=== PATIENT | female | born 1945 | race Caucasian/White ===

== ENCOUNTER 2016-12-23 12:31 | Inpatient (IN) | payer OTHER ==
[~2016-12-23] VITALS: Ht 157.5 cm; Wt 81.3 kg
[~2016-12-23 12:31] MED LIST: CLR10 PO; LISI10TA PO; RANI300T2 PO
[2016-12-23] MEDS ORDERED: SODIUM CHLORIDE 0.9% 1000ML 1,000 ML IV STA (12:44)
[2016-12-23] MEDS ORDERED: DiphenhydrAMINE HCL 50 MG/ML VIAL IV STA (12:44)
[2016-12-23] MEDS ORDERED: CARBAMIDE PEROXIDE 6.5% 15 ML BTL OT STA (12:44)
[2016-12-23] MEDS ORDERED: METOCLOPRAMIDE HCL INJ 5 MG/ML 2 ML VIAL IV STA (12:44)
--- NOTE | 2016-12-23 12:53 | EMERGENCY ROOM VISIT NOTE ---
History Report prepared by Meri: Norma Klein Under the Supervision of: Dr. Andrez Kimbrough M.D. First contact with patient: 12:41 Chief Complaint: DIZZY Stated Complaint: DIZZINESS, NAUSEA, NUMBNESS,LACK OF BALANCE History of Present Illness The patient is a 71 year old female who presents to the Emergency Room with complaints of dizziness that continued today. The patient states that she was in the ED yesterday for the same symptoms but then felt better. The patient had a normal CT scan and Chest X-Ray. The patient also had normal labs. She reports that she was given high blood pressure medication. She states that her blood pressure is worse today than it was yesterday. She reports that she is unable to keep her balance. The patient also reports having nausea, chills, and nasal congestion. The patient reports having diarrhea last night after having a bowl of soup, but states that it was not bloody or black. She denies having fevers and burning with urination. She states that she has a history of allergies. The patient reports that the last time she saw a doctor was when she shattered her wrist. The patient states that she has never had an MRI done before. Source of History: patient Onset: today Position: other (global) Quality: other (dizziness) Associated Symptoms: + nausea, + diarrhea, No fevers, No urinary symptoms ( denies burning with urination) Note: additional symptom: nasal congestion Review of Systems See HPI for pertinent positives and negatives. A total of ten systems were reviewed and were otherwise negative. Past Medical & Surgical Medical Problems: (1) Hypertension (2) Stroke Family History Cancer Hypertension Social History Smoking Status: Never Smoker Alcohol Use: none Drug Use: none Marital Status: single Housing Status: lives alone Occupation Status: retired Current/Historical Medications Scheduled Lisinopril (Prinivil), 10 MG PO DAILY Loratadine (Claritin), 10 MG PO DAILY Scheduled PRN Ranitidine Hcl (Zantac), 1 TAB PO HS PRN for Indigestion Allergies Coded Allergies: Dust (Unverified Allergy, Intermediate, ITCHY EYES,SNEEZING, 12/23/16) Ragweed (Unverified Allergy, Intermediate, ITCHY EYES, SNEEZING, 12/23/16) Physical Exam Vital Signs Date Time Temp Pulse Resp B/P (MAP) Pulse Ox O2 Delivery O2 Flow Rate FiO2 12/23/16 14:58 85 146/97 94 Room Air 12/23/16 13:17 81 12/23/16 12:34 37.0 107 20 93/69 96 Room Air Physical Exam GENERAL: Awake, alert, uncomfortable-appearing, in no acute distress HENT: Normocephalic, atraumatic. Oropharynx unremarkable. Dry cracked mucous membranes. Boggy nasal turbinates, b/l EAC with cerumen impaction. EYES: Normal conjunctiva. Sclera non-icteric. NECK: Supple. No nuchal rigidity. FROM. No JVD. RESPIRATORY: Clear to auscultation. CARDIAC: Regular rate, normal rhythm. Extremities warm and well perfused. Pulses equal. ABDOMEN: Obese abdomen. Soft, non-distended. No tenderness to palpation. No rebound or guarding. No masses. RECTAL: Deferred. MUSCULOSKELETAL: Chest examination reveals no tenderness. The back is symmetrical on inspection without obvious abnormality. There is no CVA tenderness to palpation. No joint edema. LOWER EXTREMITIES: Calves are equal size bilaterally and non-tender. No edema. No discoloration. NEURO: Normal sensorium. Slight bilateral nystagmus. Worsening dizziness with movement. Equivocal finger to nose with left upper extremity and alternating palms. Equivocal Romberg's sign. 5/5 strength and SILT x 4 ext. CII-XII grossly intact. SKIN: No rash or jaundice noted. Medical Decision & Procedures ER Provider Diagnostic Interpretation: Radiology results as stated below per my review and radiologist interpretation: MRI OF THE BRAIN WITHOUT IV CONTRAST CLINICAL HISTORY: Vertigo. COMPARISON STUDY: CT of the brain dated 12/22/2016. TECHNIQUE: MRI of the brain was performed utilizing various T1 and T2-weighted sequences in the axial, sagittal, and coronal planes. IV contrast was not administered for this examination. FINDINGS: Brain parenchyma: There is restricted diffusion identified throughout the right posterior cerebral artery territory consistent with acute to subacute infarct. A tiny lacunar infarct is seen in the right thalamus. There is no hemorrhage or midline shift. There our age-related involutional changes noting mild to moderate patchy subcortical and periventricular microangiopathic disease. A tiny focus of T2 shine through is seen within the left subcortical white matter on image #16. No extra-axial fluid collection is seen. The cerebellar tonsils are normal in configuration. Ventricles, sulci, and cisterns: Prominent secondary to involutional change. Pituitary and sella: Unremarkable. Intracranial vasculature: Normal flow voids are maintained at the skull base. Orbits: The bony orbits are grossly intact. Orbital contents are normal in appearance. Sinuses and mastoids: There is fluid identified in the right sphenoid sinus. Remaining paranasal sinuses are clear. The mastoid air cells are well pneumatized. Calvarium: Unremarkable. Cervical cord: Partially visualized cervical spinal cord is normal in morphology and signal intensity. Soft tissues: There is a 4 x 3 cm mass in the left parotid gland. IMPRESSION: 1. Findings are consistent with an acute to subacute right posterior cerebral artery territory infarct. 2. A small acute to subacute lacunar infarct is seen in the right thalamus. 3. No hemorrhage or midline shift is identified. 4. 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 Electronically signed by: Farshad Davis M.D. 12/23/2016 2:31 PM Dictated Date/Time: 12/23/2016 2:26 PM Laboratory Results 12/23/16 13:25 Red Blood Count 4.71, Mean Corpuscular Volume 85.8, Mean Corpuscular Hemoglobin 28.2, Mean Corpuscular Hemoglobin Concent 32.9, Mean Platelet Volume 9.6, Neutrophils (%) (Auto) 79.7, Lymphocytes (%) (Auto) 12.4, Monocytes (%) (Auto) 6.7, Eosinophils (%) (Auto) 0.5, Basophils (%) (Auto) 0.5, Neutrophils # (Auto) 6.94, Lymphocytes # (Auto) 1.08, Monocytes # (Auto) 0.58, Eosinophils # (Auto) 0.04, Basophils # (Auto) 0.04 12/23/16 13:25 Test 12/23/16 13:25 White Blood Count 8.70 K/uL (4.8-10.8) Red Blood Count 4.71 M/uL (4.2-5.4) Hemoglobin 13.3 g/dL (12.0-16.0) Hematocrit 40.4 % (37-47) Mean Corpuscular Volume 85.8 fL (80-100) Mean Corpuscular Hemoglobin 28.2 pg (25-34) Mean Corpuscular Hemoglobin Concent 32.9 g/dl (32-36) Platelet Count 325 K/uL (130-400) Mean Platelet Volume 9.6 fL (7.4-10.4) Neutrophils (%) (Auto) 79.7 % Lymphocytes (%) (Auto) 12.4 % Monocytes (%) (Auto) 6.7 % Eosinophils (%) (Auto) 0.5 % Basophils (%) (Auto) 0.5 % Neutrophils # (Auto) 6.94 K/uL (1.4-6.5) Lymphocytes # (Auto) 1.08 K/uL (1.2-3.4) Monocytes # (Auto) 0.58 K/uL (0.11-0.59) Eosinophils # (Auto) 0.04 K/uL (0-0.5) Basophils # (Auto) 0.04 K/uL (0-0.2) RDW Standard Deviation 46.2 fL (36.4-46.3) RDW Coefficient of Variation 14.7 % (11.5-14.5) Immature Granulocyte % (Auto) 0.2 % Immature Granulocyte # (Auto) 0.02 K/uL (0.00-0.02) Prothrombin Time 11.8 SECONDS (9.0-12.0) Prothromb Time International Ratio 1.1 (0.9-1.1) Anion Gap 10.0 mmol/L (3-11) Estimated GFR () 53.9 Estimated GFR (Non- 46.5 BUN/Creatinine Ratio 13.1 (10-20) Calcium Level 9.3 mg/dl (8.5-10.1) Magnesium Level 2.2 mg/dl (1.8-2.4) Total Bilirubin 0.6 mg/dl (0.2-1) Direct Bilirubin < 0.1 mg/dl (0-0.2) Aspartate Amino Transf (AST/SGOT) 9 U/L (15-37) Alanine Aminotransferase (ALT/SGPT) 18 U/L (12-78) Alkaline Phosphatase 130 U/L (45-117) Troponin I < 0.015 ng/ml (0-0.045) Total Protein 7.2 gm/dl (6.4-8.2) Albumin 3.4 gm/dl (3.4-5.0) Lipase 98 U/L (73-393) Laboratory results reviewed by me Medications Administered Medications (Trade) Dose Ordered Sig/Samantha Route Start Time Stop Time Status Last Admin Dose Admin Sodium Chloride 1,000 ml @ 999 mls/hr Q1H1M STAT IV 12/23/16 12:44 12/23/16 13:44 DC 12/23/16 12:44 999 MLS/HR Metoclopramide HCl (Reglan Inj) 10 mg NOW STAT IV 12/23/16 12:44 12/23/16 12:58 DC 12/23/16 13:29 10 MG Diphenhydramine HCl (Benadryl Inj) 25 mg NOW STAT IV 12/23/16 12:44 12/23/16 12:58 DC 12/23/16 13:29 25 MG ECG Indication: other (dizziness ) Rate (beats per minute): 84 Rhythm: normal sinus Findings: LAFB, no acute ischemic change Change: no significant change ED Course 1243: The patient was evaluated in room C7. A complete history and physical exam was performed. 1244: Ordered Carbamide Peroxide 2 drops OT, Benadryl Inj 25 mg IV, Reglan Inj 10 mg IV, and Sodium Chloride 1,000 ml @ 999 mls/hr IV. 1450: I checked on the patient. 1459: I discussed the patient with Dr. Patel - He will evaluate the patient for further treatment. 1505: Upon reexamination, the patient was resting. I discussed the test results and treatment plan with her. The patient will be evaluated for further management. Medical Decision I reviewed the patient's past medical history, medications, and the nursing notes as described above. Differentials include: dehydration, electrolyte abnormalities, TIA, stroke, and peripheral vertigo. The patient is a 71-year-old woman who presents emergency Department with persistent vertigo after being seen in the emergency department yesterday for similar sx and was treated with blood pressure control and felt improvement and had negative workup with negative CT head and labs per history of present illness. Denies any facial numbness today and feels as though previously it was from sleeping on her pillow. On arrival the patient appears uncomfortable but in no acute distress. She has slight bilateral nystagmus which is worsened with position. Equivocal finger-nose and alternating palms with left upper extremity, equivocal Romberg sign. B/l EAC with impacted cerumen and boggy nasal turbinates. Given repeat ED visit with persistent sx MRI ordered to jaden/o central cause. MRI was done and shows acute-subacute right cerebellar and right thalamic stroke. Given approximately 2 days of sx without any worsening, no indication for stroke activation. Labs otherwise unremarkable. EKG unchanged from prior. Trop negative. Case d/w Dr. Reyes, [facility] hospitalist, who will admit the patient for further management. Medication Reconcilliation Current Medication List: was personally reviewed by me Blood Pressure Screening Patient's blood pressure: Normal blood pressure Consults Time Called: 1430 Consulting Physician: Dr. Patel- [facility] Returned Call: [phone] I discussed the patient with Dr. Patel - He will evaluate the patient for further treatment. Impression Primary Impression: Cerebellar stroke Additional Impression: Thalamic infarction Scribe Attestation The scribe's documentation has been prepared under my direction and personally reviewed by me in its entirety. I confirm that the note above accurately reflects all work, treatment, procedures, and medical decision making performed by me. Departure Information Dispostion Being Evaluated By Hospitalist Referrals No Doctor, Assigned (PCP) Patient Instructions My [facility] Health Problem Qualifiers
[2016-12-23 14:10] LABS: BASO % 0.5 %; BASO ABS # 0.04 K/uL (0-0.2); COMPLETE YES; EOS % 0.5 %; HEMATOCRIT 40.4 % (37-47); IG% 0.2 %; LYMPH % 12.4 %; LYMPH ABS # 1.08 K/uL (1.2-3.4); MEAN CELL VOLUME 85.8 fL (80-100); MEAN CORPUSCULAR HEMOGLOBIN 28.2 pg (25-34); MEAN CORPUSCULAR HGB CONC 32.9 g/dl (32-36); MEAN PLATELET VOLUME 9.6 fL (7.4-10.4); MONO % 6.7 %; NEUT % 79.7 %; PLATELET COUNT 325 K/uL (130-400); RED BLOOD COUNT 4.71 M/uL (4.2-5.4)
[2016-12-23 14:16] LABS: ALT/SGPT 18 U/L (12-78); AST/SGOT 9 U/L (15-37); BLOOD UREA NITROGEN 16 mg/dl (7-18); BUN/CREATININE RATIO 13.1 (10-20); CALCIUM 9.3 mg/dl (8.5-10.1); CARBON DIOXIDE 25 mmol/L (21-32); CHLORIDE 106 mmol/L (98-107); CREATININE 1.19 mg/dl (0.60-1.20); GLUCOSE 193 mg/dl (70-99); MAGNESIUM 2.2 mg/dl (1.8-2.4); POTASSIUM 3.9 mmol/L (3.5-5.1); SODIUM 141 mmol/L (136-145)
[2016-12-23 14:18] LABS: ALKALINE PHOSPHATASE 130 U/L (45-117)
--- NOTE | 2016-12-23 14:32 | DIAGNOSTIC IMAGING REPORT ---
MRI OF THE BRAIN WITHOUT IV CONTRAST CLINICAL HISTORY: Vertigo. COMPARISON STUDY: CT of the brain dated 12/22/2016. TECHNIQUE: MRI of the brain was performed utilizing various T1 and T2-weighted sequences in the axial, sagittal, and coronal planes. IV contrast was not administered for this examination. FINDINGS: Brain parenchyma: There is restricted diffusion identified throughout the right posterior cerebral artery territory consistent with acute to subacute infarct. A tiny lacunar infarct is seen in the right thalamus. There is no hemorrhage or midline shift. There our age-related involutional changes noting mild to moderate patchy subcortical and periventricular microangiopathic disease. A tiny focus of T2 shine through is seen within the left subcortical white matter on image #16. No extra-axial fluid collection is seen. The cerebellar tonsils are normal in configuration. Ventricles, sulci, and cisterns: Prominent secondary to involutional change. Pituitary and sella: Unremarkable. Intracranial vasculature: Normal flow voids are maintained at the skull base. Orbits: The bony orbits are grossly intact. Orbital contents are normal in appearance. Sinuses and mastoids: There is fluid identified in the right sphenoid sinus. Remaining paranasal sinuses are clear. The mastoid air cells are well pneumatized. Calvarium: Unremarkable. Cervical cord: Partially visualized cervical spinal cord is normal in morphology and signal intensity. Soft tissues: There is a 4 x 3 cm mass in the left parotid gland. IMPRESSION: 1. Findings are consistent with an acute to subacute right posterior cerebral artery territory infarct. 2. A small acute to subacute lacunar infarct is seen in the right thalamus. 3. No hemorrhage or midline shift is identified. 4. 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 Electronically signed by: Farshad Davis M.D. 12/23/2016 2:31 PM Dictated Date/Time: 12/23/2016 2:26 PM
[2016-12-23] MEDS ORDERED: ACETAMINOPHEN 325 MG TAB PO PRN (15:15)
[2016-12-23] MEDS ORDERED: POLYETHYLENE (MIRALAX) 17 GM PACK PO PRN (15:15)
[2016-12-23] MEDS ORDERED: MAGNESIUM HYDROXIDE SUSP 30 ML UDC PO PRN (15:15)
[2016-12-23] MEDS ORDERED: ALUMINUM/MAGNESIUM/SIMETH (MAALOX MAX) 30 ML UDC PO PRN (15:15)
[2016-12-23] MEDS ORDERED: PHARMACIST DISCHARGE MED REC CONSULT PRN (15:15)
--- NOTE | 2016-12-23 16:05 | History and Physical ---
History & Physical Date of Service Dec 23, 2016. History & Physical admit #[id number]
[2016-12-23 16:24] VITALS: BP 148/87; PULSE 85; TEMP 36.8; O2SAT 94; BMI 32.2
[2016-12-23 16:27] VITALS: BP 148/87; PULSE 85; TEMP 36.8; O2SAT 94
--- NOTE | 2016-12-23 16:37 | DIAGNOSTIC IMAGING REPORT ---
ULTRASOUND OF THE CAROTID ARTERIES CLINICAL HISTORY: Right EMS DIRECTOR territory stroke. COMPARISON STUDY: No priors. TECHNIQUE: Real-time, grayscale, and color Doppler sonography of the carotid arteries is performed. Images are reviewed in the transverse and longitudinal planes. FINDINGS: Blood pressures were not assessed due to IV access. The carotid arteries are patent bilaterally and demonstrate antegrade flow. There is mild atherosclerotic plaque seen in the carotid bulbs bilaterally. Normal doppler arterial waveforms are seen throughout. Velocity measurements are listed below. Common carotid peak systolic velocity (cm/sec): RIGHT: 88 LEFT: 97 ICA proximal peak systolic velocity (cm/sec): RIGHT: 84 LEFT: 77 ICA mid peak systolic velocity (cm/sec): RIGHT: 56 LEFT: 62 ICA distal peak systolic velocity (cm/sec): RIGHT: 58 LEFT: 56 ICA/CC peak systolic ratio: RIGHT: 1.0 LEFT: 0.8 Antegrade flow was shown in the vertebral arteries. The external carotid arteries are patent. IMPRESSION: 1. There is no sonographic evidence of hemodynamically significant stenosis in the right or left carotid arterial system. 2. Antegrade flow is shown in the vertebral arteries. Electronically signed by: Farshad Davis M.D. 12/23/2016 4:36 PM Dictated Date/Time: 12/23/2016 4:34 PM
[2016-12-23] MEDS ORDERED: PATIENT'S HEIGHT AND/OR WEIGHT NEEDED SCH (16:45)
--- NOTE | 2016-12-23 16:46 | HISTORY & PHYSICAL EXAMINATION ---
DATE OF ADMISSION: 12/23/2016 CHIEF COMPLAINT: Dizziness. HISTORY OF PRESENT ILLNESS: Ms. Hernández is a 71-year-old female, who notes she was in her usual state of health until a couple of days ago. She started to have some dizziness. She describes it mostly as an unsteadiness like the world is moving, definitely not a lightheadedness. She had no other focal numbness or weakness, but it was worse. She was stumbling into gunn. Initially, she wrote it off as just a flare of vertigo that she notes she gets from time to time and has for years, but then whenever it was persistent, she came to the ER for further evaluation. Yesterday, did a CT head that was negative, found her to be hypertensive and gave her lisinopril and was set up with a PCP today with the symptoms being progressive and the CT negative yesterday. An MRI of brain was checked that did show an acute to subacute right posterior cerebral artery territory infarct and subacute lacunar infarct as well as incidentally, a 4-cm left parotid mass. She denies any other symptoms. REVIEW OF SYSTEMS: Otherwise negative, except for as above. PAST MEDICAL HISTORY: She denies any past medical history, although admittedly has not seen a doctor in an uncertain, but long period of time. PAST SURGICAL HISTORY: None. SOCIAL HISTORY: She is not a smoker, very rare drinker. 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 No other drugs. 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 ALLERGIES: NO KNOWN DRUG ALLERGIES. SHE DOES NOTE DUST AND RAGWEED ALLERGIES. MEDICATIONS: None. PHYSICAL EXAMINATION: VITAL SIGNS: Temperature 37, pulse 107, respiratory rate 20, blood pressure 93/69, and 96% on room air. GENERAL: She is awake, alert, oriented x3, pleasant, in no acute distress. HEENT: Normocephalic, atraumatic. Mucous membranes are dry. CARDIOVASCULAR: Regular without rubs, murmurs, or gallops. LUNGS: Clear to auscultation bilaterally. No rales, rhonchi, or wheezes. Good effort. ABDOMEN: Soft, nondistended, nontender. No masses or organomegaly. EXTREMITIES: Without cyanosis, clubbing, or edema. No calf tenderness. SKIN: Shows no rashes. No pallor or icterus. NEUROLOGIC: Shows cranial nerves II-XII to be grossly intact except she does maybe seem to have a bit of left lateral visual problems. It is hard to completely confirm and she write to the office not having her glasses. She is also relatively poor [id number] with her left hand to the far left. She is reasonably stooped [id number] with her right hand. Gait was not assessed at this time. SKIN: Shows no rashes, no pallor or icterus. MUSCULOSKELETAL: Exam yields no gross lesions. LABS AND DIAGNOSTICS: CBC shows a white count of 8.7, hemoglobin 13.3, platelets 325. Complete metabolic panel with sodium 141, potassium 3.9, chloride 106, CO2 of 25, BUN 16, creatinine 1.19, calcium 9.3, glucose 193, total bili 0.6 with a direct of 0.1. AST 9, ALT 18, alkaline phosphatase 130. Troponin of less than 0.015. Total protein 7.2, albumin 3.4, lipase 98. IMAGING STUDIES: MRI brain shows restricted diffusion identified throughout the right posterior cerebral artery territory consistent with an acute to subacute infarct, tiny lacunar infarct in the right thalamus. No hemorrhage or midline shift, age-related involutional changes noting [id number] patchy subcortical and periventricular microangiopathic disease, tiny focus of T2 shine through is seen within the left subcortical white matter on image #16. No extraaxial fluid collection. There is a 4.4 x 3 cm mass in the left parotid gland. ASSESSMENT AND PLAN: 1. Dizziness. This appears to be due to stroke. 2. Stroke. She is subacute and given her duration of symptoms, it sounds like she was probably well out of the window even yesterday. Whenever she saw the ER, it is uncertain exactly what her risk factors are given that she has not seen a doctor in quite a while. We will be following blood pressure, checking lipids and A1c, checking carotid Dopplers, following cardiac rhythm and checking an echocardiogram to rule out cardioembolic source. Will be initiated on an aspirin 81 mg daily, and then further medications. Based on further findings, we will ask Neurology to evaluate as well. PT/OT eval and treat and will be working on setting her up with the PCP. 3. Parotid gland mass, outpatient workup. 4. Deep venous thrombosis prophylaxis, Lovenox.
[2016-12-23 17:10] LABS: INR 1.1 (0.9-1.1); PROTHROMBIN TIME (PATIENT) 11.8 SECONDS (9.0-12.0)
[2016-12-23 19:29] VITALS: BP 137/79; PULSE 78; TEMP 37.7; O2SAT 91
[2016-12-23 20:00] VITALS: O2SAT 91
[2016-12-23] MEDS: ONDANSETRON INJ 2 MG/ML 2 ML VIAL IV PRN (22:08)
[2016-12-23] MEDS: ENOXAPARIN 40 MG/0.4 ML SYR SC SCH (22:08)
[2016-12-23 23:02] VITALS: BP 121/82; PULSE 78; TEMP 37.1; O2SAT 90
[2016-12-24] VITALS (7 sets, daily range): BP systolic 118–148; BP diastolic 78–93; PULSE 85–98; TEMP 36.7–37.2; O2SAT 89–98
--- NOTE | 2016-12-24 08:00 | Family Medicine Progress Note ---
Progress Note Date of Service Dec 24, 2016. Subjective Pt evaluation today including: conversation w/ patient, physical exam, chart review, lab review, conversation w/ [id number] consultant, review of inpatient medication list PO Intake: good Voiding: no voiding problems Patient is still feeling unsteady on her feet Denies any symptoms at rest Constitutional: No fever, No chills, No sweats Eyes: No eye pain, No diplopia ENT: No hearing loss, No trouble swallowing Respiratory: No cough, No wheezing, No shortness of breath Cardiovascular: No chest pain, No palpitations Abdomen: No pain, No nausea, No vomiting, No diarrhea Neurologic: + balance problems, No memory loss, No paralysis, No weakness, No numbness/tingling, No vertigo Medications Current Inpatient Medications Medications (Trade) Dose Ordered Sig/Samantha Route Start Time Stop Time Status Last Admin Dose Admin Enoxaparin Sodium (Lovenox Inj) 40 mg Q24H SC 12/23/16 21:00 01/22/17 20:59 12/23/16 22:08 40 MG Acetaminophen (Tylenol Tab) 650 mg Q4H PRN PO 12/23/16 15:15 01/22/17 15:14 Al Hydrox/Mg Hydrox/Simethicone (Maalox Max Susp) 15 ml Q4H PRN PO 12/23/16 15:15 01/22/17 15:14 Magnesium Hydroxide (Milk Of Magnesia Susp) 30 ml Q12H PRN PO 12/23/16 15:15 01/22/17 15:14 Ondansetron HCl (Zofran Inj) 4 mg Q6H PRN IV 12/23/16 15:15 01/22/17 15:14 12/24/16 17:42 4 MG Polyethylene (Miralax Powder Packet) 17 gm DAILY PRN PO 12/23/16 15:15 01/22/17 15:14 Aspirin (Ecotrin Tab) 81 mg QAM PO 12/24/16 09:00 01/23/17 08:59 12/24/16 08:23 81 MG Miscellaneous Information (Pharmacist Discharge Med Rec Consult) 1 ea UD PRN N/A 12/23/16 15:15 01/22/17 15:14 Metformin HCl (Glucophage Tab) 500 mg BIDM PO 12/24/16 16:45 01/23/17 16:44 12/24/16 17:42 500 MG Atorvastatin Calcium (Lipitor Tab) 80 mg QAM PO 12/25/16 09:00 01/24/17 08:59 Objective Vital Signs Date Time Temp Pulse Resp B/P (MAP) Pulse Ox O2 Delivery O2 Flow Rate FiO2 12/24/16 16:11 Room Air 12/24/16 15:54 37.2 97 22 140/93 (109) 94 Room Air 12/24/16 12:00 Room Air 12/24/16 11:06 36.7 96 20 137/92 (107) 93 Room Air 12/24/16 10:38 85 92 12/24/16 08:17 36.7 96 20 146/92 (110) 89 Room Air 12/24/16 08:00 Room Air 12/24/16 04:00 Room Air 12/24/16 03:27 37.1 91 20 128/78 (95) 98 Room Air 12/23/16 23:59 Room Air 12/23/16 23:02 37.1 78 20 121/82 (95) 90 Room Air 12/23/16 20:00 91 Room Air 12/23/16 19:29 37.7 78 20 137/79 (98) 91 Room Air Physical Exam General Appearance: WD/WN, no apparent distress ENT: hearing grossly normal, pharynx normal, + pertinent finding (large parotid swelling on left side, non tender, non fluctuant) Neck: supple, no adenopathy, no JVD, no carotid bruits Respiratory/Chest: lungs clear, no respiratory distress, no accessory muscle use Cardiovascular: regular rate, rhythm, no JVD, no murmur Abdomen: normal bowel sounds, non tender, soft Extremities: no pedal edema, no calf tenderness, normal capillary refill Neurologic/Psychiatric: no motor/sensory deficits, normal mood/affect, oriented x 3, + pertinent finding (unable to full adduct left eye, able to do finger to nose test, PERRLA) Skin: normal color, warm/dry, no rash Laboratory Results Results Past 24 Hours Test 12/24/16 06:57 Range/Units Triglycerides Level 205 0-150 mg/dl Cholesterol Level 234 0-200 mg/dl HDL Cholesterol 49 mg/dl LDL Cholesterol, Calculated 144 mg/dl VLDL Cholesterol, Calculated 41 mg/dl Cholesterol/HDL Ratio 4.8 Assessment and Plan 71 year old female presented with worsening dizziness and unsteadiness on her feet and was found to have a posterior cerebral infarct Stroke MRI showed posterior cerebral infarct neuro consulted aspirin started zofran prn for nausea echo showed grade 1 diastolic dysfunction and mild asymmetric LVH carotid dopplers ordered pt/ot ordered - will likely need rehab primary prevention - hyperlipidemia (will treat with statin) and elevated HbA1c (metformin) New Onset Diabetes Mellitus start metformin 500mg bid HbA1c 7.9 Hyperlipidemia ldl 144 and tg 205 start high dose statin 80mg monitor for drug side effects Parotid mass 4cm on MRI imaging follow up as outpatient DVT prophylaxis lovenox Dispo pt/ot will need rehab with [facility] stay due to: ambulation difficulties Discharge planning: rehab hospital History Resident Physician Supervision Note: I was present with Dr. Betancourt during the history and exam. I discussed the case with the resident and agree with the findings and plan as documented in the note. Any exceptions or clarifications are listed here. 71 y/o female h/o parotid mass presents w/ new onset dizziness in the setting of CVA. At present, dizziness is persistent but mildly improved from previous, mild nausea which is presently well controlled. Difficulty with standing 2/2 balance changes. On examination, rightward gaze nystagmus w/ exacerbation of sx and +ve left dysdiadochokinesia. CVA w/ dizziness - neurology consulted. PT/OT. ASA New diagnosis of DMII - start metformin New diagnosis of HLD - initiate statin therapy Parotid gland mass - concur with further work up on outpatient basis
[2016-12-24 08:08] LABS: CHOLESTEROL/HDL RATIO 4.8
[2016-12-24] MEDS ORDERED: PERFLUTREN LIPID MICROSPHERE (DEFINITY) IV ONE (08:21)
[2016-12-24] MEDS: ASPIRIN 81 MG ECTAB PO SCH (08:23)
[2016-12-24 08:47] LABS: ESTIMATED AVERAGE GLUCOSE 180 mg/dl; HA1C FLAG Normal (Normal)
--- NOTE | 2016-12-24 09:07 | Neurology Consultation ---
Neurology Consultation Date of Consultation: Dec 24, 2016. Attending Physician: Miguel Patel D.O. Primary Care Physician: No Doctor, Assigned Reason for Consultation: Stroke History of Present Illness Source: patient, hospital records The patient is a 71-year-old female who complains of dizziness and problems with balance associated nausea that began several days ago. She denies vertigo or a sensation of movement. She denies headache as well. He reports that her symptoms are stable to improved. She had initially presented to the emergency department on December 22 for evaluation of her symptoms. A CT of the head at that time was unremarkable. She was noted to be significantly hypertensive. No specific neurological deficits were found at that time. She was given a prescription for lisinopril and discharged in stable condition. The patient presented to the emergency department the following day complaining of persistent symptoms. A brain MRI was completed which revealed an acute right posterior cerebral artery infarct affecting the medial right occipital lobe as well as a small area within the right thalamus. I reviewed both the images and radiologist's interpretation of this test. Carotid duplex is negative for hemodynamically significant stenosis. Electrocardiogram reveals normal sinus rhythm, 84 bpm. Aspirin has been started. She has been admitted for further evaluation and management of acute stroke. In spite of the presence of an acute right occipital lobe infarct, the patient does not complain of any visual field loss. She also denies experiencing any hemisensory loss. She denies headache or weakness as well. Past Medical/Surgical History Medical Problems: (1) Cerebellar stroke Status: Acute (2) Hyperglycemia Status: Acute (3) Hypertension Status: Acute (4) Thalamic infarction Status: Acute Family History Family history is notable for hypertension Social History Drug Use: none Marital Status: single Housing Status: lives alone Occupation Status: retired Allergies Coded Allergies: Dust (Unverified Allergy, Intermediate, ITCHY EYES,SNEEZING, 12/23/16) Ragweed (Unverified Allergy, Intermediate, ITCHY EYES, SNEEZING, 12/23/16) Current Inpatient Medications Current Inpatient Medications Medications (Trade) Dose Ordered Sig/Samantha Route Start Time Stop Time Status Last Admin Dose Admin Enoxaparin Sodium (Lovenox Inj) 40 mg Q24H SC 12/23/16 21:00 01/22/17 20:59 12/23/16 22:08 40 MG Acetaminophen (Tylenol Tab) 650 mg Q4H PRN PO 12/23/16 15:15 01/22/17 15:14 Al Hydrox/Mg Hydrox/Simethicone (Maalox Max Susp) 15 ml Q4H PRN PO 12/23/16 15:15 01/22/17 15:14 Magnesium Hydroxide (Milk Of Magnesia Susp) 30 ml Q12H PRN PO 12/23/16 15:15 01/22/17 15:14 Ondansetron HCl (Zofran Inj) 4 mg Q6H PRN IV 12/23/16 15:15 01/22/17 15:14 12/23/16 22:08 4 MG Polyethylene (Miralax Powder Packet) 17 gm DAILY PRN PO 12/23/16 15:15 01/22/17 15:14 Aspirin (Ecotrin Tab) 81 mg QAM PO 12/24/16 09:00 01/23/17 08:59 12/24/16 08:23 81 MG Miscellaneous Information (Pharmacist Discharge Med Rec Consult) 1 ea UD PRN N/A 12/23/16 15:15 01/22/17 15:14 Review of Systems Constitutional: No headache fever or chills Eyes: No vision loss or diplopia ENT: No vertigo. Patient does complain of chronic hearing loss for the right ear. Cardiovascular: No chest pain or palpitations Respiratory: No coughing wheezing or shortness of breath Neurological: As per history of present illness A full 10 point review of systems was obtained from this patient with pertinent positives and negatives described in the history of present illness and otherwise listed above. All remaining systems reviewed and are negative. Physical Exam Vital Signs (Past 24 Hrs): Date Time Temp Pulse Resp B/P (MAP) Pulse Ox O2 Delivery O2 Flow Rate FiO2 12/24/16 08:17 36.7 96 20 146/92 (110) 89 Room Air 12/24/16 04:00 Room Air 12/24/16 03:27 37.1 91 20 128/78 (95) 98 Room Air 12/23/16 23:59 Room Air 12/23/16 23:02 37.1 78 20 121/82 (95) 90 Room Air 12/23/16 20:00 91 Room Air 12/23/16 19:29 37.7 78 20 137/79 (98) 91 Room Air 12/23/16 16:27 36.8 85 22 148/87 (107) 94 Room Air 12/23/16 16:24 36.8 85 20 148/87 94 Room Air 12/23/16 16:04 85 147/99 95 12/23/16 14:58 85 146/97 94 Room Air 12/23/16 13:17 81 12/23/16 12:34 37.0 107 20 93/69 96 Room Air The patient is a well-developed elderly female. She is lying in bed, no acute distress. Patient is alert and oriented to person place and time. Recent and remote memory intact. Attention and concentration normal. Patient is able to name objects and repeat phrases without difficulty. She exhibits an age- appropriate fund of knowledge and normal vocabulary. Patient exhibits a left homonymous hemianopsia with confrontation testing. Visual acuity normal. Pupils equal round reactive to light and accommodation. Eye movements normal. There is no nystagmus. Facial sensation intact bilaterally. There is no facial droop or asymmetry. There is diminished hearing to finger rub on the right. Finger rub for the left intact. Palate elevates to midline. Shoulder shrug strength intact bilaterally. Tongue protrudes to midline. Sensation intact to light touch, temperature, vibration, and proprioception for all 4 limbs. Deep tendon reflexes are 2+ for the right arm and leg, 3+ for the left arm and leg. Left plantar response upgoing. Right plantar response equivocal. There is slight dysmetria with finger to nose on the left. Finger to nose with the right normal. [id number] intact bilaterally. Ophthalmoscopic examination reveals normal-appearing optic nerves and posterior segments. No papilledema or hemorrhages. Carotid pulses normal bilaterally, no bruits to auscultation. Gait and station could not be tested due to safety concerns. Muscle strength normal for the arms and legs bilaterally. Muscle tone normal throughout. No atrophy. No abnormal movements observed. Laboratory Results Past 24 Hours: 12/23/16 13:25 Red Blood Count 4.71, Mean Corpuscular Volume 85.8, Mean Corpuscular Hemoglobin 28.2, Mean Corpuscular Hemoglobin Concent 32.9, Mean Platelet Volume 9.6, Neutrophils (%) (Auto) 79.7, Lymphocytes (%) (Auto) 12.4, Monocytes (%) (Auto) 6.7, Eosinophils (%) (Auto) 0.5, Basophils (%) (Auto) 0.5, Neutrophils # (Auto) 6.94, Lymphocytes # (Auto) 1.08, Monocytes # (Auto) 0.58, Eosinophils # (Auto) 0.04, Basophils # (Auto) 0.04 12/23/16 13:25 Test 12/23/16 13:25 12/24/16 06:57 White Blood Count 8.70 K/uL (4.8-10.8) Red Blood Count 4.71 M/uL (4.2-5.4) Hemoglobin 13.3 g/dL (12.0-16.0) Hematocrit 40.4 % (37-47) Mean Corpuscular Volume 85.8 fL (80-100) Mean Corpuscular Hemoglobin 28.2 pg (25-34) Mean Corpuscular Hemoglobin Concent 32.9 g/dl (32-36) Platelet Count 325 K/uL (130-400) Mean Platelet Volume 9.6 fL (7.4-10.4) Neutrophils (%) (Auto) 79.7 % Lymphocytes (%) (Auto) 12.4 % Monocytes (%) (Auto) 6.7 % Eosinophils (%) (Auto) 0.5 % Basophils (%) (Auto) 0.5 % Neutrophils # (Auto) 6.94 K/uL (1.4-6.5) Lymphocytes # (Auto) 1.08 K/uL (1.2-3.4) Monocytes # (Auto) 0.58 K/uL (0.11-0.59) Eosinophils # (Auto) 0.04 K/uL (0-0.5) Basophils # (Auto) 0.04 K/uL (0-0.2) RDW Standard Deviation 46.2 fL (36.4-46.3) RDW Coefficient of Variation 14.7 % (11.5-14.5) Immature Granulocyte % (Auto) 0.2 % Immature Granulocyte # (Auto) 0.02 K/uL (0.00-0.02) Prothrombin Time 11.8 SECONDS (9.0-12.0) Prothromb Time International Ratio 1.1 (0.9-1.1) Anion Gap 10.0 mmol/L (3-11) Estimated GFR () 53.9 Estimated GFR (Non- 46.5 BUN/Creatinine Ratio 13.1 (10-20) Estimated Average Glucose 180 mg/dl Hemoglobin A1c 7.9 % (4.5-5.6) Calcium Level 9.3 mg/dl (8.5-10.1) Magnesium Level 2.2 mg/dl (1.8-2.4) Total Bilirubin 0.6 mg/dl (0.2-1) Direct Bilirubin < 0.1 mg/dl (0-0.2) Aspartate Amino Transf (AST/SGOT) 9 U/L (15-37) Alanine Aminotransferase (ALT/SGPT) 18 U/L (12-78) Alkaline Phosphatase 130 U/L (45-117) Troponin I < 0.015 ng/ml (0-0.045) Total Protein 7.2 gm/dl (6.4-8.2) Albumin 3.4 gm/dl (3.4-5.0) Lipase 98 U/L (73-393) Triglycerides Level 205 mg/dl (0-150) Cholesterol Level 234 mg/dl (0-200) HDL Cholesterol 49 mg/dl LDL Cholesterol, Calculated 144 mg/dl VLDL Cholesterol, Calculated 41 mg/dl Cholesterol/HDL Ratio 4.8 Impression Subacute right posterior cerebral artery stroke affecting the medial aspect of the right occipital lobe as well as a small area within the right thalamus. This patient does have a left homonymous hemianopsia with confrontation testing of her visual andrade. She has mild dysmetria on the left but does not have a gross hemiparesis and does not have a left hemisensory neglect. She does not seem to be aware of her left visual field cut, however. Stroke risk factors in this patient include age, hypertension, and hyperlipidemia. Plan Agree with antiplatelet therapy for stroke risk reduction in this patient. Aspirin 81 mg per day is appropriate. If, however, a cardioembolic source is identified such as atrial fibrillation, then anticoagulation would be preferred. Continue management of hypertension and hyperlipidemia as medically appropriate. Consultation with PT/OT This patient will need to refrain from driving a motor vehicle as she appears to have a significant left homonymous hemianopsia. She will need to have her visual andrade formally evaluated as an outpatient with ophthalmology in this context. Follow up with results of transthoracic echocardiogram when available. Please contact me if I may be of further assistance.
--- NOTE | 2016-12-24 09:30 | ECHOCARDIOGRAM REPORT ---
*NOTICE TO RECEIVING CONSTITUTION PARTY AGENCY This information is strictly Confidential and protected under [place] law. [place] law prohibits you from making any further disclosure of this information unless further disclosure is expressly permitted by the written consent of the person to whom it pertains or is authorized by law. A general authorization for the release of medical or other information is not sufficient for this purpose. Hospital accepts no responsibility if the information is made available to any other person, INCLUDING THE PATIENT. Interpretation Summary * Name: VENKAT CANO Study Date: 12/24/2016 06:56 AM BP: 128/78 mmHg * Patient Location: C.2T\S\S240\S\1 HR: 91 * : 1945 (M/d/yyy) Gender: Female Height: 62 in * Age: 71 yrs Ethnicity: CA Weight: 176 lb * Ordering Physician: Miguel Patel * Referring Physician: Self, Referred * Performed By: Dora Read RDCS * * Reason For Study: Stroke * BSA: 1.8 m2 * No cardiac source of emboli noted. * -- Conclusions -- * There is mild asymmetric left ventricular hypertrophy. * Left ventricular systolic function is normal. * Grade I diastolic dysfunction, (abnormal relaxation pattern). * Injection of contrast documented no interatrial shunt. Procedure Details * A complete two-dimensional transthoracic echocardiogram was performed (2D, M-mode, Doppler and color flow Doppler). * A saline contrast injection was performed to assess for cardiac shunting. * The injection was performed through an intravenous line in the right arm. * A total of 20 cc of agitated saline was given. * The attending nurse who injected the saline contrast was Tonya Powell RN. * A contrast injection of Definity was performed to improve assessment of LV function. * Contrast was injected into an intravenous site in the right arm. * One vial of Definity ultrasound contrast was diluted in normal saline to a total volume of 10 ml. A total of '2' ml of solution was administered during imaging. * Lot # [id number] of Definity utilized for procedure. * Expiration date Feb 04. * The attending nurse who injected the contrast agent was Tonya Powell RN. Left Ventricle * The left ventricle is not well visualized. * There is mild asymmetric left ventricular hypertrophy. * Ejection Fraction = 60-65%. * Left ventricular systolic function is normal. * Grade I diastolic dysfunction, (abnormal relaxation pattern). * The left ventricular wall motion is normal. Right Ventricle * The right ventricle is grossly normal size. * The right ventricular systolic function is normal as assessed by tricuspid annular plane systolic excursion (TAPSE) (normal >1.5 cm). Atria * The left atrial size is normal. * Right atrium not well visualized. * Injection of contrast documented no interatrial shunt. Mitral Valve * The mitral valve is grossly normal. * There is no mitral regurgitation noted. Tricuspid Valve * The tricuspid valve is not well visualized. * There is trace tricuspid regurgitation. * Right ventricular systolic pressure is normal. Aortic Valve * The aortic valve is normal in structure and function. * No hemodynamically significant valvular aortic stenosis. * There is no significant aortic regurgitation. Great Vessels * The aortic root is normal size. Pericardium/Pleural * There is no pericardial effusion. MMode 2D Measurements and Calculations IVSd 1.5 cm LVIDd 3.1 cm LVIDs 1.9 cm LVPWd 1.1 cm IVS/LVPW 1.4 FS 39.0 % EDV(Teich) 38.3 ml ESV(Teich) 11.1 ml EF(Teich) 70.9 % EDV(cubed) 30.2 ml ESV(cubed) 6.8 ml EF(cubed) 77.3 % LV mass(C)d 135.8 grams LV mass(C)dI 75.0 grams/m\S\2 SV(Teich) 27.2 ml SI(Teich) 15.0 ml/m\S\2 SV(cubed) 23.3 ml SI(cubed) 12.9 ml/m\S\2 Ao root diam 2.5 cm Ao root area 5.0 cm\S\2 ACS 1.7 cm LA dimension 2.0 cm asc Aorta Diam 3.3 cm LA/Ao 0.81 LVOT diam 2.0 cm LVOT area 3.1 cm\S\2 LVAd ap4 21.0 cm\S\2 LVLd ap4 6.6 cm EDV(MOD-sp4) 53.4 ml EDV(sp4-el) 56.3 ml LVAs ap4 10.6 cm\S\2 LVLs ap4 6.1 cm ESV(MOD-sp4) 15.7 ml ESV(sp4-el) 15.9 ml EF(MOD-sp4) 70.6 % EF(sp4-el) 71.9 % LVAd ap2 21.4 cm\S\2 LVLd ap2 6.7 cm EDV(MOD-sp2) 56.5 ml EDV(sp2-el) 57.9 ml LVAs ap2 9.9 cm\S\2 LVLs ap2 4.9 cm ESV(MOD-sp2) 16.6 ml ESV(sp2-el) 16.9 ml EF(MOD-sp2) 70.6 % EF(sp2-el) 70.8 % LVLd %diff 0.96 % EDV(MOD-bp) 54.8 ml LVLs %diff -24.07 % ESV(MOD-bp) 17.8 ml EF(MOD-bp) 67.5 % SV(MOD-sp4) 37.7 ml SI(MOD-sp4) 20.8 ml/m\S\2 SV(MOD-sp2) 39.9 ml SI(MOD-sp2) 22.0 ml/m\S\2 SV(MOD-bp) 37.0 ml SI(MOD-bp) 20.4 ml/m\S\2 SV(sp4-el) 40.5 ml SI(sp4-el) 22.4 ml/m\S\2 SV(sp2-el) 41.0 ml SI(sp2-el) 22.7 ml/m\S\2 Doppler Measurements and Calculations MV E max viky 61.3 cm/sec MV A max viky 100.3 cm/sec MV E/A 0.61 MV dec time 0.30 sec Ao V2 max 110.3 cm/sec Ao max PG 4.9 mmHg Ao max PG (full) 2.6 mmHg RANI(V,A) 2.1 cm\S\2 RANI(V,D) 2.1 cm\S\2 LV V1 max PG 2.3 mmHg LV V1 max 75.0 cm/sec PA V2 max 120.8 cm/sec PA max PG 5.8 mmHg PA acc slope 885.9 cm/sec\S\2 PA acc time 0.09 sec TR max viky 118.1 cm/sec PA pr(Accel) 39.4 mmHg
--- NOTE | 2016-12-24 10:07 | Medical Student: [facility] ---
Consultation Date of Consultation: Dec 24, 2016. Attending Physician: Dr. Tam Hill Reason for Consultation: Stroke History of Present Illness pt is a 71 yo R-handed F with CC of dizziness. She was in her usual state of health until a few days ago when she started feeling dizzy and felt like she was unable to stand. Pt does have a several-year hx of vertigo but reports that she usually felt like the world around her is spinning with her vertigo, and she did not have this feeling with this recent episode of dizziness. Pt reports otherwise being in good health but has not seen a doctor for a long time. This episode of dizziness also lasted longer than her usual vertigo episodes. Pt denies falling or LOC. Pt reports overall that things have been improving. She went to the ED one day prior to this admission with the same complaints and was found to be hypertensive, CT was negative, and pt and was treated with lisinopril and discharged when stable. An MRI was done during this visit and showed right posterior cerebral artery infarct which affected the medial right occipital lobe and the right thalamus. EKG shows normal sinus rhythm and carotid duplex does not show any hemodynamically significant stenosis. She denies any headache, vision changes, visual field loss, changes in hearing, ( reports chronically impaired hearing of the R ear), or sensory changes. Past Medical/Surgical History Medical History: Pt denies any past medical hx except for occasional vertigo. She was found to be hypertensive during her previous ED visit which occurred one day prior to this hospitalization. Surgical History: None Family History Mother had HTN and in her 90s Father had no known medical issues and in his 90s Social History Smoking Status: Never Smoker History of Alcohol Use: Yes (WINE/BEER ON OCCASION) Drug Use: none Marital Status: single Occupation Status: retired Review of Systems Constitutional: No fever, No chills Eyes: No worsening of vision, No eye pain ENT: + hearing loss (chronic hearing impairment of the R ear) Respiratory: No cough, No sputum Cardiac: No chest pain, No orthopnea Abdomen: No pain, No nausea, No vomiting Musculoskeletal: No joint pain, No muscle pain Female : No dysuria, No urinary frequency Neurologic: No memory loss Endo: No excessive thirst, No excessive urination Skin: No rash, No itch Allergies Coded Allergies: Dust (Unverified Allergy, Intermediate, ITCHY EYES,SNEEZING, 12/23/16) Ragweed (Unverified Allergy, Intermediate, ITCHY EYES, SNEEZING, 12/23/16) Medications Current Inpatient Medications Medications (Trade) Dose Ordered Sig/Samantha Route Start Time Stop Time Status Last Admin Dose Admin Enoxaparin Sodium (Lovenox Inj) 40 mg Q24H SC 12/23/16 21:00 01/22/17 20:59 12/23/16 22:08 40 MG Acetaminophen (Tylenol Tab) 650 mg Q4H PRN PO 12/23/16 15:15 01/22/17 15:14 Al Hydrox/Mg Hydrox/Simethicone (Maalox Max Susp) 15 ml Q4H PRN PO 12/23/16 15:15 01/22/17 15:14 Magnesium Hydroxide (Milk Of Magnesia Susp) 30 ml Q12H PRN PO 12/23/16 15:15 01/22/17 15:14 Ondansetron HCl (Zofran Inj) 4 mg Q6H PRN IV 12/23/16 15:15 01/22/17 15:14 12/23/16 22:08 4 MG Polyethylene (Miralax Powder Packet) 17 gm DAILY PRN PO 12/23/16 15:15 01/22/17 15:14 Aspirin (Ecotrin Tab) 81 mg QAM PO 12/24/16 09:00 01/23/17 08:59 12/24/16 08:23 81 MG Miscellaneous Information (Pharmacist Discharge Med Rec Consult) 1 ea UD PRN N/A 12/23/16 15:15 01/22/17 15:14 Physical Exam Date Time Temp Pulse Resp B/P (MAP) Pulse Ox O2 Delivery O2 Flow Rate FiO2 12/24/16 08:17 36.7 96 20 146/92 (110) 89 Room Air 12/24/16 04:00 Room Air 12/24/16 03:27 37.1 91 20 128/78 (95) 98 Room Air 12/23/16 23:59 Room Air 12/23/16 23:02 37.1 78 20 121/82 (95) 90 Room Air 12/23/16 20:00 91 Room Air 12/23/16 19:29 37.7 78 20 137/79 (98) 91 Room Air 12/23/16 16:27 36.8 85 22 148/87 (107) 94 Room Air 12/23/16 16:24 36.8 85 20 148/87 94 Room Air 12/23/16 16:04 85 147/99 95 12/23/16 14:58 85 146/97 94 Room Air 12/23/16 13:17 81 12/23/16 12:34 37.0 107 20 93/69 96 Room Air General Appearance: WD/WN Eyes: bilateral eyes normal inspection, bilateral eyes PERRL, bilateral eyes EOMI, bilateral eyes vision changes (left visual field defect) ENT: + pertinent finding (hearing impaired in R ear, pt reports that this is a chronic problem) Neck: supple, no adenopathy, no carotid bruits Respiratory: chest non-tender, lungs clear, normal breath sounds Cardiovascular: regular rate, rhythm, no edema, no JVD Abdomen: normal bowel sounds, non tender, soft Musculoskeletal: abnormal strength Mental Status (MMSE) 28/30 Vision - No diplopia/vision changes with EOM, EOM intact, L homonymous hemianopsia CN I - did not test II - visual acuity intact, pupillary constriction intact III, IV, - EOM intact V - facial sensation intact in V1, V2, and V3 distribution VII - eye closure intact bilaterally, muscles of facial expression intact VIII - hearing impaired in R ear, intact in L ear IX, X - uvula midline, palate elevation intact XI - shoulder shrug and head turning intact and equal in strength bilaterally XII - tongue movement intact Motor Strength - 5/5 for bilat upper extremity and lower extremity Sensory - Fine touch grossly intact in bilat upper extremity and lower extremity - Vibration sense intact in bilat upper extremity and lower extremity - Temperature sense in tact in bilat upper extremity and lower extremity Reflexes - +2 in right bicep, brachioradialis, and patellar. R plantar response equivocal - +3 in left bicep, brachioradialis, and patellar. L plantar response upgoing Cerebellum - L sided dysmetria on [id number] - [id number] intact bilaterally Laboratory Results Last 24 Hours Test 12/23/16 13:25 12/24/16 06:57 White Blood Count 8.70 K/uL Red Blood Count 4.71 M/uL Hemoglobin 13.3 g/dL Hematocrit 40.4 % Mean Corpuscular Volume 85.8 fL Mean Corpuscular Hemoglobin 28.2 pg Mean Corpuscular Hemoglobin Concent 32.9 g/dl Platelet Count 325 K/uL Mean Platelet Volume 9.6 fL Neutrophils (%) (Auto) 79.7 % Lymphocytes (%) (Auto) 12.4 % Monocytes (%) (Auto) 6.7 % Eosinophils (%) (Auto) 0.5 % Basophils (%) (Auto) 0.5 % Neutrophils # (Auto) 6.94 K/uL Lymphocytes # (Auto) 1.08 K/uL Monocytes # (Auto) 0.58 K/uL Eosinophils # (Auto) 0.04 K/uL Basophils # (Auto) 0.04 K/uL RDW Standard Deviation 46.2 fL RDW Coefficient of Variation 14.7 % Immature Granulocyte % (Auto) 0.2 % Immature Granulocyte # (Auto) 0.02 K/uL Prothrombin Time 11.8 SECONDS Prothromb Time International Ratio 1.1 Sodium Level 141 mmol/L Potassium Level 3.9 mmol/L Chloride Level 106 mmol/L Carbon Dioxide Level 25 mmol/L Anion Gap 10.0 mmol/L Blood Urea Nitrogen 16 mg/dl Creatinine 1.19 mg/dl Estimated GFR () 53.9 Estimated GFR (Non- 46.5 BUN/Creatinine Ratio 13.1 Random Glucose 193 mg/dl Estimated Average Glucose 180 mg/dl Hemoglobin A1c 7.9 % Calcium Level 9.3 mg/dl Magnesium Level 2.2 mg/dl Total Bilirubin 0.6 mg/dl Direct Bilirubin < 0.1 mg/dl Aspartate Amino Transf (AST/SGOT) 9 U/L Alanine Aminotransferase (ALT/SGPT) 18 U/L Alkaline Phosphatase 130 U/L Troponin I < 0.015 ng/ml Total Protein 7.2 gm/dl Albumin 3.4 gm/dl Lipase 98 U/L Triglycerides Level 205 mg/dl Cholesterol Level 234 mg/dl HDL Cholesterol 49 mg/dl LDL Cholesterol, Calculated 144 mg/dl VLDL Cholesterol, Calculated 41 mg/dl Cholesterol/HDL Ratio 4.8 Assessment & Plan This is a 71 yo R-handed F who presents with dizziness. MRI result significant for REJECT OPENER distribution infarct of the right occipital lobe and right thalamus. No known medical hx except for occasional vertigo the past several years and hypertension found during her ER visit the day prior to this hospitalization where she presented with similar symptoms of dizziness. PE significant for left homonymous hemianopia, increased DTR in the left upper and lower extremity and upgoing left plantar response. DDx: stroke (most likely given MRI findings and visual field defect consistent with right occipital lobe infarct), TIA (not likely given persistence of symptoms beyond 24 hrs), BPPV (not likely due to positive MRI findings, pt also denies symptom being triggered by position changes) Plan: ASA 81mg, assess for risk factors (A1c, lipid), echo to check for possible cardiac origin of stroke, PT/OT, medical management of HTN and hyperlipidemia, obtain outpt ophthal. appt to assess visual impairment, refrain from driving
[2016-12-24] MEDS: ONDANSETRON INJ 2 MG/ML 2 ML VIAL IV PRN (17:42)
[2016-12-24] MEDS: METFORMIN HCL 500 MG TAB PO SCH (17:42)
[2016-12-24] MEDS: ENOXAPARIN 40 MG/0.4 ML SYR SC SCH (21:08)
[2016-12-25] VITALS (7 sets, daily range): BP systolic 87–144; BP diastolic 59–92; PULSE 90–116; TEMP 36.5–37.3; O2SAT 93–96; Ht 157.5 cm; Wt 81.3 kg
[2016-12-25 06:42] LABS: HEMATOCRIT 41.5 % (37-47); MEAN CELL VOLUME 87.2 fL (80-100); MEAN CORPUSCULAR HEMOGLOBIN 28.2 pg (25-34); MEAN CORPUSCULAR HGB CONC 32.3 g/dl (32-36); MEAN PLATELET VOLUME 9.5 fL (7.4-10.4); PLATELET COUNT 326 K/uL (130-400); RED BLOOD COUNT 4.76 M/uL (4.2-5.4); WHITE BLOOD COUNT 7.65 K/uL (4.8-10.8)
[2016-12-25 07:14] LABS: BUN/CREATININE RATIO 19.4 (10-20); CALCIUM 9.1 mg/dl (8.5-10.1); CREATININE 1.24 mg/dl (0.60-1.20)
[2016-12-25 07:17] LABS: ALB/GLOB RATIO 0.8 (0.9-2)
[2016-12-25] MEDS: METFORMIN HCL 500 MG TAB PO SCH ×2 (07:40→16:20)
[2016-12-25] MEDS: ASPIRIN 81 MG ECTAB PO SCH (07:41)
[2016-12-25] MEDS ORDERED: ATORVASTATIN 40 MG TAB PO SCH (09:00)
[2016-12-25] MEDS ORDERED: ASPEC81 PO (11:33)
[2016-12-25] MEDS ORDERED: GLC500 PO (11:33)
[2016-12-25] MEDS ORDERED: LPT40 PO (11:33)
--- NOTE | 2016-12-25 11:38 | Discharge Instructions ---
Discharge Instructions Date of Service Dec 25, 2016. Admission Reason for Admission: Stroke Discharge Discharge Diagnosis / Problem: Stroke Discharge Goals Goal(s): Increase independence, Diagnostic testing, Therapeutic intervention, Prevent Disease Progression Activity Recommendations Activity Level: Assistance Required Therapies: Physical Therapy, Weight Bearing Status, Occupational Therapy Lifting Limitations: none Exercise/Sports Limitations: none Shower/Bathe: no limitations . Additional Information Patient informed of condition: Yes Advance Directives: No DNR: No Level of Care: Acute Rehab Communicable Disease: No Prognosis: Stable Instructions / Follow-Up Instructions / Follow-Up 71 year old female diagnosed with a new posterior cerebral stroke affecting her balance as well as her vision Started on aspirin for stroke prevention. Found to have diabetes and started on metformin and started on a statin for hyperlipidemia. Patient is unbalanced when walking and will need rehab to improve strength and balance Current Hospital Diet Patient's current hospital diet: Diabetes Type 2 Diet Discharge Diet Recommended Diet: Diabetes Type 2 Diet Pending Studies Studies pending at discharge: no Laboratory Results Hemoglobin A1c Test 12/23/16 13:25 Range/Units Estimated Average Glucose 180 mg/dl Hemoglobin A1c 7.9 H 4.5-5.6 % Lipid Panel Test 12/24/16 06:57 Range/Units Triglycerides Level 205 H 0-150 mg/dl Cholesterol Level 234 H 0-200 mg/dl HDL Cholesterol 49 mg/dl Cholesterol/HDL Ratio 4.8 LDL Cholesterol, Calculated 144 mg/dl Medical Emergencies . Who to Call and When: Medical Emergencies: If at any time you feel your situation is an emergency, please call 911 immediately. . Non-Emergent Contact Non-Emergency issues call your: Primary Care Provider, Hospital Doctor . Past History Medical & Surgical History: (1) Diabetes (2) Hyperlipidemia (3) Stroke (4) Cerebellar stroke (5) Hypertension . "Provider Documentation" section prepared by Joaquim Betancourt. . Core Measure Problem Core Measures: Stroke Stroke Core Measures Reason no t-PA for Stroke: Treatment not indicated Reason no antithrom by day 2: Treatment provided - N/A Reason no antithrom at D/C: Treatment provided - N/A Reason no statin at D/C: Treatment provided - N/A Reason no anticoag w/a fib: Treatment not indicated
--- NOTE | 2016-12-25 11:43 | Discharge Summary ---
Discharge Summary Date of Service Dec 25, 2016. (Joaquim Betancourt MD) Discharge Summary Admission Date: Dec 23, 2016 at 15:10 Discharge Date: Dec 25, 2016 Discharge Disposition: Rehab Principal Diagnosis: Posterior cerebral stroke Problems/Secondary Diagnoses: Diabetes Mellitus Hyperlipidemia Consultations: Neurology (Joaquim Betancourt MD) Medication Reconciliation New Medications: Aspirin (Aspirin EC Low Dose) 81 Mg Ectab 81 MG PO QAM for 30 Days, #30 TAB Atorvastatin (Atorvastatin Calcium) 40 Mg Tab 80 MG PO QAM for 30 Days, #60 TAB Metformin HCl (Metformin HCl) 500 Mg Tab 500 MG PO BIDM for 30 Days, #60 TAB Continued Medications: Lisinopril (Prinivil) 10 Mg Tab 10 MG PO DAILY for 14 Days, #14 TAB Loratadine (Claritin) 10 Mg Tab 10 MG PO DAILY, TAB Ranitidine Hcl (Zantac) 300 Mg Tab 1 TAB PO HS PRN for Indigestion for 90 Days, #90 TAB 3 Refills Discharge Exam Patient still dizzy when standing and needs help with ambulation Otherwise feels good Review of Systems: Constitutional: No fever, No chills, No sweats Respiratory: No cough, No sputum, No wheezing, No shortness of breath, No dyspnea on exertion Cardiovascular: No chest pain, No orthopnea, No edema Abdomen: No pain, No nausea, No vomiting Musculoskeletal: No joint pain, No muscle pain, No swelling Neurologic: + balance problems, No paralysis, No weakness, No numbness/ tingling, No vertigo (Joaquim Betancourt MD) Hospital Course 71 year old female presented with worsening dizziness and unsteadiness on her feet and was found to have a posterior cerebral infarct Stroke MRI showed posterior cerebral infarct neuro consulted aspirin started zofran prn for nausea echo showed grade 1 diastolic dysfunction and mild asymmetric LVH carotid dopplers ordered and normal primary prevention - hyperlipidemia (will treat with statin) and elevated HbA1c (metformin) New Onset Diabetes Mellitus start metformin 500mg bid HbA1c 7.9 Hyperlipidemia ldl 144 and tg 205 start high dose statin 80mg monitor for drug side effects HTN continue lisinopril GERD continue ranitidine 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 Plan to be discharged to [facility] on 12/25/2016 Total Time Spent: Less than 30 minutes This includes examination of the patient, discharge planning, medication reconciliation, and communication with other providers. (Joaquim Betancourt MD) Discharge Instructions Please refer to the electronic Patient Visit Report (Discharge Instructions) for additional information. (Joaquim Betancourt MD) Additional Copies To Joaquim Betancourt MD; [facility] Assessment/Plan Resident Physician Supervision Note: I was present with Dr. Betancourt during the history and exam. I discussed the case with the resident and agree with the findings and plan as documented in the note. Any exceptions or clarifications are listed here. 71 y/o female h/o parotid mass presents w/ new onset dizziness in the setting of CVA. Dizziness persists with mild nausea which is presently well controlled. Difficulty with standing 2/2 balance changes are unchanged. On examination, rightward gaze nystagmus w/ exacerbation of sx and +ve left dysdiadochokinesia unchanged. S1/S2 nl RRR no MCG, CTAB CVA w/ dizziness - neurology consulted. PT/OT for rehab. ASA New diagnosis of DMII - metformin New diagnosis of HLD - statin therapy Parotid gland mass - Further work up on outpatient basis (Casimiro Metz MD)
== END 2016-12-25 18:16 | DRG 66 ==
LOC: C.EDB 12:33 → C.2T 15:10 → ENRESERV 15:24
PROVIDERS: ADMIT Family Medicine; ATTEND Family Medicine
DX: I63.531 Cerebral infarction due to unspecified occlusion or stenosis of right posterior cerebral artery (principal); R42 Dizziness and giddiness; H55.00 Unspecified nystagmus; H53.462 Homonymous bilateral field defects, left side; E11.65 Type 2 diabetes mellitus with hyperglycemia; K11.8 Other diseases of salivary glands; I10 Essential (primary) hypertension; E78.5 Hyperlipidemia, unspecified; K21.9 Gastro-esophageal reflux disease without esophagitis; Z77.22 Contact with and (suspected) exposure to environmental tobacco smoke (acute) (chronic); Z79.899 Other long term (current) drug therapy; R19.7 Diarrhea, unspecified; Z82.49 Family history of ischemic heart disease and other diseases of the circulatory system

== ENCOUNTER → 2017-02-18 | Outpatient (CLI) | payer OTHER ==
[~2017-02-18] MED LIST changes: +ASPI-320 PO; +GLC500 PO; -LISI10TA PO; +LPT40 PO
== END ==
LOC: C.LABCC 10:45
PROVIDERS: ATTEND Internal Medicine
DX: A04.72 Enterocolitis due to Clostridium difficile, not specified as recurrent (principal)

== ENCOUNTER → 2017-03-07 | Outpatient (CLI) | payer OTHER ==
[~2017-03-07] MED LIST changes: +ASPEC81 PO; -ASPI-320 PO
[2017-03-07 09:47] LABS: BASO % 0.4 %; BASO ABS # 0.03 K/uL (0-0.2); EOS % 3.3 %; EOS ABS # 0.25 K/uL (0-0.5); HEMATOCRIT 37.1 % (37-47); HEMOGLOBIN 12.1 g/dL (12.0-16.0); IG# 0.02 K/uL (0.00-0.02); LYMPH % 25.6 %; LYMPH ABS # 1.95 K/uL (1.2-3.4); MEAN CELL VOLUME 85.9 fL (80-100); MEAN CORPUSCULAR HGB CONC 32.6 g/dl (32-36); MEAN PLATELET VOLUME 10.7 fL (7.4-10.4); MONO % 12.2 %; MONO ABS # 0.93 K/uL (0.11-0.59); NEUT % 58.2 %; NEUT ABS # 4.43 K/uL (1.4-6.5); NUCLEATED RED BLOOD CELL ABS 0.02 K/uL (0-0); PLATELET COUNT 372 K/uL (130-400); RED CELL DISTRIBUTION WIDTH CV 15.9 % (11.5-14.5); RED CELL DISTRIBUTION WIDTH SD 50.9 fL (36.4-46.3); WHITE BLOOD COUNT 7.61 K/uL (4.8-10.8)
== END ==
LOC: C.LABCC 08:53
PROVIDERS: ATTEND Internal Medicine
DX: D64.9 Anemia, unspecified (principal)

== ENCOUNTER → 2017-03-11 | Outpatient (CLI) | payer OTHER ==
[2017-03-11 09:28] LABS: BLOOD UREA NITROGEN 11 mg/dl (7-18); CALCIUM 9.1 mg/dl (8.5-10.1); CARBON DIOXIDE 28 mmol/L (21-32); CREATININE 1.35 mg/dl (0.60-1.20); GLUCOSE 124 mg/dl (70-99); POTASSIUM 3.5 mmol/L (3.5-5.1); SODIUM 143 mmol/L (136-145)
== END | disposition home or self-care (01) ==
LOC: C.LABCC 08:53
PROVIDERS: ATTEND Internal Medicine
DX: I10 Essential (primary) hypertension (principal); E11.9 Type 2 diabetes mellitus without complications

== ENCOUNTER → 2017-04-15 | Outpatient (CLI) | payer OTHER ==
[2017-04-15 10:28] LABS: HEMOGLOBIN A1C 6.7 % (4.5-5.6)
== END ==
LOC: C.LABCC 09:25
PROVIDERS: ATTEND Internal Medicine
DX: E11.9 Type 2 diabetes mellitus without complications (principal)

== ENCOUNTER → 2017-04-23 | Outpatient (CLI) | payer OTHER ==
[2017-04-23 08:30] LABS: BLOOD UREA NITROGEN 9 mg/dl (7-18); CARBON DIOXIDE 30 mmol/L (21-32); CREATININE 1.09 mg/dl (0.60-1.20); GLUCOSE 122 mg/dl (70-99); POTASSIUM 3.4 mmol/L (3.5-5.1); SODIUM 142 mmol/L (136-145)
== END | disposition home or self-care (01) ==
LOC: C.LABCC 08:03
PROVIDERS: ATTEND Internal Medicine
DX: R94.4 Abnormal results of kidney function studies (principal)

== ENCOUNTER → 2017-06-03 | Outpatient (CLI) | payer OTHER ==
[~2017-06-03] MED LIST changes: -ASPEC81 PO; +ASPI-320 PO
[2017-06-03 17:00] LABS: ALBUMIN 3.5 gm/dl (3.4-5.0); ALT/SGPT 27 U/L (12-78); AST/SGOT 15 U/L (15-37); BLOOD UREA NITROGEN 23 mg/dl (7-18); CALCIUM 10.3 mg/dl (8.5-10.1); CARBON DIOXIDE 29 mmol/L (21-32); CREATININE 1.67 mg/dl (0.60-1.20); GLUCOSE 154 mg/dl (70-99); POTASSIUM 4.8 mmol/L (3.5-5.1); SODIUM 140 mmol/L (136-145)
[2017-06-03 17:03] LABS: ALKALINE PHOSPHATASE 110 U/L (45-117); CHOLESTEROL 161 mg/dl (0-200); LDL CHOLESTEROL CALCULATED 69 mg/dl; TOTAL PROTEIN 7.2 gm/dl (6.4-8.2)
== END | disposition home or self-care (01) ==
LOC: C.LABBFT 13:19
PROVIDERS: ATTEND Internal Medicine
DX: R80.9 Proteinuria, unspecified (principal); E78.5 Hyperlipidemia, unspecified; I10 Essential (primary) hypertension

== ENCOUNTER → 2017-09-27 | Outpatient (CLI) | payer OTHER ==
[2017-09-27 17:24] LABS: BASO % 0.7 %; BASO ABS # 0.06 K/uL (0-0.2); EOS % 2.3 %; HEMATOCRIT 38.6 % (37-47); HEMOGLOBIN 12.4 g/dL (12.0-16.0); IG# 0.01 K/uL (0.00-0.02); LYMPH % 15.9 %; LYMPH ABS # 1.37 K/uL (1.2-3.4); MEAN CELL VOLUME 90.4 fL (80-100); MEAN CORPUSCULAR HGB CONC 32.1 g/dl (32-36); MEAN PLATELET VOLUME 10.8 fL (7.4-10.4); MONO % 7.4 %; MONO ABS # 0.64 K/uL (0.11-0.59); NEUT % 73.6 %; NEUT ABS # 6.36 K/uL (1.4-6.5); PLATELET COUNT 435 K/uL (130-400); RED CELL DISTRIBUTION WIDTH CV 14.4 % (11.5-14.5); RED CELL DISTRIBUTION WIDTH SD 47.4 fL (36.4-46.3); WHITE BLOOD COUNT 8.64 K/uL (4.8-10.8)
[2017-09-27 17:45] LABS: ALBUMIN 3.6 gm/dl (3.4-5.0); BLOOD UREA NITROGEN 31 mg/dl (7-18); CALCIUM 9.6 mg/dl (8.5-10.1); CARBON DIOXIDE 26 mmol/L (21-32); CREATININE 1.59 mg/dl (0.60-1.20); GLUCOSE 163 mg/dl (70-99); PHOSPHORUS 3.3 mg/dl (2.5-4.9); POTASSIUM 4.6 mmol/L (3.5-5.1); SODIUM 137 mmol/L (136-145)
== END | disposition home or self-care (01) ==
LOC: C.LABBFT 12:47
PROVIDERS: ATTEND Internal Medicine Nephrology
DX: E21.3 Hyperparathyroidism, unspecified (principal); N18.9 Chronic kidney disease, unspecified

== ENCOUNTER 2018-04-08 16:52 | Inpatient (IN) ==
[2018-04-08] MEDS ORDERED: LORazepam 1 MG/2 ML VIAL IV STA (17:07)
[2018-04-08] MEDS ORDERED: LORazepam 2 MG/4 ML VIAL ONE (17:08)
--- NOTE | 2018-04-08 17:14 | Emergency Department Note ---
Entered by Norma Klein acting as a scribe for History of Present Illness General Chief complaint: Altered Mental Status Stated complaint: FALL, DIZZINESS, L SIDE WEAKNESS Time Seen by Provider: 04/08/18 17:02 Source: patient and other (caregiver) History of Present Illness Provider complaint: seizure-like activity Onset (ago): hour(s) (beginning around 1500) Location: left and right Quality: + other (seizure-like activity) Associated symptoms: + shortness of breath; no chest pain, no headaches and no nausea/vomiting The patient is a 72 year old female who presents to the Emergency Room with seizure-like activity beginning around 1500. She denies having a headache, nausea, and vomiting. The patient reports having shortness of breath but denies chest pain. The patient also denies falling. She states that she is unsure if she takes blood thinners. She reports a history of a stroke but denies a history of seizures. The patient states that she does not smoke or drink. She reports that she last saw Dr. Arizmendi 2 months ago. Per caregiver, the patient got out of the car to use the [facility], had some imbalance, and was stiff. Her caregiver states that the patient was walking by herself, stopped, and had to lean against the car for balance. Caregiver states that the patient did not fall. Her caregiver states that the patient got stiff around 1500. Her caregiver states that the patient could move her right leg but not her left leg. The patient denies starting any new medications. Home Medications Home Medications Medication Instructions Recorded Confirmed Type loratadine-pseudoephedrine 1 tab PO DAILY PRN #0 tab 12/22/16 04/08/18 History [Claritin-D 24 Hour] aspirin [Aspir-81] 81 mg PO QAM 10/22/17 04/08/18 History atorvastatin 80 mg PO QAM 10/22/17 04/08/18 History multivitamin 1 tab PO DAILY 10/22/17 04/08/18 History atorvastatin [Lipitor] 80 mg PO HS 04/08/18 04/08/18 History lisinopril [Zestril] 2.5 mg PO DAILY 04/08/18 04/08/18 History Allergies Allergy/AdvReac Type Severity Reaction Status Date / Time ragweed pollen Allergy Intermediate ITCHY Verified 10/24/17 14:37 EYES, SNEEZING No Known Drug Allergies Allergy Unknown Verified 10/23/17 21:02 Dust Allergy Intermediate ITCHY Uncoded 10/22/17 17:01 EYES,SNEEZING Past Med/Surg History Medical History Hypertension (Chronic) Diabetes (Chronic) Hyperlipidemia Stroke (Resolved) Depression GERD (gastroesophageal reflux disease) Hearing deficit Surgical History History of open reduction and internal fixation (ORIF) procedure Family History Other Family history non-contributory Social History Current Living Situation: Family Other Information That Helps Us Care for You: No Feels Safe at Home: Yes Safety Concerns: Feels Safe At This Time Smoking Status: Never smoker Second Hand Exposure: Yes (h/o while playing bridge) Hx Alcohol Use: No Hx Substance Use: No Beliefs That Will Affect Care: None Preferred Language: Tanzanian Communication Ability: Effective Hydrologist Required: No Review of Systems See HPI for pertinent positives & negatives. and A total of 10 systems reviewed and were otherwise negative Physical Exam Vital Signs Vital Signs - 24 hr 04/08/18 16:59 04/08/18 17:00 04/08/18 17:02 Temperature 36.7 C Temperature Source Oral Sepsis Recent Fever Within 48 Hours No Sepsis New/Unexplained Change in Mental Status No Sepsis Action Taken by Nursing No Action Required Pulse Rate 152 H 115 H 137 H Pulse Rate [Apical] Pulse Rate from SpO2 Sensor 174 H Pulse Rhythm [Apical] Pulse Strength [Apical] Respiratory Rate 23 21 Respiratory Effort / Characteristics Respiratory Depth Respiratory Pattern Blood Pressure 164/150 H 222/110 H Blood Pressure [Right Arm] Blood Pressure Mean 154 147 Blood Pressure Mean [Right Arm] Blood Pressure Position Lying Blood Pressure Position [Right Arm] Pulse Oximetry 82 L 95 Oxygen Delivery Method Room Air Oxygen Flow Rate 04/08/18 17:10 04/08/18 17:11 04/08/18 17:23 Temperature Temperature Source Sepsis Recent Fever Within 48 Hours Sepsis New/Unexplained Change in Mental Status Sepsis Action Taken by Nursing Pulse Rate 135 H 113 H 117 H Pulse Rate [Apical] Pulse Rate from SpO2 Sensor 113 H Pulse Rhythm [Apical] Pulse Strength [Apical] Respiratory Rate 19 Respiratory Effort / Characteristics Respiratory Depth Respiratory Pattern Blood Pressure 222/110 H Blood Pressure [Right Arm] Blood Pressure Mean 147 Blood Pressure Mean [Right Arm] Blood Pressure Position Blood Pressure Position [Right Arm] Pulse Oximetry 95 Oxygen Delivery Method Oxygen Flow Rate 04/08/18 17:26 04/08/18 17:30 04/08/18 17:38 Temperature Temperature Source Sepsis Recent Fever Within 48 Hours Sepsis New/Unexplained Change in Mental Status Sepsis Action Taken by Nursing Pulse Rate 120 H 110 H 119 H Pulse Rate [Apical] 104 H Pulse Rate from SpO2 Sensor 119 H 110 H 115 H Pulse Rhythm [Apical] Pulse Strength [Apical] Respiratory Rate 21 20 Respiratory Effort / Characteristics Respiratory Depth Respiratory Pattern Blood Pressure 197/132 H 154/100 H Blood Pressure [Right Arm] 154/100 H Blood Pressure Mean 153 118 Blood Pressure Mean [Right Arm] 118 Blood Pressure Position Blood Pressure Position [Right Arm] Lying Pulse Oximetry 87 L 92 96 Oxygen Delivery Method Oxymask Oxygen Flow Rate 7 04/08/18 17:40 04/08/18 17:47 04/08/18 17:48 Temperature Temperature Source Sepsis Recent Fever Within 48 Hours Sepsis New/Unexplained Change in Mental Status Sepsis Action Taken by Nursing Pulse Rate 110 H 104 H Pulse Rate [Apical] Pulse Rate from SpO2 Sensor 111 H 104 H Pulse Rhythm [Apical] Pulse Strength [Apical] Respiratory Rate 19 16 Respiratory Effort / Characteristics Respiratory Depth Respiratory Pattern Blood Pressure 152/96 H Blood Pressure [Right Arm] Blood Pressure Mean 114 Blood Pressure Mean [Right Arm] Blood Pressure Position Blood Pressure Position [Right Arm] Pulse Oximetry 99 98 98 Oxygen Delivery Method Oxymask Oxygen Flow Rate 6 04/08/18 17:50 04/08/18 18:00 04/08/18 18:01 Temperature Temperature Source Sepsis Recent Fever Within 48 Hours Sepsis New/Unexplained Change in Mental Status Sepsis Action Taken by Nursing Pulse Rate 105 H 104 H 113 H Pulse Rate [Apical] Pulse Rate from SpO2 Sensor 104 H 105 H 105 H Pulse Rhythm [Apical] Pulse Strength [Apical] Respiratory Rate 19 15 Respiratory Effort / Characteristics Respiratory Depth Respiratory Pattern Blood Pressure 168/96 H Blood Pressure [Right Arm] Blood Pressure Mean 120 Blood Pressure Mean [Right Arm] Blood Pressure Position Blood Pressure Position [Right Arm] Pulse Oximetry 99 98 99 Oxygen Delivery Method Oxygen Flow Rate 04/08/18 18:10 04/08/18 18:54 04/08/18 20:50 Temperature Temperature Source Sepsis Recent Fever Within 48 Hours Sepsis New/Unexplained Change in Mental Status Sepsis Action Taken by Nursing Pulse Rate 105 H Pulse Rate [Apical] 111 H 102 H Pulse Rate from SpO2 Sensor 104 H Pulse Rhythm [Apical] Regular Regular Pulse Strength [Apical] Normal Respiratory Rate 19 16 Respiratory Effort / Characteristics Non-Labored Spontaneous Non-Labored Spontaneous Respiratory Depth Normal Normal Respiratory Pattern Regular Blood Pressure Blood Pressure [Right Arm] 157/100 H 145/74 H Blood Pressure Mean Blood Pressure Mean [Right Arm] 119 97 Blood Pressure Position Blood Pressure Position [Right Arm] Pulse Oximetry 98 97 95 Oxygen Delivery Method Oxymask Room Air Oxygen Flow Rate 6 04/08/18 21:54 04/08/18 22:24 04/08/18 22:40 Temperature 36.6 C Temperature Source Oral Sepsis Recent Fever Within 48 Hours Sepsis New/Unexplained Change in Mental Status Sepsis Action Taken by Nursing Pulse Rate 102 H Pulse Rate [Apical] 100 H Pulse Rate from SpO2 Sensor Pulse Rhythm [Apical] Regular Pulse Strength [Apical] Normal Respiratory Rate 18 Respiratory Effort / Characteristics Non-Labored Spontaneous Respiratory Depth Normal Respiratory Pattern Regular Blood Pressure Blood Pressure [Right Arm] 175/92 H Blood Pressure Mean Blood Pressure Mean [Right Arm] 119 Blood Pressure Position Blood Pressure Position [Right Arm] Lying Pulse Oximetry 99 96 Oxygen Delivery Method Room Air Room Air Oxygen Flow Rate 04/08/18 23:11 04/09/18 06:46 04/09/18 07:39 Temperature 36.6 C Temperature Source Oral Sepsis Recent Fever Within 48 Hours Sepsis New/Unexplained Change in Mental Status Sepsis Action Taken by Nursing Pulse Rate Pulse Rate [Apical] 100 H 87 Pulse Rate from SpO2 Sensor Pulse Rhythm [Apical] Regular Pulse Strength [Apical] Normal Respiratory Rate 22 92 H Respiratory Effort / Characteristics Non-Labored Non-Labored Respiratory Depth Normal Normal Respiratory Pattern Regular Blood Pressure Blood Pressure [Right Arm] 175/92 H 202/90 H 185/112 H Blood Pressure Mean Blood Pressure Mean [Right Arm] 119 127 136 Blood Pressure Position Blood Pressure Position [Right Arm] Lying Lying Pulse Oximetry 96 97 Oxygen Delivery Method Room Air Nasal Cannula Oxygen Flow Rate 2 GENERAL: Patient is awake alert. She is very anxious. She is actively seizing but only with her left side. EYES: The conjunctivae are clear. The pupils are round and reactive. The patient has a fixed gaze and is unable to look to the left or the right. EARS, NOSE, MOUTH AND THROAT: The nose is without any evidence of any deformity. Mucous membranes are moist tongue is midline NECK: The neck is nontender and supple. RESPIRATORY: Normal respiratory effort is noted there is no evidence of wheezing rhonchi or rales CARDIOVASCULAR: Regular rate and rhythm noted there no murmurs rubs or gallops normal S1 normal S2 GASTROINTESTINAL: The abdomen is soft. Bowel sounds are present in all quadrants. Abdomen is nontender MUSCULOSKELETAL/EXTREMITIES: There is no evidence of gross deformity full range of motion is noted in the hips and shoulders SKIN: There is no obvious evidence of any rash. Trace pedal edema was noted bilaterally. NEUROLOGIC: Patient is awake alert and oriented x3. The patient is having active seizure activity in the left upper and left lower extremity. The seizure appears to be focal in nature. The patient is awake and alert during this time. Course 170: Past medical records reviewed. The patient was evaluated in room C12B, and a complete history and physical examination were performed. 183: I discussed the patient's case with Dr. Williamson who recommended Depakote. 1927: I discussed the patient's case with Dr. Altaf Shaffer who will evaluate the patient for further management. Consultations Consultation #1: Dr. Williamson Time: 18:34 Consultation #2: Dr. Altaf Shaffer Time: 19:28 Administered Medications Sodium Chloride (Nss 1000ml) 1,000 mls @ 80 mls/hr IV .[id number] JASWANT Stop: 05/08/18 22:15 Last Admin: 04/09/18 01:13 Dose: 80 mls/hr Lorazepam (Ativan) 1 mg in 2 mls @ 2 mls/min IV Q15M PRN PRN Reason: Breakthrough Seizures Stop: 05/08/18 22:15 Last Admin: 04/09/18 05:40 Dose: 2 mls/min Admin: 04/09/18 02:55 Dose: 2 mls/min Admin: 04/08/18 23:34 Dose: 2 mls/min Valproic Acid 500 mg/ Dextrose 55 mls @ 55 mls/hr IV Q12H JASWANT Stop: 05/09/18 07:59 Last Admin: 04/09/18 08:32 Dose: 55 mls/hr Discontinued Medications Lorazepam (Ativan) 1 mg in 2 mls @ 2 mls/min IV NOW STA Stop: 04/08/18 17:08 Last Admin: 04/08/18 17:05 Dose: 2 mls/min Levetiracetam 1,000 mg/ (Dextrose) 110 mls @ 440 mls/hr IV NOW STA Stop: 04/08/18 17:21 Last Infusion: 04/08/18 17:55 Dose: 0 mls/hr Admin: 04/08/18 17:35 Dose: 440 mls/hr Valproic Acid 500 mg/ Dextrose 105 mls @ 105 mls/hr IV ONE ONE Stop: 04/08/18 18:35 Last Infusion: 04/08/18 20:00 Dose: Admin: 04/08/18 18:53 Dose: 105 mls/hr Valproic Acid 500 mg/ Dextrose 55 mls @ 55 mls/hr IV ONE ONE Stop: 04/08/18 20:47 Last Infusion: 04/08/18 21:50 Dose: Admin: 04/08/18 20:49 Dose: 55 mls/hr Sodium Chloride (Nss 1000ml) 500 mls @ 999 mls/hr IV .Q31M ONE Stop: 04/08/18 20:39 Last Infusion: 04/09/18 01:12 Dose: 0 mls/hr Admin: 04/08/18 22:33 Dose: 999 mls/hr Levetiracetam 500 mg/ Dextrose 105 mls @ 420 mls/hr IV NOW STA Stop: 04/09/18 07:16 Last Infusion: 04/09/18 07:43 Dose: 0 mls/hr Admin: 04/09/18 07:21 Dose: 420 mls/hr Lorazepam (Ativan) Confirm Administered Dose 2 mg .ROUTE .STK-MED ONE Stop: 04/08/18 17:09 Last Admin: 04/08/18 17:25 Dose: Not Given Medical Decision Making Differential Diagnosis Etiologies such as infection, hypoglycemia, electrolyte abnormalities, cardiac sources, intracerebral event, trauma, toxicologic, neurologic, as well as others were entertained. Medical Records Attestation: I reviewed the patient's medical records. Home Medications Current Medication List: was personally reviewed by me Laboratory Data Attestation: I reviewed the patient's lab results. Result diagrams: 04/09/18 05:55 04/09/18 05:55 Lab Results 04/08/18 04/08/18 04/08/18 Range/Units 17:10 17:10 17:10 WBC 11.10 H (4.8-10.8) K/uL RBC 4.87 (4.2-5.4) M/uL Hgb 14.4 (12.0-16.0) g/dL Hct 43.5 (37-47) % MCV 89.3 (80-100) fL MCH 29.6 (25-34) pg MCHC 33.1 (32-36) g/dL RDW Std Deviation 46.0 (36.4-46.3) fL RDW Coeff of Omid 14.0 (11.5-14.5) % Plt Count 367 (130-400) K/uL MPV 10.0 (7.4-10.4) fL Immature Gran % (Auto) 0.2 % Neut % (Auto) 70.8 % Lymph % (Auto) 19.2 % [place] % (Auto) 7.9 % Eos % (Auto) 1.4 % Baso % (Auto) 0.5 % Immature Gran # (Auto) 0.02 (0.00-0.02) K/uL Neut # (Auto) 7.85 H (1.4-6.5) K/uL Lymph # (Auto) 2.13 (1.2-3.4) K/uL [place] # (Auto) 0.88 H (0.11-0.59) K/uL Eos # (Auto) 0.16 (0-0.5) K/uL Baso # (Auto) 0.06 (0-0.2) K/uL PT 11.1 (9.0-12.0) Seconds INR 1.1 (0.9-1.1) APTT (21.0-31.0) Seconds PTT Ratio Sodium 140 (136-145) mmol/L Potassium 4.6 (3.5-5.1) mmol/L Chloride 107 (98-107) mmol/L Carbon Dioxide 24 (21-32) mmol/L Anion Gap 9.0 (3-11) BUN 23 H (7-18) mg/dl Creatinine 1.45 H (0.6-1.2) mg/dl Est Cr Clr Drug Dosing Not Reportable Est GFR ( Amer) 42.2 Est GFR (Non-Af Amer) 36.4 BUN/Creatinine Ratio 15.7 (10-20) Glucose 144 H (70-99) mg/dl POC Glucose (70-99) Calcium 9.8 (8.5-10.1) mg/dl Magnesium 2.0 (1.8-2.4) mg/dl Total Bilirubin 0.5 (0.2-1) mg/dl AST 21 (15-37) U/L ALT 42 (12-78) U/L Alkaline Phosphatase 115 (45-117) U/L Total Creatine Kinase 116 (26-192) U/L Troponin I < 0.015 (0-0.045) ng/ml Total Protein 7.9 (6.4-8.2) gm/dl Albumin 4.0 (3.4-5.0) gm/dl Globulin 3.9 (2.5-4.0) gm/dl Albumin/Globulin Ratio 1.0 (0.9-2) TSH 2.980 (0.300-4.500) uIu/ml Prolactin ng/ml Urine Color Urine Appearance (Clear) Urine pH (4.5-7.5) Ur Specific [place] (1.000-1.030) Urine Protein (Negative) Urine Glucose (UA) (Negative) Urine Ketones (Negative) Urine Blood (Negative) Urine Nitrite (Negative) Urine Bilirubin (Negative) Urine Urobilinogen (Negative) Ur Leukocyte Esterase (Negative) Urine WBC (Auto) (0-5) /hpf Urine RBC (Auto) (0-4) /hpf U Hyaline Cast (Auto) (0-5) /lpf U Epithel Cells (Auto) (0-5) /lpf Urine Bacteria (Auto) (Negative) 04/08/18 04/08/18 04/08/18 Range/Units 17:10 17:10 20:29 WBC (4.8-10.8) K/uL RBC (4.2-5.4) M/uL Hgb (12.0-16.0) g/dL Hct (37-47) % MCV (80-100) fL MCH (25-34) pg MCHC (32-36) g/dL RDW Std Deviation (36.4-46.3) fL RDW Coeff of Omid (11.5-14.5) % Plt Count (130-400) K/uL MPV (7.4-10.4) fL Immature Gran % (Auto) % Neut % (Auto) % Lymph % (Auto) % [place] % (Auto) % Eos % (Auto) % Baso % (Auto) % Immature Gran # (Auto) (0.00-0.02) K/uL Neut # (Auto) (1.4-6.5) K/uL Lymph # (Auto) (1.2-3.4) K/uL [place] # (Auto) (0.11-0.59) K/uL Eos # (Auto) (0-0.5) K/uL Baso # (Auto) (0-0.2) K/uL PT (9.0-12.0) Seconds INR (0.9-1.1) APTT 26.5 (21.0-31.0) Seconds PTT Ratio 1.0 Sodium (136-145) mmol/L Potassium (3.5-5.1) mmol/L Chloride (98-107) mmol/L Carbon Dioxide (21-32) mmol/L Anion Gap (3-11) BUN (7-18) mg/dl Creatinine (0.6-1.2) mg/dl Est Cr Clr Drug Dosing Est GFR ( Amer) Est GFR (Non-Af Amer) BUN/Creatinine Ratio (10-20) Glucose (70-99) mg/dl POC Glucose (70-99) Calcium (8.5-10.1) mg/dl Magnesium (1.8-2.4) mg/dl Total Bilirubin (0.2-1) mg/dl AST (15-37) U/L ALT (12-78) U/L Alkaline Phosphatase (45-117) U/L Total Creatine Kinase (26-192) U/L Troponin I (0-0.045) ng/ml Total Protein (6.4-8.2) gm/dl Albumin (3.4-5.0) gm/dl Globulin (2.5-4.0) gm/dl Albumin/Globulin Ratio (0.9-2) TSH (0.300-4.500) uIu/ml Prolactin 39.58 ng/ml Urine Color Yellow Urine Appearance Cloudy H (Clear) Urine pH 5.0 (4.5-7.5) Ur Specific [place] 1.019 (1.000-1.030) Urine Protein Negative (Negative) Urine Glucose (UA) Negative (Negative) Urine Ketones Trace H (Negative) Urine Blood Negative (Negative) Urine Nitrite Negative (Negative) Urine Bilirubin Negative (Negative) Urine Urobilinogen Negative (Negative) Ur Leukocyte Esterase Negative (Negative) Urine WBC (Auto) 1-5 (0-5) /hpf Urine RBC (Auto) 0-4 (0-4) /hpf U Hyaline Cast (Auto) 1-5 (0-5) /lpf U Epithel Cells (Auto) 10-20 H (0-5) /lpf Urine Bacteria (Auto) Negative (Negative) 04/08/18 04/08/18 04/09/18 Range/Units 22:27 23:22 05:55 WBC 10.81 H (4.8-10.8) K/uL RBC 4.23 (4.2-5.4) M/uL Hgb 12.3 (12.0-16.0) g/dL Hct 37.6 (37-47) % MCV 88.9 (80-100) fL MCH 29.1 (25-34) pg MCHC 32.7 (32-36) g/dL RDW Std Deviation 45.0 (36.4-46.3) fL RDW Coeff of Omid 13.8 (11.5-14.5) % Plt Count 299 (130-400) K/uL MPV 9.9 (7.4-10.4) fL Immature Gran % (Auto) 0.3 % Neut % (Auto) 86.1 % Lymph % (Auto) 8.9 % [place] % (Auto) 4.1 % Eos % (Auto) 0.3 % Baso % (Auto) 0.3 % Immature Gran # (Auto) 0.03 H (0.00-0.02) K/uL Neut # (Auto) 9.32 H (1.4-6.5) K/uL Lymph # (Auto) 0.96 L (1.2-3.4) K/uL [place] # (Auto) 0.44 (0.11-0.59) K/uL Eos # (Auto) 0.03 (0-0.5) K/uL Baso # (Auto) 0.03 (0-0.2) K/uL PT (9.0-12.0) Seconds INR (0.9-1.1) APTT (21.0-31.0) Seconds PTT Ratio Sodium (136-145) mmol/L Potassium (3.5-5.1) mmol/L Chloride (98-107) mmol/L Carbon Dioxide (21-32) mmol/L Anion Gap (3-11) BUN (7-18) mg/dl Creatinine (0.6-1.2) mg/dl Est Cr Clr Drug Dosing Est GFR ( Amer) Est GFR (Non-Af Amer) BUN/Creatinine Ratio (10-20) Glucose (70-99) mg/dl POC Glucose 125 H (70-99) Calcium (8.5-10.1) mg/dl Magnesium (1.8-2.4) mg/dl Total Bilirubin (0.2-1) mg/dl AST (15-37) U/L ALT (12-78) U/L Alkaline Phosphatase (45-117) U/L Total Creatine Kinase (26-192) U/L Troponin I 0.018 (0-0.045) ng/ml Total Protein (6.4-8.2) gm/dl Albumin (3.4-5.0) gm/dl Globulin (2.5-4.0) gm/dl Albumin/Globulin Ratio (0.9-2) TSH (0.300-4.500) uIu/ml Prolactin ng/ml Urine Color Urine Appearance (Clear) Urine pH (4.5-7.5) Ur Specific [place] (1.000-1.030) Urine Protein (Negative) Urine Glucose (UA) (Negative) Urine Ketones (Negative) Urine Blood (Negative) Urine Nitrite (Negative) Urine Bilirubin (Negative) Urine Urobilinogen (Negative) Ur Leukocyte Esterase (Negative) Urine WBC (Auto) (0-5) /hpf Urine RBC (Auto) (0-4) /hpf U Hyaline Cast (Auto) (0-5) /lpf U Epithel Cells (Auto) (0-5) /lpf Urine Bacteria (Auto) (Negative) 04/09/18 04/09/18 Range/Units 05:55 05:55 WBC (4.8-10.8) K/uL RBC (4.2-5.4) M/uL Hgb (12.0-16.0) g/dL Hct (37-47) % MCV (80-100) fL MCH (25-34) pg MCHC (32-36) g/dL RDW Std Deviation (36.4-46.3) fL RDW Coeff of Omid (11.5-14.5) % Plt Count (130-400) K/uL MPV (7.4-10.4) fL Immature Gran % (Auto) % Neut % (Auto) % Lymph % (Auto) % [place] % (Auto) % Eos % (Auto) % Baso % (Auto) % Immature Gran # (Auto) (0.00-0.02) K/uL Neut # (Auto) (1.4-6.5) K/uL Lymph # (Auto) (1.2-3.4) K/uL [place] # (Auto) (0.11-0.59) K/uL Eos # (Auto) (0-0.5) K/uL Baso # (Auto) (0-0.2) K/uL PT 11.8 (9.0-12.0) Seconds INR 1.2 H (0.9-1.1) APTT 26.8 (21.0-31.0) Seconds PTT Ratio 1.0 Sodium 138 (136-145) mmol/L Potassium 3.9 D (3.5-5.1) mmol/L Chloride 106 (98-107) mmol/L Carbon Dioxide 27 (21-32) mmol/L Anion Gap 5.0 (3-11) BUN 21 H (7-18) mg/dl Creatinine 1.09 (0.6-1.2) mg/dl Est Cr Clr Drug Dosing 40.8 Est GFR ( Amer) 59.6 Est GFR (Non-Af Amer) 51.4 BUN/Creatinine Ratio 19.0 (10-20) Glucose 150 H (70-99) mg/dl POC Glucose (70-99) Calcium 8.7 (8.5-10.1) mg/dl Magnesium (1.8-2.4) mg/dl Total Bilirubin 0.5 (0.2-1) mg/dl AST 17 (15-37) U/L ALT 35 (12-78) U/L Alkaline Phosphatase 97 (45-117) U/L Total Creatine Kinase (26-192) U/L Troponin I (0-0.045) ng/ml Total Protein 6.5 (6.4-8.2) gm/dl Albumin 3.3 L (3.4-5.0) gm/dl Globulin 3.2 (2.5-4.0) gm/dl Albumin/Globulin Ratio 1.0 (0.9-2) TSH (0.300-4.500) uIu/ml Prolactin ng/ml Urine Color Urine Appearance (Clear) Urine pH (4.5-7.5) Ur Specific [place] (1.000-1.030) Urine Protein (Negative) Urine Glucose (UA) (Negative) Urine Ketones (Negative) Urine Blood (Negative) Urine Nitrite (Negative) Urine Bilirubin (Negative) Urine Urobilinogen (Negative) Ur Leukocyte Esterase (Negative) Urine WBC (Auto) (0-5) /hpf Urine RBC (Auto) (0-4) /hpf U Hyaline Cast (Auto) (0-5) /lpf U Epithel Cells (Auto) (0-5) /lpf Urine Bacteria (Auto) (Negative) Imaging Data Radiologist's Impression: Radiology results as stated below per my review and the radiologist's interpretation: HEAD CT NONCONTRAST CT DOSE: 537.48 mGy.cm HISTORY: seizure TECHNIQUE: Multiaxial CT images of the head were performed without the use of intravenous contrast. Automated exposure control was utilized for this study. A dose lowering technique was utilized adhering to the principles of ALARA. Comparison: Head CT 12/22/2016. Findings: The paranasal sinuses and mastoid air cells are clear. The calvarium and skull base are intact. There is no mass, hematoma, midline shift, acute infarct. White matter hypodensity is nonspecific but suggestive of microvascular ischemic change. The ventricles and sulci demonstrate mild age- related involutional changes. Old right [employer] territory infarct. There are associated calcifications at the old infarct. Old left external capsule lacunar infarct. Impression: No acute intracranial abnormality. Atrophy and microvascular ischemic changes. Old infarcts as described above. Electronically signed by: Joby Weinberg M.D. 04/08/2018 5:36 PM SINGLE VIEW CHEST CLINICAL HISTORY: Generalized weakness. FINDINGS: An AP, portable, upright chest radiograph is compared to study dated 12/22/2016. The examination is significantly degraded by portable technique and patient rotation. The cardiomediastinal silhouette is unremarkable. There is a large hiatal hernia. Bibasilar atelectasis is observed. No airspace consolidation or large pleural effusion is identified. No pneumothorax is seen. The skeletal structures are osteopenic. The bony thorax is grossly intact. IMPRESSION: No active disease in the chest. Electronically signed by: Farshad Davis M.D. 04/08/2018 5:57 PM ECG Data Attestation: I personally reviewed and interpreted this ECG as follows: Indication: other (seizure-like activity) Rate (beats per minute): 100 Rhythm: sinus tachycardia Findings: no PAC, no PVC, no ST depression, no ST elevation, no acute ischemic change and no ectopy Comparison ECG Date: from (12/23/16) Change: no significant change (increased rate) Blood Pressure Blood Pressure Findings: Elevated blood pressure Blood Pressure Disposition: further management by hospitalist MDM Narrative The patient is a 72-year-old female who presented to the emergency department for an evaluation of seizure. The patient was having focal left-sided seizure upon arrival. The seizure was controlled with Ativan Keppra as well as IV Depakote. The patient was reevaluated multiple times. She was seizure-free on final reevaluation. The patient was able to carry on a conversation during the entire seizure. She does have a history of stroke and has a very large area of encephalomalacia consistent with her previous right-sided CVA. I do feel this explains the patient's symptoms. I discussed patient's laboratory and radiographic studies with her. I also discussed her case with the on-call [facility] neurologist as well as the on-call [facility] hospitalist. Hospitalist has agreed to evaluate patient in the emergency department for further management and disposition. Impression & Plan Focal seizure, New onset seizure Discharge Plan Visit Data *Final* Discharge Date/Time: 04/08/18 21:54 Chief Complaint: Altered Mental Status Stated Complaint: FALL, DIZZINESS, L SIDE WEAKNESS ED Provider: Jc Dorsey Discharge Problem: Focal seizure, New onset seizure Patient Disposition: Admitted As Inpatient Discharge Instructions Interventions: ED Discharge Assessment Last Done: 04/08/18 21:54 The scribe's documentation has been prepared under my direction and personally reviewed by me in its entirety. I confirm that the note above accurately reflects all work, treatment, procedures, and medical decision making performed by me.
[2018-04-08 17:22] LABS: Basophils # (auto) 0.06 K/uL (0-0.2); Basophils % (auto) 0.5 %; Eosinophils # (auto) 0.16 K/uL (0-0.5); Eosinophils % (auto) 1.4 %; Hematocrit (blood only) 43.5 % (37-47); Hemoglobin 14.4 g/dL (12.0-16.0); Immature Granulocytes # (auto) 0.02 K/uL (0.00-0.02); Immature Granulocytes % (auto) 0.2 %; Lymphocytes # (auto) 2.13 K/uL (1.2-3.4); Lymphocytes % (auto) 19.2 %; Mean Corpuscular Hgb Conc 33.1 g/dL (32-36); Mean Corpuscular Volume 89.3 fL (80-100); Monocytes # (auto) 0.88 K/uL (0.11-0.59); Monocytes % (auto) 7.9 %; Neutrophils # (auto) 7.85 K/uL (1.4-6.5); Neutrophils % (auto) 70.8 %; Platelet Count 367 K/uL (130-400); Red Blood Count 4.87 M/uL (4.2-5.4)
[2018-04-08 17:32] LABS: INR 1.1 (0.9-1.1); Prothrombin Time 11.1 Seconds (9.0-12.0)
--- NOTE | 2018-04-08 17:37 | CT Scan Report ---
HEAD CT NONCONTRAST CT DOSE: 537.48 mGy.cm HISTORY: seizure TECHNIQUE: Multiaxial CT images of the head were performed without the use of intravenous contrast. A utomated exposure control was utilized for this study. A dose lowering technique was utilized adheri ng to the principles of ALARA. Comparison: Head CT 12/22/2016. Findings: The paranasal sinuses and mastoid air cells are clear. The calvarium and skull base are int act. There is no mass, hematoma, midline shift, acute infarct. White matter hypodensity is nonspecifi c but suggestive of microvascular ischemic change. The ventricles and sulci demonstrate mild age-rela chris involutional changes. Old right CONVEYOR INSTALLER territory infarct. There are associated calcifications at the old infarct. Old left external capsule lacunar infarct. Impression: No acute intracranial abnormality. Atrophy and microvascular ischemic changes. Old infarcts as descri bed above. Electronically signed by: Joby Weniberg M.D. 04/08/2018 5:36 PM
[2018-04-08 17:39] LABS: Alanine Aminotransferase 42 U/L (12-78); Aspartate Aminotransferase 21 U/L (15-37); BUN Creatinine Ratio 15.7 (10-20); Blood Urea Nitrogen 23 mg/dl (7-18); Calcium 9.8 mg/dl (8.5-10.1); Carbon Dioxide 24 mmol/L (21-32); Chloride 107 mmol/L (98-107); Est GFR (African American) 42.2; Est GFR (Non-African American) 36.4; Glucose 144 mg/dl (70-99); Potassium 4.6 mmol/L (3.5-5.1); Sodium 140 mmol/L (136-145)
[2018-04-08 17:49] LABS: Alkaline Phosphatase 115 U/L (45-117); Bilirubin,Total 0.5 mg/dl (0.2-1); Creatine Kinase 116 U/L (26-192); Globulin 3.9 gm/dl (2.5-4.0); Total Protein 7.9 gm/dl (6.4-8.2); Troponin I < 0.015 ng/ml (0-0.045)
[2018-04-08 17:51] LABS: Partial Thromboplastin Time 26.5 Seconds (21.0-31.0)
--- NOTE | 2018-04-08 17:58 | XRay Report ---
SINGLE VIEW CHEST CLINICAL HISTORY: Generalized weakness. FINDINGS: An AP, portable, upright chest radiograph is compared to study dated 12/22/2016. The examina tion is significantly degraded by portable technique and patient rotation. The cardiomediastinal man houette is unremarkable. There is a large hiatal hernia. Bibasilar atelectasis is observed. No airspa ce consolidation or large pleural effusion is identified. No pneumothorax is seen. The skeletal struc tures are osteopenic. The bony thorax is grossly intact. IMPRESSION: No active disease in the chest. Electronically signed by: Farshad Davis M.D. 04/08/2018 5:57 PM
[2018-04-08] MEDS ORDERED: VALPROATE SOD IV ONE (18:34)
[2018-04-08] MEDS ORDERED: DEXTROSE 5% IV ONE (18:34)
[2018-04-08] MEDS ORDERED: VALPROATE SOD 500 MG in DEXTROSE 5% 50 ML IV ONE (19:48)
[2018-04-08] MEDS ORDERED: SODIUM CHLORIDE 0.9% 1000ML 500 ML IV ONE (20:09)
--- NOTE | 2018-04-08 20:38 | History & Physical Report ---
Date of Service April 08, 2018 Assessment & Plan (1) Focal seizure: New onset focal seizures-- In the ED given a total of Keppra 1000 mg IV, valproate 1000 mg IV, and lorazepam 1 mg IV. Should be admitted on Keppra 500 mg IV every 12 hours and valproate 500 mg IV every 12 hours. Lorazepam 1 mg IV every 15 minutes as needed breakthrough seizure. The patient will be admitted to telemetry for serial cardiac enzymes, serial EKG's, cardiac rhythm monitoring and a 2-D echocardiogram with Dopplers. Order MRI of brain without contrast, MRA of head without contrast, and MRA of neck with contrast. Due to borderline renal function. Order an EEG. Neurology consult Dr. Cha. Seizure precautions. Present on Admission?: Yes (2) New onset seizure: See above Present on Admission?: Yes (3) CKD stage 3 due to type 2 diabetes mellitus: Creatinine 1.45 upon admission, it is in the lower end of her ranges. Given 500 cc normal saline bolus in the ED to prep for dye load. Follow serial laboratories. Present on Admission?: Yes (4) Hyperlipidemia: When she is able to take p.o., take atorvastatin 80 mg daily. Check a fasting lipid panel Present on Admission?: Yes (5) Hypertension: Hold lisinopril 2.5 mg daily. Present on Admission?: Yes (6) Stroke: Previous strokes, associated with encephalomalacia, worse on right side than left, serving is likely focus of seizure activity. Present on Admission?: Yes (7) Encephalomalacia: As above Present on Admission?: Yes History of Present Illness Chief Complaint: The patient presented to the emergency department with acute onset of new focal seizures with left-sided weakness prior to arrival. Primary Care Provider: Casimiro Arizmendi MD The patient is a 72-year-old female, with a past medical history including previous strokes without seizures, who developed the acute onset of left-sided stiffness, weakness and inability to ambulate. In the emergency department, she was noted to have a seizure, and empirically had been given Keppra 1000 mg IV, had a seizure after that, and was then given Lorazepam 1 mg IV and valproate 500 mg IV. During my examination, the patient was having breakthrough seizures again, and was given another valproate 500 mg IV. Allergies Allergy/AdvReac Type Severity Reaction Status Date / Time ragweed pollen Allergy Intermediate ITCHY Verified 10/24/17 14:37 EYES, SNEEZING No Known Drug Allergies Allergy Unknown Verified 10/23/17 21:02 Dust Allergy Intermediate ITCHY Uncoded 10/22/17 17:01 EYES,SNEEZING Home Medications Home Medications Medication Instructions Recorded Confirmed Type loratadine-pseudoephedrine 1 tab PO DAILY PRN #0 tab 12/22/16 04/08/18 History [Claritin-D 24 Hour] aspirin [Aspir-81] 81 mg PO QAM 10/22/17 04/08/18 History atorvastatin 80 mg PO QAM 10/22/17 04/08/18 History multivitamin 1 tab PO DAILY 10/22/17 04/08/18 History atorvastatin [Lipitor] 80 mg PO HS 04/08/18 04/08/18 History lisinopril [Zestril] 2.5 mg PO DAILY 04/08/18 04/08/18 History Past Med/Surg History Medical History Hypertension (Chronic) Diabetes (Chronic) Hyperlipidemia Stroke (Resolved) Depression GERD (gastroesophageal reflux disease) Hearing deficit Surgical History History of open reduction and internal fixation (ORIF) procedure Family History Other Family history non-contributory Social History Current Living Situation: Alone Feels Safe at Home: Yes Smoking Status: Never smoker Second Hand Exposure: Yes (h/o while playing bridge) Hx Alcohol Use: No Hx Substance Use: No Beliefs That Will Affect Care: None Preferred Language: Croatian Review of Systems Review of systems is limited to the patient's mental state. Physical Exam 2 Vital Signs (Past 24 Hours): Last Vital Signs Temp 36.7 C 04/08/18 17:00 Pulse 111 H 04/08/18 18:54 Resp 19 04/08/18 18:54 BP 157/100 H 04/08/18 18:54 Pulse Ox 97 04/08/18 18:54 Physical Exam: The patient is post ictal, nonresponsive, normocephalic and atraumatic, lying in bed and in no acute distress. HEENT--PERRL, EOMI, mucous membranes and oropharynx dry. Neck--supple. No JVD. No bruits. Thyroid normal, trachea midline, no adenopathy. Heart--normal S1 and S2. No murmurs, rubs or gallops. Lungs--clear bilaterally, no respiratory distress, no accessory muscle use. Abdomen--normal bowel sounds and soft. Nontender. Nondistended. Extremities--no cyanosis or clubbing. No edema. There are good distal pulses b/ l. Dermatologic--normal skin turgor, normal color, no abnormal lymph nodes, no rash. Neurologic--cranial nerves II through XII grossly intact. Rheumatologic--limited exam Psychiatric--postictal Results & Data Laboratory Results Laboratory Results WBC 11.10 K/uL (4.8-10.8) H 04/08/18 17:10 RBC 4.87 M/uL (4.2-5.4) 04/08/18 17:10 Hgb 14.4 g/dL (12.0-16.0) 04/08/18 17:10 Hct 43.5 % (37-47) 04/08/18 17:10 MCV 89.3 fL (80-100) 04/08/18 17:10 MCH 29.6 pg (25-34) 04/08/18 17:10 MCHC 33.1 g/dL (32-36) 04/08/18 17:10 RDW Std Deviation 46.0 fL (36.4-46.3) 04/08/18 17:10 RDW Coeff of Omid 14.0 % (11.5-14.5) 04/08/18 17:10 Plt Count 367 K/uL (130-400) 04/08/18 17:10 MPV 10.0 fL (7.4-10.4) 04/08/18 17:10 Immature Gran % (Auto) 0.2 % 04/08/18 17:10 Neut % (Auto) 70.8 % 04/08/18 17:10 Lymph % (Auto) 19.2 % 04/08/18 17:10 [place] % (Auto) 7.9 % 04/08/18 17:10 Eos % (Auto) 1.4 % 04/08/18 17:10 Baso % (Auto) 0.5 % 04/08/18 17:10 Immature Gran # (Auto) 0.02 K/uL (0.00-0.02) 04/08/18 17:10 Neut # (Auto) 7.85 K/uL (1.4-6.5) H 04/08/18 17:10 Lymph # (Auto) 2.13 K/uL (1.2-3.4) 04/08/18 17:10 [place] # (Auto) 0.88 K/uL (0.11-0.59) H 04/08/18 17:10 Eos # (Auto) 0.16 K/uL (0-0.5) 04/08/18 17:10 Baso # (Auto) 0.06 K/uL (0-0.2) 04/08/18 17:10 PT 11.1 Seconds (9.0-12.0) 04/08/18 17:10 INR 1.1 (0.9-1.1) 04/08/18 17:10 APTT 26.5 Seconds (21.0-31.0) 04/08/18 17:10 PTT Ratio 1.0 04/08/18 17:10 Sodium 140 mmol/L (136-145) 04/08/18 17:10 Potassium 4.6 mmol/L (3.5-5.1) 04/08/18 17:10 Chloride 107 mmol/L (98-107) 04/08/18 17:10 Carbon Dioxide 24 mmol/L (21-32) 04/08/18 17:10 Anion Gap 9.0 (3-11) 04/08/18 17:10 BUN 23 mg/dl (7-18) H 04/08/18 17:10 Creatinine 1.45 mg/dl (0.6-1.2) H 04/08/18 17:10 Est Cr Clr Drug Dosing Not Reportable 04/08/18 17:10 Est GFR ( Amer) 42.2 04/08/18 17:10 Est GFR (Non-Af Amer) 36.4 04/08/18 17:10 BUN/Creatinine Ratio 15.7 (10-20) 04/08/18 17:10 Glucose 144 mg/dl (70-99) H 04/08/18 17:10 Calcium 9.8 mg/dl (8.5-10.1) 04/08/18 17:10 Magnesium 2.0 mg/dl (1.8-2.4) 04/08/18 17:10 Total Bilirubin 0.5 mg/dl (0.2-1) 04/08/18 17:10 AST 21 U/L (15-37) 04/08/18 17:10 ALT 42 U/L (12-78) 04/08/18 17:10 Alkaline Phosphatase 115 U/L (45-117) 04/08/18 17:10 Total Creatine Kinase 116 U/L (26-192) 04/08/18 17:10 Troponin I < 0.015 ng/ml (0-0.045) 04/08/18 17:10 Total Protein 7.9 gm/dl (6.4-8.2) 04/08/18 17:10 Albumin 4.0 gm/dl (3.4-5.0) 04/08/18 17:10 Globulin 3.9 gm/dl (2.5-4.0) 04/08/18 17:10 Albumin/Globulin Ratio 1.0 (0.9-2) 04/08/18 17:10 TSH 2.980 uIu/ml (0.300-4.500) 04/08/18 17:10 Prolactin 39.58 ng/ml 04/08/18 17:10 Urine Color Yellow 04/08/18 20: Urine Appearance Cloudy (Clear) H 04/08/18 20:29 Urine pH 5.0 (4.5-7.5) 04/08/18 20:29 Ur Specific [place] 1.019 (1.000-1.030) 04/08/18 20:29 Urine Protein Negative (Negative) 04/08/18 20:29 Urine Glucose (UA) Negative (Negative) 04/08/18 20:29 Urine Ketones Trace (Negative) H 04/08/18 20:29 Urine Blood Negative (Negative) 04/08/18 20: Urine Nitrite Negative (Negative) 04/08/18 20: Urine Bilirubin Negative (Negative) 04/08/18 20:29 Urine Urobilinogen Negative (Negative) 04/08/18 20:29 Ur Leukocyte Esterase Negative (Negative) 04/08/18 20:29 Urine WBC (Auto) 1-5 /hpf (0-5) 04/08/18 20:29 Urine RBC (Auto) 0-4 /hpf (0-4) 04/08/18 20:29 U Hyaline Cast (Auto) 1-5 /lpf (0-5) 04/08/18 20:29 U Epithel Cells (Auto) 10-20 /lpf (0-5) H 04/08/18 20:29 Urine Bacteria (Auto) Negative (Negative) 04/08/18 20:29 Diagnostic Findings [place], [place] [phone] XRay Report Patient: VENKAT CANO Date: 04/08/18 MR#: [id number]: [address] Acct ID:[id number]: [address] Date: 1945[facility] Zip: [place] [address] Age: 72Location: ED Sex: F Room/Bed: Att Phy: Diagnosis: FALL Radha Phy: Casimiro Arizmendi, MDService Date: 04/08/18 Fam Phy: Interpreting Phy: Farshad Davis MD Admit Phy: Ordering Phy: Jc Dorsey, cc: ~ SINGLE VIEW CHEST CLINICAL HISTORY: Generalized weakness. FINDINGS: An AP, portable, upright chest radiograph is compared to study dated 12/22/2016. The examination is significantly degraded by portable technique and patient rotation. The cardiomediastinal silhouette is unremarkable. There is a large hiatal hernia. Bibasilar atelectasis is observed. No airspace consolidation or large pleural effusion is identified. No pneumothorax is seen. The skeletal structures are osteopenic. The bony thorax is grossly intact. IMPRESSION: No active disease in the chest. Electronically signed by: Farshad Davis M.D. 04/08/2018 5:57 PM Dictated: 04/08/181755 Transcribed: 04/08/18 [address] [place], [place] [phone] CT Scan Report Patient: VENKAT CANO Date: 04/08/18 MR#: [id number]: [address] Acct ID:[id number]: [address] Date: 1945[facility] Zip: [place] [address] Age: 72Location: ED Sex: F Room/Bed: Att Phy: Diagnosis: FALL Radha Phy: Casimiro Arizmendi, MDService Date: 04/08/18 Fam Phy: Interpreting Phy: Joby Weinberg MD Admit Phy: Ordering Phy: Jc Dorsey DO cc: ~ HEAD CT NONCONTRAST CT DOSE: 537.48 mGy.cm HISTORY: seizure TECHNIQUE: Multiaxial CT images of the head were performed without the use of intravenous contrast. Automated exposure control was utilized for this study. A dose lowering technique was utilized adhering to the principles of ALARA. Comparison: Head CT 12/22/2016. Findings: The paranasal sinuses and mastoid air cells are clear. The calvarium and skull base are intact. There is no mass, hematoma, midline shift, acute infarct. White matter hypodensity is nonspecific but suggestive of microvascular ischemic change. The ventricles and sulci demonstrate mild age- related involutional changes. Old right PEDIATRIC GENETIC COUNSELOR territory infarct. There are associated calcifications at the old infarct. Old left external capsule lacunar infarct. Impression: No acute intracranial abnormality. Atrophy and microvascular ischemic changes. Old infarcts as described above. Electronically signed by: Joby Weinberg M.D. 04/08/2018 5:36 PM Dictated: 04/08/181730 Transcribed: 04/08/181730 Code Status & VTE Plan Code Status Full code VTE Prophylaxis Plan VTE Prophylaxis will be ordered: Yes _ (1) Stroke CVA mechanism: unspecified Precerebral and cerebral artery: Laterality of affected vessel: Qualified Code(s): I63.9 - Cerebral infarction, unspecified
[2018-04-08 21:42] LABS: Appearance Urine Cloudy (Clear); Bacteria Urine Automated Negative (Negative); Bilirubin Urine Negative (Negative); Blood Urine Negative (Negative); Color Urine Yellow; Glucose Urine UA Negative (Negative); Ketones Urine Trace (Negative); Leukocyte Esterase Urine Negative (Negative); Nitrite Urine Negative (Negative); Protein Urine Negative (Negative); RBC Urine Automated 0-4 /hpf (0-4); Specific Gravity Urine 1.019 (1.000-1.030); Urobilinogen Urine Negative (Negative)
[2018-04-08] MEDS ORDERED: ONDANSETRON INJ 2 MG/ML 2 ML VIAL IV PRN (22:16)
[2018-04-08] MEDS: LORazepam 1 MG/2 ML VIAL IV PRN (23:34)
[2018-04-09] MEDS: SODIUM CHLORIDE 0.9% 1000ML 1,000 ML IV SCH ×3 (01:13→15:34)
[2018-04-09] MEDS: LORazepam 1 MG/2 ML VIAL IV PRN ×2 (02:55→05:40)
[2018-04-09 06:17] LABS: Basophils # (auto) 0.03 K/uL (0-0.2); Basophils % (auto) 0.3 %; Eosinophils # (auto) 0.03 K/uL (0-0.5); Eosinophils % (auto) 0.3 %; Hematocrit (blood only) 37.6 % (37-47); Hemoglobin 12.3 g/dL (12.0-16.0); Immature Granulocytes # (auto) 0.03 K/uL (0.00-0.02); Immature Granulocytes % (auto) 0.3 %; Lymphocytes # (auto) 0.96 K/uL (1.2-3.4); Lymphocytes % (auto) 8.9 %; Mean Corpuscular Hgb Conc 32.7 g/dL (32-36); Mean Corpuscular Volume 88.9 fL (80-100); Mean Platelet Volume 9.9 fL (7.4-10.4); Monocytes # (auto) 0.44 K/uL (0.11-0.59); Monocytes % (auto) 4.1 %; Neutrophils # (auto) 9.32 K/uL (1.4-6.5); Neutrophils % (auto) 86.1 %; Platelet Count 299 K/uL (130-400); RDW Coefficient of Variation 13.8 % (11.5-14.5); Red Blood Count 4.23 M/uL (4.2-5.4); White Blood Count 10.81 K/uL (4.8-10.8)
[2018-04-09 06:35] LABS: INR 1.2 (0.9-1.1); Partial Thromboplastin Time 26.8 Seconds (21.0-31.0); Prothrombin Time 11.8 Seconds (9.0-12.0)
[2018-04-09 06:50] LABS: Albumin Level 3.3 gm/dl (3.4-5.0); Calcium 8.7 mg/dl (8.5-10.1); Creatinine Clr Calc Pharmacy 40.8 ml/min; Est GFR (African American) 59.6; Est GFR (Non-African American) 51.4; Potassium 3.9 mmol/L (3.5-5.1)
[2018-04-09 06:59] LABS: Bilirubin,Total 0.5 mg/dl (0.2-1); Globulin 3.2 gm/dl (2.5-4.0); Total Protein 6.5 gm/dl (6.4-8.2)
--- NOTE | 2018-04-09 07:23 | Magnetic Resonance Report ---
MRI OF THE BRAIN WITHOUT IV CONTRAST CLINICAL HISTORY: Seizure. COMPARISON STUDY: CT of the brain dated 04/08/2018. MRI of the brain dated 12/23/2016. TECHNIQUE: MRI of the brain was performed utilizing various T1 and T2-weighted sequences in the axial , sagittal, and coronal planes. IV contrast was not administered for this examination. The examinatio n was performed using the seizure protocol. The examination is compromised by motion artifact. FINDINGS: Brain parenchyma: There is age-related involutional change noting moderate to advanced subcortical an d periventricular microangiopathic disease. Right occipital encephalomalacia is unchanged and consist ent with a remote infarct. There is associated overlying cortical calcification. There is no hemorrha ge or mass effect. There is no restricted diffusion typical for acute ischemia. Probable T2 shine thr ough is noted in the right occipital region. Small chronic lacunar infarcts are noted within the righ t thalamus and the right cerebellar hemisphere. Hernandez-white matter differentiation is preserved. No ex tra-axial fluid collection is seen. The cerebellar tonsils are normal in configuration. Ventricles, sulci, and cisterns: Prominent secondary to involutional change. There is ex vacuo dilata tion of the right lateral ventricle. Pituitary and sella: Unremarkable. Intracranial vasculature: Normal flow voids are maintained at the skull base. 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 Orbits: The bony orbits are grossly intact. Orbital contents are normal in appearance. Sinuses and mastoids: Clear. Calvarium: Unremarkable. Soft tissues: An approximately 4 x 3 cm mass lesion is again seen within the left parotid gland. Cervical cord: Partially visualized cervical spinal cord is normal in morphology and signal intensity . IMPRESSION: 1. Motion compromised examination. 2. Senescent changes and chronic right MEDICAL TECHNOLOGIST PRN territory infarct with evidence of laminar necrosis. 3. Restricted diffusion identified within the infarcted right occipital lobe is likely related to T2 shine-through. 4. There is no convincing evidence of acute ischemia. There is no hemorrhage or mass effect. 5. 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 Electronically signed by: Farshad Davis M.D. 04/09/2018 7:22 AM
[2018-04-09] MEDS ORDERED: VALPROATE SOD 500 MG in DEXTROSE 5% 50 ML IV SCH (08:00)
--- NOTE | 2018-04-09 09:56 | Hospitalist Progress Note ---
Date of Service April 09, 2018 Assessment & Plan (1) Focal seizure: New onset partial seizures possibly a sequela of prior CVA-- Dr. Cha at bedside requesting the following orders: valproate IV 500 mg q8h first one stat, keppra 250 mg q6h to stagger with valproate, discontinue lorazepam and valproic acid level stat Troponin normal x3 Echo pending MRI of brain without acute ischemia; MRA of head, and MRA of neck with contrast pending - may have to hold off on these until seizures subside to obtain adequate images EEG pending Neurology consult Dr. Cha Seizure precautions Will transfer patient to PCU from [facility] for closer monitoring (2) CKD stage 3 due to type 2 diabetes mellitus: Stable prp am (3) Hyperlipidemia: When she is able to take p.o., take atorvastatin 80 mg daily. (4) Hypertension: Hold lisinopril 2.5 mg daily for dye received yesterday, patient not taking po at this time Hypertensive with BPs 190s/1teens - prn hydralazine and metoprolol IV (5) Stroke: With left side hemiplegia - Previous strokes, associated with encephalomalacia, worse on right side than left (6) Encephalomalacia: As above (7) DVT prophylaxis: heparin subq Subjective Ms. Hernández is having active seizures this morning with left side tremors. She is mostly able to speak and interact during them as well as follow commands but occasionally will drift as though she can't follow what is being said. She reports feeling terrible but without any specific complaints or pain other than the feeling that she has to pee. Review of Systems All systems reviewed & are unremarkable except as noted in HPI & below Physical Exam 2 Vital Signs (Past 24 Hours): Last Vital Signs Temp 36.6 C 04/08/18 23:11 Pulse 87 04/09/18 07:39 Resp 92 H 04/09/18 07:39 BP 194/118 H 04/09/18 09:47 Pulse Ox 97 04/09/18 07:39 Physical Exam: General: no distress Eyes: normal inspection, PERLL, pupils 4mm Respiratory: chest non tender, clear to auscultation, normal breath sounds, no respiratory distress, no accessory muscle use Cardiac: regular rate and rhythm, no rub or gallop, no murmur, no edema, no jvd GI/: hypoactive bowel sounds, no abd pain or tenderness, soft, non distended Extremities: left arm hemiparesis, right arm mild weakness, right hand grasp strong Neuro/Psych: alert and oriented to person and place, left arm hemiparesis, eyes unable to make full left lateral movement when asked to follow light, dysarthric , Skin: normal color, dry Results & Data Laboratory Results Abnormal lab results 04/08/18 04/08/18 04/08/18 Range/Units 17:10 17:10 20:29 WBC 11.10 H (4.8-10.8) K/uL Immature Gran # (Auto) (0.00-0.02) K/uL Neut # (Auto) 7.85 H (1.4-6.5) K/uL Lymph # (Auto) (1.2-3.4) K/uL [place] # (Auto) 0.88 H (0.11-0.59) K/uL INR (0.9-1.1) BUN 23 H (7-18) mg/dl Creatinine 1.45 H (0.6-1.2) mg/dl Glucose 144 H (70-99) mg/dl POC Glucose (70-99) Albumin (3.4-5.0) gm/dl Urine Appearance Cloudy H (Clear) Urine Ketones Trace H (Negative) U Epithel Cells (Auto) 10-20 H (0-5) /lpf 04/08/18 04/09/18 04/09/18 Range/Units 23:22 05:55 05:55 WBC 10.81 H (4.8-10.8) K/uL Immature Gran # (Auto) 0.03 H (0.00-0.02) K/uL Neut # (Auto) 9.32 H (1.4-6.5) K/uL Lymph # (Auto) 0.96 L (1.2-3.4) K/uL [place] # (Auto) (0.11-0.59) K/uL INR 1.2 H (0.9-1.1) BUN (7-18) mg/dl Creatinine (0.6-1.2) mg/dl Glucose (70-99) mg/dl POC Glucose 125 H (70-99) Albumin (3.4-5.0) gm/dl Urine Appearance (Clear) Urine Ketones (Negative) U Epithel Cells (Auto) (0-5) /lpf 04/09/18 Range/Units 05:55 WBC (4.8-10.8) K/uL Immature Gran # (Auto) (0.00-0.02) K/uL Neut # (Auto) (1.4-6.5) K/uL Lymph # (Auto) (1.2-3.4) K/uL [place] # (Auto) (0.11-0.59) K/uL INR (0.9-1.1) BUN 21 H (7-18) mg/dl Creatinine (0.6-1.2) mg/dl Glucose 150 H (70-99) mg/dl POC Glucose (70-99) Albumin 3.3 L (3.4-5.0) gm/dl Urine Appearance (Clear) Urine Ketones (Negative) U Epithel Cells (Auto) (0-5) /lpf _ (1) Stroke CVA mechanism: unspecified Laterality of affected vessel: Precerebral and cerebral artery: Qualified Code(s): I63.9 - Cerebral infarction, unspecified
--- NOTE | 2018-04-09 10:04 | Neurology Consultation ---
Date of Consultation April 09, 2018 Assessment & Plan (1) New onset seizure: The patient has new onset partial seizures with left-sided focal motor symptoms sometimes without alteration of consciousness and sometimes with some confusion. She is having serial partial seizures without any significant relief. The etiology of the seizures is likely secondary to her previous right posterior cerebral artery stroke. She has significant encephalomalacia as well as old chronic small vessel ischemic disease. EEG was obtained this morning but final result is pending. She did not seem to be in status epilepticus by my cursory, preliminary reading. She has no other obvious reason for seizures including no obvious metabolic issues, new medications, or recent infections or inflammation. She has been given Depakote and levetiracetam as well as some Ativan without controlling these events. Unfortunately, she is sleepy and this could be postictal or the Ativan affect. She has left-sided weakness which likely is postictal. 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 She was left with a significant left homonymous hemianopsia which I believe she still has. She also has moderate old small vessel ischemic change as well. She has considerable cerebral atrophy. (3) Hypertension: Patient has significant hypertension which is not been adequately controlled since admission. Recommendations: 1. Since she is having serial seizures I recommend transferring her to ICU or PCU. 2. 500 milligrams valproic acid IV stat. I have discussed this with Janice HUGHES 3. Continue valproic acid IV 500 milligrams q.8 hours. 4. Continue levetiracetam 250 milligrams IV Q 6 hours staggering with the valproic acid. 5. Avoid benzodiazepines such as Ativan as much as possible in order to avoid mental status changes. Levetiracetam can actually cause some confusion in elderly also. 6. Depakote levels each morning. 7. I will follow for seizure control. Overall, I spent a total of 100 minutes with this case including review of records, review of MRI films previous and recent, direct evaluation the patient at bedside, and discussion of the case with clinical staff, Janice HUGHES , and Dr. Rosario. History of Present Illness Reason for Consultation: Patient is a 72-year-old, who was asked to see the request of Dr. Lynn, for neurologic consultation regarding seizure activity. Requesting Physician: Dr. Lynn Attending Physician: Yahir Rosario MD History of Present Illness Patient has a history of hypertension and diabetes of a longstanding nature. She has type 3 chronic kidney disease. In December of 2016, the patient presented with dizziness, nausea, and balance issues. An MRI of the brain showed a rather large right posterior cerebral artery stroke involving the right occipital lobe, right medial temporal lobe, and the right thalamus. She had a left homonymous hemianopsia but did not have any weakness of significance on the left side. She was put on a daily aspirin 81 milligrams. She spent some time in rehab and retirement finally discharged home in April of 2017. It was clear that she needed a walker for support and could not drive anymore because of her vision issues. In October of 2017 she had sepsis and a cholecystectomy. Again, she spent time in rehab and retirement. On April 08 around 3 o'clock in the afternoon while out trying to use the [facility], she became stiff on the left side and could not move her left leg. She leaned against the car was not able to walk. She arrived at the emergency room April 08 at 1659 with a blood pressure of 220/110 , temperature 36.7, pulse 115, respiratory 23, and O2 saturation 95 percent. She was noted to have left-sided seizure activity on an off. She was given Depakote 500 milligrams after Keppra a 1000 milligrams total. She was continuing to have seizure activity after admission and was given another 500 milligrams of Depakote, as well as 3 milligrams of Ativan. Laboratory studies revealed a unremarkable CBC and Chem profile with a prolactin level of 39. She continues to have hypertension. MRI of the brain that showed no acute changes or findings. There was some increased signal in the right occipital lobe on diffusion imaging which radiology felt was shine through . Therefore there was no new stroke and old small vessel ischemia was about the same as the previous MRI. I reviewed these films both from 2017 and currently. The patient is noted to have seizure activity involving the left arm by nursing staff. She was given 500 milligrams of Depakote at 0830 and 3 milligrams of Ativan at 05:40. The patient was seen this morning and she was still having intermittent seizures as will be described below. Allergies Allergy/AdvReac Type Severity Reaction Status Date / Time ragweed pollen Allergy Intermediate ITCHY Verified 10/24/17 14:37 EYES, SNEEZING No Known Drug Allergies Allergy Unknown Verified 10/23/17 21:02 Dust Allergy Intermediate ITCHY Uncoded 10/22/17 17:01 EYES,SNEEZING Home Medications Home Medications Medication Instructions Recorded Confirmed Type loratadine-pseudoephedrine 1 tab PO DAILY PRN #0 tab 12/22/16 04/08/18 History [Claritin-D 24 Hour] aspirin [Aspir-81] 81 mg PO QAM 10/22/17 04/08/18 History atorvastatin 80 mg PO QAM 10/22/17 04/08/18 History multivitamin 1 tab PO DAILY 10/22/17 04/08/18 History atorvastatin [Lipitor] 80 mg PO HS 04/08/18 04/08/18 History lisinopril [Zestril] 2.5 mg PO DAILY 04/08/18 04/08/18 History Patient History Medical History Hypertension (Chronic) Diabetes (Chronic) Hyperlipidemia Stroke (Resolved) Depression GERD (gastroesophageal reflux disease) Hearing deficit Surgical History Hx laparoscopic cholecystectomy History of open reduction and internal fixation (ORIF) procedure Family History Other Family history non-contributory Social History Current Living Situation: Family Other Information That Helps Us Care for You: No Feels Safe at Home: Yes Safety Concerns: Feels Safe At This Time Smoking Status: Never smoker Second Hand Exposure: Yes (h/o while playing bridge) Hx Alcohol Use: No Hx Substance Use: No Beliefs That Will Affect Care: None Preferred Language: Hebrew Communication Ability: Effective Patrol 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: No Review of Systems Constitutional: + chills, + fatigue and + weakness Eyes: + loss of peripheral vision; no eye pain Ear, Nose, Mouth, Throat: + hearing loss; no ear pain Respiratory: no dyspnea and no pain on inspiration Cardiovascular: no chest pain and no lightheadedness Gastrointestinal: no abdominal pain and no nausea Genitourinary (Female): + urinary frequency and + urinary urgency Musculoskeletal: no back pain, no neck pain and no joint pain Integumentary: no rash and no lesions Neurologic: + localized weakness, + seizure-like activity and + confusion; no dizziness Psychiatric: + anxiety; no depression Endocrine: + fatigue; no flushing Hematologic / Lymphatic: no easy bleeding and no easy bruising Allergy / Immunological: no urticaria and no rash Physical Exam 2 Vital Signs (Past 24 Hours): Last Vital Signs Temp 36.6 C 04/08/18 23:11 Pulse 87 04/09/18 07:39 Resp 92 H 04/09/18 07:39 BP 185/112 H 04/09/18 07:39 Pulse Ox 97 04/09/18 07:39 Physical Exam: Patient is sleepy but arousable with voice/shout/shaking. When she is not having seizure activity she can't focus, follow one-step commands, and communicate verbally. During seizure activity, she has less ability to communicate and follow commands. Sometimes, during seizure activity she will be able to follow one-step commands and speak and other time she does not. The seizures are occurring every few minutes and lasting up to 20-30 seconds at a time. They involve head turning to the left with occasional twitching of the head in that direction and stiffness and twitching of the left upper extremity with some disturbance posturing at times. The left lower extremity does not twitch but can stiffen. The right side is not affected. She will not make eye contact to the left but she will make some eye contact to the right. Pupils are 3-4 millimeters and reactive to light. During seizure activity her pupils are little more dilated than when she does not have seizure activity. She has good range of motion horizontally but I do not believe she can see to the left. She has no facial asymmetry and moves the face bilaterally well with voluntary smile. Tongue is midline and palate raises. Hearing is reasonable to conversation but I believe she is hard of hearing bilaterally. She has resistance/mild increased tone on the right arm and leg with decreased tone in the left arm and leg. She can squeeze the left hand and move the left arm and leg some when she is not having seizure activity. The right side seems to be fairly strong diffusely. Toes are downgoing to plantar stimulation on the right and upgoing with plantar stimulation on the left. She can sense pin and light touch in all 4 limbs but perhaps on the right side better than the left. Coordination is reasonable with [id number] testing on the right although she has a limited range of motion with her arm. She has no other abnormal involuntary movements. Reflexes are1/4 in the achilles, quadriceps and triceps bilaterally. Results & Data Diagnostic Findings MRI OF THE BRAIN WITHOUT IV CONTRAST CLINICAL HISTORY: Seizure. COMPARISON STUDY: CT of the brain dated 04/08/2018. MRI of the brain dated 2016. TECHNIQUE: MRI of the brain was performed utilizing various T1 and T2-weighted sequences in the axial, sagittal, and coronal planes. IV contrast was not administered for this examination. The examination was performed using the seizure protocol. The examination is compromised by motion artifact. FINDINGS: Brain parenchyma: There is age-related involutional change noting moderate to advanced subcortical and periventricular microangiopathic disease. Right occipital encephalomalacia is unchanged and consistent with a remote infarct. There is associated overlying cortical calcification. There is no hemorrhage or mass effect. There is no restricted diffusion typical for acute ischemia. Probable T2 shine through is noted in the right occipital region. Small chronic lacunar infarcts are noted within the right thalamus and the right cerebellar hemisphere. Hernandez-white matter differentiation is preserved. No extra-axial fluid collection is seen. The cerebellar tonsils are normal in configuration. Ventricles, sulci, and cisterns: Prominent secondary to involutional change. There is ex vacuo dilatation of the right lateral ventricle. Pituitary and sella: Unremarkable. Intracranial vasculature: Normal flow voids are maintained at the skull base. 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 Orbits: The bony orbits are grossly intact. Orbital contents are normal in appearance. Sinuses and mastoids: Clear. Calvarium: Unremarkable. Soft tissues: An approximately 4 x 3 cm mass lesion is again seen within the left parotid gland. Cervical cord: Partially visualized cervical spinal cord is normal in morphology and signal intensity. IMPRESSION: 1. Motion compromised examination. 2. Senescent changes and chronic right TEACHING DIETITIAN territory infarct with evidence of laminar necrosis. 3. Restricted diffusion identified within the infarcted right occipital lobe is likely related to T2 shine-through. 4. There is no convincing evidence of acute ischemia. There is no hemorrhage or mass effect. 5. 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 Electronically signed by: Farshad Davis M.D. 04/09/2018 7:22 AM _ (1) Stroke CVA mechanism: unspecified Precerebral and cerebral artery: Laterality of affected vessel: Qualified Code(s): I63.9 - Cerebral infarction, unspecified
[2018-04-09] MEDS: HydrALAZINE HCL 20 MG/ML VIAL IV PRN ×2 (10:10→16:08)
[2018-04-09] MEDS: PANTOprazole 40 MG in SYRINGE 0 ML IV SCH (10:11)
[2018-04-09] MEDS: VALPROATE SOD 500 MG in DEXTROSE 5% 50 ML IV SCH ×2 (10:11→17:52)
[2018-04-09] MEDS ORDERED: METOPROLOL TARTRATE 1 MG/ML VIAL IV PRN (11:31)
--- NOTE | 2018-04-09 12:09 | Procedure Note ---
EEG Procedure Note Date of Service April 09, 2018 Start / End Times Start Time: 6:59 AM End Time: 7:19 AM Referring Physician Sage Lynn History This is a 72-year-old female with new onset seizures. EEG for further evaluation of seizure etiology and to evaluate for possible status epilepticus. Home Medication List Home Medications Medication Instructions Recorded Confirmed Type loratadine-pseudoephedrine 1 tab PO DAILY PRN #0 tab 12/22/16 04/08/18 History [Claritin-D 24 Hour] aspirin [Aspir-81] 81 mg PO QAM 10/22/17 04/08/18 History atorvastatin 80 mg PO QAM 10/22/17 04/08/18 History multivitamin 1 tab PO DAILY 10/22/17 04/08/18 History atorvastatin [Lipitor] 80 mg PO HS 04/08/18 04/08/18 History lisinopril [Zestril] 2.5 mg PO DAILY 04/08/18 04/08/18 History Inpatient Medication List Hydralazine HCl (Hydralazine Hcl) 10 mg IV Q6H PRN PRN Reason: hypetension Stop: 05/09/18 09:47 Last Admin: 04/09/18 10:10 Dose: 10 mg Sodium Chloride (Nss 1000ml) 1,000 mls @ 80 mls/hr IV .[id number] [facility] Stop: 05/08/18 22:15 Last Infusion: 04/09/18 11:31 Dose: 80 mls/hr Infusion: 04/09/18 10:54 Dose: 0 mls/hr Admin: 04/09/18 10:12 Dose: 80 mls/hr Infusion: 04/09/18 10:12 Dose: 80 mls/hr Admin: 04/09/18 01:13 Dose: 80 mls/hr Pantoprazole Sodium 40 mg/ (Syringe) 10 mls @ 5 mls/min IV DAILY@1100 [facility] Stop: 04/13/18 10:59 Last Admin: 04/09/18 10:11 Dose: 5 mls/min Valproic Acid 500 mg/ Dextrose 55 mls @ 55 mls/hr IV Q8H [facility] Stop: 05/09/18 09:59 Last Infusion: 04/09/18 11:31 Dose: 0 mls/hr Admin: 04/09/18 10:11 Dose: 55 mls/hr Discontinued Medications Lorazepam (Ativan) 1 mg in 2 mls @ 2 mls/min IV NOW STA Stop: 04/08/18 17:08 Last Admin: 04/08/18 17:05 Dose: 2 mls/min Levetiracetam 1,000 mg/ (Dextrose) 110 mls @ 440 mls/hr IV NOW STA Stop: 04/08/18 17:21 Last Infusion: 04/08/18 17:55 Dose: 0 mls/hr Admin: 04/08/18 17:35 Dose: 440 mls/hr Valproic Acid 500 mg/ Dextrose 105 mls @ 105 mls/hr IV ONE ONE Stop: 04/08/18 18:35 Last Infusion: 04/08/18 20:00 Dose: Admin: 04/08/18 18:53 Dose: 105 mls/hr Valproic Acid 500 mg/ Dextrose 55 mls @ 55 mls/hr IV ONE ONE Stop: 04/08/18 20:47 Last Infusion: 04/08/18 21:50 Dose: Admin: 04/08/18 20:49 Dose: 55 mls/hr Sodium Chloride (Nss 1000ml) 500 mls @ 999 mls/hr IV .Q31M ONE Stop: 04/08/18 20:39 Last Infusion: 04/09/18 01:12 Dose: 0 mls/hr Admin: 04/08/18 22:33 Dose: 999 mls/hr Lorazepam (Ativan) 1 mg in 2 mls @ 2 mls/min IV Q15M PRN PRN Reason: Breakthrough Seizures Stop: 05/08/18 22:15 Last Admin: 04/09/18 05:40 Dose: 2 mls/min Admin: 04/09/18 02:55 Dose: 2 mls/min Admin: 04/08/18 23:34 Dose: 2 mls/min Levetiracetam 500 mg/ Dextrose 105 mls @ 440 mls/hr IV Q12H [facility] Stop: 05/09/18 08:29 Last Admin: 04/09/18 10:18 Dose: Not Given Valproic Acid 500 mg/ Dextrose 55 mls @ 55 mls/hr IV Q12H [facility] Stop: 05/09/18 07:59 Last Infusion: 04/09/18 09:37 Dose: Admin: 04/09/18 08:32 Dose: 55 mls/hr Levetiracetam 500 mg/ Dextrose 105 mls @ 420 mls/hr IV NOW STA Stop: 04/09/18 07:16 Last Infusion: 04/09/18 07:43 Dose: 0 mls/hr Admin: 04/09/18 07:21 Dose: 420 mls/hr Lorazepam (Ativan) Confirm Administered Dose 2 mg .ROUTE .STK-MED ONE Stop: 04/08/18 17:09 Last Admin: 04/08/18 17:25 Dose: Not Given Description This is a 21 electrode EEG with a single channel dedicated to limited EKG. The electrodes were placed in accordance with the International 10-20 system. At the start of this recording the patient was in an awake but confused state. There was frequent generalized movement artifact that at times obscured the background activity. There was periods where there was a well-formed anterior to posterior gradient with mix of alpha and beta frequencies and a symmetric well-formed moderate amplitude posterior dominant rhythm of 10 Hz. There was frequent generalized theta and delta slowing that would last for 1-5 seconds with no evolution. Hyperventilation was not done. Brief photic stimulation did not show any abnormalities. There was no state changes or sleep transients. Interpretation This is abnormal routine EEG secondary to frequent generalized slowing. There was no electrographic seizures or epileptiform discharges. Clinical Correlation This EEG indicates mild encephalopathy of nonspecific etiology. There was mild technical limitations due to frequent movement artifact.
[2018-04-09] MEDS: levETIRAcetam 250 MG in DEXTROSE 5% 100 ML IV SCH ×3 (12:16→22:56)
[2018-04-09] MEDS: ACETAMINOPHEN 1000 MG/100 ML IV IV PRN (17:48)
[2018-04-09] MEDS: HEPARIN SOD 5,000 UNIT/0.5 ML VIAL SQ SCH (21:36)
[2018-04-10] MEDS: VALPROATE SOD 500 MG in DEXTROSE 5% 50 ML IV SCH ×3 (01:23→17:55)
[2018-04-10] MEDS: ACETAMINOPHEN 1000 MG/100 ML IV IV PRN ×3 (01:23→21:34)
[2018-04-10] MEDS: SODIUM CHLORIDE 0.9% 1000ML 1,000 ML IV SCH ×2 (05:51→21:33)
[2018-04-10] MEDS: levETIRAcetam 250 MG in DEXTROSE 5% 100 ML IV SCH ×4 (05:52→23:23)
--- NOTE | 2018-04-10 07:59 | Neurology Progress Note ---
Date of Service April 10, 2018 Assessment & Plan (1) New onset seizure: The patient has new onset partial seizures with left-sided focal motor symptoms, today without alteration of consciousness or responsiveness while the movements are going. Today these look more continuous and may be myoclonic jerks and are not discrete events like yesterday. I still believe that yesterday I witnessed focal/partial motor seizures sometimes with and sometimes without alteration in consciousness. The etiology of the seizures is likely secondary to her previous right posterior cerebral artery stroke. She has significant encephalomalacia as well as old chronic small vessel ischemic disease. Her stroke involve the medial temporal lobe which could be the a source of seizure activity and the right thalamus which could be giving left-sided symptomatology. EEG April 09 showed no potentially epileptogenic activity but the background in general was mildly slow. She has no other obvious reason for seizures including no metabolic issues, new medications, or recent infections or inflammation. Her severe hypertension from admission into yesterday, could have resulted in focal motor weakness and brain irritability from her previous stroke. She has been given Depakote and levetiracetam as well as some Ativan without controlling these events. Unfortunately, she is sleepy and this could be postictal or the Ativan affect. She has left-sided weakness and some hypersensitivity to manipulate/touch the left lower extremity. 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 She was left with a significant left homonymous hemianopsia. She also has moderate old small vessel ischemic change as well. She has considerable cerebral atrophy. (3) Hypertension: Patient had significant hypertension on admission. This could have created some encephalopathy and transient focal neurologic issues. Today her blood pressure is much more controlled, but it may take a day or 2 for the brain to recover if the hypertension was affecting it. Recommendations: 1. Awaiting stat Depakote level from this morning. 2. Continue Depakote IV 500 milligrams q.8 hours, for now. 3. Continue levetiracetam 250 milligrams IV q.6 hours comma for now 4. Avoid benzodiazepines such as Ativan, as much as possible, in order to avoid mental status changes. Levetiracetam can actually cause some confusion in elderly also. 6. Depakote levels each morning. 7. I will follow Overall, I spent a total of 75 minutes with this case including review of records, review of MRI films previous and recent with Dr. Lloyd, direct evaluation the patient at bedside, and discussion of the case with clinical staff, and Janice HUGHES. Subjective The patient herself has no complaint of pain or headache. She feels this if she is falling in bed. As we discussed this, it seemed evident that she felt as if she was sliding down the bed or moving to the left but she was not vertiginous. Nursing reports rhythmic or semi rhythmic jerking of the left upper extremity while awake and no movements during sleep. Blood pressure has been improved and was 158/79. She still has sinus tachycardia particularly when awake. MRI of the brain was reviewed with Dr. Lloyd, and the conclusion is that there is no new stroke. The brightness on diffusion may be related to intense calcification that is in the right occipital lobe. Depakote level from this morning is pending. CBC this morning was unremarkable and the white count was normal. She remains afebrile. Physical Exam 2 Vital Signs (Past 24 Hours): Last Vital Signs Temp 37.1 C 04/10/18 03:52 Pulse 116 H 04/10/18 03:52 Resp 19 04/10/18 03:52 BP 158/79 H 04/10/18 03:52 Pulse Ox 98 04/10/18 03:52 Physical Exam: When we enter the room and the patient is sleeping, she has snoring mildly and there are no abnormal involuntary movements. Her limbs are still. When aroused, which is easy with voice and gentle shaking, she starts a rhythmic jerking of the left upper extremity. This does have some variability in its frequency but seems fairly persistent as long as she is awake. The right face does not twitch or jerk and neither does the right leg. During this wakefulness with movements she is able to speak and follow one-step commands. She may be mildly dysarthric but is oriented to her name and place. She is not in pain. She can be calm down some with speaking to her and I noted this dampened the frequency of the jerks in the left upper extremity Patient has reasonable horizontal gaze without nystagmus but she has a dense left homonymous hemianopsia present. She does have some up and down gaze. Pupils are 3 millimeters bilaterally and reactive. There is no facial droop and tongue is midline. She is quite strong and moves her right side well. The left side is weak and has increased tone. Manipulating this particularly her leg gives her a sense of significant pain (even when light stimuli only was performed). _ (1) Stroke CVA mechanism: unspecified Precerebral and cerebral artery: Laterality of affected vessel: Qualified Code(s): I63.9 - Cerebral infarction, unspecified
[2018-04-10 08:17] LABS: Basophils # (auto) 0.03 K/uL (0-0.2); Basophils % (auto) 0.3 %; Eosinophils # (auto) 0.05 K/uL (0-0.5); Eosinophils % (auto) 0.5 %; Hematocrit (blood only) 39.4 % (37-47); Immature Granulocytes # (auto) 0.01 K/uL (0.00-0.02); Immature Granulocytes % (auto) 0.1 %; Lymphocytes # (auto) 1.23 K/uL (1.2-3.4); Lymphocytes % (auto) 12.2 %; Mean Corpuscular Volume 87.8 fL (80-100); Mean Platelet Volume 9.6 fL (7.4-10.4); Monocytes # (auto) 0.76 K/uL (0.11-0.59); Monocytes % (auto) 7.5 %; Neutrophils # (auto) 8.02 K/uL (1.4-6.5); Neutrophils % (auto) 79.4 %; Platelet Count 328 K/uL (130-400); RDW Coefficient of Variation 13.8 % (11.5-14.5); RDW Standard Deviation 44.5 fL (36.4-46.3); Red Blood Count 4.49 M/uL (4.2-5.4)
[2018-04-10 08:25] LABS: INR 1.2 (0.9-1.1); Prothrombin Time 11.9 Seconds (9.0-12.0)
[2018-04-10] MEDS ORDERED: LORazepam 0.5 MG TAB PO ONE (08:29)
[2018-04-10 08:32] LABS: Albumin Level 3.3 gm/dl (3.4-5.0); BUN Creatinine Ratio 17.3 (10-20); Calcium 9.2 mg/dl (8.5-10.1); Est GFR (Non-African American) 45.8; Magnesium 1.9 mg/dl (1.8-2.4); Potassium 4.2 mmol/L (3.5-5.1)
[2018-04-10] MEDS ORDERED: LORazepam 0.25 MG/0.5 ML VIAL IV ONE (08:32)
[2018-04-10 08:35] LABS: Bilirubin,Total 0.7 mg/dl (0.2-1); Globulin 3.5 gm/dl (2.5-4.0); Total Protein 6.8 gm/dl (6.4-8.2)
[2018-04-10] MEDS: HEPARIN SOD 5,000 UNIT/0.5 ML VIAL SQ SCH ×2 (08:55→22:02)
--- NOTE | 2018-04-10 10:27 | Magnetic Resonance Report ---
MR ANGIOGRAM OF THE BRAIN CLINICAL HISTORY: Seizure. History of stroke. COMPARISON STUDY: MRI of the brain dated 04/09/2018. TECHNIQUE: 3-D [id number] MR angiography of the intracranial circulation is performed. 3-D tumble views are created and assessed. IV contrast was not administered for this examination. The examinati on is significantly compromised by motion artifact. FINDINGS: The internal carotid arteries are widely patent bilaterally. Evaluation of the anterior and middle cerebral arteries is significant compromise. These vessels are grossly patent. The vertebroba silar system is patent. The left vertebral artery is dominant and the right vertebral artery is dimi nutive. The posterior cerebral arteries cannot be assessed. No large aneurysm is identified. IMPRESSION: 1. Severely motion compromised examination. This degrades diagnostic utility. 2. The large flow-voids the skull base are patent. See above. Electronically signed by: Farshad Davis M.D. 04/10/2018 10:26 AM
[2018-04-10] MEDS ORDERED: GADOBUTROL 65ML VIAL IV PRN (10:30)
--- NOTE | 2018-04-10 10:42 | Magnetic Resonance Report ---
NECK CTA HISTORY: seizure activity, history of CVA's TECHNIQUE: Multiaxial CT images of the neck were performed following the intravenous administration o f contrast to evaluate the major cervical vessels. Maximum intensity projection images were also obta ined. All measurements were calculated based on NASCET criteria. A dose lowering technique was utili zed adhering to the principles of ALARA. COMPARISON STUDY: Carotid Doppler 12/23/2016. FINDINGS: The aortic arch and proximal great vessels are widely patent. Significant motion artifact results in suboptimal evaluation of the carotid and vertebral arteries. However, the bilateral common carotid, internal carotid arteries, left vertebral artery show no significant stenosis, occlusion, o r dissection. Nondiagnostic evaluation within the proximal hypoplastic right vertebral artery due to the motion artifact. The mid to distal right vertebral artery appears patent. There is again noted a 4 cm left parotid mass. IMPRESSION: 1. No significant stenosis or occlusion within the carotid or vertebral arteries. Of note, the study is suboptimal from a technical standpoint due to the motion artifact. 2. Redemonstration of the 4 cm left parotid mass. Electronically signed by: Joby Weinberg M.D. 04/10/2018 10:40 AM
[2018-04-10] MEDS: PANTOprazole 40 MG in SYRINGE 0 ML IV SCH (10:56)
--- NOTE | 2018-04-10 12:30 | Hospitalist Progress Note ---
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 EEG showed slowing but no seizure Neurology consult Dr. Cha Seizure precautions (2) CKD stage 3 due to type 2 diabetes mellitus: Stable prp am (3) Hyperlipidemia: continue atorvastatin 80 mg daily. (4) Hypertension: Resume lisinopril Hypertension has improved - continue prn hydralazine and metoprolol IV (5) Stroke: With left side hemiplegia - Previous strokes, associated with encephalomalacia, worse on right side than left (6) Encephalomalacia: As above (7) DVT prophylaxis: heparin subq Subjective Ms. Hernández is sedated from lorazepam for her MRA. She does awake when spoken to and and answered one question before falling back asleep. Review of Systems All systems reviewed & are unremarkable except as noted in HPI & below Physical Exam 2 Vital Signs (Past 24 Hours): Last Vital Signs Temp 37.1 C 04/10/18 03:52 Pulse 108 H 04/10/18 09:37 Resp 19 04/10/18 03:52 BP 158/79 H 04/10/18 03:52 Pulse Ox 98 04/10/18 03:52 Physical Exam: General: no distress Eyes: normal inspection, PERLL Respiratory: chest non tender, clear to auscultation, normal breath sounds, no respiratory distress, no accessory muscle use Cardiac: regular rate and rhythm, no rub or gallop, no murmur, no edema, no jvd GI/: active bowel sounds, no abd pain or tenderness, soft, non distended Extremities: normal range of motion, normal strength, non tender Neuro/Psych: drowsy but arouseable, too sedated to follow commands though she does awaken to verbal stimulus. Very mild left arm twitching but otherwise no other seizure like activity. Skin: normal color, dry Results & Data Laboratory Results Abnormal lab results 04/10/18 04/10/18 04/10/18 Range/Units 08:01 08:01 08:01 Neut # (Auto) 8.02 H (1.4-6.5) K/uL [place] # (Auto) 0.76 H (0.11-0.59) K/uL INR 1.2 H (0.9-1.1) BUN 21 H (7-18) mg/dl Glucose 113 H (70-99) mg/dl Albumin 3.3 L (3.4-5.0) gm/dl _ (1) Stroke CVA mechanism: unspecified Laterality of affected vessel: Precerebral and cerebral artery: Qualified Code(s): I63.9 - Cerebral infarction, unspecified
[2018-04-11] MEDS: VALPROATE SOD 500 MG in DEXTROSE 5% 50 ML IV SCH ×3 (01:59→18:11)
[2018-04-11] MEDS: levETIRAcetam 250 MG in DEXTROSE 5% 100 ML IV SCH (05:20)
[2018-04-11 06:39] LABS: Basophils # (auto) 0.06 K/uL (0-0.2); Basophils % (auto) 0.9 %; Eosinophils # (auto) 0.14 K/uL (0-0.5); Eosinophils % (auto) 2.1 %; Hematocrit (blood only) 38.9 % (37-47); Hemoglobin 12.6 g/dL (12.0-16.0); Immature Granulocytes # (auto) 0.01 K/uL (0.00-0.02); Immature Granulocytes % (auto) 0.2 %; Lymphocytes # (auto) 1.22 K/uL (1.2-3.4); Lymphocytes % (auto) 18.4 %; Mean Corpuscular Hgb Conc 32.4 g/dL (32-36); Mean Platelet Volume 9.7 fL (7.4-10.4); Monocytes # (auto) 0.58 K/uL (0.11-0.59); Monocytes % (auto) 8.7 %; Neutrophils # (auto) 4.62 K/uL (1.4-6.5); Neutrophils % (auto) 69.7 %; Platelet Count 320 K/uL (130-400); RDW Coefficient of Variation 13.8 % (11.5-14.5); RDW Standard Deviation 45.5 fL (36.4-46.3); Red Blood Count 4.37 M/uL (4.2-5.4); White Blood Count 6.63 K/uL (4.8-10.8)
[2018-04-11 06:52] LABS: INR 1.1 (0.9-1.1); Prothrombin Time 11.4 Seconds (9.0-12.0)
[2018-04-11 07:10] LABS: Albumin Level 2.9 gm/dl (3.4-5.0); BUN Creatinine Ratio 19.7 (10-20); Calcium 8.8 mg/dl (8.5-10.1); Creatinine Clr Calc Pharmacy 43.1 ml/min; Est GFR (African American) 63.8; Potassium 3.6 mmol/L (3.5-5.1)
[2018-04-11 07:13] LABS: Albumin Globulin Ratio 0.9 (0.9-2); Bilirubin,Total 0.4 mg/dl (0.2-1); Globulin 3.2 gm/dl (2.5-4.0); Total Protein 6.1 gm/dl (6.4-8.2)
[2018-04-11] MEDS: ASPIRIN 81 MG ECTAB PO SCH (08:40)
[2018-04-11] MEDS: ATORVASTATIN 40 MG TAB PO SCH (08:40)
[2018-04-11] MEDS: HEPARIN SOD 5,000 UNIT/0.5 ML VIAL SQ SCH ×2 (08:40→22:26)
[2018-04-11] MEDS: LISINOPRIL 2.5 MG TAB PO SCH (08:41)
[2018-04-11] MEDS: PANTOprazole 40 MG in SYRINGE 0 ML IV SCH (11:24)
--- NOTE | 2018-04-11 11:28 | Neurology Progress Note ---
Date of Service April 11, 2018 Assessment & Plan (1) New onset seizure: The patient has new onset left upper extremity, focal motor, partial seizures verses myoclonic jerking. Overall, I favor myoclonic jerks as the EEG was normal during spell several days ago. The etiology of the seizure like movements/myoclonus is likely secondary to her previous right posterior cerebral artery stroke. She has significant encephalomalacia as well as old chronic small vessel ischemic disease. Her stroke involve the medial temporal lobe which could be the a source of seizure activity and the right thalamus which could be giving left-sided symptomatology. EEG April 09 showed no potentially epileptogenic activity (despite her left upper extremity movements) but the background in general was mildly slow. She has no other obvious reason for seizures including no metabolic issues, new medications, or recent infections or inflammation. Her severe initial hypertension could have resulted in focal motor weakness and brain irritability from her previous stroke. She has been given Depakote and levetiracetam and the events are somewhat improved compared to last couple of days. Her left-sided weakness is improved and she is moving her left side better. 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 She was left with a significant left homonymous hemianopsia. She also has moderate old small vessel ischemic change as well. She has considerable cerebral atrophy. (3) Hypertension: Patient had significant hypertension on admission. This could have created some encephalopathy and transient focal neurologic issues. Today her blood pressure is fairly well controlled. Recommendations: 1. Continue Depakote IV 500 milligrams q8 hours, for now, although it may go to 500 milligrams every 6 hours if tomorrow's Depakote level is lower than 50. 2. The discontinue levetiracetam , as it may be creating irritability/confusion 3. Avoid benzodiazepines such as Ativan, as much as possible, in order to avoid mental status changes. 4. Depakote levels each morning. Overall, I spent a total of 25 minutes with this case including review of records, direct evaluation the patient at bedside, and discussion of the case with clinical staff, and Janice HUGHES. Subjective The patient herself has no complaint of pain or headache. She no longer has any feelings of falling in bed. She denies dizziness or vertigo. Nursing reports rhythmic or semi rhythmic jerking of the left upper extremity, which is improved compared to yesterday 5 while awake and no movements during sleep. Blood pressure has been improved although elevated this morning at 166/92. She still has sinus tachycardia particularly when awake. Depakote level from this morning 58. Constitutional: + chills, + fatigue and + weakness Eyes: + loss of peripheral vision; no eye pain Ear, Nose, Mouth, Throat: + hearing loss; no ear pain Genitourinary (Female): + urinary frequency and + urinary urgency Neurologic: + localized weakness, + seizure-like activity and + confusion; no dizziness Psychiatric: + anxiety; no depression Endocrine: + fatigue; no flushing Physical Exam 2 Vital Signs (Past 24 Hours): Last Vital Signs Temp 36.6 C 04/11/18 07:12 Pulse 96 H 04/11/18 09:08 Resp 18 04/11/18 07:12 BP 166/92 H 04/11/18 07:12 Pulse Ox 100 04/11/18 07:12 Physical Exam: Patient was sleeping when I 1st entered the room with no abnormal involuntary movements. She was easily aroused with voice and made eye contact. She could discuss and follow commands. She is moving her left side better today than yesterday. She has intermittent comma variable jerking of the left upper extremity as before. _ (1) Stroke CVA mechanism: unspecified Precerebral and cerebral artery: Laterality of affected vessel: Qualified Code(s): I63.9 - Cerebral infarction, unspecified
--- NOTE | 2018-04-11 13:04 | Hospitalist Progress Note ---
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 EEG showed slowing but no seizure Neurology consult Dr. Cha Seizure precautions (2) CKD stage 3 due to type 2 diabetes mellitus: Stable prp am (3) Hyperlipidemia: continue atorvastatin 80 mg daily. (4) Hypertension: Resume lisinopril Hypertension has improved but bp is still elevated- continue prn hydralazine and metoprolol IV (5) Stroke: With left side hemiplegia - Previous strokes, associated with encephalomalacia, worse on right side than left (6) Encephalomalacia: As above (7) DVT prophylaxis: heparin subq Subjective Ms. Hernández is alert and oriented when spoken to but otherwise falls asleep/ closes eyes when in the room alone. She continues to yell out often throughout the day. When asked why she says "circumstances" and that there is nothing we can do do help her. Per nursing, she does seem to be having some hallucinations with things coming over her face or movements in the room. Review of Systems All systems reviewed & are unremarkable except as noted in HPI & below Physical Exam 2 Vital Signs (Past 24 Hours): Last Vital Signs Temp 36.7 C 04/11/18 11:42 Pulse 82 04/11/18 11:42 Resp 22 04/11/18 11:42 BP 151/71 H 04/11/18 11:42 Pulse Ox 95 04/11/18 11:42 Physical Exam: General: no distress Eyes: normal inspection, PERLL Respiratory: chest non tender, clear to auscultation, normal breath sounds, no respiratory distress, no accessory muscle use Cardiac: regular rate and rhythm, no rub or gallop, no murmur, no edema, no jvd GI/: active bowel sounds, no abd pain or tenderness, soft, non distended Extremities: normal range of motion, normal strength, non tender Neuro/Psych: alert and oriented x 3, anxious, left arm twitching/weakness, moves all extremities, Skin: normal color, dry Results & Data Laboratory Results Abnormal lab results 04/11/18 Range/Units 06:27 Chloride 108 H (98-107) mmol/L BUN 20 H (7-18) mg/dl Glucose 100 H (70-99) mg/dl Total Protein 6.1 L (6.4-8.2) gm/dl Albumin 2.9 L (3.4-5.0) gm/dl _ (1) Stroke CVA mechanism: unspecified Precerebral and cerebral artery: Laterality of affected vessel: Qualified Code(s): I63.9 - Cerebral infarction, unspecified
[2018-04-11] MEDS: SODIUM CHLORIDE 0.9% 1000ML 1,000 ML IV SCH (14:34)
[2018-04-11] MEDS: ACETAMINOPHEN 1000 MG/100 ML IV IV PRN (17:00)
[2018-04-12] MEDS: VALPROATE SOD 500 MG in DEXTROSE 5% 50 ML IV SCH ×3 (01:20→18:32)
[2018-04-12] MEDS: SODIUM CHLORIDE 0.9% 1000ML 1,000 ML IV SCH ×2 (01:20→13:51)
[2018-04-12] MEDS: ACETAMINOPHEN 1000 MG/100 ML IV IV PRN (01:20)
[2018-04-12 06:22] LABS: Basophils # (auto) 0.06 K/uL (0-0.2); Eosinophils # (auto) 0.21 K/uL (0-0.5); Eosinophils % (auto) 3.6 %; Hematocrit (blood only) 39.3 % (37-47); Hemoglobin 12.6 g/dL (12.0-16.0); Lymphocytes # (auto) 1.41 K/uL (1.2-3.4); Lymphocytes % (auto) 23.9 %; Mean Corpuscular Hgb Conc 32.1 g/dL (32-36); Mean Corpuscular Volume 89.9 fL (80-100); Mean Platelet Volume 9.8 fL (7.4-10.4); Monocytes # (auto) 0.64 K/uL (0.11-0.59); Monocytes % (auto) 10.8 %; Neutrophils # (auto) 3.59 K/uL (1.4-6.5); Neutrophils % (auto) 60.7 %; Platelet Count 302 K/uL (130-400); RDW Standard Deviation 46.6 fL (36.4-46.3); Red Blood Count 4.37 M/uL (4.2-5.4); White Blood Count 5.91 K/uL (4.8-10.8)
[2018-04-12 07:04] LABS: BUN Creatinine Ratio 20.9 (10-20); Calcium 8.6 mg/dl (8.5-10.1); Creatinine Clr Calc Pharmacy 40.8 ml/min; Est GFR (African American) 59.6; Est GFR (Non-African American) 51.4; Magnesium 2.1 mg/dl (1.8-2.4); Potassium 3.6 mmol/L (3.5-5.1)
[2018-04-12] MEDS: LISINOPRIL 2.5 MG TAB PO SCH (08:44)
[2018-04-12] MEDS: ASPIRIN 81 MG ECTAB PO SCH (08:44)
[2018-04-12] MEDS: ATORVASTATIN 40 MG TAB PO SCH (08:44)
[2018-04-12] MEDS: HEPARIN SOD 5,000 UNIT/0.5 ML VIAL SQ SCH ×2 (08:45→21:23)
[2018-04-12] MEDS ORDERED: PANTOprazole 40 MG TAB PO SCH (09:00)
--- NOTE | 2018-04-12 10:58 | Neurology Progress Note ---
Date of Service April 12, 2018 Assessment & Plan (1) New onset seizure: The patient has had new onset left upper extremity (since admission), which are focal motor, partial seizures verses myoclonic jerking. Overall, I favor myoclonic jerks, as the EEG was normal during spell several days ago. These movements are improving each day. She is also more alert today which may be a factor of the discontinuation of levetiracetam. The etiology of the seizure-like movements/myoclonus is likely secondary to her previous right posterior cerebral artery stroke. She has significant encephalomalacia as well as old chronic small vessel ischemic disease. Her stroke involve the medial temporal lobe which could be the a source of seizure activity and the right thalamus which could be giving left-sided symptomatology. EEG April 09 showed no potentially epileptogenic activity (despite her left upper extremity movements) but the background in general was mildly slow. She has no other obvious reason for seizures including no metabolic issues, new medications, or recent infections or inflammation. Her severe initial hypertension could have resulted in focal motor weakness and brain irritability from her previous stroke. Her left-sided weakness is improved and she is moving her left side better each day. 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 She was left with a significant left homonymous hemianopsia. She also has moderate old small vessel ischemic change as well. She has considerable cerebral atrophy. (3) Hypertension: Patient had significant hypertension on admission. This could have created some encephalopathy and transient focal neurologic issues. Her blood pressure is fairly well controlled over the last 48 hours. Recommendations: 1. Continue Depakote , but consider converting to 500 milligrams p.o. t.i.d., or 750 milligrams p.o. b.i.d. (whichever is more convenient for the patient). 2. Keep off levetiracetam, I believe it did cause irritability/confusion 3. Avoid benzodiazepines such as Ativan, as much as possible, in order to avoid mental status changes. 4. Depakote levels each morning. Overall, I spent a total of 35 minutes with this case including review of records, direct evaluation the patient at bedside, and discussion of the case with the patient, clinical staff, and Janice HUGHES. Subjective Patient is being followed up neurologically because of abnormal movements. Patient was sleeping comfortably in bed with no abnormal movements. She woke easily with voice. The patient herself has no complaint of pain or headache. She no longer has any feelings of falling in bed. She denies dizziness or vertigo. She knows that her left arm is weak but also understands it is a little bit better today than yesterday. Nursing reports mild rhythmic or semi rhythmic jerking of the left upper extremity during wakefulness, which is improved compared to yesterday, and no movements during sleep. Blood pressure is 159/87. Rhythm is normal sinus in the 60s to 70s. CBC was unremarkable. Glucose 117 and Depakote level this morning was 69. Constitutional: + chills, + fatigue and + weakness Eyes: + loss of peripheral vision; no eye pain Ear, Nose, Mouth, Throat: + hearing loss; no ear pain Genitourinary (Female): + urinary frequency and + urinary urgency Neurologic: + localized weakness, + seizure-like activity and + confusion; no dizziness Psychiatric: + anxiety; no depression Endocrine: + fatigue; no flushing Physical Exam 2 Vital Signs (Past 24 Hours): Last Vital Signs Temp 36.8 C 04/12/18 07:42 Pulse 75 04/12/18 07:42 Resp 22 04/12/18 07:42 BP 159/87 H 04/12/18 07:42 Pulse Ox 95 04/12/18 07:42 Physical Exam: She is awake and alert. Her speech is more clear and she is calmer than before. She is oriented and follows commands well. She can get agitated with certain questions but immediately calms down and apologizes for yelling. Extraocular eye muscles are intact without nystagmus. There is no facial droop. Strength is symmetrical in the legs both proximally distally with no abnormal involuntary movements. Right upper extremity strength is 5/5 diffusely. Left upper extremity strength is 4/5. She has occasional myoclonic movements. _ (1) Stroke CVA mechanism: unspecified Precerebral and cerebral artery: Laterality of affected vessel: Qualified Code(s): I63.9 - Cerebral infarction, unspecified
--- NOTE | 2018-04-12 11:45 | Hospitalist Progress Note ---
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 EEG showed slowing but no seizure Neurology consult Dr. Cha Seizure precautions (2) CKD stage 3 due to type 2 diabetes mellitus: Stable prp am (3) Hyperlipidemia: continue atorvastatin 80 mg daily. (4) Hypertension: Resume lisinopril Hypertension has improved - continue prn hydralazine and metoprolol IV (5) Stroke: With left side hemiplegia - Previous strokes, associated with encephalomalacia, worse on right side than left (6) Encephalomalacia: As above (7) DVT prophylaxis: heparin subq Dispo: patient is from home with caretakers. She is very adamant she not go to inpatient rehab. Will order PT/OT evals and work with CM on discharge plans when ready Subjective Ms. Hernández is much more alert today than yesterday. Oriented and coversant, able to follow commands. She does have some mild left arm muscle twitching. She is very adamant about not going to inpatient rehab. Review of Systems All systems reviewed & are unremarkable except as noted in HPI & below Physical Exam 2 Vital Signs (Past 24 Hours): Last Vital Signs Temp 36.8 C 04/12/18 07:42 Pulse 75 04/12/18 07:42 Resp 22 04/12/18 07:42 BP 159/87 H 04/12/18 07:42 Pulse Ox 95 04/12/18 07:42 Physical Exam: General: no distress Eyes: normal inspection, PERLL Respiratory: chest non tender, clear to auscultation, normal breath sounds, no respiratory distress, no accessory muscle use Cardiac: regular rate and rhythm, no rub or gallop, no murmur, no edema, no jvd GI/: active bowel sounds, no abd pain or tenderness, soft, non distended Extremities: normal range of motion, normal strength, non tender Neuro/Psych: alert and oriented x 3, normal mood and affect though at times easily agitated and yells. Left arm and leg weakness compared to right Skin: normal color, dry Results & Data Laboratory Results Abnormal lab results 04/12/18 04/12/18 Range/Units 05:57 05:57 RDW Std Deviation 46.6 H (36.4-46.3) fL [place] # (Auto) 0.64 H (0.11-0.59) K/uL Chloride 109 H (98-107) mmol/L BUN 23 H (7-18) mg/dl BUN/Creatinine Ratio 20.9 H (10-20) Glucose 117 H (70-99) mg/dl _ (1) Stroke CVA mechanism: unspecified Precerebral and cerebral artery: Laterality of affected vessel: Qualified Code(s): I63.9 - Cerebral infarction, unspecified
[2018-04-13] MEDS: VALPROATE SOD 500 MG in DEXTROSE 5% 50 ML IV SCH ×3 (02:36→18:17)
[2018-04-13 06:18] LABS: Basophils # (auto) 0.04 K/uL (0-0.2); Basophils % (auto) 0.6 %; Eosinophils # (auto) 0.23 K/uL (0-0.5); Eosinophils % (auto) 3.3 %; Hematocrit (blood only) 36.3 % (37-47); Hemoglobin 11.6 g/dL (12.0-16.0); Immature Granulocytes # (auto) 0.01 K/uL (0.00-0.02); Immature Granulocytes % (auto) 0.1 %; Lymphocytes # (auto) 1.37 K/uL (1.2-3.4); Lymphocytes % (auto) 19.9 %; Mean Corpuscular Volume 88.3 fL (80-100); Mean Platelet Volume 9.6 fL (7.4-10.4); Monocytes # (auto) 0.87 K/uL (0.11-0.59); Monocytes % (auto) 12.6 %; Neutrophils # (auto) 4.38 K/uL (1.4-6.5); Neutrophils % (auto) 63.5 %; Platelet Count 286 K/uL (130-400); RDW Coefficient of Variation 14.1 % (11.5-14.5); RDW Standard Deviation 45.9 fL (36.4-46.3); Red Blood Count 4.11 M/uL (4.2-5.4)
[2018-04-13 06:50] LABS: Calcium 8.6 mg/dl (8.5-10.1); Creatinine Clr Calc Pharmacy 41.5 ml/min; Est GFR (African American) 60.9; Est GFR (Non-African American) 52.6; Potassium 3.3 mmol/L (3.5-5.1)
[2018-04-13] MEDS ORDERED: POTASSIUM CHLORIDE 20 MEQ TABCR PO ONE (08:15)
[2018-04-13] MEDS: ASPIRIN 81 MG ECTAB PO SCH (08:26)
[2018-04-13] MEDS: LISINOPRIL 2.5 MG TAB PO SCH (08:26)
[2018-04-13] MEDS: ATORVASTATIN 40 MG TAB PO SCH (08:26)
[2018-04-13] MEDS: HEPARIN SOD 5,000 UNIT/0.5 ML VIAL SQ SCH ×2 (08:27→20:34)
--- NOTE | 2018-04-13 14:37 | Hospitalist Progress Note ---
Date of Service April 13, 2018 Assessment & Plan (1) Focal seizure: Possible New onset partial seizures possibly a sequela of prior CVA vs myoclonus -- Continue medications per neurology - valproate IV 500 mg q8h, discontinued keppra as it may have been contributing to confusion and patient does seem much improved as far as wakefulness and orientation; avoid lorazepam. Change to 750 mg po long acting valproate when changing to po. 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 EEG showed slowing but no seizure Neurology consult Dr. Cha Seizure precautions (2) CKD stage 3 due to type 2 diabetes mellitus: Stable prp am (3) Hyperlipidemia: continue atorvastatin 80 mg daily. (4) Hypertension: continue lisinopril Hypertension has improved - continue prn hydralazine and metoprolol IV (5) Stroke: With left side hemiplegia - Previous strokes, associated with encephalomalacia, worse on right side than left (6) Encephalomalacia: As above (7) DVT prophylaxis: heparin subq Dispo: transfer to med/surg. Patient is from home with caretakers. She is very adamant she not go to inpatient rehab. Patient refused PT/OT evals today. Will have her evaluated today and work with CM on discharge plans when ready Subjective Ms. Hernández is in good spirits this afternoon, friends at bedside. Her arm twitching is improved, very mild at this point. She is conversant and alert. Her only complaint is lack of sleep due to frequent interruptions. Review of Systems All systems reviewed & are unremarkable except as noted in HPI & below Physical Exam 2 Vital Signs (Past 24 Hours): Last Vital Signs Temp 36.7 C 04/13/18 07:21 Pulse 86 04/13/18 07:21 Resp 16 04/13/18 07:21 BP 158/72 H 04/13/18 07:21 Pulse Ox 97 04/13/18 07:21 Physical Exam: General: no distress Eyes: normal inspection, PERLL Respiratory: chest non tender, clear to auscultation, normal breath sounds, no respiratory distress, no accessory muscle use Cardiac: regular rate and rhythm, no rub or gallop, no murmur, no edema, no jvd GI/: active bowel sounds, no abd pain or tenderness, soft, non distended Extremities: normal range of motion, normal strength, non tender Neuro/Psych: alert and oriented x 3, normal mood and affect, mild left arm twitching, baseline mild weakness of left extremities. Skin: normal color, dry Results & Data Laboratory Results Abnormal lab results 04/13/18 04/13/18 Range/Units 05:54 05:54 RBC 4.11 L (4.2-5.4) M/uL Hgb 11.6 L (12.0-16.0) g/dL Hct 36.3 L (37-47) % [place] # (Auto) 0.87 H (0.11-0.59) K/uL Potassium 3.3 L (3.5-5.1) mmol/L Chloride 110 H (98-107) mmol/L BUN 26 H (7-18) mg/dl BUN/Creatinine Ratio 24.0 H (10-20) Glucose 112 H (70-99) mg/dl _ (1) Stroke CVA mechanism: unspecified Precerebral and cerebral artery: Laterality of affected vessel: Qualified Code(s): I63.9 - Cerebral infarction, unspecified
[2018-04-13] MEDS ORDERED: Nursing to Pharmacy Communication ONE ×2 (18:30→18:34)
[2018-04-13] MEDS ORDERED: BISACODYL 5 MG TABEC PO PRN (19:06)
[2018-04-14] MEDS: VALPROATE SOD 500 MG in DEXTROSE 5% 50 ML IV SCH ×2 (02:07→09:04)
[2018-04-14 07:09] LABS: Basophils # (auto) 0.03 K/uL (0-0.2); Basophils % (auto) 0.4 %; Eosinophils # (auto) 0.22 K/uL (0-0.5); Eosinophils % (auto) 2.7 %; Hematocrit (blood only) 33.7 % (37-47); Hemoglobin 10.9 g/dL (12.0-16.0); Immature Granulocytes # (auto) 0.02 K/uL (0.00-0.02); Immature Granulocytes % (auto) 0.2 %; Lymphocytes % (auto) 21.2 %; Mean Corpuscular Hgb Conc 32.3 g/dL (32-36); Mean Corpuscular Volume 87.3 fL (80-100); Mean Platelet Volume 10.2 fL (7.4-10.4); Monocytes # (auto) 0.82 K/uL (0.11-0.59); Monocytes % (auto) 10.2 %; Neutrophils # (auto) 5.23 K/uL (1.4-6.5); Neutrophils % (auto) 65.3 %; Platelet Count 285 K/uL (130-400); RDW Coefficient of Variation 14.2 % (11.5-14.5); RDW Standard Deviation 45.3 fL (36.4-46.3); Red Blood Count 3.86 M/uL (4.2-5.4); White Blood Count 8.02 K/uL (4.8-10.8)
[2018-04-14 07:42] LABS: BUN Creatinine Ratio 27.8 (10-20); Calcium 8.5 mg/dl (8.5-10.1); Creatinine Clr Calc Pharmacy 45.3 ml/min; Est GFR (African American) 67.7; Est GFR (Non-African American) 58.4; Potassium 3.2 mmol/L (3.5-5.1)
[2018-04-14] MEDS ORDERED: POTASSIUM CHLORIDE 20 MEQ TABCR PO STA ×2 (08:04→11:23)
[2018-04-14] MEDS: HEPARIN SOD 5,000 UNIT/0.5 ML VIAL SQ SCH ×3 (08:56→20:47)
[2018-04-14] MEDS ORDERED: POTASSIUM CHLORIDE 20 MEQ TABCR PO ONE (14:00)
--- NOTE | 2018-04-14 15:23 | Hospitalist Progress Note ---
Date of Service April 14, 2018 Assessment & Plan (1) Focal seizure: Possible New onset partial seizures possibly a sequela of prior CVA vs myoclonus -- Continue medications per neurology - valproate IV 500 mg q8h discontinued and po 750 mg depakote initiated. Depakote level has been stable. Discontinued keppra as it may have been contributing to confusion and patient does seem much improved as far as wakefulness and orientation; avoid lorazepam. 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 EEG showed slowing but no seizure Neurology consult Dr. Cha Seizure precautions (2) CKD stage 3 due to type 2 diabetes mellitus: Stable prp am (3) Hyperlipidemia: continue atorvastatin 80 mg daily. (4) Hypertension: continue lisinopril - increased from 2.5 to 5 mg 04/14 Hypertension has improved - continue prn hydralazine and metoprolol IV (5) Stroke: With left side hemiplegia - Previous strokes, associated with encephalomalacia, worse on right side than left (6) Encephalomalacia: As above (7) DVT prophylaxis: heparin subq Dispo: transfer to med/surg. Patient is from home with caretakers. She is very adamant she not go to inpatient rehab. Needs PT/OT eval which I did discuss with her and encouraged her to participate in Subjective Ms. Hernández is very unhappy with any interruptions to her sleep though it was afternoon when I saw her. I did not appreciate any arm tremor during our interaction. She wants to go home and we discussed that she needs to comply with therapy so we can get a sense of if she is near her baseline to determine disposition. Review of Systems All systems reviewed & are unremarkable except as noted in HPI & below Physical Exam 2 Vital Signs (Past 24 Hours): Last Vital Signs Temp 36.8 C 04/14/18 07:00 Pulse 64 04/14/18 07:00 Resp 18 04/14/18 07:00 BP 142/77 H 04/14/18 07:00 Pulse Ox 96 04/14/18 07:00 Physical Exam: General: no distress Eyes: normal inspection, PERLL Respiratory: chest non tender, clear to auscultation, normal breath sounds, no respiratory distress, no accessory muscle use Cardiac: regular rate and rhythm, no rub or gallop, no murmur, no edema, no jvd GI/: active bowel sounds, no abd pain or tenderness, soft, non distended Extremities: normal range of motion, normal strength, non tender Neuro/Psych: alert and oriented x 3, normal mood and affect, baseline left sided weakness Skin: normal color, dry _ (1) Stroke CVA mechanism: unspecified Precerebral and cerebral artery: Laterality of affected vessel: Qualified Code(s): I63.9 - Cerebral infarction, unspecified
[2018-04-14] MEDS: DIVALPROEX EXTENDED RELEASE 250 MG TABCR PO SCH (20:46)
[2018-04-14] MEDS: ATORVASTATIN 40 MG TAB PO SCH (20:46)
[2018-04-14] MEDS: LISINOPRIL 5 MG TAB PO SCH (20:46)
[2018-04-14] MEDS: ASPIRIN 81 MG ECTAB PO SCH (20:47)
[2018-04-14] MEDS ORDERED: LISINOPRIL 2.5 MG TAB PO SCH (21:00)
[2018-04-15] MEDS: HEPARIN SOD 5,000 UNIT/0.5 ML VIAL SQ SCH ×2 (08:07→20:56)
[2018-04-15] MEDS: DIVALPROEX EXTENDED RELEASE 250 MG TABCR PO SCH ×2 (08:07→20:56)
[2018-04-15 08:25] LABS: Basophils # (auto) 0.03 K/uL (0-0.2); Basophils % (auto) 0.4 %; Eosinophils # (auto) 0.23 K/uL (0-0.5); Hemoglobin 11.7 g/dL (12.0-16.0); Immature Granulocytes # (auto) 0.01 K/uL (0.00-0.02); Immature Granulocytes % (auto) 0.1 %; Lymphocytes % (auto) 23.2 %; Mean Corpuscular Hgb Conc 33.4 g/dL (32-36); Mean Corpuscular Volume 87.1 fL (80-100); Mean Platelet Volume 9.8 fL (7.4-10.4); Monocytes # (auto) 0.78 K/uL (0.11-0.59); Neutrophils # (auto) 4.92 K/uL (1.4-6.5); Neutrophils % (auto) 63.3 %; Platelet Count 278 K/uL (130-400); Red Blood Count 4.02 M/uL (4.2-5.4); White Blood Count 7.77 K/uL (4.8-10.8)
[2018-04-15 09:21] LABS: BUN Creatinine Ratio 25.6 (10-20); Calcium 8.7 mg/dl (8.5-10.1); Creatinine Clr Calc Pharmacy 44.9 ml/min; Est GFR (African American) 66.9; Est GFR (Non-African American) 57.7; Potassium 3.9 mmol/L (3.5-5.1)
--- NOTE | 2018-04-15 16:18 | Hospitalist Progress Note ---
Date of Service April 15, 2018 Assessment & Plan (1) Focal seizure: Possible New onset partial seizures possibly a sequela of prior CVA vs myoclonus -- Continue medications per neurology - valproate IV 500 mg q8h discontinued and changed to po 750 mg depakote. Depakote level has been stable. Discontinued keppra as it may have been contributing to confusion and patient does seem much improved as far as wakefulness and orientation; avoid lorazepam. 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 EEG showed slowing but no seizure Neurology consult Dr. Cha Seizure precautions This is unlikely to be a seizure given the EEG and also that the patient's symptoms worsen with agitation and improve with relaxation. Per neurology, treatment is the same either way if it is myoclonus instead and patient has had significant improvement with the depakote. It is unclear what may have triggered the onset though it is likely associated with her past CVA (2) CKD stage 3 due to type 2 diabetes mellitus: Stable prp am (3) Hyperlipidemia: continue atorvastatin 80 mg daily. (4) Hypertension: continue lisinopril - increased from 2.5 to 5 mg 04/14 Hypertension has improved - continue prn hydralazine and metoprolol IV (5) Stroke: With left side hemiplegia - Previous strokes, associated with encephalomalacia, worse on right side than left (6) Encephalomalacia: As above (7) Parotid mass: Demonstrated on prior imaging to this admission. Patient reports it has been biopsied and that she has refused surgery as it is benign. (8) DVT prophylaxis: heparin subq Dispo:Patient is from home with caretakers. She is very adamant she not go to inpatient rehab. PT/OT evals recommend rehab. I discussed with patient and she verbalized understanding of my concerns that she could be injured if she returns home but will not consent to inpatient rehab. She did say that she would accept home health. She does not have anyone that would be able to stay with her for a little while as she recovers. I have notified case management who will get patient set up for discharge. I think she can probably discharge tomorrow if still stable. Subjective Ms. Hernández's left arm tremor continues to improve, very faint tremor intermittently. Her strength is improving as well. She was able to participate in PT/OT evaluations today Review of Systems All systems reviewed & are unremarkable except as noted in HPI & below Physical Exam 2 Vital Signs (Past 24 Hours): Last Vital Signs Temp 36.5 C 04/15/18 07:54 Pulse 70 04/15/18 07:54 Resp 16 04/15/18 07:54 BP 137/74 04/15/18 07:54 Pulse Ox 95 04/15/18 07:54 Physical Exam: General: no distress Eyes: normal inspection, PERLL Respiratory: chest non tender, clear to auscultation, normal breath sounds, no respiratory distress, no accessory muscle use Cardiac: regular rate and rhythm, no rub or gallop, no murmur, no edema, no jvd GI/: active bowel sounds, no abd pain or tenderness, soft, non distended Extremities: normal range of motion, normal strength, non tender Neuro/Psych: alert and oriented x 3, normal mood and affect, left arm and leg with mild weakness Skin: normal color, dry _ (1) Stroke CVA mechanism: unspecified Precerebral and cerebral artery: Laterality of affected vessel: Qualified Code(s): I63.9 - Cerebral infarction, unspecified
[2018-04-15] MEDS: ATORVASTATIN 40 MG TAB PO SCH (20:55)
[2018-04-15] MEDS: ASPIRIN 81 MG ECTAB PO SCH (20:56)
[2018-04-15] MEDS: LISINOPRIL 5 MG TAB PO SCH (20:56)
[2018-04-16] MEDS: HydrALAZINE HCL 20 MG/ML VIAL IV PRN (07:59)
[2018-04-16 08:28] LABS: Basophils # (auto) 0.05 K/uL (0-0.2); Basophils % (auto) 0.7 %; Eosinophils # (auto) 0.21 K/uL (0-0.5); Eosinophils % (auto) 3.1 %; Hematocrit (blood only) 35.7 % (37-47); Hemoglobin 11.5 g/dL (12.0-16.0); Immature Granulocytes # (auto) 0.01 K/uL (0.00-0.02); Immature Granulocytes % (auto) 0.1 %; Lymphocytes # (auto) 1.72 K/uL (1.2-3.4); Lymphocytes % (auto) 25.2 %; Mean Corpuscular Hgb Conc 32.2 g/dL (32-36); Mean Corpuscular Volume 88.6 fL (80-100); Mean Platelet Volume 10.3 fL (7.4-10.4); Monocytes # (auto) 0.77 K/uL (0.11-0.59); Monocytes % (auto) 11.3 %; Neutrophils # (auto) 4.06 K/uL (1.4-6.5); Neutrophils % (auto) 59.6 %; Platelet Count 276 K/uL (130-400); RDW Coefficient of Variation 14.1 % (11.5-14.5); RDW Standard Deviation 46.1 fL (36.4-46.3); Red Blood Count 4.03 M/uL (4.2-5.4); White Blood Count 6.82 K/uL (4.8-10.8)
[2018-04-16 08:30] LABS: BUN Creatinine Ratio 30.7 (10-20); Calcium 8.7 mg/dl (8.5-10.1); Creatinine Clr Calc Pharmacy 45.8 ml/min; Est GFR (African American) 68.6; Est GFR (Non-African American) 59.2; Potassium 3.5 mmol/L (3.5-5.1)
[2018-04-16] MEDS: LORATADINE/PSEUDOEPHEDRINE 1 TABCR PO SCH (08:38)
[2018-04-16] MEDS: HEPARIN SOD 5,000 UNIT/0.5 ML VIAL SQ SCH ×2 (08:38→20:35)
[2018-04-16] MEDS: DIVALPROEX EXTENDED RELEASE 250 MG TABCR PO SCH ×2 (08:38→20:35)
--- NOTE | 2018-04-16 16:48 | Hospitalist Progress Note ---
Date of Service April 16, 2018 Assessment & Plan (1) Focal seizure: - New onset seizures (had witnessed activity at beginning of admission) in setting of history of right sided CVA. - Neurology consulted, appreciate input. - EEG on Apr 09 was negative for seizure activity. - Echo showed EF 60%, no wall motion abnormalities. - MRI brain negative; MRA neck showed no stenosis w/in carotid or vertebral arteries; MRA brain negative. - Continue Depakote 750 mg q12hr; Depakote level has been stable. - Holding Keppra and Ativan -- likely contributing to confusion/lethargy during this admission. - Has f/u with neuro scheduled on 05/02/18. (2) CKD stage 3 due to type 2 diabetes mellitus: - Renally dose all meds. (3) Hyperlipidemia: - Continue Atorvastatin 80 mg daily and Aspirin 81 mg qhs. (4) Hypertension: - Has had fluctuation in blood pressure, increased at times. - Increased home Lisinopril to 5 mg daily. - Metoprolol and Hydralazine prn. (5) History of CVA (cerebrovascular accident): - H/o right sided CVA in Dec 2016, started aspirin 81 mg daily. - Developed left sided weakness on 04/08/18, presented to ER with seizure like activity. - Continue aspirin and statin as prescribed. (6) Encephalomalacia: - As noted above. (7) Parotid mass: - Demonstrated on prior imaging to this admission. - Patient reports it has been biopsied and that she has refused surgery as it is benign. (8) DVT prophylaxis: - Heparin q12hr. Dispo: Pt. is refusing inpt rehab -- will be discharged to home with home health. Per MICHAEL Barton is arranged caregivers; discharge pending final c onfirmation she has support at home. Supervising Physician Co-Signing Physician Notes PA Supervision Note: I did not personally see or examine the patient today, but I verified all jay points of SHAHRAM Dempsey's assessment and plan with the following exceptions/additions: None Subjective Pt. is stable overall. Left arm tremor now improving. Will be discharged with home health and caregivers pending arrangement of caregivers by her MICHAEL Garcia. Review of Systems All systems reviewed & are unremarkable except as noted in HPI & below Constitutional: no fever, no chills, no fatigue and no weakness Respiratory: no cough, no dyspnea and no dyspnea on exertion Cardiovascular: no chest pain, no palpitations and no edema Gastrointestinal: no abdominal pain, no nausea, no vomiting, no constipation and no diarrhea/loose stools Genitourinary (Female): no difficulty urinating Neurologic: + tremor(s) Allergy / Immunological: no rash Physical Exam Vital Signs (Past 24 Hours): Last Vital Signs Temp 37.1 C 04/16/18 15:00 Pulse 89 04/16/18 15:00 Resp 23 04/16/18 15:00 BP 150/85 H 04/16/18 15:00 Pulse Ox 96 04/16/18 15:00 Physical Exam: General: Resting comfortably in no apparent distress; A&OX3 HEENT: NC/AT; PERRLA with EOMI; [place] conjunctiva, MMM. Neck: Supple and nontender Cardiac: RRR w/o murmurs, gallops or rubs Lungs: CTA bilaterally; No rhonchi, wheezing, or rales Abdomen: Bowel normoactive X 4; Nontender to palpation Extremities: Warm. No edema present Neuro: No focal weakness Skin: No rash Results & Data Laboratory Results 04/16/18 04/16/18 04/16/18 Range/Units 07:27 07:27 07:27 WBC 6.82 (4.8-10.8) K/uL RBC 4.03 L (4.2-5.4) M/uL Hgb 11.5 L (12.0-16.0) g/dL Hct 35.7 L (37-47) % MCV 88.6 (80-100) fL MCH 28.5 (25-34) pg MCHC 32.2 (32-36) g/dL RDW Std Deviation 46.1 (36.4-46.3) fL RDW Coeff of Omid 14.1 (11.5-14.5) % Plt Count 276 (130-400) K/uL MPV 10.3 (7.4-10.4) fL Immature Gran % (Auto) 0.1 % Neut % (Auto) 59.6 % Lymph % (Auto) 25.2 % [place] % (Auto) 11.3 % Eos % (Auto) 3.1 % Baso % (Auto) 0.7 % Immature Gran # (Auto) 0.01 (0.00-0.02) K/uL Neut # (Auto) 4.06 (1.4-6.5) K/uL Lymph # (Auto) 1.72 (1.2-3.4) K/uL [place] # (Auto) 0.77 H (0.11-0.59) K/uL Eos # (Auto) 0.21 (0-0.5) K/uL Baso # (Auto) 0.05 (0-0.2) K/uL Sodium 142 (136-145) mmol/L Potassium 3.5 (3.5-5.1) mmol/L Chloride 108 H (98-107) mmol/L Carbon Dioxide 28 (21-32) mmol/L Anion Gap 6.0 (3-11) BUN 30 H (7-18) mg/dl Creatinine 0.97 (0.6-1.2) mg/dl Est Cr Clr Drug Dosing 45.8 ml/min Est GFR ( Amer) 68.6 Est GFR (Non-Af Amer) 59.2 BUN/Creatinine Ratio 30.7 H (10-20) Glucose 113 H (70-99) mg/dl Calcium 8.7 (8.5-10.1) mg/dl Valproic Acid 78 (50-100) mcg/ml
[2018-04-16] MEDS: ATORVASTATIN 40 MG TAB PO SCH (20:34)
[2018-04-16] MEDS: ASPIRIN 81 MG ECTAB PO SCH (20:35)
[2018-04-16] MEDS: LISINOPRIL 5 MG TAB PO SCH (20:36)
[2018-04-17] MEDS: HEPARIN SOD 5,000 UNIT/0.5 ML VIAL SQ SCH (09:09)
[2018-04-17] MEDS: DIVALPROEX EXTENDED RELEASE 250 MG TABCR PO SCH (09:09)
[2018-04-17] MEDS: LORATADINE/PSEUDOEPHEDRINE 1 TABCR PO SCH ×2 (09:10→09:14)
[2018-04-17 09:56] LABS: Basophils # (auto) 0.04 K/uL (0-0.2); Basophils % (auto) 0.6 %; Eosinophils # (auto) 0.19 K/uL (0-0.5); Eosinophils % (auto) 2.7 %; Hematocrit (blood only) 34.9 % (37-47); Hemoglobin 11.4 g/dL (12.0-16.0); Immature Granulocytes # (auto) 0.01 K/uL (0.00-0.02); Immature Granulocytes % (auto) 0.1 %; Lymphocytes # (auto) 1.63 K/uL (1.2-3.4); Lymphocytes % (auto) 23.6 %; Mean Corpuscular Hgb Conc 32.7 g/dL (32-36); Mean Platelet Volume 10.1 fL (7.4-10.4); Monocytes # (auto) 0.64 K/uL (0.11-0.59); Monocytes % (auto) 9.3 %; Neutrophils % (auto) 63.7 %; Platelet Count 283 K/uL (130-400); RDW Coefficient of Variation 14.5 % (11.5-14.5); RDW Standard Deviation 47.2 fL (36.4-46.3); Red Blood Count 3.92 M/uL (4.2-5.4); White Blood Count 6.91 K/uL (4.8-10.8)
[2018-04-17 10:12] LABS: Creatinine Clr Calc Pharmacy 41.9 ml/min; Est GFR (African American) 61.6; Est GFR (Non-African American) 53.2; Potassium 3.9 mmol/L (3.5-5.1)
--- NOTE | 2018-04-17 13:27 | Discharge Summary ---
Date of Service April 17, 2018 Admission HPI Per Admitting Provider The patient is a 72-year-old female, with a past medical history including previous strokes without seizures, who developed the acute onset of left-sided stiffness, weakness and inability to ambulate. In the emergency department, she was noted to have a seizure, and empirically had been given Keppra 1000 mg IV, had a seizure after that, and was then given Lorazepam 1 mg IV and valproate 500 mg IV. During my examination, the patient was having breakthrough seizures again, and was given another valproate 500 mg IV. Admission Exam Per Admitting Provider The patient is post ictal, nonresponsive, normocephalic and atraumatic, lying in bed and in no acute distress. HEENT--PERRL, EOMI, mucous membranes and oropharynx dry. Neck--supple. No JVD. No bruits. Thyroid normal, trachea midline, no adenopathy. Heart--normal S1 and S2. No murmurs, rubs or gallops. Lungs--clear bilaterally, no respiratory distress, no accessory muscle use. Abdomen--normal bowel sounds and soft. Nontender. Nondistended. Extremities--no cyanosis or clubbing. No edema. There are good distal pulses b/l. Dermatologic--normal skin turgor, normal color, no abnormal lymph nodes, no rash. Neurologic--cranial nerves II through XII grossly intact. Rheumatologic--limited exam Psychiatric--postictal Principal Diagnosis Focal Seizure Discharge Exam General: Resting comfortably in no apparent distress; A&OX3 HEENT: NC/AT; PERRLA with EOMI; [place] conjunctiva, MMM. Neck: Supple and nontender Cardiac: RRR w/o murmurs, gallops or rubs Lungs: CTA bilaterally; No rhonchi, wheezing, or rales Abdomen: Bowel normoactive X 4; Nontender to palpation Extremities: Warm. No edema present Neuro: No focal weakness Skin: No rash Discharge Data Allergies Allergy/AdvReac Type Severity Reaction Status Date / Time ragweed pollen Allergy Intermediate ITCHY Verified 10/24/17 14:37 EYES, SNEEZING No Known Drug Allergies Allergy Unknown Verified 10/23/17 21:02 Dust Allergy Intermediate ITCHY Uncoded 10/22/17 17:01 EYES,SNEEZING Consultations [facility] Neurology Ordered Studies 04/08/18 17:07 CT head/brain wo con Stat 04/08/18 22:16 MR brain seizure without contrast IMPRESSION: 1. Motion compromised examination. 2. 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 3. Restricted diffusion identified within the infarcted right occipital lobe is likely related to T2 shine-through. 4. There is no convincing evidence of acute ischemia. There is no hemorrhage or mass effect. 5. 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 04/08/18 CXR 04/10/18 02:12 MR angio head wo con Stat MR angio neck wo/w con Stat Hospital Course (1) Focal seizure: Pt. was initially admitted for seizure activity; seizure activity was witn essed at beginning of admission by multiple providers. Neurology was consulted. EEG was negative. Echo showed EF 60%, no acute abnormalities. MRI brain, MRA head/neck all negative. Depakote 750 mg BID was started per neuro recs. Pt. should avoid further doses of Ativan/Keppra. She did not have any further seizure activity. Depakote level was WNL. She will follow up with neuro on 05/02/18. (2) CKD stage 3 due to type 2 diabetes mellitus: Renally dosed all meds. (3) Hyperlipidemia: Continued Atorvastatin 80 mg daily and Aspirin 81 mg qhs. (4) Hypertension: Has had fluctuation in blood pressure, increased at times. Home Lisinopril was increased to 5 mg daily with improvement. Will continue this dose at home. (5) History of CVA (cerebrovascular accident): H/o right sided CVA in Dec 2016, started aspirin 81 mg daily. Developed left sided weakness on 04/08/18, presented to ER with seizure like activity. Work up as noted above; MRI of brain was negative during this admission. (6) Encephalomalacia: As noted above. (7) Parotid mass: Demonstrated on prior imaging to this admission. Patient reports it has been biopsied and that she has refused surgery as it is benign. (8) DVT prophylaxis: Heparin. She was stable for discharge to home on 04/17/18. Appt is scheduled with her PCP on 04/21/18. Total Time Total Time Spent Total Time Spent (In Minutes): >30 minutes Total Time Includes: Examination of the Patient, Discharge Planning, Medication Reconciliation, Communication With Other Providers and Other Discharge Plan Discharge Items Patient Disposition: Home - Home Health Services Reason For Visit: NEW ONSET SEIZURES Discharge Diagnosis: Focal Seizure Condition: Good Discharge Goals: Decrease discomfort, Diagnostic testing, Improve disease control, Improve function, Increase independence and Prevent disease Activity: As commented below Exercise/Sports: Gradually increase as tolerated Driving/Machine Use Comment: Strict no driving policy. Non-emergency contact: Primary Care Provider and Neurologist Call non-emergency contact if: you have any medication questions, your symptoms worsen, your pain is not controlled, your pain is worsening, your pain is concerning for you and you have a fever Follow-up/Referrals: Brian Arizmendi MD [Primary Care Provider] - 04/21/18 1:50 pm (Please, follow up at Dr. Arizmendi's office with Dr. Mccullough on SaturdayApril 21 at 1:50 pm. *If you need to change this appointment, call the office at [phone].) Nereida Leonard PA-C [Physician Machine Tool Mechanic] - 05/02/18 9:45 am (Please, follow up at [facility]rology Office with Nereida Leonard PA-C on SaturdayMay 02 at 10:00 am (arrive at 9:45 am). *This office is located at [address] [place] [address] in [place]. If you need to change this appointment, call the office at [phone].) Diet: Regular Addtl Provider Instructions: 1. Focal Seizures * Please continue Depakote 750 mg every 12 hours for treatment/prevention of seizures. * Please avoid Keppra or Ativan use per neurology recs. * Please follow up with neurology as scheduled on 05/02/2018. 2. Hypertension * Lisinopril dose has been increased to 5 mg daily due to uncontrolled blood pressure during this admission. * Please follow up with your family doctor as scheduled on 04/21/2018. 3. Home nursing has been arranged for medication management and cardiopulmonary assessment. 4. Prescriptions for new medications (Depakote and Lisinopril 5 mg tablets) were sent to your home pharmacy. Prescriptions: New lisinopril [Zestril] 5 mg Tablet 5 mg PO HS 30 Days Qty: 30 RF: 1 divalproex 250 mg Tablet Extended Release 24 Hr 750 mg PO BID 30 Days Qty: 180 RF: 1 divalproex [Depakote ER] 250 mg tablet extended release 24 hr 750 mg PO BID 7 Days Qty: 42 RF: 0 Continued loratadine-pseudoephedrine [Claritin-D 24 Hour] 10-240 mg Tablet Extended Release 24 Hr 1 tab PO DAILY PRN (Reason: Allergy Symptoms) Qty: 0 RF: 0 multivitamin Tablet 1 tab PO DAILY RF: 0 aspirin [Aspir-81] 81 mg Tablet,Delayed Release (Dr/Ec) 81 mg PO QAM RF: 0 atorvastatin [Lipitor] 80 mg tablet 80 mg PO HS RF: 0 Discontinued atorvastatin 80 mg Tablet 80 mg PO QAM RF: 0 lisinopril [Zestril] 2.5 mg tablet 2.5 mg PO DAILY RF: 0 Stand-Alone Forms: [facility] Discharge Orders: Discharge Order (Routine); Ordered 04/17/18 Ordered By: Irasema Blankenship Admission Data Admit Date/Time: 04/08/18 20:26 Attending Provider: Nikunj Blount Admit Provider: Sage Lynn Primary Care Provider: Brian Arizmendi Other Providers: Sage Lynn ; Cornelius Cha III Service: Medical Other Interventions: Discharge Summary Assessment (RN) Last Done: 04/17/18 13:16 Pending Studies at Discharge: No DC Date/Time DO NOT enter until pt leaves facility: 04/17/18 14:25 Supervising Physician Co-Signing Physician Notes Attending Attestation - Pt seen/examined, chart reviewed, discharge care plan d/w SHAHRAM Blankenship. I agree w/ the jay components of her discharge documentation. 72yo female with prior history of stroke, HTN, T2DM, and hyperlipidemia who presented with focal partial seizures mainly of the left arm. She was seen in consult by [facility], Dr. Deyvi Cha, who provided jay recommendations for her anti-seizure medications. 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 She will take depakote 750mg BID at discharge for seizure prevention. She was counseled she could not drive for at least 6 months. Discharge exam: gen - NAD HEENT - large left-sided parotid gland tumor mouth - MMM heart - RRR, s1, s2 lungs - CTA b/l abd - soft, NT, ND BS+ ext - no edema neuro - strength 5/5 x 4 extremities, no facial droop Nikunj Blount MD
== END 2018-04-17 14:25 | disposition home health service (06) | DRG 57 ==
LOC: ED 16:52 → SUATTDRO 20:26 → 2N 20:26 → 2E 04-09 10:40 → 2N 04-13 16:35 → 2W 04-14 14:55

== ENCOUNTER 2018-07-14 21:39 | Inpatient (IN) ==
--- NOTE | 2018-07-14 21:53 | CT Scan Report ---
CT head/brain wo con CT DOSE: 537.48 mGy.cm HISTORY: Mental status change seizure TECHNIQUE: Multiaxial CT images of the head were performed without the use of intravenous contrast. A dose lowering technique was utilized adhering to the principles of ALARA. Comparison: 04/08/2018 Findings: The paranasal sinuses and mastoid air cells are clear. Old partially calcified right occipi chaparro infarct. Age-related atrophy and chronic small vessel change. Ventricular system is midline. No e vidence for acute intracranial hemorrhage. No midline shift. Impression: 1. Old right occipital infarct. 2. Age-related chronic small vessel change and atrophy. 3. No change from the prior exam. The above report was generated using voice recognition software. It may contain grammatical, syntax or spelling errors. Electronically signed by: Efrani Ortez M.D. 07/14/2018 9:52 PM
[2018-07-14] MEDS ORDERED: VALPROATE SOD 1,000 MG in DEXTROSE 5% 100 ML IV STA (22:09)
[2018-07-14 22:20] LABS: Basophils # (auto) 0.03 K/uL (0-0.2); Basophils % (auto) 0.4 %; Eosinophils # (auto) 0.04 K/uL (0-0.5); Eosinophils % (auto) 0.6 %; Hematocrit (blood only) 40.3 % (37-47); Immature Granulocytes # (auto) 0.01 K/uL (0.00-0.02); Immature Granulocytes % (auto) 0.1 %; Lymphocytes # (auto) 0.67 K/uL (1.2-3.4); Lymphocytes % (auto) 9.8 %; Mean Corpuscular Hgb Conc 34.7 g/dL (32-36); Mean Platelet Volume 10.8 fL (7.4-10.4); Monocytes # (auto) 0.43 K/uL (0.11-0.59); Monocytes % (auto) 6.3 %; Neutrophils # (auto) 5.65 K/uL (1.4-6.5); Neutrophils % (auto) 82.8 %; Platelet Count 217 K/uL (130-400); RDW Coefficient of Variation 15.1 % (11.5-14.5); Red Blood Count 4.48 M/uL (4.2-5.4); White Blood Count 6.83 K/uL (4.8-10.8)
[2018-07-14 22:23] LABS: iSTAT Creatinine 1.3 mg/dl (0.6-1.3); iSTAT Hemoglobin 14.3 g/dl (12.0-16.0); iSTAT Ionized Calcium 1.18 mmol/l (1.12-1.32); iSTAT Potassium 5.4 mEq/L (3.3-5.0)
[2018-07-14] MEDS ORDERED: OPTIRAY 320 125ml IV PRN (22:51)
--- NOTE | 2018-07-14 22:56 | CT Scan Report ---
CT angio head w con HISTORY: left weakness eval for occlusion TECHNIQUE: Multiaxial CT angiography of the head was performed IV contrast: 1 Cc Maximum intensity projection images were also obtained. A dose lowering technique was utilized adhering to the principles of ALARA. COMPARISON: None. FINDINGS: There is no mass, hematoma, midline shift, or acute infarct. Visualized intracranial quality internship al carotid arteries, distal vertebral arteries, and basilar artery are widely patent. There is no sig nificant stenosis, occlusion, or aneurysm seen within the bilateral ACAs, MCAs, or pit furnace operator. The left an tebral artery is ectatic congenital basis. 50% narrowing distal right vertebral artery. IMPRESSION: No significant stenosis, occlusion, or aneurysm within the [place]. 50% narrowing distal rig ht vertebral artery. Congenitally ectatic/dominant left vertebral artery. The above report was generated using voice recognition software. It may contain grammatical, syntax or spelling errors. Electronically signed by: Efrain Ortez M.D. 07/14/2018 10:55 PM
[2018-07-14] MEDS ORDERED: LABETALOL HCL IV 5 MG/ML 20ML IV STA (22:57)
--- NOTE | 2018-07-14 22:59 | CT Scan Report ---
CT angio neck with con HISTORY: left weakness eval for occlusion TECHNIQUE: Multiaxial CT angiography of the neck was performed IV contrast: None. All measurem ents were calculated based on NASCET criteria. Maximum intensity projection images were also obtaine d. A dose lowering technique was utilized adhering to the principles of ALARA. COMPARISON STUDY: None. FINDINGS: The aortic arch and proximal great vessels are widely patent. There is no significant sten osis, occlusion, or dissection identified within the bilateral common carotid, internal carotid, or v ertebral arteries. IMPRESSION: No significant stenosis, occlusion, or dissection identified within the carotid or vertebral arteries . 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 It may contain grammatical, syntax or spelling errors. Electronically signed by: Efrain Ortez M.D. 07/14/2018 10:57 PM
[2018-07-14] MEDS ORDERED: ONDANSETRON INJ 2 MG/ML 2 ML VIAL IV STA (23:05)
[2018-07-14 23:41] LABS: Albumin Level 2.8 gm/dl (3.4-5.0); BUN Creatinine Ratio 24.3 (10-20); Calcium 8.7 mg/dl (8.5-10.1); Creatinine Clr Calc Pharmacy 40.1 ml/min; Est GFR (African American) 60.2; Potassium 4.3 mmol/L (3.5-5.1)
[2018-07-14 23:44] LABS: Albumin Globulin Ratio 0.9 (0.9-2); Bilirubin,Total 0.3 mg/dl (0.2-1); Globulin 3.3 gm/dl (2.5-4.0); Total Protein 6.1 gm/dl (6.4-8.2)
--- NOTE | 2018-07-15 00:22 | History & Physical Report ---
Date of Service July 15, 2018 Assessment & Plan (1) Seizures: 72-year-old female with past medical history of hypertension, hyperlipidemia, type 2 diabetes, CVA and subsequent focal seizure disorder presents following a presumed seizure. Patient did present with left-sided weakness. She had the symptoms following her previous seizure. The weakness appears to be improving. Patient was admitted for continued evaluation of seizure activity and for a stroke work-up. Focal seizures Admit to telemetry, seizure precautions Depakote 1 g given the ED, continue daily Neuro consult placed EEG for subsequent seizure activity History of CVA Stroke in 2017 lesions of the [place] territory, right occipital lobe, right thalamus and cerebellum Stroke work-up in the ED has been negative No new lesion seen on CT MRI of the brain ordered Her left-sided weakness improved in the ED Dysphagia screening, falls precautions, PT/OT ordered PRN Ativan for anxiety Hyperlipidemia Continue atorvastatin, aspirin Hypertension Allow for permissive hypertension DVT prophylax SCDs CODE STATUS Full (2) History of CVA (cerebrovascular accident): (3) CKD stage 3 due to type 2 diabetes mellitus: (4) Hypertension: (5) Hyperlipidemia: (6) Diabetes: (7) Enrrique's paralysis: History of Present Illness Primary Care Provider: Casimiro Arizmendi MD 72-year-old female with past medical history of type 2 diabetes, hypertension, hyperlipidemia and history of right-sided stroke with subsequent focal seizure disorder presents to the ED following a seizure. Patient is alert, but does not remember what happened. She only remembers feeling poorly today. She is accompanied by 2 of her friends who are her POA. They state that they were called by [employer]. When the first responders arrived to her house, the patient was actively seizing. Subsequent to her seizure activity, the patient had left-sided weakness and facial droop. The patient experienced a stroke 2017PCA territory, right occipital lobe infarct, right thalamic and cerebellar small lacunar lesions. She subsequently had a seizure in March 2018 which also left her with left-sided weakness. Her friends state that she has caregivers that come to the house to check on her periodically, but otherwise the patient has been taking care of herself. Patient denies acute complaints at the moment, but appears very anxious. Allergies Allergy/AdvReac Type Severity Reaction Status Date / Time ragweed pollen Allergy Intermediate ITCHY Verified 07/14/18 23:07 EYES, SNEEZING No Known Drug Allergies Allergy Unknown Verified 07/14/18 23:07 Dust Allergy Intermediate ITCHY Uncoded 07/14/18 23:07 EYES,SNEEZING Home Medications Home Medications Medication Instructions Recorded Confirmed Type loratadine-pseudoephedrine 1 tab PO DAILY PRN #0 tab 12/22/16 07/14/18 History [Claritin-D 24 Hour] aspirin [Aspir-81] 81 mg PO QAM 10/22/17 07/14/18 History multivitamin 1 tab PO DAILY 10/22/17 07/14/18 History atorvastatin [Lipitor] 80 mg PO HS 04/08/18 07/14/18 History divalproex 1,000 mg PO BID #240 tab 07/16/18 Rx Past Med/Surg History Medical History Hypertension (Chronic) Diabetes (Chronic) Hyperlipidemia Depression GERD (gastroesophageal reflux disease) Hearing deficit Surgical History History of open reduction and internal fixation (ORIF) procedure Hx laparoscopic cholecystectomy Family History Other Family history non-contributory Social History Preferred Language: Martiniquais Communication Ability: Effective Visual Impairment: No Limitations History Department Chair Required: No Beliefs That Will Affect Care: None marital status: Single Current Living Situation: Alone Current Living Situation Comment: 10/09 Care givers Other Information That Helps Us Care for You: No Feels Safe at Home: Yes Safety Concerns: Feels Safe At This Time Smoking Status: Never smoker Do You Dip or Chew Tobacco: No Second Hand Exposure: No Tobacco Cessation Education Requested by Patient: No Hx Alcohol Use: No Hx Substance Use: No Review of Systems Review of Systems: Unobtainable due to cognitive status Physical Exam Constitutional: WD/WN, vitals as above Eyes: PERRL, conjunctivae normal, anicteric sclerae ENMT: external ear and nose normal, oropharynx normal Poor dentition Neck: trachea midline, no thyromegaly Left-sided neck mass Respiratory: normal respiratory effort, lungs clear to auscultation Cardiovascular: RRR, no murmur, no edema Gastrointestinal (Abdomen): normal bowel sounds, soft, nontender, no hepatosplenomegaly Musculoskeletal: Head/Neck/Chest: normocephalic and head atraumatic Skin: no rashes, warm and dry Psychiatric: Orientation: alert and oriented x 3 Apperance: + disheveled Eye Contact: + poor eye contact Mood: + anxious mood Results & Data Vital Signs (Past 12 Hours) Vital Signs Temp Pulse Pulse Resp BP BP Pulse Ox 07/14/18 23:06 80 18 180/109 H 93 07/14/18 22:02 86 16 181/109 H 100 07/14/18 21:40 36.4 C L 91 H 91 H 12 178/99 H 181/109 H [address] angio head w con HISTORY: left weakness eval for occlusion TECHNIQUE: Multiaxial CT angiography of the head was performed IV contrast: 1 Cc Maximum intensity projection images were also obtained. A dose lowering technique was utilized adhering to the principles of ALARA. COMPARISON: None. FINDINGS: There is no mass, hematoma, midline shift, or acute infarct. Visualized intracranial internal carotid arteries, distal vertebral arteries, and basilar artery are widely patent. There is no significant stenosis, occlusion, or aneurysm seen within the bilateral ACAs, MCAs, or insurance account manager. The left vertebral artery is ectatic congenital basis. 50% narrowing distal right vertebral artery. IMPRESSION: No significant stenosis, occlusion, or aneurysm within the z[place] of [place]. 50% narrowing distal right vertebral artery. Congenitally ectatic/dominant left vertebral artery. CT angio neck with con HISTORY: left weakness eval for occlusion TECHNIQUE: Multiaxial CT angiography of the neck was performed IV contrast: None. All measurements were calculated based on NASCET criteria. Maximum intensity projection images were also obtained. A dose lowering technique was utilized adhering to the principles of ALARA. COMPARISON STUDY: None. FINDINGS: The aortic arch and proximal great vessels are widely patent. There is no significant stenosis, occlusion, or dissection identified within the bilateral common carotid, internal carotid, or vertebral arteries. IMPRESSION: No significant stenosis, occlusion, or dissection identified within the carotid or vertebral arteries. Congenitally ectatic left vertebral vessel. Pre-existing 4 cm left parotid mass CT head/brain wo con CT DOSE: 537.48 mGy.cm HISTORY: Mental status change seizure TECHNIQUE: Multiaxial CT images of the head were performed without the use of intravenous contrast. A dose lowering technique was utilized adhering to the principles of ALARA. Comparison: 04/08/2018 Findings: The paranasal sinuses and mastoid air cells are clear. Old partially calcified right occipital infarct. Age-related atrophy and chronic small vessel change. Ventricular system is midline. No evidence for acute intracranial hemorrhage. No midline shift. Impression: 1. Old right occipital infarct. 2. Age-related chronic small vessel change and atrophy. 3. No change from the prior exam. Code Status & VTE Plan Code Status full VTE Prophylaxis Plan VTE Prophylaxis will be ordered: No Supervising Physician Co-Signing Physician Notes Attending addendum: I have physically seen this patient, have supervised the medical residents activities, and agree with the H&P unless as otherwise noted. Assessment and Plan: Seizures/history of CVA/hypertension- The patient will be admitted to telemetry for serial cardiac enzymes, serial EKG's, cardiac rhythm monitoring and a 2-D echocardiogram with Dopplers. Depakote 1 g IV given in ED per neuro recommendation. EEG and MRI ordered. Continue aspirin 81 mg chewable daily Permissive hypertension. Serial laboratories: CBC with differential, chemistry profile, magnesium level. Check a fasting lipid panel and hemoglobin A1c in the a.m. Remainder of orders and notations as noted. Resident Activity Tracking Resident Involvement: Resident Care Provided Care Provided: Adult Hospital Medicine (1) Diabetes Diabetes mellitus complication detail: with chronic kidney disease Diabetes mellitus complication status: with kidney complications Diabetes mellitus shelter insulin use: without buttermaker continuous churn use Diabetes mellitus type: type 2
--- NOTE | 2018-07-15 00:49 | Emergency Department Note ---
Entered by Farida Bravo acting as a scribe for History of Present Illness General Chief complaint: Unresponsive Stated complaint: SEIZURE, UNRESPONSIVE, POSSIBLE STROKE Source: patient and EMS History of Present Illness Onset (ago): hour(s) (just prior to arrival ) Location: head Pain Consistency: + other (episodes) Quality: + other (seizures) Associated symptoms: + nausea/vomiting (positive nausea; negative vomiting ); no chest pain, no fever/chills, no headaches and no shortness of breath Treatments prior to arrival: other (Versed ) The patient is a 72 year old female who presents to the Emergency Room with complaints of two seizures that occurred just prior to arrival, per EMS. EMS states that the patient called her MediAlert bracelet, and police responded to the patient having a seizure. EMS states that once they arrived, the patient had no paraplanner on the left side and was believed to have left facial droop. EMS states that the patient seized again and was given 3mg of Versed IV. Per EMS, the patient has been intermittently unresponsive since this time. She was breathing on her own and provided with supplemental oxygen. The patient states that she called the bracelet because she felt nauseous. The patient denies fever, headache, chest pain, and shortness of breath. The patient denies falling or hitting her head. The patient states that she is weak on her left side at baseline. She states she lives alone. She denies vomiting. History is limited as the patient appears postictal and under the influence of Versed. Home Medications Home Medications Medication Instructions Recorded Confirmed Type loratadine-pseudoephedrine 1 tab PO DAILY PRN #0 tab 12/22/16 07/14/18 History [Claritin-D 24 Hour] aspirin [Aspir-81] 81 mg PO QAM 10/22/17 07/14/18 History multivitamin 1 tab PO DAILY 10/22/17 07/14/18 History atorvastatin [Lipitor] 80 mg PO HS 04/08/18 07/14/18 History divalproex 750 mg PO BID 07/14/18 07/14/18 History Allergies Allergy/AdvReac Type Severity Reaction Status Date / Time ragweed pollen Allergy Intermediate ITCHY Verified 07/14/18 23:07 EYES, SNEEZING No Known Drug Allergies Allergy Unknown Verified 07/14/18 23:07 Dust Allergy Intermediate ITCHY Uncoded 07/14/18 23:07 EYES,SNEEZING Past Med/Surg History Medical History Hypertension (Chronic) Diabetes (Chronic) Hyperlipidemia Depression GERD (gastroesophageal reflux disease) Hearing deficit Surgical History History of open reduction and internal fixation (ORIF) procedure Hx laparoscopic cholecystectomy Family History Other Family history non-contributory Social History Preferred Language: Slovak Communication Ability: Impaired Visual Impairment: No Limitations Beliefs That Will Affect Care: None Current Living Situation: Family Feels Safe at Home: Yes Smoking Status: Never smoker Second Hand Exposure: Yes (h/o while playing bridge) Hx Alcohol Use: No Hx Substance Use: No Review of Systems See HPI for pertinent positives & negatives. and A total of 10 systems reviewed and were otherwise negative Physical Exam Vital Signs Vital Signs - 24 hr 07/14/18 21:40 07/14/18 22:02 07/14/18 23:00 Temperature 36.4 C L Temperature Source Oral Sepsis Recent Fever Within 48 Hours No Sepsis New/Unexplained Change in Mental Status No Sepsis Action Taken by Nursing No Action Required Pulse Rate 91 H 87 Pulse Rate [Apical] 91 H 86 Pulse Rate from SpO2 Sensor 87 Pulse Rhythm Regular Pulse Rhythm [Apical] Regular Respiratory Rate 12 16 19 Respiratory Effort / Characteristics Respiratory Depth Shallow Normal Blood Pressure 178/99 H Blood Pressure [Right Arm] 181/109 H 181/109 H Blood Pressure Mean 125 Blood Pressure Mean [Right Arm] 133 133 Pulse Oximetry 88 L 100 91 Oxygen Delivery Method Room Air Non-rebreather Oxygen Flow Rate 07/14/18 23:01 07/14/18 23:06 07/14/18 23:15 Temperature Temperature Source Sepsis Recent Fever Within 48 Hours Sepsis New/Unexplained Change in Mental Status Sepsis Action Taken by Nursing Pulse Rate 85 76 Pulse Rate [Apical] 80 Pulse Rate from SpO2 Sensor 86 76 Pulse Rhythm Pulse Rhythm [Apical] Regular Respiratory Rate 17 18 17 Respiratory Effort / Characteristics Non-Labored Spontaneous Respiratory Depth Normal Blood Pressure 180/109 H Blood Pressure [Right Arm] 180/109 H Blood Pressure Mean 132 Blood Pressure Mean [Right Arm] 132 Pulse Oximetry 90 93 92 Oxygen Delivery Method Nasal Cannula Oxygen Flow Rate 4 07/14/18 23:16 07/14/18 23:30 07/14/18 23:31 Temperature Temperature Source Sepsis Recent Fever Within 48 Hours Sepsis New/Unexplained Change in Mental Status Sepsis Action Taken by Nursing Pulse Rate 76 78 72 Pulse Rate [Apical] Pulse Rate from SpO2 Sensor 76 75 73 Pulse Rhythm Pulse Rhythm [Apical] Respiratory Rate 12 19 18 Respiratory Effort / Characteristics Respiratory Depth Blood Pressure 150/101 H 170/97 H Blood Pressure [Right Arm] Blood Pressure Mean 117 121 Blood Pressure Mean [Right Arm] Pulse Oximetry 91 95 94 Oxygen Delivery Method Oxygen Flow Rate 07/14/18 23:45 07/14/18 23:46 07/15/18 00:00 Temperature Temperature Source Sepsis Recent Fever Within 48 Hours Sepsis New/Unexplained Change in Mental Status Sepsis Action Taken by Nursing Pulse Rate 74 76 76 Pulse Rate [Apical] Pulse Rate from SpO2 Sensor 74 76 76 Pulse Rhythm Pulse Rhythm [Apical] Respiratory Rate 21 14 16 Respiratory Effort / Characteristics Respiratory Depth Blood Pressure 168/95 H Blood Pressure [Right Arm] Blood Pressure Mean 119 Blood Pressure Mean [Right Arm] Pulse Oximetry 94 95 97 Oxygen Delivery Method Oxygen Flow Rate 07/15/18 00:01 07/15/18 00:15 07/15/18 00:16 Temperature Temperature Source Sepsis Recent Fever Within 48 Hours Sepsis New/Unexplained Change in Mental Status Sepsis Action Taken by Nursing Pulse Rate 74 75 74 Pulse Rate [Apical] Pulse Rate from SpO2 Sensor 74 75 74 Pulse Rhythm Pulse Rhythm [Apical] Respiratory Rate 15 16 18 Respiratory Effort / Characteristics Respiratory Depth Blood Pressure 188/92 H 178/99 H Blood Pressure [Right Arm] Blood Pressure Mean 124 125 Blood Pressure Mean [Right Arm] Pulse Oximetry 99 97 98 Oxygen Delivery Method Oxygen Flow Rate 07/15/18 00:30 Temperature Temperature Source Sepsis Recent Fever Within 48 Hours Sepsis New/Unexplained Change in Mental Status Sepsis Action Taken by Nursing Pulse Rate 79 Pulse Rate [Apical] Pulse Rate from SpO2 Sensor 78 Pulse Rhythm Pulse Rhythm [Apical] Respiratory Rate 12 Respiratory Effort / Characteristics Respiratory Depth Blood Pressure Blood Pressure [Right Arm] Blood Pressure Mean Blood Pressure Mean [Right Arm] Pulse Oximetry 97 Oxygen Delivery Method Oxygen Flow Rate Constitutional: Vital signs reviewed. Drowsy. Eyes: Pupils are equal round reactive to light. Conjunctiva are noninjected. ENT: Pharynx is clear without erythema or exudate. Mucous membranes are moist. Neck supple without meningeal signs. Left carotid mass. Respiratory: Clear to auscultation bilaterally. Breath sounds are equal bilaterally. Cardiovascular: Regular rate and rhythm. No rubs or gallops. GI: Soft, nondistended and nontender. Bowel sounds are present. Musculoskeletal: No peripheral edema. No lower extremity tenderness. Integumentary: No cyanosis. Neurological: The patient is drowsy appearing. Sensation is intact to light touch to the right side. No sensation on the left. No pronator drift. No limb ataxia. Left facial droop and flaccid paralysis of left arm and leg. Neglect of left side. Speech is slurred. Psychiatric: Unable to assess. Course 2137: The patient arrived to the ED and was taken to CT scan. 2145: The patient was evaluated in room A1, and a complete history and physical examination were performed. 2212: I discussed the case with Dr. Martin Neurology who states that he does not believe the patient is a tPA candidate. He recommends a CTA or the head and neck. He states that if there is an occlusion, the patient can be transferred, but states that if there is none, the patient can stay here. He recommends that the patient get 1 g of Depakote IV and twice daily while in the hospital. 2247: I reassessed the patient. Her blood pressure is still significantly elevated. She is moving her left hand slightly, but she is still flaccid in the left leg and has left facial droop. 2312: I discussed the case with Dr. [facility] Hospitalist who accepts the patient for further evaluation. 0009: The patient's blood pressure was 188/92. The patient's only complaint is that she is currently cold. Administered Medications Ioversol (Optiray 320 125ml) 125 ml IV ONCE PRN PRN Reason: Interaction Checking Stop: 07/18/18 22:50 Last Admin: 07/14/18 22:51 Dose: 119 ml Documented by: [id number] Discontinued Medications Valproic Acid 1,000 mg/ (Dextrose) 110 mls @ 110 mls/hr IV NOW STA Stop: 07/14/18 22:10 Last Infusion: 07/14/18 23:57 Dose: 0 mls/hr Documented by: [id number] Admin: 07/14/18 22:57 Dose: 110 mls/hr Documented by: [id number] Labetalol HCl (Normodyne) 10 mg IV NOW STA Stop: 07/14/18 22:58 Last Admin: 07/14/18 23:01 Dose: 10 mg Documented by: [id number] Cosigned by: [id number] Ondansetron HCl (Zofran) 4 mg IV NOW STA Stop: 07/14/18 23:06 Last Admin: 07/14/18 23:09 Dose: 4 mg Documented by: [id number] Medical Decision Making Differential Diagnosis Differential diagnoses include seizure, status epilepticus, Enrrique's paralysis, medication noncompliance, ICH, CVA, and others were considered. Medical Records Attestation: I reviewed the patient's medical records. The patient was seen here on 04/08/2018 for left-sided weakness, fall, and dizziness. The patient was diagnosed with new onset seizure. The patient was admitted to the hospital and placed on Depakote 750mg BID. An MRI of brain and MRA showed no acute process. Home Medications Current Medication List: was personally reviewed by me Laboratory Data Attestation: I reviewed the patient's lab results. Result diagrams: 07/14/18 22:05 07/14/18 23:15 Lab Results 07/14/18 07/14/18 07/14/18 Range/Units 21:53 22:05 22:05 WBC (4.8-10.8) K/uL RBC (4.2-5.4) M/uL Hgb (12.0-16.0) g/dL POC Hgb (12.0-16.0) g/dl Hct (37-47) % POC Hct (37-47) % MCV (80-100) fL MCH (25-34) pg MCHC (32-36) g/dL RDW Std Deviation (36.4-46.3) fL RDW Coeff of Omid (11.5-14.5) % Plt Count (130-400) K/uL MPV (7.4-10.4) fL Immature Gran % (Auto) % Neut % (Auto) % Lymph % (Auto) % [place] % (Auto) % Eos % (Auto) % Baso % (Auto) % Immature Gran # (Auto) (0.00-0.02) K/uL Neut # (Auto) (1.4-6.5) K/uL Lymph # (Auto) (1.2-3.4) K/uL [place] # (Auto) (0.11-0.59) K/uL Eos # (Auto) (0-0.5) K/uL Baso # (Auto) (0-0.2) K/uL POC Sodium (135-144) mEq/L Sodium Cancelled POC Potassium (3.3-5.0) mEq/L Potassium Cancelled POC Chloride (101-112) mEq/L Chloride Cancelled Carbon Dioxide Cancelled POC Total CO2 (24-31) mEq/l Anion Gap Cancelled POC Anion Gap (16-25) mmol/L POC BUN (7-18) mg/dl BUN Cancelled Creatinine Cancelled POC Creatinine (0.6-1.3) mg/dl Est Cr Clr Drug Dosing Cancelled Est GFR ( Amer) Cancelled Est GFR (Non-Af Amer) Cancelled BUN/Creatinine Ratio Cancelled Glucose Cancelled POC Glucose 139 H (70-99) POC Glucose (other) (70-99) mg/dl Calcium Cancelled POC Ioniz Calcium Abner (1.12-1.32) mmol/l Total Bilirubin Cancelled AST Cancelled ALT Cancelled Alkaline Phosphatase Cancelled POC Troponin I (0-0.045) ng/ml Total Protein Cancelled Albumin Cancelled Globulin Cancelled Albumin/Globulin Ratio Cancelled Valproic Acid Cancelled 07/14/18 07/14/18 07/14/18 Range/Units 22:05 22:07 22:09 WBC 6.83 (4.8-10.8) K/uL RBC 4.48 (4.2-5.4) M/uL Hgb 14.0 (12.0-16.0) g/dL POC Hgb 14.3 (12.0-16.0) g/dl Hct 40.3 (37-47) % POC Hct 42 (37-47) % MCV 90.0 (80-100) fL MCH 31.3 (25-34) pg MCHC 34.7 (32-36) g/dL RDW Std Deviation 50.0 H (36.4-46.3) fL RDW Coeff of Omid 15.1 H (11.5-14.5) % Plt Count 217 (130-400) K/uL MPV 10.8 H (7.4-10.4) fL Immature Gran % (Auto) 0.1 % Neut % (Auto) 82.8 % Lymph % (Auto) 9.8 % [place] % (Auto) 6.3 % Eos % (Auto) 0.6 % Baso % (Auto) 0.4 % Immature Gran # (Auto) 0.01 (0.00-0.02) K/uL Neut # (Auto) 5.65 (1.4-6.5) K/uL Lymph # (Auto) 0.67 L (1.2-3.4) K/uL [place] # (Auto) 0.43 (0.11-0.59) K/uL Eos # (Auto) 0.04 (0-0.5) K/uL Baso # (Auto) 0.03 (0-0.2) K/uL POC Sodium 137 (135-144) mEq/L Sodium POC Potassium 5.4 H (3.3-5.0) mEq/L Potassium POC Chloride 100 L (101-112) mEq/L Chloride Carbon Dioxide POC Total CO2 31 (24-31) mEq/l Anion Gap POC Anion Gap 11.0 L (16-25) mmol/L POC BUN 39 H (7-18) mg/dl BUN Creatinine POC Creatinine 1.3 (0.6-1.3) mg/dl Est Cr Clr Drug Dosing Est GFR ( Amer) Est GFR (Non-Af Amer) BUN/Creatinine Ratio Glucose POC Glucose (70-99) POC Glucose (other) 146 H (70-99) mg/dl Calcium POC Ioniz Calcium Abner 1.18 (1.12-1.32) mmol/l Total Bilirubin AST ALT Alkaline Phosphatase POC Troponin I < 0.03 (0-0.045) ng/ml Total Protein Albumin Globulin Albumin/Globulin Ratio Valproic Acid 07/14/18 Range/Units 23:15 WBC (4.8-10.8) K/uL RBC (4.2-5.4) M/uL Hgb (12.0-16.0) g/dL POC Hgb (12.0-16.0) g/dl Hct (37-47) % POC Hct (37-47) % MCV (80-100) fL MCH (25-34) pg MCHC (32-36) g/dL RDW Std Deviation (36.4-46.3) fL RDW Coeff of Omid (11.5-14.5) % Plt Count (130-400) K/uL MPV (7.4-10.4) fL Immature Gran % (Auto) % Neut % (Auto) % Lymph % (Auto) % [place] % (Auto) % Eos % (Auto) % Baso % (Auto) % Immature Gran # (Auto) (0.00-0.02) K/uL Neut # (Auto) (1.4-6.5) K/uL Lymph # (Auto) (1.2-3.4) K/uL [place] # (Auto) (0.11-0.59) K/uL Eos # (Auto) (0-0.5) K/uL Baso # (Auto) (0-0.2) K/uL POC Sodium (135-144) mEq/L Sodium 136 POC Potassium (3.3-5.0) mEq/L Potassium 4.3 POC Chloride (101-112) mEq/L Chloride 102 Carbon Dioxide 26 POC Total CO2 (24-31) mEq/l Anion Gap 8.0 POC Anion Gap (16-25) mmol/L POC BUN (7-18) mg/dl BUN 26 H Creatinine 1.08 POC Creatinine (0.6-1.3) mg/dl Est Cr Clr Drug Dosing 40.1 Est GFR ( Amer) 60.2 Est GFR (Non-Af Amer) 52.0 BUN/Creatinine Ratio 24.3 H Glucose 129 H POC Glucose (70-99) POC Glucose (other) (70-99) mg/dl Calcium 8.7 POC Ioniz Calcium Abner (1.12-1.32) mmol/l Total Bilirubin 0.3 AST 45 H ALT 58 Alkaline Phosphatase 79 POC Troponin I (0-0.045) ng/ml Total Protein 6.1 L Albumin 2.8 L Globulin 3.3 Albumin/Globulin Ratio 0.9 Valproic Acid Imaging Data Radiologist's Impression: Radiology results as stated below per my review and the radiologist's interpretation: CT head/brain wo con CT DOSE: 537.48 mGy.cm HISTORY: Mental status change seizure TECHNIQUE: Multiaxial CT images of the head were performed without the use of intravenous contrast. A dose lowering technique was utilized adhering to the principles of ALARA. Comparison: 04/08/2018 Findings: The paranasal sinuses and mastoid air cells are clear. Old partially calcified right occipital infarct. Age-related atrophy and chronic small vessel change. Ventricular system is midline. No evidence for acute intracranial hemorrhage. No midline shift. Impression: 1. Old right occipital infarct. 2. Age-related chronic small vessel change and atrophy. 3. No change from the prior exam. The above report was generated using voice recognition software. It may contain grammatical, syntax or spelling errors. Electronically signed by: Efrain Ortez M.D. 07/14/2018 9:[address] angio head w con HISTORY: left weakness eval for occlusion TECHNIQUE: Multiaxial CT angiography of the head was performed IV contrast: 1 Cc Maximum intensity projection images were also obtained. A dose lowering technique was utilized adhering to the principles of ALARA. COMPARISON: None. FINDINGS: There is no mass, hematoma, midline shift, or acute infarct. Visualized intracranial internal carotid arteries, distal vertebral arteries, and basilar artery are widely patent. There is no significant stenosis, occlusion, or aneurysm seen within the bilateral ACAs, MCAs, or clinical psychologist licensed. The left vertebral artery is ectatic congenital basis. 50% narrowing distal right vertebral artery. IMPRESSION: No significant stenosis, occlusion, or aneurysm within the [place] of [place]. 50% narrowing distal right vertebral artery. Congenitally ectatic/dominant left vertebral artery. The above report was generated using voice recognition software. It may contain grammatical, syntax or spelling errors. Electronically signed by: Efrain Ortez M.D. 07/14/2018 10:[address] angio neck with con HISTORY: left weakness eval for occlusion TECHNIQUE: Multiaxial CT angiography of the neck was performed IV contrast: None. All measurements were calculated based on NASCET criteria. Maximum intensity projection images were also obtained. A dose lowering technique was utilized adhering to the principles of ALARA. COMPARISON STUDY: None. FINDINGS: The aortic arch and proximal great vessels are widely patent. There is no significant stenosis, occlusion, or dissection identified within the bilateral common carotid, internal carotid, or vertebral arteries. IMPRESSION: No significant stenosis, occlusion, or dissection identified within the carotid or vertebral arteries. 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 It may contain grammatical, syntax or spelling errors. Electronically signed by: Efrain Ortez M.D. 07/14/2018 10:57 PM ECG Data Attestation: I personally reviewed and interpreted this ECG as follows: Indication: other (seizure) Rate (beats per minute): 89 Rhythm: normal sinus Findings: + Q waves (septal leads ); no ST elevation Blood Pressure Blood Pressure Findings: Elevated blood pressure Blood Pressure Disposition: further management by hospitalist MDM Narrative I did provide prehospital medical command for the patient. I did evaluate the patient as noted above. I did order a CT of the abdomen and pelvis. I did review the images myself as well as the radiology report as described above. There is no evidence of bleed or infarct. On assessment the patient is somewhat drowsy and has paralysis to the left side of her body with neglect. She does have a history of prior stroke on the right side and states that she is normally somewhat weak on the left side. This is obviously worse than her baseline as she normally lives by herself. As she just had 2 seizures I did not feel she was a candidate for IV TPA. Her symptoms may be secondary to Enrrique's paralysis. I did speak to the [place] stroke neurologist who agreed. He recommends CT angiogram of the head and neck and hospitalization should there be no blockage. I did order a CT angiogram of the head neck. There is no significant blockage requiring acute intervention. The patient was placed on a continuous cardiac rehabilitation specialist. I did order and personally review the patient's 12-lead EKG as described above. She does have Q waves without ST elevations. She denies any chest pain or shortness of breath. I did order and review the patient's blood work as noted in the electronic medical record. Her white count is not elevated. She is not anemic. Electrolytes are unremarkable. AST slightly elevated at 45. The patient is severely hypertensive. She did drop spontaneously on arrival but when she came back from CAT scan her blood pressure went up significantly. She was given a dose of labetalol 10 mg IV and her blood pressure improved. I did reassess the patient and her paralysis is improved. She is starting to move the left side. Later on reassessment she is moving her arm even more and has sensation on that side. I did discuss case with the hospitalist and case finisher. Impression & Plan Seizures, Hypertensive emergency, Flaccid hemiplegia Critical Care Time I have personally spent 40 minutes of critical care time in the direct management of this patient. This includes bedside care, interpretation of diagnostic studies, and testing, discussion with consultants, patient, and family members, and other required patient management activities. This 40 minutes is in excess of all separately billable procedures. Critical Care Time: Yes Total Critical Care Time: 40 Discharge Plan Visit Data Chief Complaint: Unresponsive Stated Complaint: SEIZURE, UNRESPONSIVE, POSSIBLE STROKE ED Provider: Yahir Elias Discharge Problem: Seizures, Hypertensive emergency, Flaccid hemiplegia Patient Disposition: Being Evaluated by Hospitalist Forms Stand Alone Forms: My [facility] Prescriptions Prescriptions: No Action loratadine-pseudoephedrine [Claritin-D 24 Hour] 10-240 mg Tablet Extended Release 24 Hr 1 tab PO DAILY PRN (Reason: Allergy Symptoms) Qty: 0 RF: 0 multivitamin Tablet 1 tab PO DAILY RF: 0 aspirin [Aspir-81] 81 mg Tablet,Delayed Release (Dr/Ec) 81 mg PO QAM RF: 0 divalproex 250 mg tablet extended release 24 hr 750 mg PO BID RF: 0 atorvastatin [Lipitor] 80 mg tablet 80 mg PO HS RF: 0 Referrals Referrals: Brian Arizmendi MD [Primary Care Provider] - Discharge Problem: Flaccid hemiplegia Qualifiers: Hemiplegia etiology: unspecified etiology Hemiplegia laterality: left dominant side Qualified Code(s): 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 I confirm that the note above accurately reflects all work, treatment, procedures, and medical decision making performed by me.
[2018-07-15] MEDS ORDERED: PHARMACIST DISCHARGE MED REC CONSULT PRN (01:51)
[2018-07-15] MEDS: SODIUM CHLORIDE 0.9% 1000ML 1,000 ML IV SCH ×2 (03:30→14:02)
[2018-07-15 07:58] LABS: Basophils # (auto) 0.02 K/uL (0-0.2); Basophils % (auto) 0.1 %; Hematocrit (blood only) 39.3 % (37-47); Hemoglobin 13.3 g/dL (12.0-16.0); Immature Granulocytes # (auto) 0.03 K/uL (0.00-0.02); Immature Granulocytes % (auto) 0.2 %; Lymphocytes # (auto) 0.84 K/uL (1.2-3.4); Lymphocytes % (auto) 5.3 %; Mean Corpuscular Hgb Conc 33.8 g/dL (32-36); Mean Corpuscular Volume 89.5 fL (80-100); Mean Platelet Volume 10.1 fL (7.4-10.4); Monocytes % (auto) 6.9 %; Neutrophils # (auto) 13.97 K/uL (1.4-6.5); Neutrophils % (auto) 87.5 %; Platelet Count 249 K/uL (130-400); RDW Coefficient of Variation 14.9 % (11.5-14.5); RDW Standard Deviation 48.8 fL (36.4-46.3); Red Blood Count 4.39 M/uL (4.2-5.4); White Blood Count 15.96 K/uL (4.8-10.8)
[2018-07-15 08:11] LABS: INR 1.2 (0.9-1.1); Partial Thromboplastin Ratio 0.9; Partial Thromboplastin Time 25.4 Seconds (21.0-31.0); Prothrombin Time 11.7 Seconds (9.0-12.0)
[2018-07-15 08:28] LABS: BUN Creatinine Ratio 21.6 (10-20); Calcium 8.8 mg/dl (8.5-10.1); Creatinine Clr Calc Pharmacy 40.9 ml/min; Est GFR (African American) 61.6; Est GFR (Non-African American) 53.2; Potassium 4.6 mmol/L (3.5-5.1)
[2018-07-15 08:41] LABS: Estimated Average Glucose 146 mg/dl; Hemoglobin A1C 6.7 % (4.5-5.6)
[2018-07-15] MEDS ORDERED: VALPROATE SOD 1,000 MG in DEXTROSE 5% 50 ML IV SCH (09:00)
[2018-07-15] MEDS ORDERED: GADOBUTROL 65ML VIAL IV PRN (09:03)
--- NOTE | 2018-07-15 09:20 | Magnetic Resonance Report ---
Brain MRI WITH AND WITHOUT CONTRAST HISTORY: left sided weakness, stroke workup TECHNIQUE: Multiplanar multisequence MRI of the brain was performed both before and after the intrave nous administration of contrast. COMPARISON STUDY: Brain MRI 04/09/2018. FINDINGS: No significant change in the old right ASSISTANT CHILD CARE TEACHER territory infarct with associated cortical og ar process. The restricted diffusion at this location is also stable and favors chronic change. No ad ditional areas of restricted diffusion within the brain to suggest an acute infarct. Atrophy and micr ovascular ischemic changes are again noted. There is no mass, hematoma, midline shift. The midline st ructures are intact. The partially visualized 4 cm left parotid gland mass is again noted. No abnorma l enhancement within the brain. IMPRESSION: 1. Overall, no significant change compared the prior study. 2. Old right ASSISTANT CHILD CARE TEACHER territory infarct. 3. Atrophy and microvascular ischemic changes are again noted. 4. Left parotid gland mass, unchanged. Electronically signed by: Joby Weinberg M.D. 07/15/2018 9:18 AM
[2018-07-15] MEDS: ONDANSETRON INJ 2 MG/ML 2 ML VIAL IV PRN ×2 (10:00→19:58)
--- NOTE | 2018-07-15 10:30 | Neurology Consultation ---
Date of Consultation July 15, 2018 Assessment & Plan (1) Seizures: Recent breakthrough seizure in spite of taking Depakote 750 mg twice daily. Level not available, however, as specimen was hemolyzed. Patient's Depakote has been increased to 1000 mg twice daily which is appropriate. Would recommend a follow-up valproic acid level in 5 days. 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 Her seizures are probably of focal onset with secondary generalization in light of her history of a large chronic right temporal occipital stroke. This patient may also have an element of postictal confusion owing to her current mental status. If this patient were to have another seizure I would recommend loading with fosphenytoin and also consider a transfer to a tertiary center for status epilepticus in the context. (2) History of CVA (cerebrovascular accident): History of chronic medium to large size right temporal occipital stroke. Patient has a chronic homonymous hemianopsia to the left. She also appears to have an element of left hemineglect this morning which is probably chronic as well. This patient also has a mild left hemiparesis which is probably post ictal related to a Enrrique's paralysis as above. Recent completed brain MRI did not reveal any evidence of any acute or subacute stroke. However, her chronic right thalamic stroke may encroach on the posterior limb of the internal capsule and could produce some corticospinal findings to the left side of the body. Continue with daily low-dose aspirin and atorvastatin. History of Present Illness Reason for Consultation: Left-sided weakness, seizure Requesting Physician: Pj Huffman MD Attending Physician: Nico Flannery MD History of Present Illness The patient is a 72-year-old female who lives alone. She apparently had activated her medical alert bracelet after a seizure that occurred yesterday. When EMS arrived she was observed to have left-sided weakness and an associated left facial droop. She reportedly had another seizure and was treated with 3 mg of Versed. She was poorly responsive and route to the emergency department. She is an unreliable historian. Past medical history notable for a chronic medium to large size infarct affecting the right occipital and temporal lobe as well as parts of the right thalamus and cerebellum. History also notable for seizure disorder, presumably of focal onset with secondary generalization and related to her history of stroke. She is currently taking Depakote for her seizures and had previously been prescribed Keppra which was discontinued due to suspected mood irritability. She has follow-up with Dr. Cha in the past for her seizures. Past medical history also notable for chronic kidney disease, type 2 diabetes mellitus, hypertension, and hyperlipidemia. Again, she is an unreliable historian due to what appears to be persistent confusion. She frequently calls out and seems to have a considerable degree of irritability. Additional details as below. Allergies Allergy/AdvReac Type Severity Reaction Status Date / Time ragweed pollen Allergy Intermediate ITCHY Verified 07/14/18 23:07 EYES, SNEEZING No Known Drug Allergies Allergy Unknown Verified 07/14/18 23:07 Dust Allergy Intermediate ITCHY Uncoded 07/14/18 23:07 EYES,SNEEZING Home Medications Home Medications Medication Instructions Recorded Confirmed Type loratadine-pseudoephedrine 1 tab PO DAILY PRN #0 tab 12/22/16 07/14/18 History [Claritin-D 24 Hour] aspirin [Aspir-81] 81 mg PO QAM 10/22/17 07/14/18 History multivitamin 1 tab PO DAILY 10/22/17 07/14/18 History atorvastatin [Lipitor] 80 mg PO HS 04/08/18 07/14/18 History divalproex 750 mg PO BID 07/14/18 07/14/18 History Patient History Medical History Hypertension (Chronic) Diabetes (Chronic) Hyperlipidemia Depression GERD (gastroesophageal reflux disease) Hearing deficit Surgical History History of open reduction and internal fixation (ORIF) procedure Hx laparoscopic cholecystectomy Family History Other Family history non-contributory Social History Preferred Language: Khmer Communication Ability: Effective Visual Impairment: No 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 Beliefs That Will Affect Care: None Current Living Situation: Alone Current Living Situation Comment: 10/09 Care givers Other Information That Helps Us Care for You: No Feels Safe at Home: Yes Safety Concerns: Feels Safe At This Time Smoking Status: Never smoker Do You Dip or Chew Tobacco: No Second Hand Exposure: No Tobacco Cessation Education Requested by Patient: No Hx Alcohol Use: No Hx Substance Use: No Review of Systems Constitutional: no fever and no chills Eyes: + blind spots Ear, Nose, Mouth, Throat: no hearing loss Respiratory: no cough and no dyspnea Cardiovascular: no chest pain and no palpitations Gastrointestinal: + nausea Genitourinary: no dysuria Musculoskeletal: no myalgia Integumentary: no rash and no lesions Neurologic: as per Subjective / HPI, + behavioral changes and + confusion Psychiatric: + behavioral changes Hematologic / Lymphatic: no easy bleeding Physical Exam Physical Exam: The patient is a well-developed elderly female. She is lying back in bed and appears mildly uncomfortable. She has a basin at bedside. Patient is alert and oriented to person and [facility]. She is not oriented to the day of the week or date. Attention and concentration are modestly impaired. Patient is able to name objects and repeat phrases. Otherwise, however, she does not provide much spontaneous speech other than frequent calling out, apparently in some degree of emotional distress. Her speech does have an aprosodic quality, lacking the normal tonal inflection. She does have intact language comprehension but otherwise it is difficult to assess her fund of knowledge. There is a left homonymous hemianopsia with confrontation testing of her visual andrade. Visual acuity normal. Pupils equal round react to light and accommodation. Eye movements normal although patient does have some reluctance to look to the left. Facial sensation and expression are intact and symmetrical. No obvious facial droop. Hearing intact. Palate elevates to midline. Shoulder shrug intact. Tongue protrudes to midline. Sensation intact to all modalities in all 4 limbs. However, patient does extinguish on the left to double simultaneous stimulation. Deep tendon reflexes are normoactive throughout. Plantar responses upgoing bilaterally. Patient exhibits a mild to moderate left upper extremity pronator drift with associated dysmetria on [id number] and ricj-eu-ffdy on the left as well. No dysmetria on the right. Ophthalmoscopic examination reveals normal-appearing optic disks and posterior segments. No papilledema or hemorrhages. Carotid pulses normal bilaterally, no bruits to auscultation. Gait and station not tested due to safety concerns. Muscle strength testing grossly intact for all 4 limbs although patient does have a slight left hemiparesis as evidenced by dysmetria. Muscle tone normal throughout. No atrophy. Patient does have a slight action tremor on the left. No resting tremor. Results & Data Vital Signs (Past 12 Hours) Vital Signs Temp Pulse Pulse Pulse Resp BP BP 07/15/18 08:14 07/15/18 07:31 37.2 C 82 20 145/87 H 07/15/18 07:28 87 07/15/18 02:44 37.2 C 89 18 172/83 H 07/15/18 01:53 36.9 C 83 20 07/15/18 00:30 79 12 07/15/18 00:16 74 18 178/99 H 07/15/18 00:15 75 16 07/15/18 00:01 74 15 188/92 H 07/15/18 00:00 76 16 07/14/18 23:46 76 14 168/95 H 07/14/18 23:45 74 21 07/14/18 23:31 72 18 170/97 H 07/14/18 23:30 78 19 07/14/18 23:16 76 12 150/101 H 07/14/18 23:15 76 17 07/14/18 23:06 80 18 07/14/18 23:01 85 17 180/109 H 07/14/18 23:00 87 19 07/14/18 22:02 86 16 BP Pulse Ox 07/15/18 08:14 95 07/15/18 07:31 93 07/15/18 07:28 07/15/18 02:44 100 07/15/18 01:53 182/104 H 97 07/15/18 00:30 97 07/15/18 00:16 98 07/15/18 00:15 97 07/15/18 00:01 99 07/15/18 00:00 97 07/14/18 23:46 95 07/14/18 23:45 94 07/14/18 23:31 94 07/14/18 23:30 95 07/14/18 23:16 91 07/14/18 23:15 92 07/14/18 23:06 180/109 H 93 07/14/18 23:01 90 07/14/18 23:00 91 07/14/18 22:02 181/109 H 100 Laboratory Results Recent labs reviewed. WBC 15.96, hemoglobin 13.3, hematocrit 39.3, platelet count 249 sodium 138, potassium 4.6, BUN 23, creatinine 1.06, glucose 129, JOELLE globin A1c 6.7, calcium 8.8, AST 45, ALT 58, a valproic acid level from April 29, 2018 was 73. A recently drawn valproic acid level not available as the specimen was hemolyzed. Diagnostic Findings A CT of the head completed yesterday revealed a chronic right occipital temporal infarct, atrophy, and chronic small vessel ischemic change. No hemorrhage or acute process. Images and report reviewed. A CTA of the head revealed a 50% narrowing of the distal right vertebral artery with a dominant left vertebral artery that appears ectatic. A CTA of the neck reveals an ectatic left vertebral artery and was otherwise unremarkable. There is a pre-existing 4 cm left parotid mass. Brain MRI completed July 15, 2018 unchanged compared with the previous study done April 09, 2018. No evidence for acute or subacute infarct. There is a chronic right BOARDING MOTHER territory infarct as well as generalized atrophy and chronic microvascular ischemic disease. The 4 cm left parotid mass is again visualized. An electrocardiogram completed July 14, 2018 revealed a normal sinus rhythm, 89 bpm. An echocardiogram completed April 09, 2018 revealed a normal ventricular size and systolic function, ejection fraction 60 to 65%, no regional wall motion abnormalities.
[2018-07-15] MEDS: ASPIRIN 81 MG ECTAB PO SCH (11:55)
--- NOTE | 2018-07-15 15:05 | History & Physical Bridge Note ---
Date of Service July 15, 2018 History & Physical Bridge Note Patient seen and examined this afternoon. Tremor resolving. Sleeping comfortably when I arrived. Overall, still feels nauseated, but no other complaints. Will go home tomorrow if no further seizure activity.
[2018-07-15] MEDS: VALPROIC ACID SOLN 500 MG/10 ML UDC PO SCH (19:55)
[2018-07-15] MEDS ORDERED: ATORVASTATIN 40 MG TAB PO SCH (21:00)
[2018-07-16 06:50] LABS: Basophils # (auto) 0.03 K/uL (0-0.2); Basophils % (auto) 0.4 %; Eosinophils # (auto) 0.02 K/uL (0-0.5); Eosinophils % (auto) 0.3 %; Hemoglobin 11.9 g/dL (12.0-16.0); Immature Granulocytes # (auto) 0.01 K/uL (0.00-0.02); Immature Granulocytes % (auto) 0.1 %; Lymphocytes # (auto) 1.29 K/uL (1.2-3.4); Lymphocytes % (auto) 17.2 %; Mean Corpuscular Volume 90.7 fL (80-100); Mean Platelet Volume 9.9 fL (7.4-10.4); Monocytes # (auto) 0.69 K/uL (0.11-0.59); Monocytes % (auto) 9.2 %; Neutrophils # (auto) 5.47 K/uL (1.4-6.5); Neutrophils % (auto) 72.8 %; Platelet Count 218 K/uL (130-400); RDW Coefficient of Variation 15.2 % (11.5-14.5); Red Blood Count 3.86 M/uL (4.2-5.4); White Blood Count 7.51 K/uL (4.8-10.8)
[2018-07-16 07:20] LABS: BUN Creatinine Ratio 22.1 (10-20); Calcium 8.8 mg/dl (8.5-10.1); Creatinine Clr Calc Pharmacy 40.9 ml/min; Est GFR (African American) 61.6; Est GFR (Non-African American) 53.2; Potassium 4.4 mmol/L (3.5-5.1)
[2018-07-16] MEDS: VALPROIC ACID SOLN 500 MG/10 ML UDC PO SCH (07:41)
[2018-07-16] MEDS: ASPIRIN 81 MG ECTAB PO SCH (07:41)
--- NOTE | 2018-07-16 09:42 | Neurology Progress Note ---
Date of Service July 16, 2018 Assessment & Plan (1) Seizures: Breakthrough seizures while on Depakote. Depakote dosage has been appropriately increased. Plan for follow-up valproic acid level in about 1 week. Patient has been clinically stable with no further breakthrough seizures. (2) History of CVA (cerebrovascular accident): History of chronic right temporal occipital infarct with a residual left homonymous hemianopsia. No evidence of acute or subacute stroke on recently completed MRI. Patient should continue with daily low-dose aspirin and atorvastatin. 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 This issue has resolved. Subjective Follow-up for seizures The patient is a 72-year-old female with a history of a right temporal and occipital lobe infarct with a chronic homonymous hemianopsia to the left as well as a a history of focal seizures with secondary generalization presumably related to her chronic infarct. She presented with a breakthrough seizure while taking Depakote. Her dosage of this medication was increased. She has not had any further seizures during her hospitalization and has been clinically stable. She had presented with a mild Enrrique's paralysis on the left as well. This issue seems to have resolved. The patient does not have any specific complaints at this time but does report experiencing some vivid dreams recently. She has also had some mild difficulty with a tremor, this issue also seems to be stable to improved. Review of Systems Constitutional: no fever and no chills Eyes: + blind spots Neurologic: as per Subjective / HPI Physical Exam Physical Exam: The patient is alert and fully oriented. Attention and concentration are normal. She continues to exhibit an aprosodic speech pattern but is otherwise able to name objects and repeat phrases. She has a normal comprehension of vocabulary. Patient has a left visual field deficit with confrontation testing. Pupils equal round reactive to light and accommodation. Eye movements intact. There is no facial droop. Palate elevates to midline. Shoulder shrug intact. Tongue protrudes to midline. Sensation intact in all 4 limbs. No signs of hemineglect or extinguishing to double simultaneous stimulation at this time. There is no dysmetria [id number] or [id number] bilaterally at this time. Strength is grossly intact for all 4 limbs. There is no pronator drift. Results & Data Vital Signs (Past 12 Hours) Vital Signs Temp Pulse Pulse Resp BP Pulse Ox 07/16/18 07:07 81 07/16/18 04:25 36.9 C 88 18 136/82 92 07/16/18 00:18 37.6 C H 93 H 17 155/92 H 94 Laboratory Results Recent labs reviewed. WBC 7.51, hemoglobin 11.9, hematocrit 35.0, platelet count 218, sodium 138, potassium 4.4, BUN 23, creatinine 1.06, glucose 108, valproic acid level yesterday was 95, today the level is 68. Diagnostic Findings Brain MRI completed yesterday revealed no change compared with the previous study done in March. There is an old right DEAN OF EDUCATION territory infarct, atrophy, and chronic microvascular ischemic disease. There is a chronic left parotid mass as well that is unchanged.
--- NOTE | 2018-07-16 15:00 | Discharge Summary ---
Date of Service July 16, 2018 Admission HPI Per Admitting Provider 72-year-old female with past medical history of type 2 diabetes, hypertension, hyperlipidemia and history of right-sided stroke with subsequent focal seizure disorder presents to the ED following a seizure. Patient is alert, but does not remember what happened. She only remembers feeling poorly today. She is accompanied by 2 of her friends who are her POA. They state that they were called by [employer]. When the first responders arrived to her house, the patient was actively seizing. Subsequent to her seizure activity, the patient had left-sided weakness and facial droop. The patient experienced a stroke 2017PCA territory, right occipital lobe infarct, right thalamic and cerebellar small lacunar lesions. She subsequently had a seizure in March 2018 which also left her with left-sided weakness. H er friends state that she has caregivers that come to the house to check on her periodically, but otherwise the patient has been taking care of herself. Patient denies acute complaints at the moment, but appears very anxious. Principal Diagnosis Seizure Discharge Exam Constitutional WD/WN, vitals as above Eyes EOM intact bilaterally; no conjunctival abnormality ENMT external ear and nose normal, oropharynx normal Neck trachea midline, no thyromegaly normal visual inspection Respiratory normal respiratory effort, lungs clear to auscultation no respiratory distress Cardiovascular RRR, no murmur, no edema Gastrointestinal (Abdomen) Inspection/Auscultation: abdomen normal to inspection; abdomen not distended Musculoskeletal no cyanosis or clubbing, extremities motor strength 5/5 Skin no rashes, warm and dry Neurologic moves all extremities and awake Psychiatric Orientation: alert, oriented to person and cooperative Discharge Data Allergies Allergy/AdvReac Type Severity Reaction Status Date / Time ragweed pollen Allergy Intermediate ITCHY Verified 07/14/18 23:07 EYES, SNEEZING No Known Drug Allergies Allergy Unknown Verified 07/14/18 23:07 Dust Allergy Intermediate ITCHY Uncoded 07/14/18 23:07 EYES,SNEEZING Consultations 07/14/18 23:07 ED Decision to Admit Stat 07/15/18 01:51 Consult Case Management - Discharge Planning Routine Consult Neurology Routine Ordered Studies 07/14/18 21:37 CT head/brain wo con Stat 07/14/18 22:09 CT angio head w con Stat CT angio neck with con Stat 07/15/18 01:51 MR brain wo/w con Routine Hospital Course (1) Seizures: Breakthrough seizures while on Depakote. - Depakote dosage was increased to 1g PO BID per request of neurology. Will need to follow up with neurology as outpatient and possibly add another agent if she still has seizures. - Plan for follow-up valproic acid level in about 1 week. Patient has been clinically stable with no further breakthrough seizures. (2) History of CVA (cerebrovascular accident): History of chronic right temporal occipital infarct with a residual left homonymous hemianopsia. No evidence of acute or subacute stroke on recently completed MRI. Patient should continue with daily low-dose aspirin and atorvastatin. 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 This issue has resolved. Total Time Total Time Spent Total Time Spent (In Minutes): 35 Total Time Includes: Examination of the Patient, Discharge Planning, Medication Reconciliation and Communication With Other Providers Discharge Plan Discharge Items Patient Disposition: Home - Home Health Services Reason For Visit: SEIZURE, LEFT SIDED WEAKNESS Discharge Diagnosis: Seizure Discharge Goals: Diagnostic testing Activity: Resume your previous activity Non-emergency contact: Primary Care Provider and Neurologist Call non-emergency contact if: you have any medication questions and your symptoms worsen Follow-up/Referrals: Brian Arizmendi MD [Primary Care Provider] - Tam Hill MD [Physician] - (Please see Dr. Hill in 2 weeks.) Diet: Heart Healthy Addtl Provider Instructions: Please increase your valproic acid to 1000 mg (4 tablets) two times per day. This is a small increase from your dose before this seizure. Follow up with your neurology doctor in 2 weeks. Prescriptions: Continued loratadine-pseudoephedrine [Claritin-D 24 Hour] 10-240 mg Tablet Extended Release 24 Hr 1 tab PO DAILY PRN (Reason: Allergy Symptoms) Qty: 0 RF: 0 multivitamin Tablet 1 tab PO DAILY RF: 0 aspirin [Aspir-81] 81 mg Tablet,Delayed Release (Dr/Ec) 81 mg PO QAM RF: 0 atorvastatin [Lipitor] 80 mg tablet 80 mg PO HS RF: 0 Changed divalproex 250 mg tablet extended release 24 hr 1,000 mg PO BID Qty: 240 RF: 0 Stand-Alone Forms: rumr: turn off the lights/Other Patient Handouts: Hyperglycemia, Hypoglycemia, Blood Sugar Check, Diabetes Meal Planning Discharge Orders: Discharge Order (Routine); Ordered 07/16/18 Ordered By: Nico Flannery Admission Data Admit Date/Time: 07/15/18 00:36 Attending Provider: Nico Flannery Admit Provider: Pj Carpenter Primary Care Provider: Brian Arizmendi Other Providers: Tam Hill ; Nico Flannery Service: Telemetry Other Interventions: Discharge Summary Assessment (RN) Last Done: 07/16/18 13:12
== END 2018-07-16 15:55 | disposition home or self-care (01) | DRG 101 ==
LOC: ED 21:39 → 2S 07-15 00:36 → SUATTDRO 07-15 00:36 → 2S 07-15 01:17
DX: G83.84 Todd's paralysis (postepileptic); Z79.82 Long term (current) use of aspirin; Z79.899 Other long term (current) drug therapy; N18.3 Chronic kidney disease, stage 3 (moderate); R56.9 Unspecified convulsions; E78.5 Hyperlipidemia, unspecified; I69.398 Other sequelae of cerebral infarction; I12.9 Hypertensive chronic kidney disease with stage 1 through stage 4 chronic kidney disease, or unspecified chronic kidney disease; H53.462 Homonymous bilateral field defects, left side; E11.22 Type 2 diabetes mellitus with diabetic chronic kidney disease

== ENCOUNTER 2018-08-05 14:00 | Inpatient (IN) ==
[2018-08-05] MEDS ORDERED: SODIUM CHLORIDE 0.9% 500 ML IV ONE (14:21)
[2018-08-05 15:31] LABS: Basophils # (auto) 0.02 K/uL (0-0.2); Basophils % (auto) 0.3 %; Eosinophils # (auto) 0.03 K/uL (0-0.5); Eosinophils % (auto) 0.5 %; Hematocrit (blood only) 36.8 % (37-47); Hemoglobin 12.4 g/dL (12.0-16.0); Immature Granulocytes # (auto) 0.01 K/uL (0.00-0.02); Immature Granulocytes % (auto) 0.2 %; Lymphocytes # (auto) 0.96 K/uL (1.2-3.4); Lymphocytes % (auto) 14.5 %; Mean Corpuscular Hgb Conc 33.7 g/dL (32-36); Mean Corpuscular Volume 91.1 fL (80-100); Mean Platelet Volume 9.9 fL (7.4-10.4); Monocytes # (auto) 0.91 K/uL (0.11-0.59); Monocytes % (auto) 13.7 %; Neutrophils # (auto) 4.71 K/uL (1.4-6.5); Neutrophils % (auto) 70.8 %; Platelet Count 208 K/uL (130-400); RDW Coefficient of Variation 15.3 % (11.5-14.5); RDW Standard Deviation 51.6 fL (36.4-46.3); Red Blood Count 4.04 M/uL (4.2-5.4); White Blood Count 6.64 K/uL (4.8-10.8)
[2018-08-05 15:39] LABS: INR 1.2 (0.9-1.1); Prothrombin Time 12.2 Seconds (9.0-12.0)
[2018-08-05 15:49] LABS: Alanine Aminotransferase 36 U/L (12-78); Albumin Level 2.8 gm/dl (3.4-5.0); Aspartate Aminotransferase 37 U/L (15-37); Blood Urea Nitrogen 26 mg/dl (7-18); Calcium 9.6 mg/dl (8.5-10.1); Carbon Dioxide 30 mmol/L (21-32); Chloride 108 mmol/L (98-107); Est GFR (African American) 53.6; Est GFR (Non-African American) 46.2; Glucose 110 mg/dl (70-99); Magnesium 2.2 mg/dl (1.8-2.4); Potassium 3.9 mmol/L (3.5-5.1); Sodium 145 mmol/L (136-145)
[2018-08-05 15:54] LABS: Albumin Globulin Ratio 0.9 (0.9-2); Alkaline Phosphatase 78 U/L (45-117); Bilirubin,Total 0.5 mg/dl (0.2-1); Globulin 3.3 gm/dl (2.5-4.0); Phosphorus 3.3 mg/dl (2.5-4.9); Total Protein 6.1 gm/dl (6.4-8.2); Troponin I < 0.015 ng/ml (0-0.045)
[2018-08-05] MEDS ORDERED: OPTIRAY 320 125ml IV PRN (16:05)
--- NOTE | 2018-08-05 16:22 | CT Scan Report ---
CT head/brain wo con CT DOSE: HISTORY: Stroke b/l vision loss h/o CVA TECHNIQUE: Multiaxial CT images of the head were performed without the use of intravenous contrast. A dose lowering technique was utilized adhering to the principles of ALARA. Comparison: MRI 07/07/2018. CT 07/14/2018 Findings: The paranasal sinuses and mastoid air cells are clear. Old right middle cerebral arterial i nfarct. Dystrophic calcifications are present. Acute/subacute infarct left occipital lobe. No evidence for acute intracranial hemorrhage. Atrophy and chronic small vessel change unaltered from the prior study. Impression: 1. Acute/subacute infarct left occipital lobe. No evidence for acute intracranial hemorrhage 2. Old right occipital/right middle cerebral arterial infarct. 3. Pre-existing atrophy and chronic small vessel change. The above report was generated using voice recognition software. It may contain grammatical, syntax or spelling errors. Electronically signed by: Efrain Ortez M.D. 08/05/2018 4:21 PM
[2018-08-05 16:35] LABS: Appearance Urine Cloudy (Clear); Bacteria Urine Automated Negative (Negative); Bilirubin Urine Negative (Negative); Blood Urine Negative (Negative); Color Urine Yellow; Epithelial Cell Urine Auto 20-30 /lpf (0-5); Glucose Urine UA Negative (Negative); Ketones Urine Trace (Negative); Leukocyte Esterase Urine Negative (Negative); Nitrite Urine Negative (Negative); Protein Urine Negative (Negative); Specific Gravity Urine 1.026 (1.000-1.030); Urobilinogen Urine Negative (Negative); pH Urine 7.5 (4.5-7.5)
--- NOTE | 2018-08-05 16:35 | CT Scan Report ---
CT angio neck with con, CT angio head w con CLINICAL HISTORY: 72 years-old Female with b/l vision loss h/o CVA. Acute bilateral vision loss wi th history of stroke. COMPARISON STUDY: CT head of same day, CTA head and neck 07/14/2018, brain MRI 07/15/2018 TECHNIQUE: Following the IV administration of 1 16 mL of Optiray 320, CT angiogram of the head and ne ck was performed from the aortic arch to the skull base. Images are reviewed in the axial, sagittal, and coronal planes. 3-D MIPS images are created and assessed. IV contrast was administered without co mplication. All measurements were calculated based on NASCET criteria. A dose lowering technique was utilized adhering to the principles of ALARA. CT DOSE: 977.87 mGy.cm FINDINGS: Mixed plaque formation about the thoracic aortic arch. Patency of the imaged bilateral subclavian art eries. The imaged bilateral common carotid arteries appear patent. Moderate mixed plaque formation ab out the bilateral carotid bulbs and proximal internal carotid arteries causes less than 50% stenosis bilaterally. The bilateral middle and anterior cerebral arteries appear to be widely patent. The ante rior communicating artery is patent and unremarkable as well. Dominant left vertebral artery. Approximately 50% luminal narrowing about the V4 segment of the right vertebral artery with mild poststenotic dilation redemonstrated. Additionally, focal area of high-gr neyda (approximately 90%) stenosis involves the distal most V4 segment which is also unchanged. Mild ec mercedes and tortuosity of the basilar artery which appears to be patent with mild calcified plaque. Pat ency of the bilateral posterior cerebral arteries. Cerebral venous sinuses appear patent. Lung apices appear clear. Heterogeneous appearance of the thyroid. Left parotid soft tissue mass rede monstrated measuring bars with 4.7 x 3.1 cm, unchanged from comparison. Remote right SCALE INSTALLER infarct with calcifications again noted. Degenerative changes are seen about the spine. Mastoid air cells and mid dle ear cavities are clear. Mild mucosal thickening of the sphenoid sinuses. IMPRESSION: 1. High-grade stenosis about the right vertebral artery distal V4 segment appears unchanged from comp arison study. 2. No aneurysm, dissection, proximal branch occlusion or new high-grade stenosis identified. 3. 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 4. Remote right SCALE INSTALLER infarct. The above report was generated using voice recognition software. It may contain grammatical, syntax o r spelling errors. Electronically signed by: Farzad Ken M.D. 08/05/2018 4:34 PM
[2018-08-05 16:49] LABS: RBC Urine Automated 0-4 /hpf (0-4)
--- NOTE | 2018-08-05 17:06 | History & Physical Report ---
Date of Service August 05, 2018 Assessment & Plan (1) CVA (cerebral vascular accident): 72F with a PMHx of HTN, HLD, DM2, prior CVA and seizure disorder presents with almost total loss of vision after waking up this morning. She arrived to the ER in the afternoon and was thus out of the TPA window. CT of the head showed an infarct in the L occipital lobe. Acute/Subacute Left Occipital Lobe CVA As seen on CT, out of the TPA window. Admitted under the stroke protocol: - TPA not indicated - telemetry - Consult Neurology - Speech eval, PT, OT - Aspiration precautions, elevated the head of the bed to 30 degrees, daily stroke evals, nightly stroke education. - Will order echocardiogram - Hold off on MRI since CVA seen on CT. - Lipids, HBA1C in the AM. Pt was on ASA 81mg , will hold and switch to Plavix QAM. Seizure disorder Depakote level was 86, will continue Depakote 1g BID Hyperlipidemia Continue atorvastatin 80mg daily. Hypertension Allow for permissive hypertension, hold Lisinopril 5mg daily. DVT proph: SCDs Dispo: Admit, tele, PT/OT, will need placement (DC planning eval ordered), pt is vehemently opposed to hospital food, will allow her to bring in her own food. FULL CODE (2) Seizures: (3) History of CVA (cerebrovascular accident): (4) CKD stage 3 due to type 2 diabetes mellitus: (5) DVT prophylaxis: History of Present Illness Primary Care Provider: Casimiro Arizmendi MD 72F with a PMHx of HTN, HLD, DM2, prior CVA and seizure disorder presents with almost total loss of vision after waking up this morning. Pt states that her vision was normal yesterday. She lives with her cat and does all of her ADLs on her own except driving. She denies any motor or sensory deficits. Her thinking is clear and speech is not muddled. She denies dysphagia. She states that aside from her almost complete loss of vision she feels fine. ED: TPA not administered, pt arrived to the ED in the afternoon and was out of the window. Dr. Hill was consulted by Dr. Kimbrough, we will switch ASA to plavix. ROS: No chest pain, no SOB, no dyspnea on exertion, no palpitations, no fevers, no chills, no nausea, no vomiting, no diarrhea, no dysuria, no rash. Allergies Allergy/AdvReac Type Severity Reaction Status Date / Time ragweed pollen Allergy Intermediate ITCHY Verified 08/05/18 14:57 EYES, SNEEZING No Known Drug Allergies Allergy Unknown Verified 08/05/18 14:57 Dust Allergy Intermediate ITCHY Uncoded 08/05/18 14:57 EYES,SNEEZING Home Medications Home Medications Medication Instructions Recorded Confirmed Type loratadine-pseudoephedrine 1 tab PO DAILY PRN #0 tab 12/22/16 08/05/18 History [Claritin-D 24 Hour] aspirin [Aspir-81] 81 mg PO QAM 10/22/17 08/05/18 History multivitamin 1 tab PO DAILY 10/22/17 08/05/18 History atorvastatin [Lipitor] 80 mg PO HS 04/08/18 08/05/18 History divalproex 1,000 mg PO BID #240 tab 07/16/18 08/05/18 Rx lisinopril 5 mg PO DAILY 08/05/18 08/05/18 History ondansetron HCl 4 mg PO Q6H PRN 08/05/18 08/05/18 History Past Med/Surg History Medical History Enrrique's paralysis Seizures (Acute) Hypertensive emergency (Acute) DVT prophylaxis Sepsis (Acute) Hypertension (Chronic) Diabetes (Chronic) Hyperlipidemia Depression GERD (gastroesophageal reflux disease) Hearing deficit Surgical History History of open reduction and internal fixation (ORIF) procedure Hx laparoscopic cholecystectomy Family History Other Family history non-contributory Social History Preferred Language: Peruvian Communication Ability: Effective Visual Impairment: No Limitations Dog Day Care Attendant Required: No Beliefs That Will Affect Care: None marital status: Single Current Living Situation: Alone Current Living Situation Comment: 10/09 Care givers Other Information That Helps Us Care for You: No Feels Safe at Home: Yes Safety Concerns: Feels Safe At This Time Smoking Status: Never smoker Do You Dip or Chew Tobacco: No Second Hand Exposure: No Tobacco Cessation Education Requested by Patient: No Hx Alcohol Use: No Hx Substance Use: No Physical Exam Constitutional: well developed and well nourished Eyes: EOM intact bilaterally and reactive pupils; + abnormal visual field confrontation (almost complete loss of vision, cannot see # finger 3 feet from face. ), + abnormal accommodation, pupils not fixed and no nystagmus ENMT: external ear and nose normal, oropharynx normal Neck: trachea midline, no thyromegaly Respiratory: normal respiratory effort, lungs clear to auscultation Cardiovascular: RRR, no murmur, no edema Heart Sounds: normal S1 and normal S2 Gastrointestinal (Abdomen): normal bowel sounds, soft, nontender, no hepatosplenomegaly Musculoskeletal: no cyanosis or clubbing, extremities motor strength 5/5 Head/Neck/Chest: normocephalic and head atraumatic Extremities: extremities normal to inspection Skin: no rashes, warm and dry Neurologic: patellar DTR's 2+ bilat, sensation intact normal touch/pain/p roprioception, moves all extremities and awake; not confused Speech / Cognition: normal speech, no expressive aphasia and normal cognition Psychiatric: A+Ox3, euthymic affect Orientation: cooperative Eye Contact: + poor eye contact; + not good eye contact Thought Process: linear/logical thought process Estimated Intelligence: average estimated intelligence Insight: good insight Judgement: good judgement Results & Data Vital Signs (Past 12 Hours) Vital Signs Temp Pulse Resp BP Pulse Ox 08/05/18 16:25 78 14 170/94 H 99 08/05/18 16:20 85 19 08/05/18 16:17 77 18 08/05/18 15:50 63 13 95 08/05/18 15:40 68 16 94 08/05/18 15:30 112 H 20 96 08/05/18 15:26 96 08/05/18 15:20 70 18 96 08/05/18 15:10 76 17 08/05/18 15:00 70 12 08/05/18 14:50 83 17 08/05/18 14:40 76 13 08/05/18 14:34 80 17 08/05/18 14:03 37.4 C 83 16 143/87 H 97 Supervising Physician Co-Signing Physician Notes Attending attestation Pt seen and examined in concert with Dr. Parkinson. In agreement with the documented findings as noted in the resident documentation with any exceptions or additions as noted here. Sleeping in bed, easily aroused by voice. Reports mild improvement in vision, now able to see contrasted shapes at approx 6 inches in bright light. Otherwise presently without acute complaint. On examination. S1/S2 nl RRR no MCG. CTAB. Abd NT/ND BS+ve. PERRL. Acute/subacute occipital CVA, left - neurology consultation appreciated. Speech, PT/OT on board. f/u echocardiogram, lipids, A1c. Change to plavix Hyperlipidemia - continue atorvastatin HTN - hold lisinopril for now DMII - bringing food from home (adamantly refuses in house diet) CKDIII - avoid nephrotoxic medications, trend PRP Else see resident documentation as noted. PG Care Time/CCT Total # of Minutes Spent Total Time Spent with Patient: Total time spent is greater than 50% in coordination of care (as documented) at patient's floor/unit and/or counseling patient: Resident Activity Tracking Resident Involvement: Resident Care Provided Care Provided: Adult Hospital Medicine
--- NOTE | 2018-08-05 18:22 | Emergency Department Note ---
Entered by Rosalia Hughes acting as a scribe for Andrez Kimbrough MD History of Present Illness General Chief complaint: Visual Disturbance Stated complaint: VISUAL CHANGES,CANT HEAR Time Seen by Provider: 08/05/18 14:19 Source: patient History of Present Illness Provider complaint: Visual disturbance Onset (ago): hour(s) 7 Location: eyes Pain Consistency: + other (episode) Maximum Pain Intensity: 0 Associated symptoms: + other (can see difference between light and dark) Treatments prior to arrival: none The patient is a 72 year old female who presents to the ED with complaints of an episode of visual disturbance that began 7 hours ago, which was present when she woke up. The patient states that she can see the difference between light and dark. The patient denies any treatment prior to arrival. The patient notes that she has had poor vision ever since her left sided stroke, but it became much worse this morning. Home Medications Home Medications Medication Instructions Recorded Confirmed Type loratadine-pseudoephedrine 1 tab PO DAILY PRN #0 tab 12/22/16 08/05/18 History [Claritin-D 24 Hour] aspirin [Aspir-81] 81 mg PO QAM 10/22/17 08/05/18 History multivitamin 1 tab PO DAILY 10/22/17 08/05/18 History atorvastatin [Lipitor] 80 mg PO HS 04/08/18 08/05/18 History divalproex 1,000 mg PO BID #240 tab 07/16/18 08/05/18 Rx lisinopril 5 mg PO DAILY 08/05/18 08/05/18 History ondansetron HCl 4 mg PO Q6H PRN 08/05/18 08/05/18 History Allergies Allergy/AdvReac Type Severity Reaction Status Date / Time ragweed pollen Allergy Intermediate ITCHY Verified 08/05/18 14:57 EYES, SNEEZING No Known Drug Allergies Allergy Unknown Verified 08/05/18 14:57 Dust Allergy Intermediate ITCHY Uncoded 08/05/18 14:57 EYES,SNEEZING Past Med/Surg History Medical History Enrrique's paralysis Seizures (Acute) Hypertensive emergency (Acute) DVT prophylaxis Sepsis (Acute) Hypertension (Chronic) Diabetes (Chronic) Hyperlipidemia Depression GERD (gastroesophageal reflux disease) Hearing deficit Surgical History History of open reduction and internal fixation (ORIF) procedure Hx laparoscopic cholecystectomy Family History Other Family history non-contributory Social History Preferred Language: [place] Communication Ability: Effective Visual Impairment: No Limitations Manager Business Process Required: No Beliefs That Will Affect Care: None marital status: Single Current Living Situation: Alone Current Living Situation Comment: 10/09 Care givers Other Information That Helps Us Care for You: No Feels Safe at Home: Yes Safety Concerns: Feels Safe At This Time Smoking Status: Never smoker Do You Dip or Chew Tobacco: No Second Hand Exposure: No Tobacco Cessation Education Requested by Patient: No Hx Alcohol Use: No Hx Substance Use: No Review of Systems See HPI for pertinent positives & negatives. and A total of 10 systems reviewed and were otherwise negative Physical Exam Vital Signs Vital Signs - 24 hr 08/05/18 14:03 08/05/18 14:34 08/05/18 14:40 Temperature 37.4 C Temperature Source Oral Sepsis Recent Fever Within 48 Hours No Sepsis New/Unexplained Change in Mental Status No Sepsis Action Taken by Nursing No Action Required Pulse Rate 83 80 76 Pulse Rate from SpO2 Sensor Respiratory Rate 16 17 13 Blood Pressure 143/87 H Blood Pressure Mean 105 Pulse Oximetry 97 Oxygen Delivery Method Room Air 08/05/18 14:50 08/05/18 15:00 08/05/18 15:10 Temperature Temperature Source Sepsis Recent Fever Within 48 Hours Sepsis New/Unexplained Change in Mental Status Sepsis Action Taken by Nursing Pulse Rate 83 70 76 Pulse Rate from SpO2 Sensor Respiratory Rate 17 12 17 Blood Pressure Blood Pressure Mean Pulse Oximetry Oxygen Delivery Method 08/05/18 15:20 08/05/18 15:26 08/05/18 15:30 Temperature Temperature Source Sepsis Recent Fever Within 48 Hours Sepsis New/Unexplained Change in Mental Status Sepsis Action Taken by Nursing Pulse Rate 70 112 H Pulse Rate from SpO2 Sensor 71 77 Respiratory Rate 18 20 Blood Pressure Blood Pressure Mean Pulse Oximetry 96 96 96 Oxygen Delivery Method Room Air 08/05/18 15:40 08/05/18 15:50 08/05/18 16:17 Temperature Temperature Source Sepsis Recent Fever Within 48 Hours Sepsis New/Unexplained Change in Mental Status Sepsis Action Taken by Nursing Pulse Rate 68 63 77 Pulse Rate from SpO2 Sensor 68 63 Respiratory Rate 16 13 18 Blood Pressure Blood Pressure Mean Pulse Oximetry 94 95 Oxygen Delivery Method 08/05/18 16:20 08/05/18 16:25 08/05/18 16:26 Temperature Temperature Source Sepsis Recent Fever Within 48 Hours Sepsis New/Unexplained Change in Mental Status Sepsis Action Taken by Nursing Pulse Rate 85 78 75 Pulse Rate from SpO2 Sensor 78 75 Respiratory Rate 19 14 15 Blood Pressure 170/94 H Blood Pressure Mean 119 Pulse Oximetry 99 99 Oxygen Delivery Method 08/05/18 16:30 08/05/18 16:40 08/05/18 16:50 Temperature Temperature Source Sepsis Recent Fever Within 48 Hours Sepsis New/Unexplained Change in Mental Status Sepsis Action Taken by Nursing Pulse Rate 86 75 74 Pulse Rate from SpO2 Sensor 76 75 Respiratory Rate 21 12 13 Blood Pressure Blood Pressure Mean Pulse Oximetry 96 96 Oxygen Delivery Method 08/05/18 17:00 08/05/18 17:01 08/05/18 17:10 Temperature Temperature Source Sepsis Recent Fever Within 48 Hours Sepsis New/Unexplained Change in Mental Status Sepsis Action Taken by Nursing Pulse Rate 71 70 70 Pulse Rate from SpO2 Sensor 71 70 72 Respiratory Rate 14 15 14 Blood Pressure 159/85 H Blood Pressure Mean 109 Pulse Oximetry 97 96 98 Oxygen Delivery Method 08/05/18 17:20 08/05/18 17:30 08/05/18 17:40 Temperature Temperature Source Sepsis Recent Fever Within 48 Hours Sepsis New/Unexplained Change in Mental Status Sepsis Action Taken by Nursing Pulse Rate 76 80 74 Pulse Rate from SpO2 Sensor 74 81 73 Respiratory Rate 17 17 14 Blood Pressure Blood Pressure Mean Pulse Oximetry 97 100 99 Oxygen Delivery Method 08/05/18 17:50 08/05/18 18:00 08/05/18 18:01 Temperature Temperature Source Sepsis Recent Fever Within 48 Hours Sepsis New/Unexplained Change in Mental Status Sepsis Action Taken by Nursing Pulse Rate 72 60 65 Pulse Rate from SpO2 Sensor 73 61 67 Respiratory Rate 13 13 12 Blood Pressure 140/69 Blood Pressure Mean 92 Pulse Oximetry 98 97 98 Oxygen Delivery Method GENERAL: Awake, alert, in no distress HENT: Normocephalic, atraumatic. Oropharynx with dry mucous membranes and otherwise unremarkable. EYES: Normal conjunctiva. Sclera non-icteric. Gross vision loss bilaterally. NECK: Supple. No nuchal rigidity. FROM. No JVD. RESPIRATORY: Clear to auscultation bilaterally. CARDIAC: Regular rate, normal rhythm. Extremities warm and well perfused. Pulses equal. ABDOMEN: Soft, non-distended. No tenderness to palpation. No rebound or guarding. No masses. RECTAL: Deferred. MUSCULOSKELETAL: Chest examination reveals no tenderness. The back is symmetrical on inspection without obvious abnormality. There is no CVA tenderness to palpation. No joint edema. LOWER EXTREMITIES: Calves are equal size bilaterally and non-tender. No edema. No discoloration. NEURO: Normal sensorium. No sensory or motor deficits noted. Moving all extremities equally with no focal weakness at this time. SKIN: No rash or jaundice noted. Course 1441: Past medical records reviewed. The patient was evaluated in room B5. A complete history and physical exam was performed. 1511: I performed a bedside ultrasound at this time. 1652: I discussed the patient's case with Dr. Costello [facility] Neurology. He agrees that no role of intervention should be made since the patient woke up with these symptoms, is outside the stroke window and there is no indication of endovascular treatment in CTA. 1658: I discussed the patient's case with Dr. Lopez [facility] Hospitalist and she will be evaluating the patient for further management. Reevaluation(s) Reevaluation #1: I discussed the patient's case with Dr. Costello [facility] Neurology. He agrees that no role of intervention should be made since the patient woke up with these symptoms and there is no indication of endovascular treatment for CVA. Time: 16:52 Reevaluation #2: I discussed the patient's case with Dr. Lopez [facility] Hospitalist and she will be evaluating the patient for further management. Time: 16:58 Administered Medications Atorvastatin Calcium (Lipitor) 80 mg PO HS JASWANT Stop: 09/04/18 20:59 Last Admin: 08/05/18 20:18 Dose: 80 mg Documented by: [id number] Divalproex Sodium (Depakote Extended Release) 1,000 mg PO BID JASWANT Stop: 09/04/18 20:59 Last Admin: 08/05/18 20:18 Dose: 1,000 mg Documented by: [id number] Ioversol (Optiray 320 125ml) 116 ml IV ONCE PRN PRN Reason: Interaction Checking Stop: 08/09/18 16:04 Last Admin: 08/05/18 16:06 Dose: 116 ml Documented by: [id number] Discontinued Medications Sodium Chloride (Nss) 500 mls @ 999 mls/hr IV .Q31M ONE Stop: 08/05/18 14:51 Last Infusion: 08/05/18 16:15 Dose: 0 mls/hr Documented by: [id number] Admin: 08/05/18 15:39 Dose: 999 mls/hr Documented by: [id number] Medical Decision Making Differential Diagnosis Differential diagnosis: Etiologies such as metabolic, infection, hypo/hyperglycemia, electrolyte abnormalities, cardiac sources, intracerebral event, CVA, toxicologic, neurologic, as well as others were entertained. Medical Records Attestation: I reviewed the patient's medical records. Home Medications Current Medication List: was personally reviewed by me Laboratory Data Attestation: I reviewed the patient's lab results. Result diagrams: 08/05/18 15:22 08/05/18 15:22 Lab Results 08/05/18 08/05/18 08/05/18 Range/Units 15:22 15:22 15:22 WBC 6.64 (4.8-10.8) K/uL RBC 4.04 L (4.2-5.4) M/uL Hgb 12.4 (12.0-16.0) g/dL Hct 36.8 L (37-47) % MCV 91.1 (80-100) fL MCH 30.7 (25-34) pg MCHC 33.7 (32-36) g/dL RDW Std Deviation 51.6 H (36.4-46.3) fL RDW Coeff of Omid 15.3 H (11.5-14.5) % Plt Count 208 (130-400) K/uL MPV 9.9 (7.4-10.4) fL Immature Gran % (Auto) 0.2 % Neut % (Auto) 70.8 % Lymph % (Auto) 14.5 % [place] % (Auto) 13.7 % Eos % (Auto) 0.5 % Baso % (Auto) 0.3 % Immature Gran # (Auto) 0.01 (0.00-0.02) K/uL Neut # (Auto) 4.71 (1.4-6.5) K/uL Lymph # (Auto) 0.96 L (1.2-3.4) K/uL [place] # (Auto) 0.91 H (0.11-0.59) K/uL Eos # (Auto) 0.03 (0-0.5) K/uL Baso # (Auto) 0.02 (0-0.2) K/uL PT (9.0-12.0) Seconds INR (0.9-1.1) Sodium 145 (136-145) mmol/L Potassium 3.9 (3.5-5.1) mmol/L Chloride 108 H (98-107) mmol/L Carbon Dioxide 30 (21-32) mmol/L Anion Gap 7.0 (3-11) BUN 26 H (7-18) mg/dl Creatinine 1.19 (0.6-1.2) mg/dl Est Cr Clr Drug Dosing 38.0 ml/min Est GFR ( Amer) 53.6 Est GFR (Non-Af Amer) 46.2 BUN/Creatinine Ratio 22.0 H (10-20) Glucose 110 H (70-99) mg/dl Calcium 9.6 (8.5-10.1) mg/dl Phosphorus 3.3 (2.5-4.9) mg/dl Magnesium 2.2 (1.8-2.4) mg/dl Total Bilirubin 0.5 (0.2-1) mg/dl AST 37 (15-37) U/L ALT 36 (12-78) U/L Alkaline Phosphatase 78 (45-117) U/L Troponin I < 0.015 (0-0.045) ng/ml Total Protein 6.1 L (6.4-8.2) gm/dl Albumin 2.8 L (3.4-5.0) gm/dl Globulin 3.3 (2.5-4.0) gm/dl Albumin/Globulin Ratio 0.9 (0.9-2) Lipase 59 L (73-393) U/L Urine Color Urine Appearance (Clear) Urine pH (4.5-7.5) Ur Specific [place]cock (1.000-1.030) Urine Protein (Negative) Urine Glucose (UA) (Negative) Urine Ketones (Negative) Urine Blood (Negative) Urine Nitrite (Negative) Urine Bilirubin (Negative) Urine Urobilinogen (Negative) Ur Leukocyte Esterase (Negative) Urine WBC (Auto) (0-5) /hpf Urine RBC (Auto) (0-4) /hpf U Hyaline Cast (Auto) (0-5) /lpf U Epithel Cells (Auto) (0-5) /lpf Urine Bacteria (Auto) (Negative) Valproic Acid 86 (50-100) mcg/ml 08/05/18 08/05/18 Range/Units 15:22 16:26 WBC (4.8-10.8) K/uL RBC (4.2-5.4) M/uL Hgb (12.0-16.0) g/dL Hct (37-47) % MCV (80-100) fL MCH (25-34) pg MCHC (32-36) g/dL RDW Std Deviation (36.4-46.3) fL RDW Coeff of Omid (11.5-14.5) % Plt Count (130-400) K/uL MPV (7.4-10.4) fL Immature Gran % (Auto) % Neut % (Auto) % Lymph % (Auto) % [place] % (Auto) % Eos % (Auto) % Baso % (Auto) % Immature Gran # (Auto) (0.00-0.02) K/uL Neut # (Auto) (1.4-6.5) K/uL Lymph # (Auto) (1.2-3.4) K/uL [place] # (Auto) (0.11-0.59) K/uL Eos # (Auto) (0-0.5) K/uL Baso # (Auto) (0-0.2) K/uL PT 12.2 H (9.0-12.0) Seconds INR 1.2 H (0.9-1.1) Sodium (136-145) mmol/L Potassium (3.5-5.1) mmol/L Chloride (98-107) mmol/L Carbon Dioxide (21-32) mmol/L Anion Gap (3-11) BUN (7-18) mg/dl Creatinine (0.6-1.2) mg/dl Est Cr Clr Drug Dosing ml/min Est GFR ( Amer) Est GFR (Non-Af Amer) BUN/Creatinine Ratio (10-20) Glucose (70-99) mg/dl Calcium (8.5-10.1) mg/dl Phosphorus (2.5-4.9) mg/dl Magnesium (1.8-2.4) mg/dl Total Bilirubin (0.2-1) mg/dl AST (15-37) U/L ALT (12-78) U/L Alkaline Phosphatase (45-117) U/L Troponin I (0-0.045) ng/ml Total Protein (6.4-8.2) gm/dl Albumin (3.4-5.0) gm/dl Globulin (2.5-4.0) gm/dl Albumin/Globulin Ratio (0.9-2) Lipase (73-393) U/L Urine Color Yellow Urine Appearance Cloudy A (Clear) Urine pH 7.5 (4.5-7.5) Ur Specific [place] 1.026 (1.000-1.030) Urine Protein Negative (Negative) Urine Glucose (UA) Negative (Negative) Urine Ketones Trace H (Negative) Urine Blood Negative (Negative) Urine Nitrite Negative (Negative) Urine Bilirubin Negative (Negative) Urine Urobilinogen Negative (Negative) Ur Leukocyte Esterase Negative (Negative) Urine WBC (Auto) 1-5 (0-5) /hpf Urine RBC (Auto) 0-4 (0-4) /hpf U Hyaline Cast (Auto) 1-5 (0-5) /lpf U Epithel Cells (Auto) 20-30 H (0-5) /lpf Urine Bacteria (Auto) Negative (Negative) Valproic Acid (50-100) mcg/ml Imaging Data Radiologist's Impression: Radiology results as stated below per my review and the radiologist's interpretation: CT head/brain wo con CT DOSE: HISTORY: Stroke b/l vision loss h/o CVA TECHNIQUE: Multiaxial CT images of the head were performed without the use of intravenous contrast. A dose lowering technique was utilized adhering to the principles of ALARA. Comparison: MRI 07/07/2018. CT 07/14/2018 Findings: The paranasal sinuses and mastoid air cells are clear. Old right middle cerebral arterial infarct. Dystrophic calcifications are present. Acute/subacute infarct left occipital lobe. No evidence for acute intracranial hemorrhage. Atrophy and chronic small vessel change unaltered from the prior study. Impression: 1. Acute/subacute infarct left occipital lobe. No evidence for acute intracranial hemorrhage 2. Old right occipital/right middle cerebral arterial infarct. 3. Pre-existing atrophy and chronic small vessel change. The above report was generated using voice recognition software. It may contain grammatical, syntax or spelling errors. Electronically signed by: Efrain Ortez M.D. 08/05/2018 4:[address] angio neck with con, CT angio head w con CLINICAL HISTORY: 72 years-old Female with b/l vision loss h/o CVA. Acute bilateral vision loss with history of stroke. COMPARISON STUDY: CT head of same day, CTA head and neck 07/14/2018, brain MRI 07/15/2018 TECHNIQUE: Following the IV administration of 1 16 mL of Optiray 320, CT angiogram of the head and neck was performed from the aortic arch to the skull base. Images are reviewed in the axial, sagittal, and coronal planes. 3-D MIPS images are created and assessed. IV contrast was administered without complication. All measurements were calculated based on NASCET criteria. A dose lowering technique was utilized adhering to the principles of ALARA. CT DOSE: 977.87 mGy.cm FINDINGS: Mixed plaque formation about the thoracic aortic arch. Patency of the imaged bilateral subclavian arteries. The imaged bilateral common carotid arteries appear patent. Moderate mixed plaque formation about the bilateral carotid bulbs and proximal internal carotid arteries causes less than 50% stenosis bilaterally. The bilateral middle and anterior cerebral arteries appear to be widely patent. The anterior communicating artery is patent and unremarkable as well. Dominant left vertebral artery. Approximately 50% luminal narrowing about the V4 segment of the right vertebral artery with mild poststenotic dilation redemonstrated. Additionally, focal area of high-grade (approximately 90%) stenosis involves the distal most V4 segment which is also unchanged. Mild ectasia and tortuosity of the basilar artery which appears to be patent with mild calcified plaque. Patency of the bilateral posterior cerebral arteries. Cerebral venous sinuses appear patent. Lung apices appear clear. Heterogeneous appearance of the thyroid. Left parotid soft tissue mass redemonstrated measuring bars with 4.7 x 3.1 cm, unchanged from comparison. Remote right LAMP INSPECTOR infarct with calcifications again noted. Degenerative changes are seen about the spine. Mastoid air cells and middle ear cavities are clear. Mild mucosal thickening of the sphenoid sinuses. IMPRESSION: 1. 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 2. No aneurysm, dissection, proximal branch occlusion or new high-grade stenosis identified. 3. 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 4. Remote right LAMP INSPECTOR infarct. The above report was generated using voice recognition software. It may contain grammatical, syntax or spelling errors. Electronically signed by: Farzad Ken M.D. 08/05/2018 4:34 PM ECG Data Attestation: I personally reviewed and interpreted this ECG as follows: Indication: other (stroke like symptoms) Rate (beats per minute): 71 Rhythm: normal sinus Findings: + nonspecific-ST abn and + left axis deviation; no ST depression, no ST elevation and no acute ischemic change Blood Pressure Blood Pressure Findings: Elevated blood pressure Blood Pressure Disposition: further management by hospitalist DARY Narrative The patient is a pleasant 72-year-old woman with a past medical history of prior CVA with chronic left visual field bilateral hemianopsia in the setting of prior right-sided temporal occipital CVA, seizure disorder on Depakote who presents emergency department with near complete vision loss which the patient first noticed when waking up this morning per hpi. On arrival the patient is no acute distress, afebrile stable vital signs. On exam the patient has notable gross near complete vision loss. Her pupils are reactive to light and she is able to delineate large objects but appears to have near complete vision loss. Otherwise the patient is moving all extremities equally and does not exhibit any focal extremity weakness though she does have a history of residual left-sided weakness. EKG without overt acute ischemia. Patient refused chest x-ray. WBC, hemoglobin, platelets within normal limits. Chemistry without acidosis. LFTs and electrolytes unremarkable. Troponin negative. UA negative for infection but with trace ketones consistent with the patient's clinically dry appearance. Limited bedside ocular ultrasound negative for gross retinal or vitreous detachment. However, the patient does have vitreous hemorrhage of the left globe in the setting of reporting a chronic history of floaters. Ocular pressures are within normal limits, 14.5 [address] head demonstrates acute/subacute infarct left occipital lobe without evidence of ICH. Old right occipital/right middle cerebral arterial infarct is again observed in addition to chronic atrophy and chronic small vessel change. CTA of the head and neck demonstrates previous high-grade stenosis of the right vertebral artery that is unchanged as well as remote right LAMP INSPECTOR occlusion. Otherwise there is no new occlusion or high-grade stenosis or aneurysm or dissection identified. Case was discussed with Dr. Hill, and [facility] neurology, and we agree that given the patient was outside the TPA window given unclear last known well/symptom onset as well as no CTA findings to indicate need for endovascular procedure reasonable to admit the patient for further stroke evaluation, including MRI. Recommends that inpatient team may consider switching patient from aspirin to Plavix given that her new stroke did occur while on aspirin. Otherwise will require further evaluation regarding CVA provoking factors. Per preliminary review of patient's record there does not appear to be a history of atrial fibrillation or previous treatment with anticoagulation. Case was discussed with Dr. Georgina Allen, [facility] hospitalist, who will evaluate the patient for admission. Impression & Plan Occipital stroke, Loss of vision Discharge Plan Visit Data *Final* Discharge Date/Time: 08/05/18 18:38 Chief Complaint: Visual Disturbance Stated Complaint: VISUAL CHANGES,CANT HEAR ED Provider: Andrez Kimbrough Discharge Problem: Occipital stroke, Loss of vision Patient Disposition: Admitted As Inpatient Discharge Instructions Interventions: ED Discharge Assessment Last Done: 08/05/18 18:38 The scribe's documentation has been prepared under my direction and personally reviewed by me in its entirety. I confirm that the note above accurately reflects all work, treatment, procedures, and medical decision making performed by me.
[2018-08-05] MEDS ORDERED: ACETAMINOPHEN 325 MG TAB PO PRN (19:07)
[2018-08-05] MEDS ORDERED: LORATADINE/PSEUDOEPHEDRINE 1 TABCR PO PRN (19:07)
[2018-08-05] MEDS: DIVALPROEX EXTENDED RELEASE 250 MG TABCR PO SCH (20:18)
[2018-08-05] MEDS: ATORVASTATIN 40 MG TAB PO SCH (20:18)
[2018-08-06 06:23] LABS: Estimated Average Glucose 151 mg/dl; Hemoglobin A1C 6.9 % (4.5-5.6)
[2018-08-06 07:34] LABS: Basophils # (auto) 0.03 K/uL (0-0.2); Basophils % (auto) 0.3 %; Eosinophils # (auto) 0.11 K/uL (0-0.5); Eosinophils % (auto) 1.2 %; Hematocrit (blood only) 36.4 % (37-47); Immature Granulocytes # (auto) 0.02 K/uL (0.00-0.02); Immature Granulocytes % (auto) 0.2 %; Lymphocytes # (auto) 1.11 K/uL (1.2-3.4); Mean Platelet Volume 10.4 fL (7.4-10.4); Monocytes # (auto) 1.58 K/uL (0.11-0.59); Monocytes % (auto) 17.1 %; Neutrophils # (auto) 6.41 K/uL (1.4-6.5); Neutrophils % (auto) 69.2 %; Platelet Count 207 K/uL (130-400); RDW Coefficient of Variation 15.5 % (11.5-14.5); RDW Standard Deviation 51.8 fL (36.4-46.3); White Blood Count 9.26 K/uL (4.8-10.8)
[2018-08-06 08:09] LABS: BUN Creatinine Ratio 24.1 (10-20); Calcium 9.1 mg/dl (8.5-10.1); Creatinine Clr Calc Pharmacy 42.2 ml/min; Est GFR (African American) 60.9; Est GFR (Non-African American) 52.6; Potassium 4.1 mmol/L (3.5-5.1)
[2018-08-06] MEDS: MULTIVITAMIN TAB PO SCH (08:33)
[2018-08-06] MEDS: DIVALPROEX EXTENDED RELEASE 250 MG TABCR PO SCH ×2 (08:33→20:49)
[2018-08-06] MEDS: CLOPIDOGREL BISULFATE 75 MG TAB PO SCH (08:34)
--- NOTE | 2018-08-06 08:45 | Neurology Consultation ---
Date of Consultation August 06, 2018 Assessment & Plan (1) Occipital stroke: New, acute, left occipital lobe stroke in a patient with a history of a chronic right occipital lobe stroke and left homonymous hemianopsia. 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 This patient does have several risk factors for stroke including hypertension, diabetes mellitus, and hyperlipidemia. 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 No evidence of atrial fibrillation. No evidence of significant cardiac structural disease on previous echocardiogram completed this past March. Agree with discontinuation of daily low-dose aspirin in favor of clopidogrel 75 mg/day. Continue with atorvastatin 80 mg/day. Continue to monitor blood pressure. Preferred systolic blood pressure range 140 to 160 mmHg at this time. I would recommend completion of a brain MRI to more fully assess the extent of her recent stroke. I would also recommend an up-to-date transthoracic echocardiogram with bubble study. Patient will need an outpatient ophthalmology assessment including visual andrade. Unfortunately, I think her prognosis for visual recovery is low which will have a significant impact on her independent functioning. 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 This issue was evaluated during her previous admission to the [facility] last month and has been stable on Depakote. Her current valproic acid level is appropriate. Continue with Depakote 1000 mg by mouth twice daily. History of Present Illness Reason for Consultation: Stroke Requesting Physician: Efrain Parkinson MD Attending Physician: Brian Metz MD History of Present Illness The patient is a 72-year-old female with a chief complaint of vision loss. The patient complains of near complete vision loss that she noticed upon awakening yesterday morning. She is unable to see details of objects but indicates that she does have some preserved peripheral vision off to the left. She has a history of a chronic left homonymous hemianopsia related to a right occipital lobe infarct. However, upon awakening yesterday morning, she was unable to see anything off to the right as well. She indicates that her symptoms have not really changed since their onset yesterday morning. She has a known history of a right vertebral artery stenosis and has been taking daily low-dose aspirin, and atorvastatin. Past medical history also notable for seizure disorder. I have evaluated this patient during her previous admission to the [facility] on July 15, 2018 for breakthrough seizure complicated by a transient left-sided Enrrique's paralysis. Her dosage of Depakote was increased at that time. She has not had any further convulsive episodes. She currently denies headache or neck pain. She denies any weakness or sensory loss to the limbs at this time. aAdditional details as below. Allergies Allergy/AdvReac Type Severity Reaction Status Date / Time ragweed pollen Allergy Intermediate ITCHY Verified 08/05/18 14:57 EYES, SNEEZING No Known Drug Allergies Allergy Unknown Verified 08/05/18 14:57 Dust Allergy Intermediate ITCHY Uncoded 08/05/18 14:57 EYES,SNEEZING Home Medications Home Medications Medication Instructions Recorded Confirmed Type loratadine-pseudoephedrine 1 tab PO DAILY PRN #0 tab 12/22/16 08/05/18 History [Claritin-D 24 Hour] aspirin [Aspir-81] 81 mg PO QAM 10/22/17 08/05/18 History multivitamin 1 tab PO DAILY 10/22/17 08/05/18 History atorvastatin [Lipitor] 80 mg PO HS 04/08/18 08/05/18 History divalproex 1,000 mg PO BID #240 tab 07/16/18 08/05/18 Rx lisinopril 5 mg PO DAILY 08/05/18 08/05/18 History ondansetron HCl 4 mg PO Q6H PRN 08/05/18 08/05/18 History Patient History Medical History Enrrique's paralysis Seizures (Acute) Hypertensive emergency (Acute) DVT prophylaxis Sepsis (Acute) Hypertension (Chronic) Diabetes (Chronic) Hyperlipidemia Depression GERD (gastroesophageal reflux disease) Hearing deficit Surgical History History of open reduction and internal fixation (ORIF) procedure Hx laparoscopic cholecystectomy Family History Other Family history non-contributory Social History Preferred Language: Bulgarian Communication Ability: Effective Visual Impairment: No Limitations 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 Beliefs That Will Affect Care: None marital status: Single Current Living Situation: Alone Current Living Situation Comment: 10/09 Care givers Other Information That Helps Us Care for You: No Feels Safe at Home: Yes Safety Concerns: Feels Safe At This Time Smoking Status: Never smoker Do You Dip or Chew Tobacco: No Second Hand Exposure: No Tobacco Cessation Education Requested by Patient: No Hx Alcohol Use: No Hx Substance Use: No Review of Systems Constitutional: no fever and no chills Eyes: as per Subjective / HPI and + blind spots; no eye pain Ear, Nose, Mouth, Throat: no hearing loss Respiratory: no cough and no dyspnea Cardiovascular: no chest pain and no palpitations Gastrointestinal: no nausea and no vomiting Genitourinary: no dysuria Musculoskeletal: no myalgia Integumentary: no rash and no lesions Neurologic: as per Subjective / HPI Psychiatric: + irritability Hematologic / Lymphatic: no easy bleeding Physical Exam Physical Exam: The patient is a well-developed elderly female. She is lying comfortably in bed although is mildly irritable. She is alert and fully oriented. Recent and remote memory intact. Attention and concentration normal. Patient speech is somewhat aprosodic with perhaps a tendency for explosive speech. Language comprehension is intact. Patient exhibits an age-appropriate fund of knowledge. Visual andrade are significantly impaired bilaterally. There is perhaps some preserved vision in the periphery of the left visual field where she is able to identify my right hand and was also able to identify the white color of my lab coat. Otherwise, visual acuity essentially 0. Pupils equal round reactive to light and accommodation. Eye movements normal. No nystagmus. Facial sensation intact. There is no facial droop or weakness. Hearing intact bilaterally. Palate elevates to midline. Shoulder shrug intact. Tongue protrudes to midline. Sensation intact to all modalities in all 4 limbs. Deep tendon reflexes are intact and symmetrical for the arms and legs bilaterally. Plantar responses equivocal bilaterally. There is no dysdiadochokinesia or dysmetria [id number] or [id number] bilaterally. Ophthalmoscopic examination reveals normal-appearing optic disks and posterior segments. No papilledema or hemorrhages. Carotid pulses normal bilaterally, no bruits to auscultation. Gait and station cannot be tested due to safety simone rns. Patient exhibits normal muscle strength and tone for all 4 limbs proximally and distally. No atrophy. No abnormal movements observed. Results & Data Vital Signs (Past 12 Hours) Vital Signs Temp Pulse Resp BP Pulse Ox 08/06/18 07:39 36.8 C 73 18 140/80 96 08/06/18 03:23 37.0 C 74 16 162/87 H 98 08/05/18 22:54 36.6 C 75 16 147/72 H 93 Laboratory Results Recently completed labs reviewed. WBC 9.26, hemoglobin 12.0, platelet count 207, sodium 146, potassium 4.1, BUN 26, creatinine 1.07, glucose 90, calcium 9.1, lipid panel within normal limits. Valproic acid level 86. Diagnostic Findings A CT of the head completed at the time of presentation revealed an acute/subacute infarct of the left occipital lobe. No evidence of hemorrhage. The old right occipital infarct was again observed. I reviewed the images as well as the radiologist interpretation of this test and agree. A CT angiogram of the head and neck completed yesterday revealed a high-grade stenosis of the right vertebral artery, unchanged from the previous study done last month. 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 An electrocardiogram completed yesterday revealed a normal sinus rhythm, 71 bpm. An echocardiogram completed this past March revealed normal left ventricular size and systolic function, ejection fraction 60 to 65%, no regional wall motion abnormalities. No valvular abnormalities.
--- NOTE | 2018-08-06 10:52 | Family Medicine Progress Note ---
Date of Service August 06, 2018 Assessment & Plan (1) CVA (cerebral vascular accident): 72F with a PMHx of HTN, HLD, DM2, prior CVA and seizure disorder presents with almost total loss of vision in RIGHT eye after waking up this morning. She arrived to the ER in the afternoon and was thus out of the TPA window. CT of the head showed an infarct in the L occipital lobe. Acute/Subacute Left Occipital Lobe CVA -continue Plavix -telemetry showed sinus rhythm in the 70s overnight. -Echo with no cardiac source of emboli -Lipid panel within normal limits, hgA1c of 6.9 -Speech recs: "regular diet=bland per pt request. "salad" sandwiches" -Neuro recs- MRI Brain recommended--confirms CT findings -PT/OT recs- PT recs inpt rehab but pt prefers 24hr support/assistance. OT recs home with OT chao. -Continue aspiration precautions Seizure disorder Depakote level was 86, will continue Depakote 1g BID Hyperlipidemia Continue atorvastatin 80mg daily. Hypertension Allow for permissive hypertension, hold Lisinopril 5mg daily. DVT proph: SCDs Dispo: Discharge pending rehab, CM needs with new complete blindness. FULL CODE (2) Seizures: (3) History of CVA (cerebrovascular accident): (4) CKD stage 3 due to type 2 diabetes mellitus: (5) DVT prophylaxis: Supervising Physician Co-Signing Physician Notes Attending attestation Pt seen and examined in concert with Dr. Mistry. In agreement with the documented findings as noted in the resident documentation with any exceptions or additions as noted here. Resting comfortably. Minimal improvement in vision as described. No other acute complaint at present. On examination. S1/S2 nl RRR no MCG. CTAB. Abd NT/ND BS+ve. PERRL. Acute/subacute occipital CVA, left - neurology consultation appreciated. Speech, PT/OT on board. Echocardiogram without source of emboli. MRI supportive of distribution and severity of CT findings. Started plavix this AM Hyperlipidemia - continue atorvastatin, lipid profile reviewed HTN - hold lisinopril DMII - A1c reviewed with pt who "thinks they are nonsense" - 6.9%, so would put ISS on with protocol in case but don't expect significant use CKDIII - avoid nephrotoxic medications, trend PRP Else see resident documentation as noted. Subjective Pt states today that she has more vision loss in the right eye than the left. The left was previously affected in a prior stroke. Describes some hearing loss as well. Denies PEOPLES, chest pain, palps, SOB, N/V, diarrhea or constipation and denies swelling in hands or feet. Review of Systems Review of Systems: All systems reviewed & are unremarkable except as noted in HPI & below Physical Exam Physical Exam: General: Alert, oriented. HEENT: NC/AT. Chest: Nontender to palpation. CV: RRR, Normal s1, s2. Resp: Breath sounds clear bilaterally, no increased effort of breathing. Abdomen: BS+. Soft, nontender, nondistended. No guarding. No organomegaly appreciated. Neuro: strength 5/5 in extremities especially on right, sensation intact. CN II affected, VII and XII appear intact. Extremities: No edema. Results & Data Vital Signs (Past 12 Hours) Vital Signs Temp Pulse Resp BP Pulse Ox 08/06/18 07:39 36.8 C 73 18 140/80 96 08/06/18 03:23 37.0 C 74 16 162/87 H 98 08/05/18 22:54 36.6 C 75 16 147/72 H 93 Laboratory Results Laboratory Results - last 24 hr 08/05/18 08/05/18 08/05/18 15:22 15:22 15:22 WBC 6.64 RBC 4.04 L Hgb 12.4 Hct 36.8 L MCV 91.1 MCH 30.7 MCHC 33.7 RDW Std Deviation 51.6 H RDW Coeff of Omid 15.3 H Plt Count 208 MPV 9.9 Immature Gran % (Auto) 0.2 Neut % (Auto) 70.8 Lymph % (Auto) 14.5 [place] % (Auto) 13.7 Eos % (Auto) 0.5 Baso % (Auto) 0.3 Immature Gran # (Auto) 0.01 Neut # (Auto) 4.71 Lymph # (Auto) 0.96 L [place] # (Auto) 0.91 H Eos # (Auto) 0.03 Baso # (Auto) 0.02 PT INR Sodium 145 Potassium 3.9 Chloride 108 H Carbon Dioxide 30 Anion Gap 7.0 BUN 26 H Creatinine 1.19 Est Cr Clr Drug Dosing 38.0 Est GFR ( Amer) 53.6 Est GFR (Non-Af Amer) 46.2 BUN/Creatinine Ratio 22.0 H Glucose 110 H Estimat Average Glucose Hemoglobin A1c Calcium 9.6 Phosphorus 3.3 Magnesium 2.2 Total Bilirubin 0.5 AST 37 ALT 36 Alkaline Phosphatase 78 Troponin I < 0.015 Total Protein 6.1 L Albumin 2.8 L Globulin 3.3 Albumin/Globulin Ratio 0.9 Triglycerides Cholesterol LDL Cholesterol, Calc VLDL Cholesterol, Calc HDL Cholesterol Cholesterol/HDL Ratio Lipase 59 L Urine Color Urine Appearance Urine pH Ur Specific [place] Urine Protein Urine Glucose (UA) Urine Ketones Urine Blood Urine Nitrite Urine Bilirubin Urine Urobilinogen Ur Leukocyte Esterase Urine WBC (Auto) Urine RBC (Auto) U Hyaline Cast (Auto) U Epithel Cells (Auto) Urine Bacteria (Auto) Valproic Acid 86 08/05/18 08/05/18 08/05/18 15:22 15:22 16:26 WBC RBC Hgb Hct MCV MCH MCHC RDW Std Deviation RDW Coeff of Omid Plt Count MPV Immature Gran % (Auto) Neut % (Auto) Lymph % (Auto) [place] % (Auto) Eos % (Auto) Baso % (Auto) Immature Gran # (Auto) Neut # (Auto) Lymph # (Auto) [place] # (Auto) Eos # (Auto) Baso # (Auto) PT 12.2 H INR 1.2 H Sodium Potassium Chloride Carbon Dioxide Anion Gap BUN Creatinine Est Cr Clr Drug Dosing Est GFR ( Amer) Est GFR (Non-Af Amer) BUN/Creatinine Ratio Glucose Estimat Average Glucose 151 Hemoglobin A1c 6.9 H Calcium Phosphorus Magnesium Total Bilirubin AST ALT Alkaline Phosphatase Troponin I Total Protein Albumin Globulin Albumin/Globulin Ratio Triglycerides Cholesterol LDL Cholesterol, Calc VLDL Cholesterol, Calc HDL Cholesterol Cholesterol/HDL Ratio Lipase Urine Color Yellow Urine Appearance Cloudy A Urine pH 7.5 Ur Specific [place] 1.026 Urine Protein Negative Urine Glucose (UA) Negative Urine Ketones Trace H Urine Blood Negative Urine Nitrite Negative Urine Bilirubin Negative Urine Urobilinogen Negative Ur Leukocyte Esterase Negative Urine WBC (Auto) 1-5 Urine RBC (Auto) 0-4 U Hyaline Cast (Auto) 1-5 U Epithel Cells (Auto) 20-30 H Urine Bacteria (Auto) Negative Valproic Acid 08/06/18 08/06/18 06:56 06:56 WBC 9.26 RBC 4.00 L Hgb 12.0 Hct 36.4 L MCV 91.0 MCH 30.0 MCHC 33.0 RDW Std Deviation 51.8 H RDW Coeff of Omid 15.5 H Plt Count 207 MPV 10.4 Immature Gran % (Auto) 0.2 Neut % (Auto) 69.2 Lymph % (Auto) 12.0 [place] % (Auto) 17.1 Eos % (Auto) 1.2 Baso % (Auto) 0.3 Immature Gran # (Auto) 0.02 Neut # (Auto) 6.41 Lymph # (Auto) 1.11 L [place] # (Auto) 1.58 H Eos # (Auto) 0.11 Baso # (Auto) 0.03 PT INR Sodium 146 H Potassium 4.1 Chloride 110 H Carbon Dioxide 31 Anion Gap 5.0 BUN 26 H Creatinine 1.07 Est Cr Clr Drug Dosing 42.2 Est GFR ( Amer) 60.9 Est GFR (Non-Af Amer) 52.6 BUN/Creatinine Ratio 24.1 H Glucose 90 Estimat Average Glucose Hemoglobin A1c Calcium 9.1 Phosphorus Magnesium Total Bilirubin AST ALT Alkaline Phosphatase Troponin I Total Protein Albumin Globulin Albumin/Globulin Ratio Triglycerides 60 Cholesterol 150 LDL Cholesterol, Calc 84 VLDL Cholesterol, Calc 12 HDL Cholesterol 54 Cholesterol/HDL Ratio 3 Lipase Urine Color Urine Appearance Urine pH Ur Specific [place] Urine Protein Urine Glucose (UA) Urine Ketones Urine Blood Urine Nitrite Urine Bilirubin Urine Urobilinogen Ur Leukocyte Esterase Urine WBC (Auto) Urine RBC (Auto) U Hyaline Cast (Auto) U Epithel Cells (Auto) Urine Bacteria (Auto) Valproic Acid Medications Administered Home Medications loratadine-pseudoephedrine [Claritin-D 24 Hour] 1 tab PO DAILY PRN #0 tab 12/22/16 [History Confirmed 08/05/18] aspirin [Aspir-81] 81 mg PO QAM 10/22/17 [History Confirmed 08/05/18] multivitamin 1 tab PO DAILY 10/22/17 [History Confirmed 08/05/18] atorvastatin [Lipitor] 80 mg PO HS 04/08/18 [History Confirmed 08/05/18] divalproex 1,000 mg PO BID #240 tab 07/16/18 [Rx Confirmed 08/05/18] lisinopril 5 mg PO DAILY 08/05/18 [History Confirmed 08/05/18] ondansetron HCl 4 mg PO Q6H PRN 08/05/18 [History Confirmed 08/05/18] Active Medications Acetaminophen (Tylenol) 650 mg PO Q4H PRN PRN Reason: Pain or Fever Stop: 09/04/18 19:06 Atorvastatin Calcium (Lipitor) 80 mg PO HS [facility] Stop: 09/04/18 20:59 Last Admin: 08/05/18 20:18 Dose: 80 mg Documented by: Clopidogrel Bisulfate (Plavix) 75 mg PO QAM [facility] Stop: 09/05/18 08:59 Last Admin: 08/06/18 08:34 Dose: 75 mg Documented by: Divalproex Sodium (Depakote Extended Release) 1,000 mg PO BID [facility] Stop: 09/04/18 20:59 Last Admin: 08/06/18 08:33 Dose: 1,000 mg Documented by: Ioversol (Optiray 320 125ml) 116 ml IV ONCE PRN PRN Reason: Interaction Checking Stop: 08/09/18 16:04 Last Admin: 08/05/18 16:06 Dose: 116 ml Documented by: Loratadine/Pseudoephedrine Sulfate (Claritin-D 24 Hour) 1 tab PO DAILY PRN PRN Reason: ALLERGY SYMPTOMS Stop: 09/04/18 19:06 Multivitamins (Multivitamin Tab) 1 tab PO DAILY [facility] Stop: 09/05/18 08:59 Last Admin: 08/06/18 08:33 Dose: 1 tab Documented by: Ondansetron HCl (Zofran Tab) 4 mg PO Q6H PRN PRN Reason: Nausea Stop: 09/04/18 19:06 PG Care Time/CCT Total # of Minutes Spent Total Time Spent with Patient: Total time spent is greater than 50% in coordination of care (as documented) at patient's floor/unit and/or counseling patient:
[2018-08-06] MEDS ORDERED: GADOXETATE DISODIUM IV PRN (13:19)
--- NOTE | 2018-08-06 13:32 | Magnetic Resonance Report ---
MRI OF THE BRAIN WITHOUT AND WITH IV CONTRAST CLINICAL HISTORY: Stroke. COMPARISON STUDY: MRI of the brain July 07, 2018. Head CT and CTA of the head August 05, 2018. TECHNIQUE: Utilizing a 1.5 Shruti magnet and dedicated coil, multiplanar, multiecho imaging of the br ain was performed pre and postcontrast administration. IV administration of 6 mL of Gadavist contras t was uneventful. FINDINGS: There is a 5.1 x 2.6 cm focus of restricted diffusion within the left occipital lobe. This corresponds to the finding on head CT of August 05, 2018. There is minimal mass effect with sulcal effa cement. No midline shift. There is no hemorrhage. An old right posterior cerebral artery infarct is n oted. Ventricular system is stable. Basilar cisterns are patent. There are no extra-axial collections . Flow-voids for the major intracranial vessels are present. Calvarial signal is normal. No intracran ial masses noted. There is laminar necrosis with apparent T1 hyperintensity within the right occipita l lobe infarct. A 4.2 cm left parotid mass is unchanged. This was previously biopsied. IMPRESSION: 1. 5.1 x 2.6 cm acute infarct within the left occipital lobe consistent with a left posterior cerebra l artery distribution infarct. Minimal mass effect. No hemorrhage. 2. 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 3. Redemonstration of an indeterminate left parotid mass which was previously biopsied. Electronically signed by: Julio Montes M.D. 08/06/2018 1:31 PM
[2018-08-06] MEDS: ATORVASTATIN 40 MG TAB PO SCH (20:49)
[2018-08-07 05:50] LABS: Basophils # (auto) 0.02 K/uL (0-0.2); Basophils % (auto) 0.3 %; Eosinophils # (auto) 0.14 K/uL (0-0.5); Eosinophils % (auto) 1.8 %; Hematocrit (blood only) 35.3 % (37-47); Hemoglobin 11.5 g/dL (12.0-16.0); Immature Granulocytes # (auto) 0.01 K/uL (0.00-0.02); Immature Granulocytes % (auto) 0.1 %; Lymphocytes # (auto) 1.35 K/uL (1.2-3.4); Lymphocytes % (auto) 17.6 %; Mean Corpuscular Hgb Conc 32.6 g/dL (32-36); Mean Corpuscular Volume 92.4 fL (80-100); Mean Platelet Volume 10.1 fL (7.4-10.4); Monocytes # (auto) 1.36 K/uL (0.11-0.59); Monocytes % (auto) 17.8 %; Neutrophils # (auto) 4.77 K/uL (1.4-6.5); Neutrophils % (auto) 62.4 %; Platelet Count 193 K/uL (130-400); RDW Coefficient of Variation 15.6 % (11.5-14.5); RDW Standard Deviation 52.8 fL (36.4-46.3); Red Blood Count 3.82 M/uL (4.2-5.4); White Blood Count 7.65 K/uL (4.8-10.8)
[2018-08-07 06:18] LABS: BUN Creatinine Ratio 26.5 (10-20); Calcium 8.5 mg/dl (8.5-10.1); Creatinine Clr Calc Pharmacy 41.9 ml/min; Est GFR (African American) 60.2; Potassium 3.7 mmol/L (3.5-5.1)
--- NOTE | 2018-08-07 11:41 | Family Medicine Progress Note ---
Date of Service August 07, 2018 Assessment & Plan (1) CVA (cerebral vascular accident): 72F with a PMHx of HTN, HLD, DM2, prior CVA and seizure disorder presents with almost total loss of vision in RIGHT eye after waking up this morning. She arrived to the ER in the afternoon and was thus out of the TPA window. CT of the head showed an infarct in the L occipital lobe. To be discharged on Monday 08/07, 3pm after home arrangements made with 24hr care Acute/Subacute Left Occipital Lobe CVA -continue Plavix -telemetry showed sinus rhythm in the 70s overnight. -Echo with no cardiac source of emboli -Lipid panel within normal limits, hgA1c of 6.9 -Speech recs: "regular diet=bland per pt request. "salad" sandwiches" -Neuro recs- MRI Brain recommended--confirms CT findings -PT/OT recs- PT recs inpt rehab but pt prefers 24hr support/assistance. OT recs home with OT chao. -New home needs given complete blindness now. -Continue aspiration precautions Seizure disorder Depakote level was 86, will continue Depakote 1g BID Hyperlipidemia Continue atorvastatin 80mg daily. Hypertension Allow for permissive hypertension, hold Lisinopril 5mg daily. DVT proph: SCDs FULL CODE Dispo: Discharge on 08/10 @3pm, date when home needs will be ready. (2) Seizures: [place] [address] History & Physical Report Signed with Lyudmila Patient: VENKAT CANO SUEAdmit Date: 07/15/18 MR#: [id number] Phy: Nico Flannery MD Acct ID:[id number] Phy: Casimiro Arizmendi MD Date: 1945Fam Phy: Age: 72Location: 2S Sex: F Room/Bed: [facility] cc: Pj Carpenter MD; Sage Lynn M.D.~ *NOTICE TO RECEIVING [employer]/AGENCY This information is strictly Confidential and protected under [place] law. [place] law prohibits you from making any further disclosure of this information unless further disclosure is expressly permitted by the written consent of the person to whom it pertains or is authorized by law. A general authorization for the release of medical or other information is not sufficient for this purpose. Hospital accepts no responsibility if the information is made available to any other person, INCLUDING THE PATIENT. ADDENDUM 236 Addendum (Blank) Addendum July 15, 2018 02:34 Neuro exam; CN grossly intact, poor attention/concentration, bilateral upper and lower extremity weakness, normal sensation throughout Addendum Signed By: <Electronically signed by Pj Carpenter MD>07/15/18235 Addendum Cosigned By:<Electronically signed by Sage Lynn MD>07/17/182002 Created: 07/15/18 Date of Service July 15, 2018 Assessment & Plan (1) Seizures: 72-year-old female with past medical history of hypertension, hyperlipidemia, type 2 diabetes, CVA and subsequent focal seizure disorder presents following a presumed seizure. Patient did present with left-sided weakness. She had the symptoms following her previous seizure. The weakness appears to be improving. Patient was admitted for continued evaluation of seizure activity and for a stroke work-up. Focal seizures Admit to telemetry, seizure precautions Depakote 1 g given the ED, continue daily Neuro consult placed EEG for subsequent seizure activity History of CVA Stroke in 2017 lesions of the GARMENT CUTTER territory, right occipital lobe, right thalamus and cerebellum Stroke work-up in the ED has been negative No new lesion seen on CT MRI of the brain ordered Her left-sided weakness improved in the ED Dysphagia screening, falls precautions, PT/OT ordered PRN Ativan for anxiety Hyperlipidemia Continue atorvastatin, aspirin Hypertension Allow for permissive hypertension DVT prophylax SCDs CODE STATUS Full (3) History of CVA (cerebrovascular accident): (4) CKD stage 3 due to type 2 diabetes mellitus: (5) DVT prophylaxis: Supervising Physician Co-Signing Physician Notes Attending attestation Pt seen and examined in concert with Dr. Mistry. In agreement with the documented findings as noted in the resident documentation with any exceptions or additions as noted here. Vision unchanged. Actively engaged in gathering resources. Adamant re: not going to rehabilitation despite benefit. Does have 24 hour care at home. On examination. S1/S2 nl RRR no MCG. CTAB. Abd NT/ND BS+ve. PERRL. Acute/subacute occipital CVA, left - neurology consultation appreciated. Speech, PT/OT on board. Echocardiogram without source of emboli. MRI supportive of distribution and severity of CT findings. Continue plavix. Awaiting return to home as patient is hoarder and needs house cleaned out Hoarding behavior, anxiety - psychiatry consultation appreciated for management of underlying psychiatric disease Hyperlipidemia - continue atorvastatin HTN - hold lisinopril DMII - A1c reviewed with pt who "thinks they are nonsense" - 6.9%, so would put ISS on with protocol in case but don't expect significant use CKDIII - avoid nephrotoxic medications, trend PRP Else see resident documentation as noted. Subjective Pt seen today. States her vision is unchanged, may be a bit worse today. States that she has no PEOPLES, chest pain, SOB, palpitations, N/V, diarrhea, constipation. Review of Systems Review of Systems: All systems reviewed & are unremarkable except as noted in HPI & below Physical Exam Physical Exam: General: Alert, oriented. HEENT: NC/AT, left sided lump on face. Chest: Nontender to palpation. CV: RRR, Normal s1, s2. Resp: Breath sounds clear bilaterally, no increased effort of breathing. Abdomen: BS+. Soft, nontender, nondistended. No guarding. No organomegaly appreciated. Neuro: strength 5/5 in extremities especially on right, sensation intact. CN II affected, VII and XII appear intact. Extremities: No edema. Results & Data Vital Signs (Past 12 Hours) Vital Signs Temp Pulse Pulse Resp BP Pulse Ox 08/07/18 08:00 36.9 C 73 20 137/88 95 08/07/18 03:00 36.9 C 67 18 128/73 95 Laboratory Results Laboratory Results - last 24 hr 08/07/18 08/07/18 05:18 05:18 WBC 7.65 RBC 3.82 L Hgb 11.5 L Hct 35.3 L MCV 92.4 MCH 30.1 MCHC 32.6 RDW Std Deviation 52.8 H RDW Coeff of Omid 15.6 H Plt Count 193 MPV 10.1 Immature Gran % (Auto) 0.1 Neut % (Auto) 62.4 Lymph % (Auto) 17.6 Dixie % (Auto) 17.8 Eos % (Auto) 1.8 Baso % (Auto) 0.3 Immature Gran # (Auto) 0.01 Neut # (Auto) 4.77 Lymph # (Auto) 1.35 Dixie # (Auto) 1.36 H Eos # (Auto) 0.14 Baso # (Auto) 0.02 Sodium 142 Potassium 3.7 Chloride 110 H Carbon Dioxide 29 Anion Gap 3.0 BUN 29 H Creatinine 1.08 Est Cr Clr Drug Dosing 41.9 Est GFR ( Amer) 60.2 Est GFR (Non-Af Amer) 52.0 BUN/Creatinine Ratio 26.5 H Glucose 107 H Calcium 8.5 Medications Administered Home Medications loratadine-pseudoephedrine [Claritin-D 24 Hour] 1 tab PO DAILY PRN #0 tab 12/22/16 [History Confirmed 08/05/18] aspirin [Aspir-81] 81 mg PO QAM 10/22/17 [History Confirmed 08/05/18] multivitamin 1 tab PO DAILY 10/22/17 [History Confirmed 08/05/18] atorvastatin [Lipitor] 80 mg PO HS 04/08/18 [History Confirmed 08/05/18] divalproex 1,000 mg PO BID #240 tab 07/16/18 [Rx Confirmed 08/05/18] lisinopril 5 mg PO DAILY 08/05/18 [History Confirmed 08/05/18] ondansetron HCl 4 mg PO Q6H PRN 08/05/18 [History Confirmed 08/05/18] Active Medications Acetaminophen (Tylenol) 650 mg PO Q4H PRN PRN Reason: Pain or Fever Stop: 09/04/18 19:06 Atorvastatin Calcium (Lipitor) 80 mg PO [facility] Stop: 09/04/18 20:59 Last Admin: 08/06/18 20:49 Dose: 80 mg Documented by: Clopidogrel Bisulfate (Plavix) 75 mg PO QAM [facility] Stop: 09/05/18 08:59 Last Admin: 08/07/18 12:02 Dose: 75 mg Documented by: Divalproex Sodium (Depakote Extended Release) 1,000 mg PO BID [facility] Stop: 09/04/18 20:59 Last Admin: 08/07/18 12:02 Dose: 1,000 mg Documented by: Gadoxetate Disodium (Eovist) 6 ml IV ONCE PRN PRN Reason: Interaction Checking Stop: 08/10/18 13:18 Last Admin: 08/06/18 13:19 Dose: 6 ml Documented by: Ioversol (Optiray 320 125ml) 116 ml IV ONCE PRN PRN Reason: Interaction Checking Stop: 08/09/18 16:04 Last Admin: 08/05/18 16:06 Dose: 116 ml Documented by: Loratadine/Pseudoephedrine Sulfate (Claritin-D 24 Hour) 1 tab PO DAILY PRN PRN Reason: ALLERGY SYMPTOMS Stop: 09/04/18 19:06 Multivitamins (Multivitamin Tab) 1 tab PO DAILY [facility] Stop: 09/05/18 08:59 Last Admin: 08/07/18 12:02 Dose: 1 tab Documented by: Ondansetron HCl (Zofran Tab) 4 mg PO Q6H PRN PRN Reason: Nausea Stop: 09/04/18 19:06 PG Care Time/CCT Total # of Minutes Spent Total Time Spent with Patient: Total time spent is greater than 50% in coordination of care (as documented) at patient's floor/unit and/or counseling patient: Resident Activity Tracking Resident Involvement: Resident Care Provided Care Provided: Adult Hospital Medicine
[2018-08-07] MEDS: DIVALPROEX EXTENDED RELEASE 250 MG TABCR PO SCH ×2 (12:02→22:15)
[2018-08-07] MEDS: MULTIVITAMIN TAB PO SCH (12:02)
[2018-08-07] MEDS: CLOPIDOGREL BISULFATE 75 MG TAB PO SCH (12:02)
[2018-08-07] MEDS: ONDANSETRON 4 MG TAB PO PRN (21:37)
[2018-08-07] MEDS: ATORVASTATIN 40 MG TAB PO SCH (22:15)
--- NOTE | 2018-08-08 07:52 | Family Medicine Progress Note ---
Date of Service August 08, 2018 Assessment & Plan (1) CVA (cerebral vascular accident): 72F with a PMHx of HTN, HLD, DM2, prior CVA and seizure disorder presents with almost total loss of vision in RIGHT eye after waking up this morning. Has complete vision loss in both eyes due to previous stroke. She arrived to the ER in the afternoon and was thus out of the TPA window. CT of the head showed an infarct in the L occipital lobe. To be discharged on Monday 08/07, 3pm after home arrangements made with 24hr care Acute/Subacute Left Occipital Lobe CVA -pt to be discharged home on Saturday with 24 hour care. -continue Plavix. Pt currently in agreement as long as she has no bruising. -Echo with no cardiac source of emboli -Lipid panel within normal limits, hgA1c of 6.9 -Speech recs: "regular diet=bland per pt request. "salad" sandwiches" -Neuro recs- MRI Brain recommended--confirms CT findings -PT/OT recs- PT recs inpt rehab but pt prefers 24hr support/assistance. OT recs home with OT chao. -New home needs given complete blindness now. -Continue aspiration precautions Seizure disorder Depakote level was 86, will continue Depakote 1g BID Hyperlipidemia Continue atorvastatin 80mg daily. Hypertension Allow for permissive hypertension, hold Lisinopril 5mg daily. DVT proph: SCDs FULL CODE Dispo: Discharge on 08/10 @3pm, date when home needs will be ready. (2) Seizures: (3) History of CVA (cerebrovascular accident): (4) CKD stage 3 due to type 2 diabetes mellitus: (5) DVT prophylaxis: Supervising Physician Co-Signing Physician Notes Attending attestation I saw the patient current the resident physician and confirmed jay portion of the history physical exam. Agree with the impression and plan as noted above. The patient declined taking her Plavix earlier this morning but after discussed the recommendation -based on her event while on aspirin -she was agreeable to try the Plavix. Acute/subacute occipital CVA, left Plavix 75 mg daily High-dose statin Appreciate neurology consultation Will need visual field testing by ophthalmology as an outpatient Plan is to return home with caregivers once logistical concerns (house is cleaned out) are taking care of. Hyperlipidemia - See above HTN -monitor blood pressures; a renal dose of an ALMA will be indicated even if it does not need for blood pressure. DMII -patient not interested in medications; monitor blood sugars; outpatient doctor may be able to discuss further CKDIII - avoid nephrotoxic medications, trend PRP Subjective Pt seen today. States her vision is improved today. Pt also refusing Plavix out of fear of bruising. Agreed to take it after the risks and benefits were further discussed. States that she has no PEOPLES, chest pain, SOB, palpitations, N/V, diarrhea, constipation. Review of Systems Review of Systems: All systems reviewed & are unremarkable except as noted in HPI & below Physical Exam Physical Exam: General: Alert, oriented. HEENT: NC/AT, left sided lump on face. Chest: Nontender to palpation. CV: RRR, Normal s1, s2. Resp: Breath sounds clear bilaterally, no increased effort of breathing. Abdomen: BS+. Soft, nontender, nondistended. No guarding. No organomegaly appreciated. Neuro: strength 5/5 in extremities especially on right, sensation intact. CN II affected, VII and XII appear intact. Extremities: No edema. Results & Data Vital Signs (Past 12 Hours) Vital Signs Temp Pulse Resp BP Pulse Ox 08/08/18 07:28 36.7 C 78 20 156/83 H 98 08/07/18 22:54 36.6 C 68 20 144/87 H 96 Resident Activity Tracking Resident Involvement: Resident Care Provided Care Provided: Adult Hospital Medicine
[2018-08-08 07:57] LABS: BUN Creatinine Ratio 24.9 (10-20); Calcium 8.8 mg/dl (8.5-10.1); Creatinine Clr Calc Pharmacy 47.6 ml/min; Est GFR (African American) 70.3; Est GFR (Non-African American) 60.7; Potassium 3.8 mmol/L (3.5-5.1)
[2018-08-08] MEDS: MULTIVITAMIN TAB PO SCH (08:06)
[2018-08-08] MEDS: DIVALPROEX EXTENDED RELEASE 250 MG TABCR PO SCH ×2 (08:06→21:57)
[2018-08-08] MEDS: CLOPIDOGREL BISULFATE 75 MG TAB PO SCH ×2 (08:07→14:18)
[2018-08-08] MEDS ORDERED: PHARMACIST DISCHARGE MED REC CONSULT PRN (10:03)
[2018-08-08] MEDS: ONDANSETRON 4 MG TAB PO PRN (15:18)
--- NOTE | 2018-08-08 15:22 | Pharmacy Report ---
Pharmacist Stroke Counseling - Date of Service August 08, 2018 - Scope: Pharmacy has been consulted to provide medication discharge counseling for this patient admitted with ischemic stroke as per the Pharmacist Discharge Counseling for Stroke Patients Protocol. - Medications on Discharge: Home Medications Medication Instructions Recorded Confirmed loratadine-pseudoephedrine 1 tab PO DAILY PRN #0 tab 12/22/16 08/05/18 [Claritin-D 24 Hour] aspirin [Aspir-81] 81 mg PO QAM 10/22/17 08/05/18 multivitamin 1 tab PO DAILY 10/22/17 08/05/18 atorvastatin [Lipitor] 80 mg PO HS 04/08/18 08/05/18 lisinopril 5 mg PO DAILY 08/05/18 08/05/18 ondansetron HCl 4 mg PO Q6H PRN 08/05/18 08/05/18 New Rx's Medication Instructions Recorded divalproex 1,000 mg PO BID #240 tab 07/16/18 - Action: The above medications, specifically ones for stroke treatment/prophylaxis, have been reviewed in detail with the patient prior to discharge. This includes indication, common adverse reactions, drug interactions, and medication administration. Medication counseling has been employed using the teach-back method to ensure understanding. - Outcome: The patient has demonstrated understanding of the medications. Please note, they are aware that the pharmacist will call them within 72 hours post-discharge to confirm that the appropriate medications are being taken and answer any further medication related questions the patient might have at that time. Contact information Individual to be contacted: patient Phone number: [phone] Best time to call: NOT the morning - patient is a night owl Additional comments: -discussed Plavix + Prilosec/Nexium interaction. She does have heartburn --- typically uses Zantac. I told her that was fine. -informed her to talk to her providers that she is taking this medication; may requiring stopping prior to procedure -she was concerned about bruising and bleeding (initial reason as to why she refused the medication). She did not have many problems with aspirin so I told her she should be fine but just a heads up that it can occur. -Patient thinks that she was on Lipitor 20 mg at home. I told her the dose was now 80 mg and the reason for dose increase (high intensity necessary for morbidity and mortality benefits). -Instructed her that she could use up old pills as long as the dose equaled 80 mg. -Patient is legally blind. She will have caretakers 10/09. It is not clear to me who will be helping the patient with her medications. I would recommend follow- up with her on phone call as all of this is very new to her. Thank you for allowing pharmacy to be involved in the care of this patient. Please call [phone] or [phone] with any additional questions
[2018-08-08] MEDS: ATORVASTATIN 40 MG TAB PO SCH (21:57)
[2018-08-09] MEDS: MULTIVITAMIN TAB PO SCH (09:45)
[2018-08-09] MEDS: DIVALPROEX EXTENDED RELEASE 250 MG TABCR PO SCH ×2 (09:45→21:34)
[2018-08-09] MEDS: CLOPIDOGREL BISULFATE 75 MG TAB PO SCH (09:46)
[2018-08-09] MEDS: LISINOPRIL 5 MG TAB PO SCH (09:47)
--- NOTE | 2018-08-09 16:49 | Family Medicine Progress Note ---
Date of Service August 09, 2018 Assessment & Plan (1) Occipital stroke: 72F here with occipital stroke subacute/acute occipital stroke -h/o the same on opposite side and residual left visual defect and seizure disorder. Was on ASA previously. -now with new right eye blindness -TTE 19June shows no cardiac src of emboli, mild LVH. -started on plavix here -continue depakote -is established with permanent waver, to continue in outpatient setting -PT/OT/SPL DMII -pt non adherent to medications, not interested -recommend ongoing mgmt per PCP as contol would benefit further stroke prevention HLD -on 80mg lipitor HTN -cont lisinopril 5mg daily FEN/GI: heart healthy DVT ppx: on plavix, SCDs CODE STATUS: FULL DISPO: med/surg. POA is Mick Navarrete. to home with home health tomorrow. (2) Loss of vision: (3) CVA (cerebral vascular accident): (4) DVT prophylaxis: (5) Seizures: (6) History of CVA (cerebrovascular accident): (7) Parotid mass: Supervising Physician Co-Signing Physician Notes Attending attestation I saw the patient current the resident physician and confirmed jay portion of the history physical exam. Agree with the impression and plan as noted above. Acute/subacute occipital CVA, left Plavix 75 mg daily High-dose statin Will need visual field testing by ophthalmology as an outpatient Plan is to return home with caregivers once logistical concerns are addressed, tentatively this may be tomorrow. Hyperlipidemia - See above HTN -monitor blood pressures; restart lisinopril. DMII -patient not interested in medications; monitor blood sugars; outpatient doctor may be able to discuss further CKDIII - avoid nephrotoxic medications, trend PRP Subjective seen and examined at the bedside this AM and afternoon. tolerating po. working with pt/ot. NIH scoring remains 0 per nursing. no acute events overnight. pt does not endorse new focal weakness. right eye blindness somewhat improved, can make out the outline of faces on tv. Review of Systems Review of Systems: All systems reviewed & are unremarkable except as noted in HPI & below Physical Exam Physical Exam: Vitals noted and within normal limits with the exception of mild htn. GENERAL: Awake, alert to person, place, and time, nontoxic-appearing, in no distress. HENT: Normocephalic, atraumatic. Mucus membranes appear moist. Bilateral blindness. Left sided firm parotid enlargement. EYES: Normal conjunctiva. Sclera non-icteric. Blindness. NECK: Supple. Full range of motion. No JVD. . RESPIRATORY: Clear to auscultation. Normal work of breathing. . CARDIAC: Regular rate, normal rhythm. Extremities warm and well perfused, 2+ radial pulses bilaterally; 2+ posterior tibialis pulses bilaterally. . ABDOMEN: Soft, non-distended. No tenderness to palpation in all four quadrants. No rebound or guarding. No masses. Bowel sounds are normal. . LOWER EXTREMITIES: Inspection of calves reveal equal size bilaterally. They are non-tender. No edema. No discoloration. . NEURO: No gross focal motor deficits noted. Sensation in tact. CN II-XII grossly in tact. Bilateral blindness. SKIN: Rash not present. No jaundice noted. Significant lesions not present. . PSYCH: Appropriate mood and affect. Cooperative. . Exam as done by Natalie Carpenter MD, Upholstery Mechanic. Results & Data Vital Signs (Past 12 Hours) Vital Signs Temp Pulse Resp BP Pulse Ox 08/09/18 07:34 36.5 C 78 18 166/84 H 94 Medications Administered Current Inpatient Medications Acetaminophen (Tylenol) 650 mg PO Q4H PRN PRN Reason: Pain or Fever Stop: 09/04/18 19:06 Atorvastatin Calcium (Lipitor) 80 mg PO HS [facility] Stop: 09/04/18 20:59 Last Admin: 08/09/18 21:34 Dose: 80 mg Documented by: Clopidogrel Bisulfate (Plavix) 75 mg PO QAM [facility] Stop: 09/05/18 08:59 Last Admin: 08/09/18 09:46 Dose: 75 mg Documented by: Divalproex Sodium (Depakote Extended Release) 1,000 mg PO BID [facility] Stop: 09/04/18 20:59 Last Admin: 08/09/18 21:34 Dose: 1,000 mg Documented by: Gadoxetate Disodium (Eovist) 6 ml IV ONCE PRN PRN Reason: Interaction Checking Stop: 08/10/18 13:18 Last Admin: 08/06/18 13:19 Dose: 6 ml Documented by: Lisinopril (Zestril) 5 mg PO DAILY [facility] Stop: 09/08/18 08:59 Last Admin: 08/09/18 09:47 Dose: 5 mg Documented by: Loratadine/Pseudoephedrine Sulfate (Claritin-D 24 Hour) 1 tab PO DAILY PRN PRN Reason: ALLERGY SYMPTOMS Stop: 09/04/18 19:06 Miscellaneous Information (Pharmacist Discharge Med Rec Consult) 1 ea N/A UD PRN PRN Reason: Consult Stop: 09/07/18 10:02 Multivitamins (Multivitamin Tab) 1 tab PO DAILY [facility] Stop: 09/05/18 08:59 Last Admin: 08/09/18 09:45 Dose: 1 tab Documented by: Ondansetron HCl (Zofran Tab) 4 mg PO Q6H PRN PRN Reason: Nausea Stop: 09/04/18 19:06 Last Admin: 08/08/18 15:18 Dose: 4 mg Documented by: PG Care Time/CCT Total # of Minutes Spent Total Time Spent with Patient: Total time spent is greater than 50% in coordination of care (as documented) at patient's floor/unit and/or counseling patient: Resident Activity Tracking Resident Involvement: Resident Care Provided Care Provided: Adult Hospital Medicine
[2018-08-09] MEDS: ATORVASTATIN 40 MG TAB PO SCH (21:34)
[2018-08-10] MEDS: DIVALPROEX EXTENDED RELEASE 250 MG TABCR PO SCH (08:53)
[2018-08-10] MEDS: MULTIVITAMIN TAB PO SCH (08:53)
[2018-08-10] MEDS: CLOPIDOGREL BISULFATE 75 MG TAB PO SCH (08:53)
[2018-08-10] MEDS: LISINOPRIL 5 MG TAB PO SCH (08:53)
[2018-08-10] MEDS ORDERED: STROKE PATIENT DISCHARGE STA (11:17)
--- NOTE | 2018-08-10 11:20 | Discharge Summary ---
Date of Service August 10, 2018 Admission HPI Per Admitting Provider 72F with a PMHx of HTN, HLD, DM2, prior CVA and seizure disorder presents with almost total loss of vision after waking up this morning. Pt states that her vision was normal yesterday. She lives with her cat and does all of her ADLs on her own except driving. She denies any motor or sensory deficits. Her thinking is clear and speech is not muddled. She denies dysphagia. She states that aside from her almost complete loss of vision she feels fine. ED: TPA not administered, pt arrived to the ED in the afternoon and was out of the window. Dr. Hill was consulted by Dr. Kimbrough, we will switch ASA to plavix. ROS: No chest pain, no SOB, no dyspnea on exertion, no palpitations, no fevers, no chills, no nausea, no vomiting, no diarrhea, no dysuria, no rash. Principal Diagnosis left occipital stroke Discharge Exam Vitals noted and within normal limits with the exception of mild htn. GENERAL: Awake, alert to person, place, and time, nontoxic-appearing, in no distress. HENT: Normocephalic, atraumatic. Mucus membranes appear moist. Bilateral blindness. Left sided firm parotid enlargement. EYES: Normal conjunctiva. Sclera non-icteric. Blindness. NECK: Supple. Full range of motion. No JVD. RESPIRATORY: Clear to auscultation. Normal work of breathing. CARDIAC: Regular rate, normal rhythm. Extremities warm and well perfused, 2+ radial pulses bilaterally; 2+ posterior tibialis pulses bilaterally. ABDOMEN: Soft, non-distended. No tenderness to palpation in all four quadrants. No rebound or guarding. No masses. Bowel sounds are normal. LOWER EXTREMITIES: Inspection of calves reveal equal size bilaterally. They are non-tender. No edema. No discoloration. NEURO: No gross focal motor deficits noted. Sensation in tact. CN II-XII grossly in tact. Bilateral blindness. Upper and lower extremities strength 5/5 and equal. SKIN: Rash not present. No jaundice noted. Significant lesions not present. PSYCH: Cooperative. Does call out from her room from time to time, seems to perseverate on concerns somewhat, but overall appropriate mood and affect. Easily redirected. Exam as done by Natalie Cardoza MD, [employer]. Discharge Data Allergies Allergy/AdvReac Type Severity Reaction Status Date / Time ragweed pollen Allergy Intermediate ITCHY Verified 08/05/18 14:57 EYES, SNEEZING house dust Allergy Mild ITCHY Verified 08/09/18 08:41 EYES,SNEEZING No Known Drug Allergies Allergy Unknown Verified 08/05/18 14:57 Consultations 08/05/18 16:52 ED Decision to Admit Stat 08/05/18 19:07 Consult Case Management - Discharge Planning Routine Consult Neurology Routine Ordered Studies 08/05/18 15:08 CT angio head w con Stat CT angio neck with con Stat CT head/brain wo con Stat 08/06/18 08:59 MR brain wo/w con Routine Hospital Course (1) Occipital stroke: 72F here with new acute left occipital stroke, past medical history significant for chronic right occipital lobe stroke and left homonymous hemianopsia and seizure disorder. On aspirin upon admission. #subacute/acute occipital stroke -now with new, near complete blindness in right eye -TTE 19June shows no cardiac src of emboli, mild LVH. No afib on ECG. -faculty head patent on CT angio. Plan: -failed aspirin, DC. -started on plavix here, continue on discharge. -continue depakote 1000mg BID -is established with grinder hardboard, to continue in outpatient setting -home with home health services -PT/OT/SPL #DMII -relatively well controlled with diet - A1C is 6.9 here, at goal. -however, per report pt is non adherent to medications, not interested -recommend ongoing mgmt per PCP as control would benefit further stroke prevention #HLD -on 80mg lipitor #HTN -relatively well controlled -cont lisinopril 5mg daily #Discharge planning issues -complicated home environment, working with case management. To home with home health. Mick Navarrete is pt's stated POA (family friend.) (2) Loss of vision: (3) CVA (cerebral vascular accident): (4) DVT prophylaxis: (5) Seizures: (6) History of CVA (cerebrovascular accident): (7) Parotid mass: Total Time Total Time Spent Total Time Spent (In Minutes): 30 Discharge Plan Discharge Items Patient Disposition: Home - Home Health Services Reason For Visit: CVA - BLINDNESS Discharge Diagnosis: Left occipital stroke Condition: Good Discharge Goals: Decrease discomfort Activity: Per 'Additional Instructions' section Non-emergency contact: Primary Care Provider Call non-emergency contact if: you have any medication questions and you have a fever Follow-up/Referrals: Brian Arizmendi MD [Primary Care Provider] - Diet: Heart Healthy Addtl Provider Instructions: YOU WERE ADMITTED DUE TO A SECOND STROKE IN YOUR BRAIN, THAT HAS NOW AFFECTED YOUR RIGHT EYE. YOUR VISION SEEMS TO BE IMPROVING, AND IT WILL BE IMPORTANT TO DO THE FOLLOWING 1- SEE YOUR RISK SPECIALIST TO MONITOR YOUR VISION 2 - FOLLOW RECOMMENDATIONS MADE BY PHYSICAL AND OCCUPATIONAL THERAPY 3 - TAKE YOUR PLAVIX MEDICATION. YOU NO LONGER NEED TO TAKE ASPIRIN. 4 - FOLLOW UP WITH YOUR PRIMARY CARE PROVIDER IN 1-2 WEEKS TO DISCUSS YOUR HOSPITAL STAY. 5 - FOLLOW UP WITH NEUROLOGY BE PHAM CARDOZA MD Prescriptions: New clopidogrel 75 mg Tablet 75 mg PO QAM Qty: 30 RF: 0 Continued loratadine-pseudoephedrine [Claritin-D 24 Hour] 10-240 mg Tablet Extended Release 24 Hr 1 tab PO DAILY PRN (Reason: Allergy Symptoms) Qty: 0 RF: 0 multivitamin Tablet 1 tab PO DAILY RF: 0 divalproex 250 mg tablet extended release 24 hr 1,000 mg PO BID Qty: 240 RF: 0 ondansetron HCl 4 mg tablet 4 mg PO Q6H PRN (Reason: Nausea) RF: 0 lisinopril 5 mg tablet 5 mg PO DAILY RF: 0 atorvastatin [Lipitor] 80 mg tablet 80 mg PO HS RF: 0 Discontinued aspirin [Aspir-81] 81 mg Tablet,Delayed Release (Dr/Ec) 81 mg PO QAM RF: 0 Stand-Alone Forms: Medications to Prevent Stroke, [facility] Discharge Orders: Discharge Order (Routine); Ordered 08/10/18 Ordered By: Natalie Cardoza Admission Data Admit Date/Time: 08/05/18 18:02 Attending Provider: Bhanu Wilkes Admit Provider: Efrain Parkinson Primary Care Provider: Brian Arizmendi Other Providers: Georgina Allen Brian A. Service: Medical Other Interventions: Discharge Summary Assessment (RN) Last Done: 08/10/18 14:39 Pending Studies at Discharge: No DC Date/Time DO NOT enter until pt leaves facility: 08/10/18 16:15 Supervising Physician Co-Signing Physician Notes Attending attestation I saw the patient current the resident physician and confirmed jay portion of the history physical exam. Agree with the impression and plan as noted above. The patient feels that she has had some improvement in her eyesight; she is now able to make out faces at approximately a 3 foot distance. She is worried today about her finances and continuing 24-hour care; as expected, this has her fairly upset this morning but we were able to talk through some coping mechanisms and plans on how she will address these concerns when she is discharged. Acute/subacute occipital CVA, left Continue Plavix 75 mg daily Continue high-dose statin She will need visual field testing by ophthalmology as an outpatient Hyperlipidemia - See above HTN -monitor blood pressures; lisinopril was restarted yesterday. DMII -patient not interested in medications; monitor blood sugars; outpatient doctor may be able to discuss further CKDIII - avoid nephrotoxic medications. Resident Activity Tracking Resident Involvement: Resident Care Provided Care Provided: Adult [facility] Medicine
--- NOTE | 2018-08-10 11:54 | Pharmacy Report ---
Pharmacist Stroke Counseling - Date of Service August 10, 2018 - Scope: Pharmacy has been consulted to provide medication discharge counseling for this patient admitted with [ischemic stroke] [hemorrhagic stroke] [transient ischemic attack] as per the Pharmacist Discharge Counseling for Stroke Patients Mary Anne harris - Medications on Discharge: Home Medications Medication Instructions Recorded Confirmed loratadine-pseudoephedrine 1 tab PO DAILY PRN #0 tab 12/22/16 08/05/18 [Claritin-D 24 Hour] aspirin [Aspir-81] 81 mg PO QAM 10/22/17 08/05/18 multivitamin 1 tab PO DAILY 10/22/17 08/05/18 atorvastatin [Lipitor] 80 mg PO HS 04/08/18 08/05/18 lisinopril 5 mg PO DAILY 08/05/18 08/05/18 ondansetron HCl 4 mg PO Q6H PRN 08/05/18 08/05/18 New Rx's Medication Instructions Recorded divalproex 1,000 mg PO BID #240 tab 07/16/18 clopidogrel 75 mg PO QAM #30 tab 08/10/18 - Action: The above medications, specifically ones for stroke treatment/prophylaxis, have been reviewed in detail with the patient and/or patient office services representative(s) prior to discharge. This includes indication, common adverse reactions, drug interactions, and medication administration. Medication counseling has been employed using the teach-back method to ensure understanding. - Outcome: The patient and/or patient office services representative(s) have demonstrated understanding of the medications. Please note, they are aware that the pharmacist will call them within 72 hours post-discharge to confirm that the appropriate medications are being taken and answer any further medication related questions the patient might have at that time. Contact information Individual to be contacted: N/A Relationship to patient (if applicable): N/A Phone number: Not obtained Best time to call: n/a Additional comments: Went to discuss new medication with Pt. I was told: "Get the hell out of my room and turn the volume up on my TV". Pharmacist asked if I could briefly discuss new regimen with pt. Pt ignored me and pretended to sleep. D/C counseling not done at this time. Thank you for allowing pharmacy to be involved in the care of this patient. Please call [phone] or [phone] with any additional questions
--- NOTE | 2018-08-11 14:24 | Pharmacy Report ---
Pharmacist Post D/C Phone Note - Phone Note: Date of phone call: August 11, 2018. Individual with whom pharmacist spoke to: Georgina home health nurse from [facility]. Unable to talk directly with patient as she sounded in distress, tearful, etc. The following questions were reviewed during the phone call with responses listed below each: Can you tell me the medications that you are currently taking as well as when and how you take each medication? -See Table Below When have you missed any doses of your medications? - Not sure. Patient was yelling, "I have no idea about my medications" What side effects are you having from your medications, specifically, the new medications you were started on? - Unknown What questions do you have about your medications? - Patient verbally confused. Home Health apparently tried to review the medications with the patient prior to phone call, but patient still sounded clueless regarding Rx What problems are you having obtaining your medications? - Home Health states Plavix (new Rx from recent discharge) was not at the house. It appears she did not pick it up from her pharmacy. When is your next appointment with your primary care doctor? - [facility] reports *none* at this time; states they spoke with PCP office and was told her next appointment was in November... advised to call back to schedule hospital f/u within 7-10 days. Additional comments: * Patient refused discharge counseling on 08/10/18; please see Pharmacy note from that day for details of encounter. As a result, it was unknown which phone number to contact the patient. Phone calls/messages were made to both numbers in her chart. One of the numbers listed is incorrect as it belongs to an ex- case management coordinator of the patient, who stopped working with her as patient was apparently "non-compliant". She states, "I would be surprised if Esther calls you back". * Patient actually called back few hours later, verbally very upset, crying, did not know why she was taking her medications, etc. Vision loss is still her main concern. Home Health reports they have been able to incr' visits and offer more support. * Main concern is the fact that patient did not get Plavix filled yet. Advised urgency to obtain today and take PATSY. Home Health to call Lon and also make phone calls to PCP, Neurology to make sure patient has required f/u. * Patient declined to talk with Pharmacy today as she wanted her "medicines straightened out" first... * Did review medication list with Home Health; she confirms patient stopped aspirin. Medications seem to match discharge medication list (with exception of patient not yet obtaining Plavix). As per the Pharmacist Discharge Counseling for Stroke Patients Protocol, this phone call has been completed within 72 hours of discharge. Thank you for allowing us to be involved in the care of this patient. - Home Medications: Home Medications Medication Instructions Recorded Confirmed loratadine-pseudoephedrine 1 tab PO DAILY PRN #0 tab 12/22/16 08/11/18 [Claritin-D 24 Hour] multivitamin 1 tab PO DAILY 10/22/17 08/11/18 atorvastatin [Lipitor] 80 mg PO HS 04/08/18 08/11/18 lisinopril 5 mg PO DAILY 08/05/18 08/11/18 ondansetron HCl 4 mg PO Q6H PRN 08/05/18 08/11/18 New Rx's Medication Instructions Recorded divalproex 1,000 mg PO BID #240 tab 07/16/18 clopidogrel 75 mg PO QAM #30 tab 08/10/18
== END 2018-08-10 16:15 | disposition home health service (06) | DRG 66 ==
LOC: ED 14:00 → 2E 18:02 → SUATTDRO 18:02 → 2E 18:38 → 4E 08-07 14:45

== ENCOUNTER 2018-12-16 19:13 | Inpatient (IN) ==
[2018-12-16 19:55] LABS: Appearance Urine Clear (Clear); Bacteria Urine Automated Negative (Negative); Bilirubin Urine Negative (Negative); Blood Urine Negative (Negative); Cast Urine Automated 0 /lpf (0-5); Color Urine Dark Yellow; Glucose Urine UA Negative (Negative); Ketones Urine Trace (Negative); Leukocyte Esterase Urine Trace (Negative); Nitrite Urine Negative (Negative); RBC Urine Automated 0-4 /hpf (0-4); Specific Gravity Urine 1.024 (1.000-1.030); Urobilinogen Urine Negative (Negative); pH Urine 8.5 (4.5-7.5)
[2018-12-16 19:57] LABS: Protein Urine Negative (Negative); Sulfosalicylic Acid Urine Negative (Negative)
[2018-12-16 20:32] LABS: Basophils # (auto) 0.03 K/uL (0-0.2); Basophils % (auto) 0.4 %; Eosinophils # (auto) 0.04 K/uL (0-0.5); Eosinophils % (auto) 0.5 %; Hematocrit (blood only) 32.7 % (37-47); Hemoglobin 10.4 g/dL (12.0-16.0); Immature Granulocytes # (auto) 0.01 K/uL (0.00-0.02); Immature Granulocytes % (auto) 0.1 %; Lymphocytes # (auto) 1.18 K/uL (1.2-3.4); Mean Corpuscular Hemoglobin 33.4 pg (25-34); Mean Corpuscular Hgb Conc 31.8 g/dL (32-36); Mean Corpuscular Volume 105.1 fL (80-100); Mean Platelet Volume 10.6 fL (7.4-10.4); Monocytes # (auto) 1.47 K/uL (0.11-0.59); Monocytes % (auto) 17.4 %; Neutrophils # (auto) 5.72 K/uL (1.4-6.5); Neutrophils % (auto) 67.6 %; Platelet Count 176 K/uL (130-400); RDW Coefficient of Variation 14.9 % (11.5-14.5); RDW Standard Deviation 57.2 fL (36.4-46.3); Red Blood Count 3.11 M/uL (4.2-5.4); White Blood Count 8.45 K/uL (4.8-10.8)
[2018-12-16] MEDS ORDERED: SODIUM CHLORIDE 0.9% 1000ML 1,000 ML IV SCH (20:45)
[2018-12-16 20:50] LABS: Albumin Level 2.1 gm/dl (3.4-5.0); BUN Creatinine Ratio 27.8 (10-20); Creatinine Clr Calc Pharmacy 48.3 ml/min; Est GFR (African American) 74.6; Est GFR (Non-African American) 64.3; Potassium 3.8 mmol/L (3.5-5.1)
[2018-12-16 20:53] LABS: Albumin Globulin Ratio 0.6 (0.9-2); Bilirubin,Total 0.8 mg/dl (0.2-1); Globulin 3.4 gm/dl (2.5-4.0); Total Protein 5.5 gm/dl (6.4-8.2)
--- NOTE | 2018-12-16 21:02 | XRay Report ---
XR chest 1V portable HISTORY: Weakness. COMPARISON: Chest 04/08/2018. FINDINGS: The heart is normal in size. No pleural effusions. No pneumothorax. No focal lung consolida tions to suggest pneumonia. No evidence for pulmonary edema. Retrocardiac density favors a moderate h iatus hernia. This remains unchanged. Prior cholecystectomy. IMPRESSION: No significant change compared to the prior study. No acute process. Electronically signed by: Joby Weinberg M.D. 12/16/2018 9:01 PM
[2018-12-16 21:27] LABS: INR 1.3 (0.9-1.1); Partial Thromboplastin Ratio 1.1; Partial Thromboplastin Time 30.1 Seconds (21.0-31.0); Prothrombin Time 13.1 Seconds (9.0-12.0)
[2018-12-16 21:33] LABS: Creatine Kinase 131 U/L (26-192); Lipase 45 U/L (73-393); Magnesium 1.9 mg/dl (1.8-2.4); Troponin I < 0.015 ng/ml (0-0.045)
--- NOTE | 2018-12-16 21:43 | CT Scan Report ---
HEAD CT NONCONTRAST CT DOSE: 537.48 mGy.cm HISTORY: Altered mental status. TECHNIQUE: Multiaxial CT images of the head were performed without the use of intravenous contrast. A utomated exposure control was utilized for this study. A dose lowering technique was utilized adheri ng to the principles of ALARA. Comparison: Head CT 08/05/2018. Brain MRI 08/06/2018. Findings: The paranasal sinuses and mastoid air cells are clear. The calvarium and skull base are int act. Old bilateral [employer] territory infarcts are noted. There is associated calcification of the sites o f old infarct. Old small right cerebellar hemisphere infarcts, unchanged. There is no mass, hematoma, midline shift, acute infarct. Atrophy and microvascular ischemic changes are again noted. Impression: No acute intracranial abnormality. Old bilateral [employer] territory infarcts. Electronically signed by: Joby Weinberg M.D. 12/16/2018 9:42 PM
--- NOTE | 2018-12-17 01:17 | Emergency Department Note ---
Entered by Pete Loomis acting as a scribe for Aron Clark History of Present Illness General Chief complaint: Illness Stated complaint: AMS Time Seen by Provider: 12/16/18 20:27 Source: patient, RN notes reviewed and other (home health nurse) Limitations: no limitations History of Present Illness Onset (ago): week(s) 3 Location: head Pain Consistency: + other (worsening) Maximum Pain Intensity: 2 Quality: + constant Associated symptoms: + confusion, + weakness and + other (wet cough, incont inence of stool, secretions,); no nausea/vomiting (vomiting) The patient is a 73 year old female who presents to the Emergency Room with complaints of a constant illness starting 3 weeks ago. History is being given by the materials branch chief at bedside. Nursing states the patient has been coughing, has congestion, and increasing weakness. Nursing states the patient has been increasingly confused, has been having a lot of secretions, has a wet cough, and was incontinence of stool upon arrival. The patient's home health nurse states the patient has been more weak for the past few weeks. The patient denies vomiting and having any recent falls. Home Medications Home Medications Medication Instructions Recorded Confirmed Type loratadine-pseudoephedrine 1 tab PO DAILY PRN #0 tab 12/22/16 12/16/18 History [Claritin-D 24 Hour] multivitamin 1 tab PO DAILY 10/22/17 12/16/18 History atorvastatin [Lipitor] 80 mg PO HS 04/08/18 12/16/18 History lisinopril 5 mg PO DAILY 08/05/18 12/16/18 History wheelchair #1 ea 09/01/18 12/16/18 Rx clopidogrel 75 mg tablet 75 mg PO QAM #30 tab 09/08/18 12/16/18 Rx divalproex ER 250 mg 1,000 mg PO BID #240 tab 09/16/18 12/16/18 Rx tablet,extended release 24 hr ondansetron HCl 4 mg tablet 4 mg PO Q6H PRN #30 tab 09/29/18 12/16/18 Rx Allergies Allergy/AdvReac Type Severity Reaction Status Date / Time ragweed pollen Allergy Intermediate ITCHY Verified 12/02/18 14:10 EYES, SNEEZING house dust Allergy Mild ITCHY Verified 12/02/18 14:10 EYES,SNEEZING No Known Drug Allergies Allergy Unknown Verified 12/02/18 14:10 Trees AdvReac Unknown Uncoded 12/02/18 14:10 Past Med/Surg History Medical History Enrrique's paralysis Seizures (Chronic) Hypertensive emergency (Acute) DVT prophylaxis Focal seizure (Acute) New onset seizure (Acute) 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) Sepsis (Acute) Hypertension (Chronic) Diabetes (Chronic) Hyperlipidemia Depression GERD (gastroesophageal reflux disease) Hearing deficit Surgical History History of open reduction and internal fixation (ORIF) procedure Hx laparoscopic cholecystectomy Family History Mother Cardiac pacemaker Father Colon cancer Other Family history non-contributory Social History Preferred Language: Northern Irish Communication Ability: Effective Visual Impairment: No Limitations Clinical Services Specialist Required: No Beliefs That Will Affect Care: None marital status: Single Current Living Situation: Alone Current Living Situation Comment: 10/09 Care givers Feels Safe at Home: Yes Smoking Status: Never smoker Second Hand Exposure: No ; Hx Alcohol Use: No Hx Substance Use: No Review of Systems Unobtainable due to cognitive status Physical Exam Vital Signs Vital Signs - 24 hr 12/16/18 19:17 12/16/18 19:24 12/16/18 19:28 Temperature 37.5 C Temperature Source Oral Sepsis Recent Fever Within 48 Hours No Sepsis New/Unexplained Change in Mental Status No Sepsis Action Taken by Nursing No Action Required Pulse Rate 90 98 H 94 H Pulse Rate from SpO2 Sensor Respiratory Rate 18 20 20 Respiratory Effort / Characteristics Non-Labored Spontaneous Respiratory Depth Normal Respiratory Pattern Regular Blood Pressure 100/67 100/67 Blood Pressure Mean 78 78 Blood Pressure Position Sitting Pulse Oximetry 97 93 Oxygen Delivery Method Room Air 12/16/18 20:00 12/16/18 20:17 12/16/18 21:00 Temperature Temperature Source Sepsis Recent Fever Within 48 Hours Sepsis New/Unexplained Change in Mental Status Sepsis Action Taken by Nursing Pulse Rate 90 87 84 Pulse Rate from SpO2 Sensor 88 Respiratory Rate 18 14 19 Respiratory Effort / Characteristics Respiratory Depth Respiratory Pattern Blood Pressure 104/68 106/69 104/68 Blood Pressure Mean 80 81 80 Blood Pressure Position Pulse Oximetry 97 93 96 Oxygen Delivery Method 12/16/18 22:00 12/16/18 22:14 12/16/18 22:15 Temperature Temperature Source Sepsis Recent Fever Within 48 Hours Sepsis New/Unexplained Change in Mental Status Sepsis Action Taken by Nursing Pulse Rate 87 89 85 Pulse Rate from SpO2 Sensor Respiratory Rate 21 18 19 Respiratory Effort / Characteristics Respiratory Depth Respiratory Pattern Blood Pressure 113/72 113/72 Blood Pressure Mean 85 85 Blood Pressure Position Pulse Oximetry 97 92 Oxygen Delivery Method 12/16/18 23:00 12/17/18 00:00 12/17/18 01:00 Temperature Temperature Source Sepsis Recent Fever Within 48 Hours Sepsis New/Unexplained Change in Mental Status Sepsis Action Taken by Nursing Pulse Rate 89 85 84 Pulse Rate from SpO2 Sensor 85 84 Respiratory Rate 15 20 20 Respiratory Effort / Characteristics Respiratory Depth Respiratory Pattern Blood Pressure 126/77 104/63 104/65 Blood Pressure Mean 93 76 78 Blood Pressure Position Pulse Oximetry 92 93 95 Oxygen Delivery Method Room Air Room Air Room Air HENT: Exam performed. - Head: Normocephalic and atraumatic. - Right Ear: External ear normal. No mastoid tenderness. - Left Ear: External ear normal. No mastoid tenderness. - Mouth/Throat: Dry mucous membranes. EYES: Conjunctivae and EOM are normal. Pupils are equal, round, and reactive to light. Right eye exhibits no discharge. Left eye exhibits no discharge. No scleral icterus. NECK: Normal range of motion. Neck supple. No JVD present. No spinous process tenderness present. No carotid bruit present. No rigidity. No tracheal deviation and normal range of motion present. No Brudzinski's sign and no Kernig's sign noted. CV: Normal rate, regular rhythm, normal heart sounds and intact distal pulses. There is no peripheral edema. Palpable radial pulses bue. PULM/CHEST: Effort normal and breath sounds normal. No respiratory distress. No stridor. She has no wheezes. She has no rales. Chest Wall: She exhibits no tenderness. ABD: The abdomen is soft. Bowel sounds are normal. She has no distension. No mass is present. There is no tenderness. There is no rebound, no guarding, no Hale's sign and no tenderness at McBurney's point. Rovsig negative MUSC/SKEL: Pelvis stable. LYMPH: No cervical adenopathy. NEURO: Motor and sensation grossly intact. Course 2030: The patient was evaluated in room A10, and a complete history and physical examination were performed. 2240: Vital signs stable. Labs and imaging within normal limits. I had a long discussion with the patient's POA at bedside. The POA states they cannot take the patient home as they feel the patient is not safe to go home. I discussed the patient's case with Dr. Lynn - [facility]. He will evaluate the patient for further management Administered Medications Sodium Chloride (Nss 1000ml) 1,000 mls @ 125 mls/hr IV .Q8H JASWANT Stop: 01/15/19 20:44 Last Admin: 12/16/18 21:00 Dose: 125 mls/hr Documented by: [id number] Medical Decision Making Medical Records Attestation: I reviewed the patient's medical records. Home Medications Current Medication List: was personally reviewed by me Laboratory Data Attestation: I reviewed the patient's lab results. Result diagrams: 12/16/18 20:15 12/16/18 20:15 Lab Results 12/16/18 12/16/18 12/16/18 Range/Units 19:45 19:50 20:15 WBC 8.45 (4.8-10.8) K/uL RBC 3.11 L (4.2-5.4) M/uL Hgb 10.4 L (12.0-16.0) g/dL Hct 32.7 L (37-47) % MCV 105.1 H (80-100) fL MCH 33.4 (25-34) pg MCHC 31.8 L (32-36) g/dL RDW Std Deviation 57.2 H (36.4-46.3) fL RDW Coeff of Omid 14.9 H (11.5-14.5) % Plt Count 176 (130-400) K/uL MPV 10.6 H (7.4-10.4) fL Immature Gran % (Auto) 0.1 % Neut % (Auto) 67.6 % Lymph % (Auto) 14.0 % [place] % (Auto) 17.4 % Eos % (Auto) 0.5 % Baso % (Auto) 0.4 % Immature Gran # (Auto) 0.01 (0.00-0.02) K/uL Neut # (Auto) 5.72 (1.4-6.5) K/uL Lymph # (Auto) 1.18 L (1.2-3.4) K/uL [place] # (Auto) 1.47 H (0.11-0.59) K/uL Eos # (Auto) 0.04 (0-0.5) K/uL Baso # (Auto) 0.03 (0-0.2) K/uL PT (9.0-12.0) Seconds INR (0.9-1.1) APTT (21.0-31.0) Seconds PTT Ratio Sodium (136-145) mmol/L Potassium (3.5-5.1) mmol/L Chloride (98-107) mmol/L Carbon Dioxide (21-32) mmol/L Anion Gap (3-11) BUN (7-18) mg/dl Creatinine (0.6-1.2) mg/dl Est Cr Clr Drug Dosing ml/min Est GFR ( Amer) Est GFR (Non-Af Amer) BUN/Creatinine Ratio (10-20) Glucose (70-99) mg/dl Lactate (0.4-2.0) mmol/L Calcium (8.5-10.1) mg/dl Magnesium (1.8-2.4) mg/dl Total Bilirubin (0.2-1) mg/dl AST (15-37) U/L ALT (12-78) U/L Alkaline Phosphatase (45-117) U/L Total Creatine Kinase (26-192) U/L Troponin I (0-0.045) ng/ml Total Protein (6.4-8.2) gm/dl Albumin (3.4-5.0) gm/dl Globulin (2.5-4.0) gm/dl Albumin/Globulin Ratio (0.9-2) Lipase (73-393) U/L Urine Color Dark Yellow Urine Appearance Clear (Clear) Urine pH 8.5 H (4.5-7.5) Ur Specific [place] 1.024 (1.000-1.030) Urine Protein Negative (Negative) Urine Glucose (UA) Negative (Negative) Urine Ketones Trace H (Negative) Urine Blood Negative (Negative) Urine Nitrite Negative (Negative) Urine Bilirubin Negative (Negative) Urine Urobilinogen Negative (Negative) Ur Leukocyte Esterase Trace H (Negative) Urine WBC (Auto) 1-5 (0-5) /hpf Urine RBC (Auto) 0-4 (0-4) /hpf U Hyaline Cast (Auto) 0 (0-5) /lpf U Epithel Cells (Auto) 10-20 H (0-5) /lpf Urine Bacteria (Auto) Negative (Negative) Influenza Type A Ag Neg for Influ A (Neg) Influenza Type A (PCR) Influenza Type B Ag Neg for Influ B (Neg) Influenza Type B (PCR) 12/16/18 12/16/18 12/16/18 Range/Units 20:15 20:15 20:15 WBC (4.8-10.8) K/uL RBC (4.2-5.4) M/uL Hgb (12.0-16.0) g/dL Hct (37-47) % MCV (80-100) fL MCH (25-34) pg MCHC (32-36) g/dL RDW Std Deviation (36.4-46.3) fL RDW Coeff of Omid (11.5-14.5) % Plt Count (130-400) K/uL MPV (7.4-10.4) fL Immature Gran % (Auto) % Neut % (Auto) % Lymph % (Auto) % [place] % (Auto) % Eos % (Auto) % Baso % (Auto) % Immature Gran # (Auto) (0.00-0.02) K/uL Neut # (Auto) (1.4-6.5) K/uL Lymph # (Auto) (1.2-3.4) K/uL [place] # (Auto) (0.11-0.59) K/uL Eos # (Auto) (0-0.5) K/uL Baso # (Auto) (0-0.2) K/uL PT 13.1 H (9.0-12.0) Seconds INR 1.3 H (0.9-1.1) APTT 30.1 (21.0-31.0) Seconds PTT Ratio 1.1 Sodium 140 (136-145) mmol/L Potassium 3.8 (3.5-5.1) mmol/L Chloride 106 (98-107) mmol/L Carbon Dioxide 28 (21-32) mmol/L Anion Gap 6.0 (3-11) BUN 25 H (7-18) mg/dl Creatinine 0.90 (0.6-1.2) mg/dl Est Cr Clr Drug Dosing 48.3 ml/min Est GFR ( Amer) 74.6 Est GFR (Non-Af Amer) 64.3 BUN/Creatinine Ratio 27.8 H (10-20) Glucose 101 H (70-99) mg/dl Lactate (0.4-2.0) mmol/L Calcium 9.0 (8.5-10.1) mg/dl Magnesium 1.9 (1.8-2.4) mg/dl Total Bilirubin 0.8 (0.2-1) mg/dl AST 47 H (15-37) U/L ALT 50 (12-78) U/L Alkaline Phosphatase 88 (45-117) U/L Total Creatine Kinase 131 (26-192) U/L Troponin I < 0.015 (0-0.045) ng/ml Total Protein 5.5 L (6.4-8.2) gm/dl Albumin 2.1 L (3.4-5.0) gm/dl Globulin 3.4 (2.5-4.0) gm/dl Albumin/Globulin Ratio 0.6 L (0.9-2) Lipase 45 L (73-393) U/L Urine Color Urine Appearance (Clear) Urine pH (4.5-7.5) Ur Specific [place] (1.000-1.030) Urine Protein (Negative) Urine Glucose (UA) (Negative) Urine Ketones (Negative) Urine Blood (Negative) Urine Nitrite (Negative) Urine Bilirubin (Negative) Urine Urobilinogen (Negative) Ur Leukocyte Esterase (Negative) Urine WBC (Auto) (0-5) /hpf Urine RBC (Auto) (0-4) /hpf U Hyaline Cast (Auto) (0-5) /lpf U Epithel Cells (Auto) (0-5) /lpf Urine Bacteria (Auto) (Negative) Influenza Type A Ag (Neg) Influenza Type A (PCR) Influenza Type B Ag (Neg) Influenza Type B (PCR) 12/16/18 12/16/18 Range/Units 20:59 21:51 WBC (4.8-10.8) K/uL RBC (4.2-5.4) M/uL Hgb (12.0-16.0) g/dL Hct (37-47) % MCV (80-100) fL MCH (25-34) pg MCHC (32-36) g/dL RDW Std Deviation (36.4-46.3) fL RDW Coeff of Omid (11.5-14.5) % Plt Count (130-400) K/uL MPV (7.4-10.4) fL Immature Gran % (Auto) % Neut % (Auto) % Lymph % (Auto) % [place] % (Auto) % Eos % (Auto) % Baso % (Auto) % Immature Gran # (Auto) (0.00-0.02) K/uL Neut # (Auto) (1.4-6.5) K/uL Lymph # (Auto) (1.2-3.4) K/uL [place] # (Auto) (0.11-0.59) K/uL Eos # (Auto) (0-0.5) K/uL Baso # (Auto) (0-0.2) K/uL PT (9.0-12.0) Seconds INR (0.9-1.1) APTT (21.0-31.0) Seconds PTT Ratio Sodium (136-145) mmol/L Potassium (3.5-5.1) mmol/L Chloride (98-107) mmol/L Carbon Dioxide (21-32) mmol/L Anion Gap (3-11) BUN (7-18) mg/dl Creatinine (0.6-1.2) mg/dl Est Cr Clr Drug Dosing ml/min Est GFR ( Amer) Est GFR (Non-Af Amer) BUN/Creatinine Ratio (10-20) Glucose (70-99) mg/dl Lactate 1.7 (0.4-2.0) mmol/L Calcium (8.5-10.1) mg/dl Magnesium (1.8-2.4) mg/dl Total Bilirubin (0.2-1) mg/dl AST (15-37) U/L ALT (12-78) U/L Alkaline Phosphatase (45-117) U/L Total Creatine Kinase (26-192) U/L Troponin I (0-0.045) ng/ml Total Protein (6.4-8.2) gm/dl Albumin (3.4-5.0) gm/dl Globulin (2.5-4.0) gm/dl Albumin/Globulin Ratio (0.9-2) Lipase (73-393) U/L Urine Color Urine Appearance (Clear) Urine pH (4.5-7.5) Ur Specific [place] (1.000-1.030) Urine Protein (Negative) Urine Glucose (UA) (Negative) Urine Ketones (Negative) Urine Blood (Negative) Urine Nitrite (Negative) Urine Bilirubin (Negative) Urine Urobilinogen (Negative) Ur Leukocyte Esterase (Negative) Urine WBC (Auto) (0-5) /hpf Urine RBC (Auto) (0-4) /hpf U Hyaline Cast (Auto) (0-5) /lpf U Epithel Cells (Auto) (0-5) /lpf Urine Bacteria (Auto) (Negative) Influenza Type A Ag (Neg) Influenza Type A (PCR) Cancelled Influenza Type B Ag (Neg) Influenza Type B (PCR) Cancelled Imaging Data Radiologist's Impression: Radiology results as stated below per my review and the radiologist's interpretation: XR chest 1V portable HISTORY: Weakness. COMPARISON: Chest 04/08/2018. FINDINGS: The heart is normal in size. No pleural effusions. No pneumothorax. No focal lung consolidations to suggest pneumonia. No evidence for pulmonary edema. Retrocardiac density favors a moderate hiatus hernia. This remains unchanged. Prior cholecystectomy. IMPRESSION: No significant change compared to the prior study. No acute process. Electronically signed by: Joby Weinberg M.D. 12/16/2018 9:[address] CT DOSE: 537.48 mGy.cm HISTORY: Altered mental status. TECHNIQUE: Multiaxial CT images of the head were performed without the use of intravenous contrast. Automated exposure control was utilized for this study. A dose lowering technique was utilized adhering to the principles of ALARA. Comparison: Head CT 08/05/2018. Brain MRI 08/06/2018. Findings: The paranasal sinuses and mastoid air cells are clear. The calvarium and skull base are intact. Old bilateral LEACH CELL OPERATOR territory infarcts are noted. There is associated calcification of the sites of old infarct. Old small right cerebellar hemisphere infarcts, unchanged. There is no mass, hematoma, midline shift, acute infarct. Atrophy and microvascular ischemic changes are again noted. Impression: No acute intracranial abnormality. Old bilateral LEACH CELL OPERATOR territory infarcts. Electronically signed by: Joby Weinberg M.D. 12/16/2018 9:42 PM ECG Data Attestation: I personally reviewed and interpreted this ECG as follows: Indication: altered mental status Rate (beats per minute): 92 Rhythm: sinus rhythm ECG Intervals/blocks: Normal QRS and Normal QT ECG Findings: Other (Normal MT interval. No ST depression. No ST elevation.) Blood Pressure Blood Pressure Findings: Elevated blood pressure Blood Pressure Disposition: further management by hospitalist MDM Narrative Vital signs stable. Labs and imaging within normal limits. I had a long discussion with the patient's POA at bedside. The POA states they cannot take the patient home as they feel the patient is not safe to go home. I discussed the patient's case with Dr. Lynn - [facility] Hospitalist. He will evaluate the patient for further management Impression & Plan Adult failure to thrive, Ambulatory dysfunction Discharge Plan Visit Data Chief Complaint: Illness Stated Complaint: AMS ED Provider: Aron Clark Discharge Problem: Adult failure to thrive, Ambulatory dysfunction Patient Disposition: Being Evaluated by Hospitalist Forms Stand Alone Forms: My [facility] Prescriptions Prescriptions: No Action loratadine-pseudoephedrine [Claritin-D 24 Hour] 10-240 mg Tablet Extended Release 24 Hr 1 tab PO DAILY PRN (Reason: Allergy Symptoms) Qty: 0 RF: 0 wheelchair device .ROUTE .MEDSUPPLY Qty: 1 RF: 0 clopidogrel 75 mg tablet 75 mg PO QAM Qty: 30 RF: 5 divalproex 250 mg tablet extended release 24 hr 1,000 mg PO BID Qty: 240 RF: 5 ondansetron HCl 4 mg tablet 4 mg PO Q6H PRN (Reason: Nausea) Qty: 30 RF: 0 multivitamin Tablet 1 tab PO DAILY RF: 0 lisinopril 5 mg tablet 5 mg PO DAILY RF: 0 atorvastatin [Lipitor] 80 mg tablet 80 mg PO HS RF: 0 Referrals Referrals: Brian Arizmendi MD [Primary Care Provider] - The scribe's documentation has been prepared under my direction and personally reviewed by me in its entirety. I confirm that the note above accurately reflects all work, treatment, procedures, and medical decision making performed by me.
[2018-12-17] MEDS ORDERED: ACETAMINOPHEN 325 MG TAB PO PRN (02:40)
[2018-12-17] MEDS ORDERED: ONDANSETRON INJ 2 MG/ML 2 ML VIAL IV PRN (02:40)
[2018-12-17] MEDS ORDERED: POLYETHYLENE (MIRALAX) 17 GM PACK PO PRN (02:40)
[2018-12-17] MEDS ORDERED: ONDANSETRON 4 MG TAB PO PRN (02:40)
[2018-12-17] MEDS ORDERED: LORATADINE/PSEUDOEPHEDRINE 1 TABCR PO PRN (02:40)
--- NOTE | 2018-12-17 02:56 | History & Physical Report ---
Date of Service December 17, 2018 Assessment & Plan (1) Adult failure to thrive: 73-year-old female with a significant history of CVA, seizure disorder, mood disorder, HLD, T2DM, HTN presents with her caregiver with concerns of ambulatory dysfunction with frequent falls, increased agitated, poor p.o. intake intake and persistent cough. Patient's chest x-ray was unremarkable, head CT was unremarkable, no new changes. Lab work was essentially normal with persistent chronic anemia. Patient is being admitted for failure to thrive and for further evaluation for placement. Patient is caregiver was present at admission, but her POA had gone home by time I had evaluated the patient. Failure to thrive, ambulatory dysfunction Admission for further assessment, PT/OT assessments, speech eval, case care coordination. 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 intake intake and persistent cough. She is sound asleep tonight when I went in to examine her, but her caregiver was able to provide history. She states that she is communicative at baseline, but has had poor contact and more frequent outbursts since her hospitalizations over the summer. Overall they have just noticed a sharp decline. The decline has been even more noticeable over the past 4 days. The caregiver does note that over the past 4 days the patient has felt warm without a recorded fever and has had a persistent cough. The patient experienced a stroke 2016 and then again in July 2018PCA territory, right occipital lobe infarct, right thalamic and cerebellar small lacunar lesions. In addition, she had a seizure in March and June 2018 which also left her worsening symptoms. Unable to obtain review of systems secondary to patient's mental status Allergies Allergy/AdvReac Type Severity Reaction Status Date / Time ragweed pollen Allergy Intermediate ITCHY Verified 12/02/18 14:10 EYES, SNEEZING house dust Allergy Mild ITCHY Verified 12/02/18 14:10 EYES,SNEEZING No Known Drug Allergies Allergy Unknown Verified 12/02/18 14:10 Trees AdvReac Unknown Uncoded 12/02/18 14:10 Home Medications Home Medications Medication Instructions Recorded Confirmed Type loratadine-pseudoephedrine 1 tab PO DAILY PRN #0 tab 12/22/16 12/16/18 History [Claritin-D 24 Hour] multivitamin 1 tab PO DAILY 10/22/17 12/16/18 History atorvastatin [Lipitor] 80 mg PO HS 04/08/18 12/16/18 History wheelchair #1 ea 09/01/18 12/16/18 Rx clopidogrel 75 mg tablet 75 mg PO QAM #30 tab 09/08/18 12/16/18 Rx divalproex ER 250 mg 1,000 mg PO BID #240 tab 09/16/18 12/16/18 Rx tablet,extended release 24 hr ondansetron HCl 4 mg tablet 4 mg PO Q6H PRN #30 tab 09/29/18 12/16/18 Rx lisinopril 5 mg tablet 5 mg PO DAILY #90 tab 12/17/18 Rx Past Med/Surg History Medical History Enrrique's paralysis Seizures (Chronic) Hypertensive emergency (Acute) DVT prophylaxis Focal seizure (Acute) New onset seizure (Acute) 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) Sepsis (Acute) Hypertension (Chronic) Diabetes (Chronic) Hyperlipidemia Depression GERD (gastroesophageal reflux disease) Hearing deficit Surgical History History of open reduction and internal fixation (ORIF) procedure Hx laparoscopic cholecystectomy Family History Mother Cardiac pacemaker Father Colon cancer Other Family history non-contributory Social History Preferred Language: Czech Communication Ability: Impaired Visual Impairment: No Limitations Drawbench Operator Required: No Beliefs That Will Affect Care: None marital status: Single Current Living Situation: Alone Current Living Situation Comment: 10/09 Care givers Other Information That Helps Us Care for You: No Feels Safe at Home: Yes Safety Concerns: Feels Safe At This Time Smoking Status: Never smoker Second Hand Exposure: No ; Hx Alcohol Use: No Hx Substance Use: No Review of Systems Review of Systems: All systems reviewed & are unremarkable except as noted in HPI & below Physical Exam Constitutional: WD/WN, vitals as above ENMT: external ear and nose normal, oropharynx normal Neck: trachea midline, no thyromegaly Respiratory: normal respiratory effort, lungs clear to auscultation Cardiovascular: RRR, no murmur, no edema Gastrointestinal (Abdomen): normal bowel sounds, soft, nontender, no hepatosplenomegaly Musculoskeletal: no cyanosis or clubbing, extremities motor strength 5/5 Skin: no rashes, warm and dry Neurologic: + not awake Psychiatric: Orientation: + not alert Results & Data Vital Signs (Past 12 Hours) Vital Signs Temp Pulse Pulse Resp BP BP Pulse Ox 12/17/18 01:55 36.4 C L 90 18 114/66 90 12/17/18 01:00 84 20 104/65 95 12/17/18 00:00 85 20 104/63 93 12/16/18 23:00 89 15 126/77 92 12/16/18 22:15 85 19 92 12/16/18 22:14 89 18 113/72 12/16/18 22:00 87 21 113/72 97 12/16/18 21:00 84 19 104/68 96 12/16/18 20:17 87 14 106/69 93 12/16/18 20:00 90 18 104/68 97 12/16/18 19:28 37.5 C 94 H 20 100/67 93 12/16/18 19:24 98 H 20 12/16/18 19:17 90 18 100/67 97 Supervising Physician Co-Signing Physician Notes Attending addendum: I have physically seen this patient, have supervised the medical residents activities, and agree with the H&P unless as otherwise noted. Assessment and Plan: Ambulatory dysfunction/falls/increasing agitation/general debilitation/adult failure to thrive- Family is interested in having patient placed at a detention facility. Consult physical therapy/Occupational Therapy and Case management. Continue all routine medications as noted. Remainder of orders and notations as noted. PG Care Time/CCT Total # of Minutes Spent Total Time Spent with Patient: Total time spent is greater than 50% in coordination of care (as documented) at patient's floor/unit and/or counseling patient: Resident Activity Tracking Resident Involvement: Resident Care Provided Care Provided: Adult [facility] Medicine
[2018-12-17] MEDS: SODIUM CHLORIDE 0.9% 1000ML 1,000 ML IV SCH ×2 (03:53→13:11)
[2018-12-17] MEDS: AMPICILLIN/SULBACTAM SOD 3,000 MG in 0.9 % SODIUM CHLORIDE 100 ML IV SCH ×4 (03:54→21:22)
[2018-12-17] MEDS ORDERED: LORazepam 0.5 MG/1 ML VIAL IV STA (04:48)
[2018-12-17] MEDS ORDERED: INFLUENZA VACCINE HIGH DOSE 65+ 0.5 ML SYR IM ONE (06:15)
[2018-12-17] MEDS ORDERED: INFLUENZA ADMINISTRATION CHARGE ONE (06:15)
[2018-12-17 07:15] LABS: Basophils # (auto) 0.01 K/uL (0-0.2); Basophils % (auto) 0.1 %; Eosinophils # (auto) 0.02 K/uL (0-0.5); Eosinophils % (auto) 0.2 %; Hematocrit (blood only) 39.5 % (37-47); Hemoglobin 12.6 g/dL (12.0-16.0); Immature Granulocytes # (auto) 0.02 K/uL (0.00-0.02); Immature Granulocytes % (auto) 0.2 %; Lymphocytes # (auto) 0.63 K/uL (1.2-3.4); Mean Corpuscular Hemoglobin 34.1 pg (25-34); Mean Platelet Volume 10.6 fL (7.4-10.4); Monocytes % (auto) 16.8 %; Neutrophils # (auto) 6.76 K/uL (1.4-6.5); Neutrophils % (auto) 75.7 %; Platelet Count 183 K/uL (130-400); RDW Coefficient of Variation 14.9 % (11.5-14.5); RDW Standard Deviation 58.2 fL (36.4-46.3); Red Blood Count 3.69 M/uL (4.2-5.4); White Blood Count 8.94 K/uL (4.8-10.8)
[2018-12-17 07:28] LABS: Mean Corpuscular Hgb Conc 31.9 g/dL (32-36)
[2018-12-17 07:59] LABS: Creatinine Clr Calc Pharmacy 43.6 ml/min; Est GFR (African American) 71.7; Est GFR (Non-African American) 61.8; Potassium 4.1 mmol/L (3.5-5.1)
[2018-12-17] MEDS ORDERED: AZITHROMYCIN 250 MG TAB PO SCH (09:00)
[2018-12-17] MEDS ORDERED: DIVALPROEX EXTENDED RELEASE 250 MG TABCR PO SCH (09:00)
[2018-12-17] MEDS: MULTIVITAMIN TAB PO SCH (09:44)
[2018-12-17] MEDS: BENZONATATE 100 MG CAPSULE PO SCH ×3 (09:44→20:38)
[2018-12-17] MEDS: guaiFENesin 600 MG TABCR PO SCH ×2 (09:44→20:38)
[2018-12-17] MEDS: VALPROATE SOD 500 MG in DEXTROSE 5% 50 ML IV SCH ×3 (10:53→22:00)
--- NOTE | 2018-12-17 10:56 | Family Medicine Progress Note ---
Date of Service December 17, 2018 Assessment & Plan (1) Adult failure to thrive: 73-year-old female with a significant history of CVA, seizure disorder, mood disorder, HLD, T2DM, HTN presents with her caregiver with concerns of ambulatory dysfunction with frequent falls, increased agitated, poor p.o. intake intake and persistent cough. Patient's chest x-ray was unremarkable, head CT was unremarkable, no new changes. Lab work was essentially normal with persistent chronic anemia. Patient is being admitted for failure to thrive and for further evaluation for placement. . Failure to thrive with possible acute metabolic encephalopathy -?Secondary to decline due to age and comorbidities such as hx CVA. -BUN 26 on admission, Hydration with 1/2 NSS +20meq K @ 125ml/hr -PT/OT Assessments and treatment -Case Care coordination appreciated Persistent cough, ?Aspiration Pneumonia Chest x-ray unremarkable, no overt pneumonia noted -Speech Therapy consult, appreciate recs Symptomatic treatment Mucinex, Tessalon Perles, suction PRN -Continue Unasyn History of CVA Continue atorvastatin, clopidogrel -pills crushed Hypertension Continue lisinopril -pill crushed History of seizure disorder Depakote converted to IV Valproic Acid 500mg Q6H 2/2 inability to crush pills -Levels normal CODE STATUScaretaker was unaware of patient's wishes, full per previous admission Dietheart healthy, pureed DVT prophylaxisSCDs (2) Ambulatory dysfunction: (3) 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 No meaningful HPI or review of systems obtainable. Rough Planer Tender notes a decline over the last several weeks. Cough and mucus. Speech therapy input appreciated. Vitals noted, in general she is awake but mostly just moaning out randomly does not follow commands is nonverbal but does not appear in distress. HEENT normocephalic atraumatic mucous membranes are dry. Breathing is unlabored no accessory muscle use good effort. She appears to be weak frail and contracted. Failure to thrive/possible acute metabolic encephalopathy -Supportive care/treat underlying causes -Biggest concern is that a significant part of her failure to thrive is probably due to decline from her age and comorbidities Presumed aspiration events -She does not have an overt pneumonia, speech therapy appreciated, continue Unasyn for now, continue supportive care Dehydration -From poor oral intake, IV fluids and follow Seizure disorder -Depakote level okay, continue Malnutrition -Appears to be due to poor oral intake otherwise as above Subjective Very minimal information attainable from patient. Patient's home health which was in the room noted that she had been gradually getting weaker for the past 3 weeks, but acutely worsened in the last week. She does note that the patient at baseline does tend to groan and yell "What did I do" "Where am I" and "Stop" quite frequently. Patient does not appear to be in current distress. 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) and no eyelid abnormality ENMT: Mouth: + dry oral mucous membranes and + poor dentition Neck: Thyroid: + thyroid mass Solid, mobile mass on L neck, chronic for years Respiratory: normal respiratory effort and + cough; no respiratory distress and no labored breathing Auscultation: + rhonchi (Upper LL field ); breath sounds present and no diminished lung sounds Cardiovascular: Rate/Rhythm: regular rate and regular rhythm Heart Sounds: normal S1 and normal S2; no murmur Gastrointestinal (Abdomen): normal bowel sounds, soft, nontender, no hepatosplenomegaly Neurologic: awake and + confused Speech / Cognition: + abnormal cognition Motor/Sensory: + tremor (arms b/l, L>R) Psychiatric: Orientation: oriented to person Eye Contact: + poor eye contac t Results & Data Vital Signs (Past 12 Hours) Vital Signs Temp Pulse Pulse Resp BP BP Pulse Ox 12/17/18 07:18 37.4 C 72 16 131/62 92 12/17/18 01:55 36.4 C L 90 18 114/66 90 12/17/18 01:00 84 20 104/65 95 12/17/18 00:00 85 20 104/63 93 12/16/18 23:00 89 15 126/77 92 Laboratory Results Abnormal lab results 12/16/18 12/16/18 12/17/18 Range/Units 20:15 20:15 06:53 RBC 3.69 L (4.2-5.4) M/uL MCV 107.0 H (80-100) fL MCH 34.1 H (25-34) pg MCHC 31.9 L (32-36) g/dL RDW Std Deviation 58.2 H (36.4-46.3) fL RDW Coeff of Omid 14.9 H (11.5-14.5) % MPV 10.6 H (7.4-10.4) fL Neut # (Auto) 6.76 H (1.4-6.5) K/uL Lymph # (Auto) 0.63 L (1.2-3.4) K/uL [place] # (Auto) 1.50 H (0.11-0.59) K/uL PT 13.1 H (9.0-12.0) Seconds INR 1.3 H (0.9-1.1) BUN (7-18) mg/dl BUN/Creatinine Ratio (10-20) Lipase 45 L (73-393) U/L 12/17/18 Range/Units 07:04 RBC (4.2-5.4) M/uL MCV (80-100) fL MCH (25-34) pg MCHC (32-36) g/dL RDW Std Deviation (36.4-46.3) fL RDW Coeff of Omid (11.5-14.5) % MPV (7.4-10.4) fL Neut # (Auto) (1.4-6.5) K/uL Lymph # (Auto) (1.2-3.4) K/uL [place] # (Auto) (0.11-0.59) K/uL PT (9.0-12.0) Seconds INR (0.9-1.1) BUN 26 H (7-18) mg/dl BUN/Creatinine Ratio 28.0 H (10-20) Lipase (73-393) U/L Medications Administered Current Inpatient Medications Acetaminophen (Tylenol) 650 mg PO Q4H PRN PRN Reason: pain/fever Stop: 01/16/19 02:39 Atorvastatin Calcium (Lipitor) 80 mg PO HS [facility] Stop: 01/16/19 20:59 Last Admin: 12/17/18 20:38 Dose: Not Given Documented by: Benzonatate (Tessalon Perle) 100 mg PO TID [facility] Stop: 01/16/19 08:59 Last Admin: 12/17/18 20:38 Dose: Not Given Documented by: Clopidogrel Bisulfate (Plavix) 75 mg PO QAM [facility] Stop: 01/16/19 08:59 Last Admin: 12/17/18 12:39 Dose: 75 mg Documented by: Divalproex Sodium (Depakote Extended Release) 1,000 mg PO BID [facility] Stop: 01/16/19 08:59 Last Admin: 12/17/18 09:54 Dose: Not Given Documented by: Guaifenesin (Mucinex) 1,200 mg PO Q12 [facility] Stop: 01/16/19 08:59 Last Admin: 12/17/18 20:38 Dose: Not Given Documented by: Ampicillin Sodium/Sulbactam Sodium 3,000 mg/ Sodium Chloride 108 mls @ 200 mls/hr IV Q6H [facility]; Protocol Stop: 12/24/18 03:59 Last Infusion: 12/17/18 16:33 Dose: Infused Documented by: Valproic Acid 500 mg/ Dextrose 55 mls @ 55 mls/hr IV Q6H [facility] Stop: 01/16/19 09:59 Last Infusion: 12/17/18 17:25 Dose: Infused Documented by: Potassium Chloride/Sodium Chloride (1/2 Nss + 20meq Kcl 1000ml) 20 meq in 1,000 mls @ 125 mls/hr IV .Q8H [facility] Stop: 01/16/19 11:59 Last Admin: 12/17/18 12:37 Dose: 125 mls/hr Documented by: Lisinopril (Zestril) 5 mg PO DAILY [facility] Stop: 01/16/19 08:59 Last Admin: 12/17/18 12:39 Dose: 5 mg Documented by: Loratadine/Pseudoephedrine Sulfate (Claritin-D 24 Hour) 1 tab PO DAILY PRN PRN Reason: Allergy Symptoms Stop: 01/16/19 02:39 Multivitamins (Multivitamin Tab) 1 tab PO DAILY [facility] Stop: 01/16/19 08:59 Last Admin: 12/17/18 09:44 Dose: Not Given Documented by: Nystatin (Mycostatin) 5 ml PO QID [facility] Stop: 01/16/19 12:59 Last Admin: 12/17/18 20:38 Dose: Not Given Documented by: Ondansetron HCl (Zofran) 4 mg IV Q6H PRN PRN Reason: Nausea Stop: 01/16/19 02:39 Polyethylene Glycol (Miralax Powder Packet) 17 gm PO DAILY PRN PRN Reason: Constipation Stop: 01/16/19 02:39 PG Care Time/CCT Total # of Minutes Spent Total Time Spent with Patient: Total time spent is greater than 50% in coordination of care (as documented) at patient's floor/unit and/or counseling patient: Resident Activity Tracking Resident Involvement: Resident Care Provided Care Provided: Adult Hospital Medicine
[2018-12-17] MEDS: SODIUM CHLOR 0.45% + 20MEQ KCL 20 MEQ/1,000 ML BAG IV SCH ×2 (12:37→22:47)
[2018-12-17] MEDS: CLOPIDOGREL BISULFATE 75 MG TAB PO SCH (12:39)
[2018-12-17] MEDS: NYSTATIN SUSP 500,000 U/5 ML UDC PO SCH ×4 (12:39→20:38)
[2018-12-17] MEDS: LISINOPRIL 5 MG TAB PO SCH (12:39)
[2018-12-17] MEDS: ATORVASTATIN 40 MG TAB PO SCH (20:38)
[2018-12-18] MEDS: AMPICILLIN/SULBACTAM SOD 3,000 MG in 0.9 % SODIUM CHLORIDE 100 ML IV SCH ×4 (04:10→22:42)
[2018-12-18] MEDS: VALPROATE SOD 500 MG in DEXTROSE 5% 50 ML IV SCH ×4 (04:47→21:34)
[2018-12-18] MEDS ORDERED: Nursing to Pharmacy Communication ONE (05:50)
[2018-12-18] MEDS: SODIUM CHLOR 0.45% + 20MEQ KCL 20 MEQ/1,000 ML BAG IV SCH ×2 (09:05→17:43)
[2018-12-18] MEDS: NYSTATIN SUSP 500,000 U/5 ML UDC PO SCH ×4 (09:28→20:31)
[2018-12-18] MEDS: MULTIVITAMIN TAB PO SCH (09:28)
[2018-12-18] MEDS: CLOPIDOGREL BISULFATE 75 MG TAB PO SCH (09:28)
[2018-12-18] MEDS: guaiFENesin 600 MG TABCR PO SCH ×2 (09:28→20:30)
[2018-12-18] MEDS: LISINOPRIL 5 MG TAB PO SCH (09:28)
[2018-12-18] MEDS: BENZONATATE 100 MG CAPSULE PO SCH ×3 (09:28→20:32)
--- NOTE | 2018-12-18 10:58 | Family Medicine Progress Note ---
Date of Service December 18, 2018 Assessment & Plan (1) Adult failure to thrive: 73-year-old female with a significant history of CVA, seizure disorder, mood disorder, HLD, T2DM, HTN presents with her caregiver with concerns of ambulatory dysfunction with frequent falls, increased agitated, poor p.o. intake intake and persistent cough. Patient's chest x-ray was unremarkable, head CT was unremarkable, no new changes. Lab work was essentially normal with persistent chronic anemia. Patient is being admitted for failure to thrive and for further evaluation for placement. . Failure to thrive with possible acute metabolic encephalopathy -?Secondary to decline due to age and comorbidities such as hx CVA. -BUN 26 on admission, Hydration with 1/2 NSS +20meq K @ 80ml/hr for maintenance -PT/OT Assessments and treatment -Case Care coordination appreciated - Plan for DC to [facility] this Saturday12/20/18 Persistent cough, ?Aspiration Pneumonia Chest x-ray unremarkable, no overt pneumonia noted -Speech Therapy consult, appreciate recs Symptomatic treatment Mucinex, Tessalon Perles, suction PRN -Continue Unasyn, discussion was held to D/C, but due to patients consistent aspiration, will continue. History of CVA Continue atorvastatin, clopidogrel -pills crushed Hypertension Continue lisinopril -pill crushed History of seizure disorder Depakote converted to IV Valproic Acid 500mg Q6H 2/2 inability to crush pills -Levels normal -Attempt to convert to PO medications in the near future before transfer to [facility]. 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 still no meaingful HPI or ROS but able to call out "nurse" -- and caregiver notes earlier she was asking if she took her meds. gurgling respirations josh noted laying in bed propped up gurgling respirations no respiratory distress. heent nc at mmm. cardio reg no r/m/g. lungs w upper airway sounds mostly - mucous sounding, some of this refers to lungs but faint L side lung findings and rhonchi also sounding like they are present in lung (of note pt leaning more towards left) 95% on RA at my check aspiration - continue unasyn. current event likely secretion related. does not appear overtly ill - continue supportive care and keep upright, did OK w foods per caregiver this AM, no clear choking etc. dysphagia - ongoing modified diet and vigilance. ongoing speech eval and treat (both here and at SNF) dehydration - improving - reduce IVF but sicne not eating well don't dc entirely failure to thrive - related to dementia/strokes - acute metabolic encephalopathy due to above now appearing to be improvign some moderate (possibly working towards severe) protein calorie malnutrition - due to above - particularly failure to thrive seizure d/o - hopefully can transition to PO depakote 500mg QID if this can be crushed (will have to ask pharmacy) dispo - continue IV fluids, abx, supportive care - plan for [place] in 48hrs, hopefully will have shown enough improvement for this, if not will have to delay add heparin SQ for DVT proph Subjective Attending on service Dr. Patel Patient seen and examined this AM at the bedside. Patient appeared much more coherent and was able to answer with her full name and that we were at [facility]. She stated that she was not feeling that good and that things were "pretty bad," but when pressed about what was wrong she stated that "that was a joke." Minimal conversation was able to be held with the patient afterwards. Upon reassessment later that afternoon, patient was unaware of surroundings and appeared to back in her state of yelling out repeated phrases. She would look your direction when spoken to, but did not answer questions appropriately. Review of Systems Review of Systems: Unobtainable due to cognitive status In the brief period patient was cognisant, she noted that she was not having any chest pain, difficulty breathing, or abdominal pain. 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) and no eyelid abnormality ENMT: Mouth: + dry oral mucous membranes (much improved this AM from the previous day ) and + poor dentition Respiratory: normal respiratory effort and + cough; no respiratory distress and no labored breathing Auscultation: + rhonchi (Upper LL field, lessened ); breath sounds present and no diminished lung sounds Cardiovascular: Rate/Rhythm: regular rate and regular rhythm Heart Sounds: normal S1 and normal S2; no murmur Gastrointestinal (Abdomen): normal bowel sounds, soft, nontender, no hepatosplenomegaly Neurologic: awake and + confused Speech / Cognition: + abnormal cognition Motor/Sensory: + tremor (arms b/l, L>R) Psychiatric: Orientation: alert, oriented to person and oriented to place; + not oriented to time Eye Contact: + poor eye contact Results & Data Vital Signs (Past 12 Hours) Vital Signs Temp Pulse Resp BP BP Pulse Ox 12/18/18 07:29 36.5 C 63 18 138/71 93 12/17/18 23:52 36.1 C L 79 18 129/82 91 Laboratory Results Abnormal lab results 12/18/18 12/18/18 Range/Units 10:46 10:46 RBC 2.74 L (4.2-5.4) M/uL Hgb 9.3 L D (12.0-16.0) g/dL Hct 28.8 L (37-47) % MCV 105.1 H (80-100) fL RDW Std Deviation 55.3 H (36.4-46.3) fL MPV 10.5 H (7.4-10.4) fL Lymph # (Auto) 0.82 L (1.2-3.4) K/uL [place] # (Auto) 0.77 H (0.11-0.59) K/uL Chloride 109 H (98-107) mmol/L BUN 24 H (7-18) mg/dl BUN/Creatinine Ratio 30.5 H (10-20) Glucose 115 H (70-99) mg/dl Medications Administered Current Inpatient Medications Acetaminophen (Tylenol) 650 mg PO Q4H PRN PRN Reason: pain/fever Stop: 01/16/19 02:39 Atorvastatin Calcium (Lipitor) 80 mg PO HS [facility] Stop: 01/16/19 20:59 Last Admin: 12/17/18 20:38 Dose: Not Given Documented by: Benzonatate (Tessalon Perle) 100 mg PO TID [facility] Stop: 01/16/19 08:59 Last Admin: 12/18/18 13:56 Dose: Not Given Documented by: Clopidogrel Bisulfate (Plavix) 75 mg PO QAM [facility] Stop: 01/16/19 08:59 Last Admin: 12/18/18 09:28 Dose: 75 mg Documented by: Divalproex Sodium (Depakote Extended Release) 1,000 mg PO BID [facility] Stop: 01/16/19 08:59 Last Admin: 12/17/18 09:54 Dose: Not Given Documented by: Guaifenesin (Mucinex) 1,200 mg PO Q12 [facility] Stop: 01/16/19 08:59 Last Admin: 12/18/18 09:28 Dose: 1,200 mg Documented by: Valproic Acid 500 mg/ Dextrose 55 mls @ 55 mls/hr IV Q6H [facility] Stop: 01/16/19 09:59 Last Admin: 12/18/18 16:43 Dose: 55 mls/hr Documented by: Potassium Chloride/Sodium Chloride (1/2 Nss + 20meq Kcl 1000ml) 20 meq in 1,000 mls @ 80 mls/hr IV .[id number] [facility] Stop: 01/16/19 11:59 Last Infusion: 12/18/18 16:36 Dose: 80 mls/hr Documented by: Ampicillin Sodium/Sulbactam Sodium 3,000 mg/ Sodium Chloride 108 mls @ 200 mls/hr IV Q6H [facility]; Protocol Stop: 12/24/18 16:59 Lisinopril (Zestril) 5 mg PO DAILY [facility] Stop: 01/16/19 08:59 Last Admin: 12/18/18 09:28 Dose: 5 mg Documented by: Loratadine/Pseudoephedrine Sulfate (Claritin-D 24 Hour) 1 tab PO DAILY PRN PRN Reason: Allergy Symptoms Stop: 01/16/19 02:39 Multivitamins (Multivitamin Tab) 1 tab PO DAILY [facility] Stop: 01/16/19 08:59 Last Admin: 12/18/18 09:28 Dose: 1 tab Documented by: Nystatin (Mycostatin) 5 ml PO QID [facility] Stop: 01/16/19 12:59 Last Admin: 12/18/18 13:56 Dose: Not Given Documented by: Ondansetron HCl (Zofran) 4 mg IV Q6H PRN PRN Reason: Nausea Stop: 01/16/19 02:39 Polyethylene Glycol (Miralax Powder Packet) 17 gm PO DAILY PRN PRN Reason: Constipation Stop: 01/16/19 02:39 PG Care Time/CCT Total # of Minutes Spent Total Time Spent with Patient: Total time spent is greater than 50% in coordination of care (as documented) at patient's floor/unit and/or counseling patient: Resident Activity Tracking Resident Involvement: Resident Care Provided Care Provided: Adult Hospital Medicine
[2018-12-18 11:19] LABS: BUN Creatinine Ratio 30.5 (10-20); Calcium 8.7 mg/dl (8.5-10.1); Est GFR (African American) 88.6; Est GFR (Non-African American) 76.5; Potassium 3.8 mmol/L (3.5-5.1)
[2018-12-18 11:26] LABS: Basophils # (auto) 0.02 K/uL (0-0.2); Basophils % (auto) 0.3 %; Eosinophils # (auto) 0.08 K/uL (0-0.5); Eosinophils % (auto) 1.2 %; Hematocrit (blood only) 28.8 % (37-47); Hemoglobin 9.3 g/dL (12.0-16.0); Immature Granulocytes # (auto) 0.01 K/uL (0.00-0.02); Immature Granulocytes % (auto) 0.2 %; Lymphocytes # (auto) 0.82 K/uL (1.2-3.4); Lymphocytes % (auto) 12.4 %; Mean Corpuscular Hemoglobin 33.9 pg (25-34); Mean Corpuscular Hgb Conc 32.3 g/dL (32-36); Mean Corpuscular Volume 105.1 fL (80-100); Mean Platelet Volume 10.5 fL (7.4-10.4); Monocytes # (auto) 0.77 K/uL (0.11-0.59); Monocytes % (auto) 11.6 %; Neutrophils # (auto) 4.91 K/uL (1.4-6.5); Neutrophils % (auto) 74.3 %; Platelet Count 167 K/uL (130-400); RDW Coefficient of Variation 14.5 % (11.5-14.5); RDW Standard Deviation 55.3 fL (36.4-46.3); Red Blood Count 2.74 M/uL (4.2-5.4); White Blood Count 6.61 K/uL (4.8-10.8)
[2018-12-18 11:45] LABS: Acanthocytes 2+; Macrocytosis Present; Spherocytes 1+
[2018-12-18] MEDS: ATORVASTATIN 40 MG TAB PO SCH (20:33)
[2018-12-19] MEDS: VALPROATE SOD 500 MG in DEXTROSE 5% 50 ML IV SCH ×2 (04:18→10:13)
[2018-12-19] MEDS: AMPICILLIN/SULBACTAM SOD 3,000 MG in 0.9 % SODIUM CHLORIDE 100 ML IV SCH (05:16)
[2018-12-19] MEDS: SODIUM CHLOR 0.45% + 20MEQ KCL 20 MEQ/1,000 ML BAG IV SCH (08:09)
[2018-12-19] MEDS: guaiFENesin 600 MG TABCR PO SCH ×2 (08:11→21:36)
[2018-12-19] MEDS: MULTIVITAMIN TAB PO SCH (08:11)
[2018-12-19] MEDS: NYSTATIN SUSP 500,000 U/5 ML UDC PO SCH (08:12)
[2018-12-19] MEDS: BENZONATATE 100 MG CAPSULE PO SCH ×3 (08:12→21:37)
[2018-12-19] MEDS: CLOPIDOGREL BISULFATE 75 MG TAB PO SCH (08:12)
[2018-12-19] MEDS: LISINOPRIL 5 MG TAB PO SCH (08:12)
[2018-12-19 08:18] LABS: BUN Creatinine Ratio 28.6 (10-20); Calcium 8.5 mg/dl (8.5-10.1); Creatinine Clr Calc Pharmacy 55.6 ml/min; Est GFR (Non-African American) 82.9
[2018-12-19] MEDS: HEPARIN SOD 5,000 UNIT/0.5 ML VIAL SQ SCH ×3 (10:11→21:36)
--- NOTE | 2018-12-19 11:27 | Family Medicine Progress Note ---
Date of Service December 19, 2018 Assessment & Plan (1) Adult failure to thrive: 73-year-old female with a significant history of CVA, seizure disorder, mood disorder, HLD, T2DM, HTN presents with her caregiver with concerns of ambulatory dysfunction with frequent falls, increased agitated, poor p.o. intake intake and persistent cough. Patient's chest x-ray was unremarkable, head CT was unremarkable, no new changes. Lab work was essentially normal with persistent chronic anemia. Patient is being admitted for failure to thrive and for further evaluation for placement. . Failure to thrive with possible acute metabolic encephalopathy -?Secondary to decline due to age and comorbidities such as hx CVA. -BUN 26 on admission, resolved. Fluids discontinued since patient taking PO. -PT/OT Assessments and treatment -Case Care coordination appreciated - Plan for DC to [facility] this Saturday12/20/18 Persistent cough, ?Aspiration Pneumonia Chest x-ray unremarkable, no overt pneumonia noted -Speech Therapy consult, appreciate recs Symptomatic treatment Mucinex, Tessalon Perles, suction PRN -D/C Unasyn History of CVA Continue atorvastatin, clopidogrel -pills crushed Hypertension Continue lisinopril -pill crushed History of seizure disorder Depakote initially converted to IV Valproic Acid 500mg Q6H 2/ inability to crush pills. -Adjusted to Valproic Acid 500mg PO solution QID today, plan for D/C with this upon transfer to [facility]. 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 breathing better, seems to have done a little better eating and drinking. no new issues. anticipate ability to go to [facility] tomorrow josh noted nad breathing unlabored lungs now fairly clear no r/r/w good effort. no pallor or ictuers aspiration - breathing now clear, aspiration precautions. with lung exam improved and no pneumonia on CXR OK to stop unasyn. continue speech therapy dysphagia - ongoing modified diet and vigilance - see above as well. ongoing speech eval and treat (both here and at SNF) dehydration - improving - stop IVF and follow with PO intake alone failure to thrive - related to dementia/strokes - acute metabolic encephalopathy due to above now appearing to be slowly/steadily improving moderate (possibly working towards severe) protein calorie malnutrition - due to above - particularly failure to thrive seizure d/o - can't seem to swallow depakote ER since such large pills - change to short acting 500mg QID dispo - anticipate SNF tomorrow heparin SQ for DVT proph Subjective Patient was slightly improved cognitive mccarthy today. She was able to note to me that she did not enjoy the food and was hoping that we could instead provide her with some chicken. She was able to hold conversation for a few minutes at a time before staring off into space or resuming her calls/yells. Review of Systems Review of Systems: In the brief period patient was cognisant, she noted that she was not having any chest pain, difficulty breathing, or abdominal pain. She also denied any fever, chills. 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) Respiratory: normal respiratory effort and + cough; no respiratory distress and no labored breathing Auscultation: lungs clear to auscultation bilaterally; breath sounds present and no diminished lung sounds Cardiovascular: Rate/Rhythm: regular rate and regular rhythm Heart Sounds: normal S1 and normal S2; no murmur Gastrointestinal (Abdomen): normal bowel sounds, soft, nontender, no hepatosplenomegaly Neurologic: awake and + confused Speech / Cognition: + abnormal cognition Motor/Sensory: + tremor (arms b/l, L>R) Psychiatric: Orientation: alert, oriented to person and oriented to place; + not oriented to time (States it is 1943) Eye Contact: + poor eye contact Results & Data Vital Signs (Past 12 Hours) Vital Signs Temp Pulse Resp BP Pulse Ox 12/19/18 07:11 36.5 C 82 20 131/81 95 Laboratory Results Abnormal lab results 12/19/18 Range/Units 07:26 Chloride 110 H (98-107) mmol/L BUN 21 H (7-18) mg/dl BUN/Creatinine Ratio 28.6 H (10-20) Medications Administered Current Inpatient Medications Acetaminophen (Tylenol) 650 mg PO Q4H PRN PRN Reason: pain/fever Stop: 01/16/19 02:39 Atorvastatin Calcium (Lipitor) 80 mg PO HS [facility] Stop: 01/16/19 20:59 Last Admin: 12/18/18 20:33 Dose: Not Given Documented by: Benzonatate (Tessalon Perle) 100 mg PO TID [facility] Stop: 01/16/19 08:59 Last Admin: 12/19/18 08:12 Dose: 100 mg Documented by: Clopidogrel Bisulfate (Plavix) 75 mg PO QAM [facility] Stop: 01/16/19 08:59 Last Admin: 12/19/18 08:12 Dose: 75 mg Documented by: Guaifenesin (Mucinex) 1,200 mg PO Q12 [facility] Stop: 01/16/19 08:59 Last Admin: 12/19/18 08:11 Dose: 1,200 mg Documented by: Heparin Sodium (Porcine) (Heparin Sodium (Porcine)) 5,000 units SQ Q12 [facility] Stop: 01/18/19 08:59 Last Admin: 12/19/18 10:21 Dose: Not Given Documented by: Lisinopril (Zestril) 5 mg PO DAILY [facility] Stop: 01/16/19 08:59 Last Admin: 12/19/18 08:12 Dose: 5 mg Documented by: Loratadine/Pseudoephedrine Sulfate (Claritin-D 24 Hour) 1 tab PO DAILY PRN PRN Reason: Allergy Symptoms Stop: 01/16/19 02:39 Multivitamins (Multivitamin Tab) 1 tab PO DAILY [facility] Stop: 01/16/19 08:59 Last Admin: 12/19/18 08:11 Dose: 1 tab Documented by: Ondansetron HCl (Zofran) 4 mg IV Q6H PRN PRN Reason: Nausea Stop: 01/16/19 02:39 Polyethylene Glycol (Miralax Powder Packet) 17 gm PO DAILY PRN PRN Reason: Constipation Stop: 01/16/19 02:39 Valproic Acid (Valproic Acid) 500 mg PO QID [facility] Stop: 01/18/19 16:59 PG Care Time/CCT Total # of Minutes Spent Total Time Spent with Patient: Total time spent is greater than 50% in coordination of care (as documented) at patient's floor/unit and/or counseling patient: Resident Activity Tracking Resident Involvement: Resident Care Provided Care Provided: Adult Hospital Medicine
[2018-12-19] MEDS: VALPROIC ACID SOLN 500 MG/10 ML UDC PO SCH ×2 (17:24→21:30)
[2018-12-19] MEDS: ATORVASTATIN 40 MG TAB PO SCH (21:36)
[2018-12-20] MEDS: MULTIVITAMIN TAB PO SCH (08:45)
[2018-12-20] MEDS: CLOPIDOGREL BISULFATE 75 MG TAB PO SCH (08:45)
[2018-12-20] MEDS: guaiFENesin 600 MG TABCR PO SCH (08:47)
[2018-12-20] MEDS: LISINOPRIL 5 MG TAB PO SCH (08:47)
[2018-12-20] MEDS: BENZONATATE 100 MG CAPSULE PO SCH (08:48)
[2018-12-20] MEDS: VALPROIC ACID SOLN 500 MG/10 ML UDC PO SCH (08:48)
[2018-12-20] MEDS: HEPARIN SOD 5,000 UNIT/0.5 ML VIAL SQ SCH (08:51)
--- NOTE | 2018-12-20 11:54 | Discharge Summary ---
Date of Service December 20, 2018 Admission HPI Per Admitting Provider 73-year-old female with a significant history of CVA, seizure disorder, mood disorder, HLD, T2DM, HTN presents with her caregiver with concerns of ambulatory dysfunction with frequent falls, increased agitated, poor p.o. intake intake and persistent cough. She is sound asleep tonight when I went in to examine her, but her caregiver was able to provide history. She states that she is communicative at baseline, but has had poor contact and more frequent outbursts since her hospitalizations over the summer. Overall they have just noticed a sharp decline. The decline has been even more noticeable over the past 4 days. The caregiver does note that over the past 4 days the patient has felt warm without a recorded fever and has had a persistent cough. The patient experienced a stroke 2016 and then again in July 2018PCA territory, right occipital lobe infarct, right thalamic and cerebellar small lacunar lesions. In addition, she had a seizure in March and June 2018 which also left her worsening symptoms. Unable to obtain review of systems secondary to patient's mental status Admission Exam Per Admitting Provider Constitutional: WD/WN, vitals as above ENMT: external ear and nose normal, oropharynx normal Neck: trachea midline, no thyromegaly Respiratory: normal respiratory effort, lungs clear to auscultation Cardiovascular: RRR, no murmur, no edema Gastrointestinal (Abdomen): normal bowel sounds, soft, nontender, no hepatosplenomegaly Musculoskeletal: no cyanosis or clubbing, extremities motor strength 5/5 Skin: no rashes, warm and dry Neurologic: + not awake Psychiatric: Orientation: not alert Principal Diagnosis Failure to thrive Discharge Exam Constitutional + underweight Eyes bilateral blindness. ENMT Mouth: + poor dentition left sided parotid mass, quarter-sized. Neck trachea midline, no thyromegaly Respiratory normal respiratory effort, lungs clear to auscultation Cardiovascular RRR, no murmur, no edema Gastrointestinal (Abdomen) normal bowel sounds, soft, nontender, no hepatosplenomegaly Psychiatric level of alertness waxes and wanes, however per attending physician as I was able to carry a conversation with the patient, her level of consciousness is improved today as this has not been possible in the past. In some distress at the thought of [facility]. Discharge Data Allergies Allergy/AdvReac Type Severity Reaction Status Date / Time ragweed pollen Allergy Intermediate ITCHY Verified 12/02/18 14:10 EYES, SNEEZING house dust Allergy Mild ITCHY Verified 12/02/18 14:10 EYES,SNEEZING No Known Drug Allergies Allergy Unknown Verified 12/02/18 14:10 Trees AdvReac Unknown Uncoded 12/02/18 14:10 Consultations 12/16/18 22:40 ED Decision to Admit Stat Impression: No acute intracranial abnormality. Old bilateral POOL INSTALLER territory infarcts. 12/16/18 CXR Impression: No significant change compared to the prior study. No acute process. 12/17/18 02:40 Consult Case Management - Discharge Planning Routine Hospital Course (1) Adult failure to thrive: 73-year-old female with a significant history of CVA, seizure disorder, mood disorder, HLD, T2DM, HTN presented with her caregiver with concerns of ambulatory dysfunction with frequent falls, increased agitated, poor p.o. intake intake and persistent cough. Concern for possible acute intracranial findings and possible pneumonia led to chest x-ray and CT which were both unremarkable. Lab work was essentially normal with persistent chronic anemia. Pt admitted ultimately for failure to thrive and to complete workup for infectious and intracranial etiologies of her behavior and ambulation changes. Failure to thrive with possible acute metabolic encephalopathy -Likely secondary to decline due to age and comorbidities such as hx CVA. -BUN 26 on admission, resolved. Fluids discontinued since patient taking PO. -DC'ed to [facility] today (12/20/18). Persistent cough, concern for Aspiration Pneumonia Chest x-ray unremarkable, no overt pneumonia noted Symptomatic treatment Mucinex, Tessalon Perles, suction PRN which we recommend she continue outpatient. -Important for her to remain upright for feeding and for some time after, at least 30 minutes to decrease risk of aspiration events. History of CVA Continue atorvastatin, clopidogrel (crush pills for patient). Hypertension Continue lisinopril (crush pills for patient) History of seizure disorder Depakote initially converted to IV Valproic Acid 500mg Q6H 2/2 inability to crush pills. -Adjusted to Valproic Acid 500mg/10mL PO solution four times daily as her Depakote levels were normal during hospital stay. 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): (4) Tremor: (5) Occipital stroke: (6) CKD stage 3 due to type 2 diabetes mellitus: (7) History of CVA (cerebrovascular accident): (8) Seizure disorder: Total Time Total Time Spent Total Time Spent (In Minutes): <30 minutes Discharge Plan Discharge Items Patient Disposition: Transfer [facility] Reason For Visit: FAILURE TO THRIVE Discharge Diagnosis: Failure to thrive, decreased oral intake Activity: Resume your previous activity Non-emergency contact: Primary Care Provider Call non-emergency contact if: you have any medication questions Follow-up/Referrals: Brian Arizmendi MD [Primary Care Provider] - Diet: Regular Diet Texture: Pureed (blended smooth) Addtl Attending Provider Instructions: 73-year-old female with a history of stroke, seizure disorder, mood disorder, high cholesterol, type 2 diabetes, and high blood pressure initially came with her caregiver with concerns of ambulatory dysfunction with frequent falls, increased agitated, poor oral intake and persistent cough. Patient's CT and chest xray showed no changes in illness. Lab work was essentially normal with persistent chronic anemia. Patient was admitted for failure to thrive and for further evaluation for placement. Failure to thrive -These were likely secondary to decline due to age and comorbidities such as history of stroke. -Continue physical therapy and occupational therapy upon your discharge. -Discharge to [facility] today. Persistent cough -There was concern that you may have had a pneumonia (infection of your lungs) because of food going down your windpipe. However chest xray showed no signs of pneumonia. -We recommend you continue with suctioning as needed and continue eating normally and ensure you are sitting up straight while you eat and for at least 30 minutes afterward. History of stroke Continue atorvastatin, clopidogrel - pills crushed Hypertension Continue lisinopril - pills crushed History of seizure disorder - Your levels for your Seizure Medication were found to be normal during your stay in the hospital. - Since you were having difficulty swallowing the pills, you were given IV medication during your stay. - You are being discharged with the same medication in an oral solution form as noted below: -Valproic Acid PO Solution 500mg four times daily. We have provided three refills. Once these run out she will need to receive them from her primary care provider. Pending Studies at Discharge: No Stand-Alone Forms: [facility] Skilled Items Patient informed of condition?: Yes DNR: No Discharge Level of Care: Skilled Communicable Disease: No Discharge Prognosis: Stable Lines: None Urinary Catheter: No Medications and DC Order Prescriptions: New valproic acid (as sodium salt) 500 mg/10 mL (10 mL) Solution 500 mg PO QID Qty: 1000 RF: 3 Continued loratadine-pseudoephedrine [Claritin-D 24 Hour] 10-240 mg Tablet Extended Release 24 Hr 1 tab PO DAILY PRN (Reason: Allergy Symptoms) Qty: 0 RF: 0 wheelchair device .ROUTE .MEDSUPPLY Qty: 1 RF: 0 clopidogrel 75 mg tablet 75 mg PO QAM Qty: 30 RF: 5 ondansetron HCl 4 mg tablet 4 mg PO Q6H PRN (Reason: Nausea) Qty: 30 RF: 0 lisinopril 5 mg tablet 5 mg PO DAILY Qty: 90 RF: 1 multivitamin Tablet 1 tab PO DAILY RF: 0 atorvastatin [Lipitor] 80 mg tablet 80 mg PO HS RF: 0 Discontinued divalproex 250 mg tablet extended release 24 hr 1,000 mg PO BID Qty: 240 RF: 5 Discharge Orders: Discharge Order (Routine); Ordered 12/20/18 Ordered By: Cheryl Haque Admission Data Admit Date/Time: 12/17/18 01:24 Attending Provider: Miguel Patel Admit Provider: Pj Carpenter Primary Care Provider: Brian Arizmendi Other Providers: Sage Lynn ; Tulio Lanier at [place] Other Interventions: Discharge Summary Assessment (RN) Last Done: 12/20/18 10:27 DC Date/Time DO NOT enter until pt leaves facility: 12/20/18 11:00 Supervising Physician Co-Signing Physician Notes I personally examined the patient and verified all jay points of history and exam, discussed case, and agree with decision making with Dr Wynne. no trouble breathing seems to be eating better. more conversational although one time yells "NO!" for unclear reasons. josh noted nad breathing unlabored lungs now fairly clear no r/r/w good effort. no pallor or ictuers aspiration - breathing now clear, aspiration precautions. off unasyn. continue speech therapy dysphagia - ongoing modified diet and vigilance - see above as well. ongoing speech eval and treat at SNF dehydration - improved - will definitely need to monitor PO intake at SNF failure to thrive - related to dementia/strokes - deteriorated to where SNF level care appears most appropriate - also with acute metabolic encephalopathy due to above now appearing to be slowly/steadily improving moderate (possibly working towards severe) protein calorie malnutrition - due to above - particularly failure to thrive seizure d/o - can't seem to swallow depakote ER since such large pills - changed to short acting 500mg QID dispo - [place] today heparin SQ utilized for DVT proph Resident Activity Tracking Resident Involvement: Resident Care Provided Care Provided: Adult Hospital Medicine
== END 2018-12-20 11:00 | DRG 640 ==
LOC: ED 19:13 → SUATTDRO 12-17 01:24 → 4W 12-17 01:24

== ENCOUNTER 2018-12-22 06:44 | Inpatient (IN) ==
[2018-12-22] MEDS ORDERED: LORazepam 2 MG/ML VIAL (IM USE) IM STA (07:38)
[2018-12-22] MEDS ORDERED: ALBUT/IPRATROP 3MG/0.5MG NEB 3 ML VIAL NEB ONE (07:38)
[2018-12-22] MEDS ORDERED: HALOPERIDOL LACTATE 5 MG/ML 1 ML VIAL IM STA (07:38)
[2018-12-22 09:11] LABS: Hematocrit (blood only) 27.8 % (37-47); Hemoglobin 9.1 g/dL (12.0-16.0); Mean Corpuscular Hemoglobin 34.2 pg (25-34); Mean Corpuscular Hgb Conc 32.7 g/dL (32-36); Mean Corpuscular Volume 104.5 fL (80-100); Mean Platelet Volume 10.4 fL (7.4-10.4); Platelet Count 208 K/uL (130-400); RDW Coefficient of Variation 14.4 % (11.5-14.5); RDW Standard Deviation 54.9 fL (36.4-46.3); Red Blood Count 2.66 M/uL (4.2-5.4); White Blood Count 22.72 K/uL (4.8-10.8)
[2018-12-22 09:19] LABS: Appearance Urine Clear (Clear); Bilirubin Urine Negative (Negative); Blood Urine Negative (Negative); Color Urine Yellow; Glucose Urine UA Negative (Negative); Ketones Urine Negative (Negative); Leukocyte Esterase Urine Negative (Negative); Nitrite Urine Negative (Negative); Protein Urine Negative (Negative); Urobilinogen Urine Negative (Negative)
--- NOTE | 2018-12-22 09:26 | XRay Report ---
XR chest 1V portable HISTORY: 73 years-old Female Chest Pain acute atypical chest pain COMPARISON: Chest radiograph 12/16/2018 TECHNIQUE: Portable AP view of the chest FINDINGS: Cardiac silhouette is normal in size. The patient is rotated to the left. The patient's chin obscures the left lung apex. Asymmetric left lung base opacities with trace left pleural effusion. The right lung is clear. No pneumothorax or overt pulmonary edema. Degenerative changes of the shoulders and sp ine. Cholecystectomy. IMPRESSION: Asymmetric left lung base opacities suggest atelectasis or pneumonia with trace left pleu ral effusion. The above report was generated using voice recognition software. It may contain grammatical, syntax o r spelling errors. Electronically signed by: Farzad Ken M.D. 12/22/2018 9:24 AM
[2018-12-22 09:29] LABS: Alanine Aminotransferase 62 U/L (12-78); Aspartate Aminotransferase 61 U/L (15-37); BUN Creatinine Ratio 14.7 (10-20); Blood Urea Nitrogen 13 mg/dl (7-18); Calcium 9.4 mg/dl (8.5-10.1); Carbon Dioxide 28 mmol/L (21-32); Chloride 108 mmol/L (98-107); Est GFR (African American) 79.9; Est GFR (Non-African American) 68.9; Glucose 120 mg/dl (70-99); Lipase 36 U/L (73-393); Potassium 3.5 mmol/L (3.5-5.1); Sodium 142 mmol/L (136-145)
[2018-12-22 09:34] LABS: Albumin Globulin Ratio 0.6 (0.9-2); Alkaline Phosphatase 111 U/L (45-117); Bilirubin,Total 0.6 mg/dl (0.2-1); Creatine Kinase 109 U/L (26-192); Creatine Kinase MB 1.2 ng/ml (0.5-3.6); Globulin 3.5 gm/dl (2.5-4.0); Total Protein 5.5 gm/dl (6.4-8.2); Troponin I < 0.015 ng/ml (0-0.045)
[2018-12-22] MEDS ORDERED: VANCOMYCIN HCL 1,250 MG in SODIUM CHLORIDE 0.9% 500 ML IV ONE (09:41)
[2018-12-22] MEDS ORDERED: PIPERACILL/TAZOBAC CONSULT ACTIVE PRN (09:41)
[2018-12-22] MEDS ORDERED: VANCOMYCIN CONSULT ACTIVE PRN (09:41)
[2018-12-22] MEDS ORDERED: LEVOFLOXACIN/D5W 750 MG/150 ML BAG IV STA (09:41)
[2018-12-22] MEDS ORDERED: PIPERACILLIN/TAZOBACTAM 4.5 GM/120 ML BAG IV ONE (09:41)
[2018-12-22 09:45] LABS: Acanthocytes 2+; Basophils # (auto) 0.03 K/uL (0-0.2); Basophils % (auto) 0.1 %; Eosinophils # (auto) 0.04 K/uL (0-0.5); Eosinophils % (auto) 0.2 %; Immature Granulocytes # (auto) 0.06 K/uL (0.00-0.02); Immature Granulocytes % (auto) 0.3 %; Lymphocytes # (auto) 2.09 K/uL (1.2-3.4); Lymphocytes % (auto) 9.2 %; Monocytes % (auto) 15.4 %; Neutrophils % (auto) 74.8 %; Spherocytes 1+
--- NOTE | 2018-12-22 10:15 | History & Physical Report ---
Date of Service December 22, 2018 Assessment & Plan (1) Aspiration pneumonia: Patient admitted for aspiration pneumonia. WBC is elevated. will closely monitor patient. Had discussion with POA. DNR. WILL CONSULT PALLIATIVE CARE PATIENT'S QUALITY OF LIFE HAS DETERIORATED. Discuss goals of care, especially if patient improves and is discharge. Had discussion with previous hospitalist, who states that jose mna was ultimately having patient slowly transisitoned to comfort measures. However, this was not decided on last admission. at this moment, will continue with IV antibioitcs. (2) Seizure disorder: Patient has history of seizures. On valproic acid given mental status will place on IV valproic acid. (3) Adult failure to thrive: due to altered mental status. (4) Ambulatory dysfunction: Patient has been bed ridden for past few weeks. She has been less ambulatory and gradually having a worse quality of life in the past 2 years (5) Occipital stroke: History of above stroke. statin and plavix on hold for now given poor mental status. 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 CVA, seizure disorder, mood disorder, HLD, T2DM, HTN. It appears patient has been getting worse for the past 2 years patient has mainly been bedridden. This is likely precipitated by her stroke. Patient was recently admitted here for aspiration pneumonia was treated with IV antibiotics and patient improved and was discharged to nursing facility. However, patient was only there for a day and deteriorated. It appears she aspirated again given the gurgling noises she was making in her hospital bed. Patient is currently in bed and does not provide much significant history. Her caregiver is at bedside and states that patient had improved over the course of the hospital stay and Saturday. But on Saturday she did not visit the patient. Nursing facility infomred her on Saturday morning that the patient had deteriorated and had to come back to the hospital. There was question that patient was not doing so well on Saturday. Patient does not have any family but I did have discussion with MICHAEL in which he states that patient given her poor quality of life determined that her CODE STATUS should be do not resuscitate order. MICHAEL also was interested in discussing with palliative care to discuss goals of care given how patient has deteriorated over the past 2 past 2 years. Allergies Allergy/AdvReac Type Severity Reaction Status Date / Time ragweed pollen Allergy Intermediate ITCHY Verified 12/22/18 07:13 EYES, SNEEZING house dust Allergy Mild ITCHY Verified 12/22/18 07:13 EYES,SNEEZING No Known Drug Allergies Allergy Unknown Verified 12/22/18 07:13 Trees AdvReac Unknown Unknown Uncoded 12/22/18 07:13 Home Medications Home Medications Medication Instructions Recorded Confirmed Type loratadine-pseudoephedrine 1 tab PO DAILY PRN #0 tab 12/22/16 12/22/18 History [Claritin-D 24 Hour] multivitamin 1 tab PO DAILY 10/22/17 12/22/18 History atorvastatin [Lipitor] 80 mg PO HS 04/08/18 12/22/18 History wheelchair #1 ea 09/01/18 12/22/18 Rx clopidogrel 75 mg tablet 75 mg PO QAM #30 tab 09/08/18 12/22/18 Rx ondansetron HCl 4 mg tablet 4 mg PO Q6H PRN #30 tab 09/29/18 12/22/18 Rx lisinopril 5 mg tablet 5 mg PO DAILY #90 tab 12/17/18 12/22/18 Rx valproic acid (as sodium salt) 500 mg PO QID #1000 ml 12/20/18 12/22/18 Rx acetaminophen 650 mg PO Q4 PRN 12/22/18 12/22/18 History acetaminophen 650 mg PO Q4 PRN 12/22/18 12/22/18 History albuterol sulfate 2.5 mg INHALATION Q6 PRN 12/22/18 12/22/18 History Past Med/Surg History Medical History Enrrique's paralysis Seizures (Chronic) Hypertensive emergency (Acute) DVT prophylaxis Focal seizure (Acute) New onset seizure (Acute) 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) Sepsis (Acute) Hypertension (Chronic) Diabetes (Chronic) Hyperlipidemia Depression GERD (gastroesophageal reflux disease) Hearing deficit Surgical History History of open reduction and internal fixation (ORIF) procedure Hx laparoscopic cholecystectomy Family History Mother Cardiac pacemaker Father Colon cancer Other Family history non-contributory Social History Preferred Language: Lao Communication Ability: Impaired Visual Impairment: No Limitations Machine Stamper Required: No Beliefs That Will Affect Care: None marital status: Single Current Living Situation: Alone Current Living Situation Comment: home with 24 hour caretakers Other Information That Helps Us Care for You: No Feels Safe at Home: Yes Safety Concerns: Feels Safe At This Time Smoking Status: Never smoker Second Hand Exposure: No ; Hx Alcohol Use: No Hx Substance Use: No Review of Systems Review of Systems: Unobtainable due to cognitive status Physical Exam Physical Exam: Constitutional: patient is lethargic, not following commands Eyes: PERRL and reactive pupils; + abnormal visual field confrontation (Legally blind since stroke July 2018) and no eyelid abnormality ENMT: Ears: + hearing impairment Mouth: + poor dentition Neck: Thyroid: + thyroid mass (L sided, likely parotid in source) Respiratory: normal respiratory effort and + cough; no respiratory distress and no labored breathing Auscultation: lungs clear to auscultation bilaterall except for transmitted sounds from her throat. Cardiovascular: Rate/Rhythm: tachycardic and regular rhythm Heart Sounds: normal S1 and normal S2; no murmur Gastrointestinal (Abdomen): normal bowel sounds, soft, nontender, no hepatosplenomegaly Neurologic: awake and + confused Speech / Cognition: + abnormal cognition Motor/Sensory: + tremor (arms b/l, L>R) Psychiatric: Orientation: alert, oriented to person and oriented to place; + not oriented to time (States it is 1943) Eye Contact: + poor eye contact Results & Data Vital Signs (Past 12 Hours) Vital Signs Temp Pulse Pulse Resp BP BP Pulse Ox 12/22/18 08:48 118 H 26 H 96/55 L 93 12/22/18 08:04 74 18 99 12/22/18 07:58 100 12/22/18 06:34 36.9 C 81 20 87/69 L 98 PG Care Time/CCT Total # of Minutes Spent Total Time Spent with Patient: Total time spent is greater than 50% in coordination of care (as documented) at patient's floor/unit and/or counseling patient:
[2018-12-22] MEDS ORDERED: ALBUTEROL 0.083% NEBU SOLN 3 ML VIAL INH PRN (10:30)
[2018-12-22 10:37] LABS: iSTAT Creatinine 0.8 mg/dl (0.6-1.3); iSTAT Potassium 3.5 mEq/L (3.3-5.0)
[2018-12-22 10:38] LABS: iSTAT Hemoglobin 8.8 g/dl (12.0-16.0); iSTAT Ionized Calcium 1.26 mmol/l (1.12-1.32)
[2018-12-22] MEDS ORDERED: VANCOMYCIN HCL 1,250 MG in SODIUM CHLORIDE 0.9% 250 ML IV ONE (12:15)
--- NOTE | 2018-12-22 12:52 | Palliative Care Consultation ---
Date of Consultation December 22, 2018 Assessment & Plan (1) Goals of care, counseling/discussion: -73 year old female patient with PMH CVA July 2018, swallowing issues, aspiration, seizure disorder, CKD, GERD, and other problems, presented to the hospital from [facility] for concerns for respiratory decline and altered mental status. Patient was just in hospital from 12/17-12/20 with failure to thrive, dysphagia, falls, weakness. Prior to that she was living at home with 24/7 caregivers. After hospitalization she went to [facility] under skilled benefit but was planning to stay long-term. Patient had been seen by speech therapy and was recommended a pureed diet, which patient continued to follow at [facility] per the notes. Prior to coming in, staff at apparently had concerns about patient's altered mental status and reports of hypoxia. She was then sent to the ED, CXR shows left lung base opacities concerning for pneumonia and trace pleural effusion. Patient admitted with IV abx and IVF. Given patient's continued decline, recurrent aspiration, pneumonia, dependence for care, her overall prognosis is poor. Palliative care consulted to discuss goals of care. -Met with patient and one of her primary caregivers, Lamar, in room 283. Patient is awake, oriented x4, but is slightly lethargic due to the lorazepam given in the ED. -Patient gave permission to speak about medical conditions and GOC with Lamar. Lamar has been with patient a long time and knows her well. (Georgina Edwards [phone]) -Patient states she is not interested in undergoing further testing or procedures, but isn't sure whether or not she would want to continue coming to the hospital for further treatment of this recurrent pneumonia. We talked about swallowing issues, aspiration, recurrent aspiration pneumonia, other complications of failure to thrive, not getting better with coming to the hospital, etc. -Talked about transitioning to comfort/hospice care at [facility]. Patient would like to think about it. myrna'ana maria RODRIGUEZ is a friend, Mick Navarrete. Georgina will update Mick and I will get in contact with him tomorrow after I check in with the patient. -Continue conservative management. -Based on patient's debilitated state, need for full care and little rehab potential, recurrent aspiration pneumonia, failure to thrive with hypoalbuminemia of 2.0, and other comorbidities, patient would certainly qualify for hospice and is considered end-stage. -PPS 30%. -Palliative care will continue to follow closely. (2) Aspiration pneumonia: (3) Seizure disorder: (4) Adult failure to thrive: (5) History of CVA (cerebrovascular accident): Supervising Physician Co-Signing Physician Notes Late entry for visit on 12/22 Chart reviewed, pt seen and examined. Collaborated with ELLEN Rincon Pt seen the afternoon of 12/22 - pt's caregiver at bedside. Pt minimally responsive on exam , wet weak cough HEENT: EOMI, L mass at angle of jaw Resp: unlabored, upper airway secretions, diminished BS both bases CV RR, + edema Abd: not distended Agree with above note, assessment and plan - will cont to assist POA with plan of care History of Present Illness Attending Physician: David Canas History of Present Illness This 73 year old female patient with PMH CVA July 2018, swallowing issues, aspiration, seizure disorder, CKD, GERD, and other problems, presented to the hospital from [facility] for concerns for respiratory decline and altered mental status. Patient was just in hospital from 12/17-12/20 with failure to thrive, dysphagia, falls, weakness. Prior to that she was living at home with 24/7 caregivers. After hospitalization she went to [facility] under skilled benefit but was planning to stay long-term. Patient had been seen by speech therapy and was recommended a pureed diet, which patient continued to follow at [facility] per the notes. Prior to coming in, staff at apparently had concerns about patient's altered mental status and reports of hypoxia. She was then sent to the ED, CXR shows left lung base opacities concerning for pneumonia and trace pleural effusion. Patient admitted with IV abx and IVF. Given patient's continued decline, recurrent aspiration, pneumonia, dependence for care, her overall prognosis is poor. Palliative care consulted to discuss goals of care. Thank you kindly for this consult. Palliative care team will follow as needed. Allergies Allergy/AdvReac Type Severity Reaction Status Date / Time ragweed pollen Allergy Intermediate ITCHY Verified 12/22/18 07:13 EYES, SNEEZING house dust Allergy Mild ITCHY Verified 12/22/18 07:13 EYES,SNEEZING No Known Drug Allergies Allergy Unknown Verified 12/22/18 07:13 Trees AdvReac Unknown Unknown Uncoded 12/22/18 07:13 Home Medications Home Medications Medication Instructions Recorded Confirmed Type loratadine-pseudoephedrine 1 tab PO DAILY PRN #0 tab 12/22/16 12/22/18 History [Claritin-D 24 Hour] multivitamin 1 tab PO DAILY 10/22/17 12/22/18 History atorvastatin [Lipitor] 80 mg PO HS 04/08/18 12/22/18 History wheelchair #1 ea 09/01/18 12/22/18 Rx clopidogrel 75 mg tablet 75 mg PO QAM #30 tab 09/08/18 12/22/18 Rx ondansetron HCl 4 mg tablet 4 mg PO Q6H PRN #30 tab 09/29/18 12/22/18 Rx lisinopril 5 mg tablet 5 mg PO DAILY #90 tab 12/17/18 12/22/18 Rx valproic acid (as sodium salt) 500 mg PO QID #1000 ml 12/20/18 12/22/18 Rx acetaminophen 650 mg PO Q4 PRN 12/22/18 12/22/18 History acetaminophen 650 mg PO Q4 PRN 12/22/18 12/22/18 History albuterol sulfate 2.5 mg INHALATION Q6 PRN 12/22/18 12/22/18 History Patient History Medical History Enrrique's paralysis Seizures (Chronic) Hypertensive emergency (Acute) DVT prophylaxis Focal seizure (Acute) New onset seizure (Acute) 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) Sepsis (Acute) Hypertension (Chronic) Diabetes (Chronic) Hyperlipidemia Depression GERD (gastroesophageal reflux disease) Hearing deficit Surgical History History of open reduction and internal fixation (ORIF) procedure Hx laparoscopic cholecystectomy Family History Mother Cardiac pacemaker Father Colon cancer Other Family history non-contributory Social History Preferred Language: [place] Communication Ability: Effective Visual Impairment: No Limitations Oil Agent Required: No Beliefs That Will Affect Care: None marital status: Single Current Living Situation: Alone Current Living Situation Comment: home with 24 hour caretakers Other Information That Helps Us Care for You: No Feels Safe at Home: Yes Safety Concerns: Feels Safe At This Time Smoking Status: Never smoker Second Hand Exposure: No ; Hx Alcohol Use: No Hx Substance Use: No Review of Systems Review of Systems: Denies pain, SOB, N/V. Does c/o weakness and difficulty swallowing. Physical Exam Constitutional: + ill appearing, + physical limitations, + frail appearing and + lethargic ENMT: Mouth: + poor dentition Neck: normal visual inspection Respiratory: no labored breathing Auscultation: + diminished lung sounds (extremely diminished in bases) thick oral/tracheal secretions Cardiovascular: RRR, no murmur, no edema Extremities: + edema (generalized) Gastrointestinal (Abdomen): Inspection/Auscultation: abdomen normal to inspection and normal bowel sounds Percussion/Palpation: abdomen soft; abdomen nontender Musculoskeletal: Extremities: + abnormal strength (weak) Skin: + pallor Neurologic: moves all extremities and awake Psychiatric: Orientation: oriented x 3 Results & Data Vital Signs (Past 12 Hours) Vital Signs Temp Pulse Pulse Resp BP BP Pulse Ox 12/22/18 10:54 90 24 102/50 L 97 12/22/18 10:13 122 H 18 113/65 100 12/22/18 08:48 118 H 26 H 96/55 L 93 12/22/18 08:04 74 18 99 12/22/18 07:58 100 12/22/18 06:34 36.9 C 81 20 87/69 L 98 Time Spent Midlevel 70 minutes with >50% of the time spent at bedside with patient and family discussing condition and GOC.
[2018-12-22] MEDS: SODIUM CHLORIDE 0.9% 1000ML 1,000 ML IV SCH (13:02)
[2018-12-22] MEDS: VALPROATE SOD 500 MG in DEXTROSE 5% 50 ML IV SCH ×2 (13:02→17:51)
--- NOTE | 2018-12-22 13:19 | Pharmacy Report ---
Pharmacy Abx Initial Consult - Date of Service December 22, 2018 - Pharmacy Dosing Scope Date of Consult: 12/22/18 Consultation requested by: Dr. Canas Pharmacy is consulted to initiate vancomycin and Zosyn IV dosing therapy, order appropriate labs and adjust drug dose/frequency. - Subjective The patient is a 73 year old F admitted on 12/22/18 10:56. - Objective Height: 5 ft 4 in Weight: 56.7 kg Vital Signs (Past 12hrs): Vital Signs Temp Pulse Pulse Resp BP BP Pulse Ox 12/22/18 12:56 36.2 C L 93 H 18 94/60 L 92 12/22/18 10:54 90 24 102/50 L 97 12/22/18 10:13 122 H 18 113/65 100 12/22/18 08:48 118 H 26 H 96/55 L 93 12/22/18 08:04 74 18 99 12/22/18 07:58 100 12/22/18 06:34 36.9 C 81 20 87/69 L 98 Lab Results (24hrs): Laboratory Tests (24 Hours) 12/22/18 12/22/18 08:58 08:58 WBC 22.72 H Neut # (Auto) 17.00 H Creatinine 0.85 Est Cr Clr Drug Dosing Not Reportable Total Creatine Kinase 109 Micro Results: 12/22/18 10:00 Aerobic Blood Culture - Pending Blood Anaerobic Blood Culture - Pending 12/22/18 10:16 Aerobic Blood Culture - Pending Blood Anaerobic Blood Culture - Pending - Risk Factors for Resistance * Hospitalization for 48 hours or more within the past 90 days - recent discharge on 12/20/18 * Antimicrobial use within the last 90 days [Unasyn] - Assessment & Plan Assessment 73 year old F receiving empiric vancomycin and Zosyn for treatment of possible aspiration pneumonia. Patient does have risk factors for possible antibiotic- resistant infection based on recent hospital admission and recent IV antibiotics. Patient presents from [place]. Numerous risk factors present for aspiration including seizure disorder and swallowing issues s/p CVA (08/06). MRSA nasal swab ordered - can likely discontinue vancomycin if negative. Blood cultures x 2 pending. WBC elevated at 22.7 (up from 6.6 on 12/18/18). Plan Vancomycin IV * Estimated PK Parameters: Vd 0.7 L/kg, Case 0.048 hr-1, t1/2 14.4 hr * Loading dose: 1250 mg (22 mg/kg) * Maintenance dose: 750 mg IV (13 mg/kg) every 12 hours * Goal trough level for pneumonia : 15 to 20 mcg/mL * Trough level ordered for 12/24/18 @-0130 prior to 4th dose Piperacillin/tazobactam * 4.5 g bolus administered over 30 minutes, then 3.375 g IV extended infusion every 8 hours for CrCl greater than 20 mL/min Pharmacy will continue to follow and will adjust dose/frequency as necessary. Thank you.
--- NOTE | 2018-12-22 15:28 | Emergency Department Note ---
Entered by Marquez Estevez acting as a scribe for History of Present Illness General Chief complaint: Respiratory Problems Stated complaint: INCREASED SECRETIONS/POSSIBLE ASPIRATION Time Seen by Provider: 12/22/18 06:46 Source: patient and other (Caregiver ) History of Present Illness Provider complaint: Respiratory issues Onset (ago): day(s) (Past couple of days) Location: chest Pain Consistency: + constant Associated symptoms: + cough The patient is a 73 year old female who presents to the Emergency Room with complaints of constant shortness of breath that started yesterday. The patient was admitted recently for an aspiration pneumonia but discharged back to [facility] after her symptoms seemed to improve. The staff at [facility] report that the patient still is gurgling when she talks and is "failing to thrive" so they sent her back to the ED. The patient has received breathing treatments and supplemental oxygen since the onset of her symptoms but they still persist. HPI is limited secondary to patient being a poor historian and uncooperative. Home Medications Home Medications Medication Instructions Recorded Confirmed Type loratadine-pseudoephedrine 1 tab PO DAILY PRN #0 tab 12/22/16 12/22/18 History [Claritin-D 24 Hour] multivitamin 1 tab PO DAILY 10/22/17 12/22/18 History atorvastatin [Lipitor] 80 mg PO HS 04/08/18 12/22/18 History wheelchair #1 ea 09/01/18 12/22/18 Rx clopidogrel 75 mg tablet 75 mg PO QAM #30 tab 09/08/18 12/22/18 Rx ondansetron HCl 4 mg tablet 4 mg PO Q6H PRN #30 tab 09/29/18 12/22/18 Rx lisinopril 5 mg tablet 5 mg PO DAILY #90 tab 12/17/18 12/22/18 Rx valproic acid (as sodium salt) 500 mg PO QID #1000 ml 12/20/18 12/22/18 Rx acetaminophen 650 mg PO Q4 PRN 12/22/18 12/22/18 History acetaminophen 650 mg PO Q4 PRN 12/22/18 12/22/18 History albuterol sulfate 2.5 mg INHALATION Q6 PRN 12/22/18 12/22/18 History Allergies Allergy/AdvReac Type Severity Reaction Status Date / Time ragweed pollen Allergy Intermediate ITCHY Verified 12/22/18 07:13 EYES, SNEEZING house dust Allergy Mild ITCHY Verified 12/22/18 07:13 EYES,SNEEZING No Known Drug Allergies Allergy Unknown Verified 12/22/18 07:13 Trees AdvReac Unknown Unknown Uncoded 12/22/18 07:13 Past Med/Surg History Medical History Enrrique's paralysis Seizures (Chronic) Hypertensive emergency (Acute) DVT prophylaxis Focal seizure (Acute) New onset seizure (Acute) 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) Sepsis (Acute) Hypertension (Chronic) Diabetes (Chronic) Hyperlipidemia Depression GERD (gastroesophageal reflux disease) Hearing deficit Surgical History History of open reduction and internal fixation (ORIF) procedure Hx laparoscopic cholecystectomy Family History Mother Cardiac pacemaker Father Colon cancer Other Family history non-contributory Social History Preferred Language: Bulgarian Communication Ability: Impaired Visual Impairment: No Limitations Staff Radiologist Required: No Beliefs That Will Affect Care: None marital status: Single Current Living Situation: Alone Current Living Situation Comment: home with 24 hour caretakers Other Information That Helps Us Care for You: No Feels Safe at Home: Yes Safety Concerns: Feels Safe At This Time Smoking Status: Never smoker Second Hand Exposure: No ; Hx Alcohol Use: No Hx Substance Use: No Review of Systems See HPI for pertinent positives & negatives. Other (Limited secondary to patient being a poor historian and uncooperative. ) Physical Exam Vital Signs Vital Signs - 24 hr 12/22/18 07:58 12/22/18 08:04 12/22/18 08:48 Pulse Rate [Apical] 74 118 H Respiratory Rate 18 26 H Respiratory Effort / Characteristics Non-Labored Spontaneous Blood Pressure [Left Arm] 96/55 L Blood Pressure Mean [Left Arm] 68 Pulse Oximetry 100 99 93 Oxygen Delivery Method Nasal Cannula Nasal Cannula Nebulizer Oxygen Flow Rate 2 2 12/22/18 10:13 12/22/18 10:54 Pulse Rate [Apical] 122 H 90 Respiratory Rate 18 24 Respiratory Effort / Characteristics Blood Pressure [Left Arm] 113/65 102/50 L Blood Pressure Mean [Left Arm] 81 67 Pulse Oximetry 100 97 Oxygen Delivery Method Room Air Room Air Oxygen Flow Rate GENERAL: Awake, alert, well-appearing, in no distress HENT: Normocephalic, atraumatic. Oropharynx unremarkable. EYES: Normal conjunctiva. Sclera non-icteric. NECK: Supple. No nuchal rigidity. FROM. No masses. RESPIRATORY: Wheezing throughout all lung andrade. No rales. Normal respiratory effort. CARDIAC: Normal rate. Normal rhythm. No murmurs. No rubs. Extremities warm and well perfused. Pulses equal. No JVD. GI: Soft, non-distended. No tenderness to palpation. No rebound or guarding. No masses. RECTAL: Deferred. MUSCULOSKELETAL: Atraumatic. Chest examination reveals no tenderness. The back is symmetrical on inspection without obvious abnormality. There is no CVA tenderness to palpation. No joint edema. LOWER EXTREMITIES: Calves are equal size bilaterally and non-tender. No edema. No discoloration. NEURO: Normal sensorium. No sensory or motor deficits noted. Course 0700: Past medical records reviewed. The patient was evaluated in room B02, and a complete history and physical examination were performed. The patient is refusing all other care at this time. The POA was called and is coming in. 0740: The POA has arrived and wants the best medical care possible for the patie nt. 0938: I spoke to Dr. Murcia [facility] Hospitalist about the patient's case. She is going to accept the patient for further evaluation. Consultations Consultation #1: I spoke to Dr. Twin Venegas [facility] Hospitalist about the patient's case. She is going to accept the patient for further evaluation. Time: 09:38 Administered Medications Albuterol (Duoneb) 3 ml NEB Q4R PRN PRN Reason: SOB or wheeze Stop: 01/22/19 06:59 Last Admin: 12/23/18 05:04 Dose: 3 ml Documented by: [id number] Heparin Sodium (Porcine) (Heparin Sodium (Porcine)) 5,000 units SQ Q12 JASWANT Stop: 01/21/19 20:59 Last Admin: 12/22/18 20:42 Dose: 5,000 units Documented by: [id number] Cosigned by: [id number] Valproic Acid 500 mg/ Dextrose 55 mls @ 55 mls/hr IV Q6H JASWANT Stop: 01/21/19 11:59 Last Infusion: 12/23/18 07:14 Dose: 0 mls/hr Documented by: [id number] Admin: 12/23/18 06:11 Dose: 55 mls/hr Documented by: [id number] Infusion: 12/23/18 01:45 Dose: 0 mls/hr Documented by: [id number] Admin: 12/23/18 00:31 Dose: 55 mls/hr Documented by: [id number] Infusion: 12/22/18 20:10 Dose: 0 mls/hr Documented by: [id number] Admin: 12/22/18 17:51 Dose: 55 mls/hr Documented by: [id number] Infusion: 12/22/18 14:17 Dose: 0 mls/hr Documented by: [id number] Admin: 12/22/18 13:02 Dose: 55 mls/hr Documented by: [id number] Sodium Chloride (Nss 1000ml) 1,000 mls @ 80 mls/hr IV .[id number] [facility] Stop: 12/23/18 12:44 Last Admin: 12/23/18 06:11 Dose: 80 mls/hr Documented by: [id number] Infusion: 12/23/18 06:11 Dose: 80 mls/hr Documented by: [id number] Infusion: 12/22/18 20:11 Dose: 80 mls/hr Documented by: [id number] Infusion: 12/22/18 13:03 Dose: 0 mls/hr Documented by: [id number] Admin: 12/22/18 13:02 Dose: 80 mls/hr Documented by: [id number] Piperacillin Sod/Tazobactam (Sod 3.375 gm/ Dextrose) 115 mls @ 28.75 mls/hr IV Q8H [facility]; Protocol Stop: 12/29/18 15:59 Last Infusion: 12/23/18 04:39 Dose: 0 mls/hr Documented by: [id number] Admin: 12/23/18 00:31 Dose: 28.8 mls/hr Documented by: [id number] Infusion: 12/22/18 22:09 Dose: 0 mls/hr Documented by: [id number] Admin: 12/22/18 17:51 Dose: 28.8 mls/hr Documented by: [id number] Vancomycin HCl 750 mg/ Sodium (Chloride) 265 mls @ 125 mls/hr IV Q12H [facility]; Protocol Stop: 12/30/18 01:59 Last Infusion: 12/23/18 04:39 Dose: 0 mls/hr Documented by: [id number] Admin: 12/23/18 02:18 Dose: 125 mls/hr Documented by: [id number] Miscellaneous (Check Scopolamine Patch Placement) 1 ea N/A QS JASWANT Stop: 12/25/18 00:00 Last Admin: 12/23/18 00:31 Dose: 1 ea Documented by: [id number] Discontinued Medications Albuterol (Duoneb) 12 ml NEB ONE ONE Stop: 12/22/18 07:39 Last Admin: 12/22/18 08:04 Dose: 12 ml Documented by: [id number] Haloperidol Lactate (Haldol) 5 mg IM NOW STA Stop: 12/22/18 07:39 Last Admin: 12/22/18 07:54 Dose: 5 mg Documented by: [id number] Piperacillin Sod/Tazobactam Sod (Zosyn) 4.5 gm in 120 mls @ 240 mls/hr IV NOW ONE Stop: 12/22/18 10:10 Last Infusion: 12/22/18 10:51 Dose: 0 mls/hr Documented by: [id number] Admin: 12/22/18 10:13 Dose: 240 mls/hr Documented by: [id number] Levofloxacin/Dextrose (Levaquin/D5w) 750 mg in 150 mls @ 100 mls/hr IV NOW STA Stop: 12/22/18 11:10 Last Infusion: 12/22/18 13:02 Dose: 0 mls/hr Documented by: [id number] Admin: 12/22/18 10:51 Dose: 100 mls/hr Documented by: [id number] Vancomycin HCl 1,250 mg/ (Sodium Chloride) 275 mls @ 125 mls/hr IV ONE ONE Stop: 12/22/18 14:26 Last Infusion: 12/22/18 18:11 Dose: 0 mls/hr Documented by: [id number] Admin: 12/22/18 14:15 Dose: 125 mls/hr Documented by: [id number] Acetaminophen (Ofirmev) 1,000 mg in 100 mls @ 400 mls/hr IV NOW STA Stop: 12/23/18 04:05 Last Admin: 12/23/18 04:40 Dose: Not Given Documented by: [id number] Lorazepam (Ativan) 1 mg IM NOW STA Stop: 12/22/18 07:39 Last Admin: 12/22/18 07:54 Dose: 1 mg Documented by: [id number] Scopolamine (Transderm-Scop) 1.5 mg TD ONE ONE Stop: 12/22/18 22:39 Last Admin: 12/23/18 00:01 Dose: 1.5 mg Documented by: [id number] Medical Decision Making Differential Diagnosis Differential diagnoses includes but is not limited to pneumonia, bronchitis, COPD/Asthma exacerbation, pneumothorax, pulmonary embolism, congestive heart failure, acute coronary syndrome, amongst others. Medical Records Attestation: I reviewed the patient's medical records. Home Medications Current Medication List: was personally reviewed by me Laboratory Data Attestation: I reviewed the patient's lab results. Result diagrams: 12/22/18 08:58 12/22/18 08:58 Lab Results 12/22/18 12/22/18 12/22/18 Range/Units 08:34 08:58 08:58 WBC 22.72 H (4.8-10.8) K/uL RBC 2.66 L (4.2-5.4) M/uL Hgb 9.1 L (12.0-16.0) g/dL POC Hgb 8.8 L (12.0-16.0) g/dl Hct 27.8 L (37-47) % POC Hct 26 L (37-47) % MCV 104.5 H (80-100) fL MCH 34.2 H (25-34) pg MCHC 32.7 (32-36) g/dL RDW Std Deviation 54.9 H (36.4-46.3) fL RDW Coeff of Omid 14.4 (11.5-14.5) % Plt Count 208 (130-400) K/uL MPV 10.4 (7.4-10.4) fL Immature Gran % (Auto) 0.3 % Neut % (Auto) 74.8 % Lymph % (Auto) 9.2 % Tucker % (Auto) 15.4 % Eos % (Auto) 0.2 % Baso % (Auto) 0.1 % Immature Gran # (Auto) 0.06 H (0.00-0.02) K/uL Neut # (Auto) 17.00 H (1.4-6.5) K/uL Lymph # (Auto) 2.09 (1.2-3.4) K/uL Tucker # (Auto) 3.50 H (0.11-0.59) K/uL Eos # (Auto) 0.04 (0-0.5) K/uL Baso # (Auto) 0.03 (0-0.2) K/uL Spherocytes 1+ Acanthocytes (Spur) 2+ POC Sodium 141 (135-144) mEq/L Sodium 142 (136-145) mmol/L POC Potassium 3.5 (3.3-5.0) mEq/L Potassium 3.5 (3.5-5.1) mmol/L POC Chloride 105 (101-112) mEq/L Chloride 108 H (98-107) mmol/L Carbon Dioxide 28 (21-32) mmol/L POC Total CO2 27 (24-31) mEq/l Anion Gap 6.0 (3-11) POC Anion Gap 13.0 L (16-25) mmol/L POC BUN 10 (7-18) mg/dl BUN 13 (7-18) mg/dl Creatinine 0.85 (0.6-1.2) mg/dl POC Creatinine 0.8 (0.6-1.3) mg/dl Est Cr Clr Drug Dosing Not Reportable Est GFR ( Amer) 79.9 Est GFR (Non-Af Amer) 68.9 BUN/Creatinine Ratio 14.7 (10-20) Glucose 120 H (70-99) mg/dl POC Glucose (other) 117 H (70-99) mg/dl Calcium 9.4 (8.5-10.1) mg/dl POC Ioniz Calcium Abner 1.26 (1.12-1.32) mmol/l Total Bilirubin 0.6 (0.2-1) mg/dl AST 61 H (15-37) U/L ALT 62 (12-78) U/L Alkaline Phosphatase 111 (45-117) U/L Total Creatine Kinase 109 (26-192) U/L CK-MB (CK-2) 1.2 (0.5-3.6) ng/ml CK/CKMB % Calc 1.1 (0-3.0) Troponin I < 0.015 (0-0.045) ng/ml Total Protein 5.5 L (6.4-8.2) gm/dl Albumin 2.0 L (3.4-5.0) gm/dl Globulin 3.5 (2.5-4.0) gm/dl Albumin/Globulin Ratio 0.6 L (0.9-2) Lipase 36 L (73-393) U/L Urine Color Urine Appearance (Clear) Urine pH (4.5-7.5) Ur Specific [place] (1.000-1.030) Urine Protein (Negative) Urine Glucose (UA) (Negative) Urine Ketones (Negative) Urine Blood (Negative) Urine Nitrite (Negative) Urine Bilirubin (Negative) Urine Urobilinogen (Negative) Ur Leukocyte Esterase (Negative) 12/22/18 Range/Units 09:00 WBC (4.8-10.8) K/uL RBC (4.2-5.4) M/uL Hgb (12.0-16.0) g/dL POC Hgb (12.0-16.0) g/dl Hct (37-47) % POC Hct (37-47) % MCV (80-100) fL MCH (25-34) pg MCHC (32-36) g/dL RDW Std Deviation (36.4-46.3) fL RDW Coeff of Omid (11.5-14.5) % Plt Count (130-400) K/uL MPV (7.4-10.4) fL Immature Gran % (Auto) % Neut % (Auto) % Lymph % (Auto) % Tucker % (Auto) % Eos % (Auto) % Baso % (Auto) % Immature Gran # (Auto) (0.00-0.02) K/uL Neut # (Auto) (1.4-6.5) K/uL Lymph # (Auto) (1.2-3.4) K/uL Tucker # (Auto) (0.11-0.59) K/uL Eos # (Auto) (0-0.5) K/uL Baso # (Auto) (0-0.2) K/uL Spherocytes Acanthocytes (Spur) POC Sodium (135-144) mEq/L Sodium (136-145) mmol/L POC Potassium (3.3-5.0) mEq/L Potassium (3.5-5.1) mmol/L POC Chloride (101-112) mEq/L Chloride (98-107) mmol/L Carbon Dioxide (21-32) mmol/L POC Total CO2 (24-31) mEq/l Anion Gap (3-11) POC Anion Gap (16-25) mmol/L POC BUN (7-18) mg/dl BUN (7-18) mg/dl Creatinine (0.6-1.2) mg/dl POC Creatinine (0.6-1.3) mg/dl Est Cr Clr Drug Dosing Est GFR ( Amer) Est GFR (Non-Af Amer) BUN/Creatinine Ratio (10-20) Glucose (70-99) mg/dl POC Glucose (other) (70-99) mg/dl Calcium (8.5-10.1) mg/dl POC Ioniz Calcium Abner (1.12-1.32) mmol/l Total Bilirubin (0.2-1) mg/dl AST (15-37) U/L ALT (12-78) U/L Alkaline Phosphatase (45-117) U/L Total Creatine Kinase (26-192) U/L CK-MB (CK-2) (0.5-3.6) ng/ml CK/CKMB % Calc (0-3.0) Troponin I (0-0.045) ng/ml Total Protein (6.4-8.2) gm/dl Albumin (3.4-5.0) gm/dl Globulin (2.5-4.0) gm/dl Albumin/Globulin Ratio (0.9-2) Lipase (73-393) U/L Urine Color Yellow Urine Appearance Clear (Clear) Urine pH 6.0 (4.5-7.5) Ur Specific [place] 1.010 (1.000-1.030) Urine Protein Negative (Negative) Urine Glucose (UA) Negative (Negative) Urine Ketones Negative (Negative) Urine Blood Negative (Negative) Urine Nitrite Negative (Negative) Urine Bilirubin Negative (Negative) Urine Urobilinogen Negative (Negative) Ur Leukocyte Esterase Negative (Negative) Imaging Data Radiologist's Impression: Radiology results as stated below per my review and the radiologist's interpretation: XR chest 1V portable HISTORY: 73 years-old Female Chest Pain acute atypical chest pain COMPARISON: Chest radiograph 12/16/2018 TECHNIQUE: Portable AP view of the chest FINDINGS: Cardiac silhouette is normal in size. The patient is rotated to the left. The patient's chin obscures the left lung apex. Asymmetric left lung base opacities with trace left pleural effusion. The right lung is clear. No pneumothorax or overt pulmonary edema. Degenerative changes of the shoulders and spine. Cholecystectomy. IMPRESSION: Asymmetric left lung base opacities suggest atelectasis or pneumonia with trace left pleural effusion. The above report was generated using voice recognition software. It may contain grammatical, syntax or spelling errors. Electronically signed by: Farzad Ken M.D. 12/22/2018 9:24 AM ECG Data Attestation: I personally reviewed and interpreted this ECG as follows: Indication: + SOB/dyspnea Rate (beats per minute): 112 Rhythm: + sinus tachycardia ECG [place]: + Normal ECG ST segments: + Normal ST segments ECG Findings: + Other (Old anterior infarct, QTC of 450) Blood Pressure Blood Pressure Findings: Normal blood pressure Blood Pressure Disposition: further management by hospitalist [facility] Narrative This is a 73-year-old female who presents emergency department complaining of gurgling and suspected aspiration. Upon arrival to the emergency department the patient will not let anybody touch her and is screaming and noncompliance. Based on this I did contact the patient's power of attorney recruiter and asked what his wishes were. He wishes for the patient to have an evaluation and to start treatment. Because of this he did agree to the patient being sedated. She was given 5 mg of Haldol IM along with 1 mg of Ativan IM. Repeat examination revealed improvement the patient's symptoms. Patient was given hour-long breathing treatment along with a chest x-ray which is concerning for aspiration. The patient does have a high elevation in her white blood cell count. Because of this blood cultures were obtained and the patient was started on IV Zosyn Levaquin and vancomycin. I did discuss the case with the hospitalist service who agreed to admit the patient. Impression & Plan Aspiration pneumonia Critical Care Time I have personally spent greater than 90 minutes of critical care time in the direct management of this patient. This includes bedside care, interpretation of diagnostic studies, and testing, discussion with consultants, patient, and family members, and other required patient management activities. This 90 minutes is in excess of all separately billable procedures. Discharge Plan Visit Data *Final* Discharge Date/Time: 12/22/18 11:23 Chief Complaint: Respiratory Problems Stated Complaint: INCREASED SECRETIONS/POSSIBLE ASPIRATION ED Provider: Can Pavon Discharge Problem: Aspiration pneumonia Patient Disposition: Admitted As Inpatient Discharge Instructions Interventions: ED Discharge Assessment Last Done: 12/22/18 11:23 Discharge Problem: Aspiration pneumonia Qualifiers: Aspiration pneumonia type: unspecified Laterality: unspecified laterality Lung location: unspecified part of lung Qualified Code(s): J69.0 - Pneumonitis due to inhalation of food and vomit The scribe's documentation has been prepared under my direction and personally reviewed by me in its entirety. I confirm that the note above accurately reflects all work, treatment, procedures, and medical decision making performed by me.
[2018-12-22] MEDS: PIPERACILLIN/TAZOBACTAM 3.375 GM in DEXTROSE 5% 100 ML IV SCH (17:51)
[2018-12-22] MEDS: HEPARIN SOD 5,000 UNIT/0.5 ML VIAL SQ SCH (20:42)
[2018-12-22] MEDS ORDERED: SCOPOLAMINE 1.5 MG TDSY TD ONE (22:38)
[2018-12-23] MEDS: VALPROATE SOD 500 MG in DEXTROSE 5% 50 ML IV SCH ×4 (00:31→19:47)
[2018-12-23] MEDS: CHECK SCOPOLAMINE PATCH PLACEMENT SCH ×3 (00:31→15:19)
[2018-12-23] MEDS: PIPERACILLIN/TAZOBACTAM 3.375 GM in DEXTROSE 5% 100 ML IV SCH ×3 (00:31→15:49)
[2018-12-23] MEDS ORDERED: VANCOMYCIN HCL 750 MG in SODIUM CHLORIDE 0.9% 250 ML IV SCH (02:00)
[2018-12-23] MEDS ORDERED: ACETAMINOPHEN 1,000 MG/100 ML VIAL IV STA (03:51)
[2018-12-23] MEDS ORDERED: ALBUT/IPRATROP 3MG/0.5MG NEB 3 ML VIAL NEB PRN (04:46)
[2018-12-23] MEDS: SODIUM CHLORIDE 0.9% 1000ML 1,000 ML IV SCH (06:11)
[2018-12-23] MEDS: HEPARIN SOD 5,000 UNIT/0.5 ML VIAL SQ SCH ×2 (07:34→21:13)
[2018-12-23] MEDS ORDERED: SCOPOLAMINE 1.5 MG TDSY TD SCH (10:15)
[2018-12-23 11:20] LABS: BUN Creatinine Ratio 17.3 (10-20); Calcium 8.7 mg/dl (8.5-10.1); Creatinine Clr Calc Pharmacy 55.7 ml/min; Est GFR (Non-African American) 74.2; Potassium 3.6 mmol/L (3.5-5.1)
[2018-12-23 11:48] LABS: Hematocrit (blood only) 23.4 % (37-47); Hemoglobin 7.5 g/dL (12.0-16.0); Mean Corpuscular Hemoglobin 33.6 pg (25-34); Mean Corpuscular Hgb Conc 32.1 g/dL (32-36); Mean Corpuscular Volume 104.9 fL (80-100); Mean Platelet Volume 10.4 fL (7.4-10.4); Platelet Count 195 K/uL (130-400); RDW Coefficient of Variation 14.7 % (11.5-14.5); RDW Standard Deviation 55.9 fL (36.4-46.3); Red Blood Count 2.23 M/uL (4.2-5.4); White Blood Count 11.61 K/uL (4.8-10.8)
[2018-12-23 11:49] LABS: Acanthocytes 1+; Basophils # (auto) 0.01 K/uL (0-0.2); Basophils % (auto) 0.1 %; Eosinophils # (auto) 0.18 K/uL (0-0.5); Eosinophils % (auto) 1.6 %; Immature Granulocytes # (auto) 0.03 K/uL (0.00-0.02); Immature Granulocytes % (auto) 0.3 %; Lymphocytes # (auto) 1.55 K/uL (1.2-3.4); Lymphocytes % (auto) 13.4 %; Monocytes # (auto) 0.98 K/uL (0.11-0.59); Monocytes % (auto) 8.4 %; Neutrophils # (auto) 8.86 K/uL (1.4-6.5); Neutrophils % (auto) 76.2 %; Spherocytes 1+
--- NOTE | 2018-12-23 15:08 | Palliative Care Progress Note ---
Date of Service December 23, 2018 Assessment & Plan (1) Goals of care, counseling/discussion: -Met with patient on multiple occasions today in room 251. Multiple caregivers at the bedside. Spoke with Georgina Edwards by phone and with patient's POA Mick Navarrete by phone. -Patient is much more awake today-- constantly yelling out saying "No!" and "Help." Stating she does not want her blood sugar taken. Doesn't want further testing. -While I was in room, suctioned patient for lots of thick yellow oral secretions. She has a weak cough, not able to expectorate. Oxygen saturation remained 95% on room air. -Discussed condition and goals with patient again today: failure to thrive, profound weakness, aspiration risk, risk for recurrent pneumonias, multiple hospitalizations, poor PO intake, failure at SNF for rehab, inability to care for herself or get out of bed, etc. -Asked patient what her goal is. She said, "Whatever needs to be done, I want to be done." but also stated "I've had enough. I want to be left alone. I don't want my blood sugar checked." When I attempt to elaborate on these conflicting messages, patient avoids the question. -Called and spoke with Georgina and MICHAEL Barton. Georgina is understanding of what's going on, as well as Mick. I spoke with Mick at length about our concern that patient is continuing to decline even while getting full support in the hospital with IVF, IV abx, nursing care, etc. Likelihood of her doing well at SNF on rehab is slim. He understands. Mick would not be opposed to comfort care. -Planning to meet with patient and MICHAEL Barton tomorrow. He will have nursing page me when he is at the bedside. We will talk with the patient about goals of care. -Based on patient's debilitated state, need for full care and little rehab potential, recurrent aspiration pneumonia, failure to thrive with hypoalbuminemia of 2.0, and other comorbidities, patient would certainly qualify for hospice and is considered end-stage. -PPS 30%. -Palliative care will continue to follow closely. (2) Aspiration pneumonia: (3) Seizure disorder: (4) Adult failure to thrive: (5) History of CVA (cerebrovascular accident): Subjective Patient more awake, yelling out. See A&P. Review of Systems Review of Systems: Denies pain, SOB, N/V. Does c/o weakness and difficulty swallowing. C/o moist cough and copious secretions Physical Exam Constitutional: + ill appearing, + physical limitations and + frail appearing ENMT: Mouth: + poor dentition Neck: normal visual inspection Respiratory: no labored breathing Auscultation: + diminished lung sounds (extremely diminished in bases) Was suctioned for copious secretions Cardiovascular: RRR, no murmur, no edema Extremities: + edema (generalized) Gastrointestinal (Abdomen): Inspection/Auscultation: abdomen normal to inspection and normal bowel sounds Percussion/Palpation: abdomen soft; abdomen nontender Musculoskeletal: Extremities: + abnormal strength (weak) Skin: + pallor Neurologic: moves all extremities and awake Psychiatric: Orientation: oriented x 3 Results & Data Vital Signs (Past 12 Hours) Vital Signs Temp Pulse Pulse Resp BP Pulse Ox Pulse Ox 12/23/18 15:00 36.7 C 84 20 125/65 96 12/23/18 11:09 36.7 C 81 20 106/62 95 12/23/18 08:00 82 12/23/18 07:01 36.8 C 87 20 109/54 L 93 12/23/18 05:12 87 14 93 12/23/18 04:21 93 PG Care Time/CCT Prolonged Care Time Prolonged Care Time: Yes Total Prolonged Care Time: 65 Time Spent Midlevel 65 minutes with >50% of time spent at bedside with patient and family discussing condition and GOC. (1) Aspiration pneumonia Aspiration pneumonia type: unspecified Laterality: unspecified laterality Lung location: unspecified part of lung Qualified Code(s): J69.0 - Pneumonitis due to inhalation of food and vomit
[2018-12-23] MEDS: ATROPINE SULFATE 1% OP SOLN 2 ML BTL SL PRN ×2 (15:50→19:48)
[2018-12-23] MEDS ORDERED: CHECK SCOPOLAMINE PATCH PLACEMENT SCH (16:00)
--- NOTE | 2018-12-23 22:42 | Hospitalist Progress Note ---
Date of Service December 23, 2018 Assessment & Plan (1) Aspiration pneumonia: Patient admitted for aspiration pneumonia. WBC is elevated. will closely monitor patient. Had discussion with POA. DNR. WILL CONSULT PALLIATIVE CARE PATIENT'S QUALITY OF LIFE HAS DETERIORATED. Unsure if patient will improve during this hospital stay as patient cannot protect her airway. ordered scopolamine patch and atropine drops. at this moment, will continue with IV antibioitcs. (2) Seizure disorder: Patient has history of seizures. On valproic acid given mental status will place on IV valproic acid. (3) Adult failure to thrive: due to altered mental status. (4) Ambulatory dysfunction: Patient has been bed ridden for past few weeks. She has been less ambulatory and gradually having a worse quality of life in the past 2 years (5) Occipital stroke: History of above stroke. statin and plavix on hold for now given poor mental status. 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 Cardiovascular: Rate/Rhythm: tachycardic and regular rhythm Heart Sounds: normal S1 and normal S2; no murmur Gastrointestinal (Abdomen): normal bowel sounds, soft, nontender, no hepatosplenomegaly Neurologic: awake and + confused Speech / Cognition: + abnormal cognition Motor/Sensory: + tremor (arms b/l, L>R) Psychiatric: Orientation: alert, oriented to person and oriented to place; + not oriented to time (States it is 1943) Eye Contact: + poor eye contact Results & Data Vital Signs (Past 12 Hours) Vital Signs Temp Pulse Pulse Resp BP Pulse Ox 12/23/18 19:27 36.7 C 87 18 114/74 95 12/23/18 15:38 82 12/23/18 15:00 36.7 C 84 20 125/65 96 12/23/18 11:09 36.7 C 81 20 106/62 95 PG Care Time/CCT Total # of Minutes Spent Total Time Spent with Patient: Total time spent is greater than 50% in coordination of care (as documented) at patient's floor/unit and/or counseling patient: (1) Aspiration pneumonia Aspiration pneumonia type: unspecified Laterality: unspecified laterality Lung location: unspecified part of lung Qualified Code(s): J69.0 - Pneumonitis due to inhalation of food and vomit
[2018-12-24] MEDS: CHECK SCOPOLAMINE PATCH PLACEMENT SCH ×3 (00:40→16:43)
[2018-12-24] MEDS: VALPROATE SOD 500 MG in DEXTROSE 5% 50 ML IV SCH ×4 (00:41→17:25)
[2018-12-24] MEDS: PIPERACILLIN/TAZOBACTAM 3.375 GM in DEXTROSE 5% 100 ML IV SCH ×2 (00:41→08:37)
[2018-12-24] MEDS: ATROPINE SULFATE 1% OP SOLN 2 ML BTL SL PRN ×2 (01:53→05:29)
[2018-12-24] MEDS: HEPARIN SOD 5,000 UNIT/0.5 ML VIAL SQ SCH (08:37)
[2018-12-24 12:13] LABS: Creatinine Clr Calc Pharmacy 60.2 ml/min; Est GFR (African American) 94.5; Est GFR (Non-African American) 81.5
[2018-12-24] MEDS ORDERED: ATROPINE SULFATE 1% OP SOLN 2 ML BTL SL PRN (12:51)
[2018-12-24] MEDS ORDERED: LORazepam 1 MG TAB SL PRN (12:51)
--- NOTE | 2018-12-24 12:56 | Palliative Care Progress Note ---
Date of Service December 24, 2018 Assessment & Plan (1) Goals of care, counseling/discussion: -Patient is more confused and lethargic today. -Secretions and not being able to protect airway continue to be a major issue. Patient continues to decline. -Spoke at length with patient's POA, Mick Navarrete, at bedside and outside of room. -After discussed, will transition to comfort measures only. Stop all labs, no further testing, stop abx. Give medications for comfort. Allow comfort feeding as tolerated. -Ordered pureed diet, but I would not anticipate patient being able to eat much. Maybe even a few bites may be comforting to her. Would also offer sips of fluids and moist sponges for comfort. -POLST form completed as follows: DNR, comfort measures only, no abx, no artificial hydration/nutrition. -Return to [facility] on hospice. Case management is setting this up. Transfer off telemetry-- updated Dr. Canas. -Atropine 1% oph soln 4 drops SL Q1h PRN secretions. -Lorazepam 0.5mg SL Q4h PRN anxiety/agitation. -Scopolamine patch. -Roxanol 5mg PO/SL Q3h PRN pain or SOB. Patient and family counseled on the secondary side effects of morphine such as sedation and respiratory depression. -All of the above plan was discussed with the patient at bedside in the presence of her POA. She agreed with comfort measures. -We will continue to follow as needed. (2) Aspiration pneumonia: (3) Seizure disorder: (4) Adult failure to thrive: (5) History of CVA (cerebrovascular accident): Subjective Patient seems more confused and lethargic today. She really did not answer many of my questions. Spoke at length with patient's POA, Mick Navarrete. See A&P. Review of Systems Review of Systems: Patient yelling out, could not obtain ROS. Physical Exam Constitutional: + ill appearing, + physical limitations, + frail appearing and + lethargic ENMT: Mouth: + poor dentition Neck: normal visual inspection Respiratory: no labored breathing Auscultation: + diminished lung sounds (extremely diminished in bases) Cardiovascular: RRR, no murmur, no edema Extremities: + edema (generalized) Gastrointestinal (Abdomen): Inspection/Auscultation: abdomen normal to inspection and normal bowel sounds Percussion/Palpation: abdomen soft; abdomen nontender Musculoskeletal: Extremities: + abnormal strength (weak) Skin: + pallor Neurologic: moves all extremities and awake Results & Data Vital Signs (Past 12 Hours) Vital Signs Temp Pulse Pulse Resp BP Pulse Ox 12/24/18 07:43 84 12/24/18 07:32 36.5 C 88 20 129/68 94 12/24/18 03:44 36.9 C 86 20 143/88 H 95 PG Care Time/CCT Prolonged Care Time Prolonged Care Time: Yes Total Prolonged Care Time: 70 Time Spent Midlevel 70 minutes with >50% of time spent at bedside with patient and family discussing condition and GOC. (1) Aspiration pneumonia Aspiration pneumonia type: unspecified Laterality: unspecified laterality Lung location: unspecified part of lung Qualified Code(s): J69.0 - Pneumonitis due to inhalation of food and vomit
--- NOTE | 2018-12-24 21:48 | Hospitalist Progress Note ---
Date of Service December 24, 2018 Assessment & Plan (1) Aspiration pneumonia: Patient admitted for aspiration pneumonia. WBC is elevated. will closely monitor patient. Had discussion with POA. DNR. After discussion with palliative care, patient will be transitioned to CAREER DEVELOPMENT DIRECTOR. Hopefully can return to [facility] in AM. Stopped antibiotics as this was discussed in meeting with POA and patient. (2) Seizure disorder: Patient has history of seizures. On valproic acid given mental status will place on IV valproic acid. (3) Adult failure to thrive: due to altered mental status. (4) Ambulatory dysfunction: Patient has been bed ridden for past few weeks. She has been less ambulatory and gradually having a worse quality of life in the past 2 years (5) Occipital stroke: History of above stroke. statin and plavix on hold for now given poor mental status. 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 Subjective Patient is more awake but does not provide comprehensible history. She says help at times. But reports she is not in pain. 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 Cardiovascular: Rate/Rhythm: tachycardic and regular rhythm Heart Sounds: normal S1 and normal S2; no murmur Gastrointestinal (Abdomen): normal bowel sounds, soft, nontender, no hepatosplenomegaly Neurologic: awake and + confused Speech / Cognition: + abnormal cognition Motor/Sensory: + tremor (arms b/l, L>R) Psychiatric: Orientation: alert, oriented to person and oriented to place; + not oriented to time (States it is 1943) Eye Contact: + poor eye contact PG Care Time/CCT Total # of Minutes Spent Total Time Spent with Patient: Total time spent is greater than 50% in coordination of care (as documented) at patient's floor/unit and/or counseling patient: (1) Aspiration pneumonia Aspiration pneumonia type: unspecified Laterality: unspecified laterality Lung location: unspecified part of lung Qualified Code(s): J69.0 - Pneumonitis due to inhalation of food and vomit
[2018-12-24] MEDS: MoRPHine SULFATE 5 MG/0.25 ML UDP PO PRN (23:45)
[2018-12-25] MEDS: CHECK SCOPOLAMINE PATCH PLACEMENT SCH
[2018-12-25] MEDS: VALPROATE SOD 500 MG in DEXTROSE 5% 50 ML IV SCH ×3 (00:27→12:01)
[2018-12-25] MEDS: MoRPHine SULFATE 5 MG/0.25 ML UDP PO PRN (06:22)
--- NOTE | 2018-12-25 13:06 | Palliative Care Progress Note ---
Date of Service December 25, 2018 Assessment & Plan (1) Goals of care, counseling/discussion: -Patient is more lethargic, but much more comfortable today. Her caregiver is at the bedside. -Patient's secretions are not as loud, she is not moaning or yelling out. -Being discharged back to [facility] on comfort/hospice care today at 1330. -Used two doses of Roxanol, the last being at 0622 this morning. Received dose of lorazepam at 0025 last night. -Atropine 1% oph soln 4 drops SL Q1h PRN secretions. -Lorazepam 0.5mg SL Q4h PRN anxiety/agitation. -Scopolamine patch. -Roxanol 5mg PO/SL Q3h PRN pain or SOB. Patient and family counseled on the secondary side effects of morphine such as sedation and respiratory depression. -POLSt form completed 12/24 with patient's POA: DNR, DISPENSING OPTICIAN, no abx, no IVF/tube feedings. (2) Aspiration pneumonia: (3) Seizure disorder: (4) Adult failure to thrive: (5) History of CVA (cerebrovascular accident): Subjective Patient is more lethargic, but much more comfortable today. Her caregiver is at the bedside. Patient's secretions are not as loud, she is not moaning or yelling out. Being discharged back to [facility] on comfort/hospice care today. Review of Systems Review of Systems: Unobtainable due to cognitive status Physical Exam Constitutional: + ill appearing, + physical limitations, + frail appearing and + lethargic ENMT: Mouth: + poor dentition Neck: normal visual inspection Respiratory: no labored breathing Auscultation: + diminished lung sounds (extremely diminished in bases) Cardiovascular: RRR, no murmur, no edema Extremities: + edema (generalized) Gastrointestinal (Abdomen): Inspection/Auscultation: abdomen normal to inspection and normal bowel sounds Percussion/Palpation: abdomen soft; abdomen nontender Musculoskeletal: Extremities: + abnormal strength (weak) Skin: + pallor Time Spent Midlevel 35 minutes with >50% of the time spent at bedside with patient and caregiver discussing plan of care. (1) Aspiration pneumonia Aspiration pneumonia type: unspecified Laterality: unspecified laterality Lung location: unspecified part of lung Qualified Code(s): J69.0 - Pneumonitis due to inhalation of food and vomit
--- NOTE | 2019-01-01 20:00 | Discharge Summary ---
Date of Service December 25, 2018 Admission HPI Per Admitting Provider 73 yo female who was recently admittted for failure to thrve and was discharged on 12/20 to [facility] return today to the ER. CVA, seizure disorder, mood disorder, HLD, T2DM, HTN. It appears patient has been getting worse for the past 2 years patient has mainly been bedridden. This is likely precipitated by her stroke. Patient was recently admitted here for aspiration pneumonia was treated with IV antibiotics and patient improved and was discharged to nursing facility. However, patient was only there for a day and deteriorated. It appears she aspirated again given the gurgling noises she was making in her hospital bed. Patient is currently in bed and does not provide much significant history. Her caregiver is at bedside and states that patient had improved over the course of the hospital stay and Saturday. But on Saturday she did not visit the patient. Nursing facility infomred her on Saturday morning that the patient had deteriorated and had to come back to the hospital. There was question that patient was not doing so well on Saturday. Patient does not have any family but I did have discussion with MICHAEL in which he states that patient given her poor quality of life determined that her CODE STATUS should be do not resuscitate order. MICHAEL also was interested in discussing with palliative care to discuss goals of care given how patient has deteriorated over the past 2 past 2 years. 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 Cardiovascular: Rate/Rhythm: tachycardic and regular rhythm Heart Sounds: normal S1 and normal S2; no murmur Gastrointestinal (Abdomen): normal bowel sounds, soft, nontender, no hepatosplenomegaly Neurologic: awake and + confused Speech / Cognition: + abnormal cognition Motor/Sensory: + tremor (arms b/l, L>R) Discharge Data Allergies Allergy/AdvReac Type Severity Reaction Status Date / Time ragweed pollen Allergy Intermediate ITCHY Verified 12/22/18 07:13 EYES, SNEEZING house dust Allergy Mild ITCHY Verified 12/22/18 07:13 EYES,SNEEZING No Known Drug Allergies Allergy Unknown Verified 12/22/18 07:13 Trees AdvReac Unknown Unknown Uncoded 12/22/18 07:13 Consultations 12/22/18 09:41 ED Decision to Admit Stat 12/22/18 11:13 Consult Palliative Care Stat Hospital Course (1) Aspiration pneumonia: Patient admitted for aspiration pneumonia. WBC is elevated. will closely monitor patient. Had discussion with POA. DNR. After discussion with palliative care, patient will be transitioned to PEOPLESOFT ANALYST. will discharge to [facility]. Stopped antibiotics as this was discussed in meeting with POA and patient. (2) Seizure disorder: Patient has history of seizures. On valproic acid given mental status will place on IV valproic acid. (3) Adult failure to thrive: due to altered mental status. (4) Ambulatory dysfunction: Patient has been bed ridden for past few weeks. She has been less ambulatory and gradually having a worse quality of life in the past 2 years (5) Occipital stroke: History of above stroke. statin and plavix on hold for now given poor mental status. 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): (4) Tremor: (5) Occipital stroke: (6) CKD stage 3 due to type 2 diabetes mellitus: (7) History of CVA (cerebrovascular accident): (8) Seizure disorder: (6) Loss of vision: chronic (7) DVT prophylaxis: heparin DNR Total Time Total Time Spent Total Time Spent (In Minutes): 32 Total Time Includes: Examination of the Patient, Discharge Planning and Medication Reconciliation Discharge Plan Discharge Items Patient Disposition: Hospice - Medical Facility Reason For Visit: ASPIRATION PNEUMONIA/FREQUENT SUCTION Discharge Diagnosis: Aspiration Pneumonia Activity: Resume your previous activity Non-emergency contact: Primary Care Provider Call non-emergency contact if: you have any medication questions Follow-up/Referrals: Nereida Jameson DO [Primary Care Provider] - Diet: Regular Diet Texture: Pureed (blended smooth) Addtl Attending Provider Instructions: Will be discharged on hospice Pending Studies at Discharge: No Stand-Alone Forms: [employer] Skilled Items Patient informed of condition?: Yes DNR: Yes Discharge Level of Care: Skilled Communicable Disease: No Discharge Prognosis: Deteriorating Lines: None Urinary Catheter: No Medications and DC Order Prescriptions: New lorazepam 1 mg Tablet 0.5 mg sublingual Q4H PRN (Reason: agitation) Qty: 20 RF: 0 morphine concentrate 100 mg/5 mL (20 mg/mL) Solution 0.25 ml PO Q3H PRN (Reason: SOB/PAIN/AGITATION) Qty: 30 RF: 0 atropine 1 % Drops 4 drp sublingual Q1H PRN (Reason: secretions) Qty: 30 RF: 0 Continued loratadine-pseudoephedrine [Claritin-D 24 Hour] 10-240 mg Tablet Extended Release 24 Hr 1 tab PO DAILY PRN (Reason: Allergy Symptoms) Qty: 0 RF: 0 ondansetron HCl 4 mg tablet 4 mg PO Q6H PRN (Reason: Nausea) Qty: 30 RF: 0 valproic acid (as sodium salt) 500 mg/10 mL (10 mL) Solution 500 mg PO QID Qty: 1000 RF: 3 acetaminophen 325 mg Tablet 650 mg PO Q4 PRN (Reason: temp = or > 100) RF: 0 acetaminophen 325 mg Tablet 650 mg PO Q4 PRN (Reason: Pain) RF: 0 albuterol sulfate 2.5 mg /3 mL (0.083 %) Solution For Nebulization 2.5 mg INHALATION Q6 PRN (Reason: Shortness Of Breath) RF: 0 Discontinued clopidogrel 75 mg tablet 75 mg PO QAM Qty: 30 RF: 5 lisinopril 5 mg tablet 5 mg PO DAILY Qty: 90 RF: 1 multivitamin Tablet 1 tab PO DAILY RF: 0 atorvastatin [Lipitor] 80 mg tablet 80 mg PO HS RF: 0 No Action (DME) wheelchair device See Dose Instructions .ROUTE .MEDSUPPLY Qty: 1 RF: 0 Discharge Orders: Discharge Order (Routine); Ordered 12/25/18 Ordered By: David Canas Admission Data Admit Date/Time: 12/22/18 10:56 Attending Provider: David Canas Admit Provider: David Canas Primary Care Provider: Nereida Jameson Other Providers: Tulio Lanier Ragan ; Katharina Murcia ; Maria G Lorenzo Other Interventions: Discharge Summary Assessment (RN) Last Done: 12/25/18 12:36 DC Date/Time DO NOT enter until pt leaves facility: 12/25/18 15:29
== END 2018-12-25 15:29 | disposition hospice, inpatient (51) | DRG 179 ==
LOC: ED 06:44 → 2N 10:56 → 2W 23:34 → 4W 12-24 22:33